=== PATIENT | female | born 1955 | race Caucasian/White ===

== ENCOUNTER 2023-11-03 08:14 | Outpatient (OUT) | payer MEDICARE, SELFPAY ==
[2023-11-03 08:40] LABS: Basophils Absolute Auto 0.1 10^3/uL (0.0-0.1); Basophils Percent Auto 0.8 % (0.2-2.0); Eosinophils Absolute Auto 0.1 10^3/uL (0.0-0.7); Eosinophils Percent Auto 2.2 % (0.9-7.0); Hematocrit 43.4 % (36.0-48.0); Hemoglobin 14.6 g/dL (12.0-16.0); Immature Granulocytes Abs Auto 0.01 10^3/uL (0.00-0.03); Immature Granulocytes Pct Auto 0.2 % (0.0-0.5); Lymphocytes Percent Auto 32.5 % (20.5-60.0); Mean Corpuscular HGB Conc 33.6 g/dL (29.9-35.2); Mean Corpuscular Hemoglobin 28.5 pg (26.7-34.0); Mean Corpuscular Volume 84.6 fL (81.0-99.0); Mean Platelet Volume 9.3 fL (9.5-13.5); Monocytes Absolute Auto 0.8 10^3/uL (0.3-0.8); Neutrophils Absolute Auto 3.3 10^3/uL (1.4-6.5); Neutrophils Percent Auto 52.3 % (43.0-75.0); Platelet Count 290 10^3/uL (150-450); Red Blood Count 5.13 10^6/uL (4.20-5.40); Red Cell Distribution Width 11.4 % (11.0-15.0); White Blood Count 6.2 10^3/uL (4.0-11.0)
[2023-11-03 08:58] LABS: Alanine Aminotransferase 39 U/L (14-59); Albumin Globulin Ratio 0.9; Albumin Level 3.4 g/dL (3.4-5.0); Alkaline Phosphatase 91 U/L (46-116); Anion Gap 13.6; Aspartate Amino Transferase 20 U/L (15-37); BUN Creatinine Ratio 21.2; Bilirubin Total 0.8 mg/dL (0.2-1.0); Calcium 9.2 mg/dL (8.5-10.1); Carbon Dioxide 26.5 mmol/L (21.0-32.0); Chloride 99 mmol/L (98-107); Chol HDL Ratio 3.5; Cholesterol 211 mg/dL (<=200); Estimated GFR (African America >60 (>=60); Estimated GFR (Non-African Ame >60 (>=60); Globulin 3.8 g/dL; Glucose 329 mg/dL (74-106); HDL Cholesterol 61 mg/dL (40-60); Potassium 4.1 mmol/L (3.5-5.1); Sodium 135 mmol/L (136-145); Total Protein 7.2 g/dL (6.4-8.2); Triglycerides 146 mg/dL (<=150); VLDL CHOLESTEROL 29.2 mg/dL
--- NOTE | 2023-11-03 10:43 | MM_ITS ---
Patient Name: LUIS ALFREDO ROMERO MR#: [id number] : 1955 Exam Date: 11/03/2023 Ordering Doctor: Non-Staff Physician RADIOLOGY REPORT PROCEDURE: MM TOMOSYNTHESIS SCREENING BI COMPARISON: MG MAMM ELDA SCRN W CAD DIG, 03/03/2016. MG MAMM SCREEN 3D ELDA CAD, 04/23/2021. INDICATIONS: screening Calculator Name NCI Breast Cancer Risk Assessment Tool 5 Year Breast Cancer Risk 1.90% Lifetime Breast Cancer Risk 6.40% Personal Breast Cancer No Personal Ovarian Cancer No Treatments None Family Cancers Father with lymphoma cancer at age ~70. LOCATION: [facility] BREAST COMPOSITION: There are scattered areas of fibroglandular density. FINDINGS: DIAGNOSTIC CATEGORY 1--NEGATIVE. NO CHANGE FROM COMPARISON ASSESSMENT. Scattered benign-appearing calcifications are present. Scattered benign-appearing lymph nodes are present. RIGHT BREAST: No significant suspicious finding. Asymmetrically small, stable LEFT BREAST: No significant suspicious finding. RECOMMENDATIONS: ROUTINE MAMMOGRAM AND CLINICAL EVALUATION IN 12 MONTHS. PLEASE NOTE: A NORMAL MAMMOGRAM DOES NOT EXCLUDE THE POSSIBILITY OF BREAST CANCER. A CLINICALLY SUSPICIOUS PALPABLE LUMP SHOULD BE BIOPSIED. Dictated by: Benjamín Queen MD on 11/03/2023 at 13:58 Approved by: Benjamín Queen MD on 11/03/2023 at 13:59
== END 2023-11-03 08:15 | disposition home or self-care (01) ==
LOC: MAMMO 08:18
PROVIDERS: PCP Family Medicine
DX: Z12.31 Encounter for screening mammogram for malignant neoplasm of breast (principal); I10 Essential (primary) hypertension; Z76.89 Persons encountering health services in other specified circumstances; Z80.7 Family history of other malignant neoplasms of lymphoid, hematopoietic and related tissues
CPT/HCPCS: 36415; 77063; 77067; 80053; 80061; 85025

== ENCOUNTER 2025-05-08 09:17 | Outpatient (OUT) | payer MEDICARE, SELFPAY ==
--- OUTSIDE RECORDS SUMMARY | 2025-04-25 11:15 | XMS_ITS | Encounter Summary ---
Author Organization [facility] Address [address] [place] [address] Care Team Providers Care Earth Science Technical Officer Name Role Phone Gosia Munroe MD Primary Care Provider [phone] Reason for Visit * ReasonCommentsFollow-up Encounter Details DateTypeDepartmentCare Team (Latest Contact Info)Hfmfoxtthym19/14/2025 11:15 AM EDTOffice Visit [facility] [address] [place] [phone] Tiffanie Sepulveda MD [address] [place] [address] Lichen planopilaris (Primary Dx) Social History Tobacco UseTypesPacks/DayYears UsedDateSmoking Tobacco: NeverSmokeless Tobacco: NeverAlcohol UseStandard Drinks/WeekCommentsDefer0 (1 standard drink = 0.6 oz pure alcohol)CommentsUnknownSex and Gender InformationValueDate Recorded Sex Assigned at BirthNot on fileLegal SdzMduafe04/15/2023 6:56 PM EDTGender IdentityNot on fileSexual OrientationNot on filedocumented as of this encounter Progress Notes * Tiffanie Sepulveda MD - 04/25/2025 11:15 AM EDT Follow-Up: Diagnosis: Lichen planopilaris Location: Scalp Last visit: 1 month ago Status: improved Symptoms: fewer red spots Current treatment: Fluocinonide soultion 0.05% every day, ILK injection at last appt, 3mL of K2.5 All pertinent medical history, medications, and allergies were reviewed. General Exam: alert, oriented to person, place, and time, normal affect, well appearing Unaccompanied A focused exam completed based on patient reported problems, see below: Skin Exam 1. LICHEN PLANOPILARIS Scalp Perifollicular erythema improved, stable Patient was counseled that this condition is chronic and can be controlled, but not cured. Continueusing Fluocinonide solution daily as needed for flares, can decrease to 1-2x weekly now since controlled. Notify office if worsening despite treatment. Follow up at next skin check. Existing Treatments - fluocinonide (Lidex) 0.05 % external solution - APPLY TO SCALP ONCE A DAY Next Visit: as scheduled documented in this encounter Plan of Treatment DateTypeDepartmentCare Team (Latest Contact Info)Yojutpvibke48/10/2026 10:35 AM ESTOffice Visit [facility] [address] [place] [address] Tiffanie Sepulveda MD [address] [place] [address] documented as of this encounter Visit Diagnoses Diagnosis Lichen planopilaris- Primary Lichen planus documented in this encounter Care Teams Team MemberRelationshipSpecialtyStart DateEnd Date Gosia Munroe MD [address] [facility] [place] [address] PCP - GeneralFamily Medicine03/03/23documented as of this encounter
--- OUTSIDE RECORDS SUMMARY | 2025-05-08 09:21 | XMS_ITS | Clinical Summary ---
Author Organization [facility] tem Address [id number] [place] [address] Care Team Providers Care Is Technician Name Role Phone Gosia Munroe MD Primary Care Provider [phone] Allergies No known active allergies Medications No known medications Active Problems No known active problems Family History Medical HistoryRelationNameCommentsHeart diseaseFatherLymphomaFatherRelationName StatusCommentsFatherDeceasedMotherAlive Social History Tobacco UseTypesPacks/DayYears UsedDateSmoking Tobacco: NeverAlcohol UseStandard Drinks/WeekCommentsYes2 (1 standard drink = 0.6 oz pure alcohol)ChildcareAnswer Date WwzrtfgvLuupgulclYuvtwbh44/12/2019EmploymentAnswerDate RecordedEmployment Gcwtudg8212/22/2018Purpose - LifeAnswerDate RecordedPurpose and direction in life Vwyopaq22/11/2021CommentsUnknownSex and Gender InformationValueDate RecordedSex Assigned at BirthNot on fileLegal PxfOwkopw90/07/2017 9:25 AM EDT Gender IdentityNot on fileSexual OrientationNot on file Last Filed Vital Signs Vital SignReadingTime TakenCommentsBlood Cpkemqfh751/8006 11:11 AM EDT Pulse--Temperature--Respiratory Rate--Oxygen Saturation--Inhaled Oxygen Concentration--Csxfnr31.1 kg (192 lb)12/24/2016 11:11 AM MNQBsuxin397.6 cm (5' 6 )12/24/2016 11:11 AM EDTBody Mass Index30.9912/24/2016 11:11 AM EDT Plan of Treatment Health MaintenanceDue DateLast DoneCommentsDepression Sglnfmozu20/11/1969Tobacco Skcgdrfqy05/11/1969Adult BMI Ghrfsltfy18/11/1975DTaP,Tdap and Td Vaccines (1 - Tdap)1975Zoster (Shingles) Vaccine (1 of 2)2006Fall Risk Screening 2021Influenza Enlptus8103/13/2025 Medical Devices Not on file Insurance Care Teams Team MemberRelationshipSpecialtyStart DateEnd Gosia Munroe MD PCP - GeneralFamily Medicine12/17/16
--- OUTSIDE RECORDS SUMMARY | 2025-05-08 09:21 | XMS_ITS | Clinical Summary ---
Author Organization [facility] Address [address] [place] [address] Care Team Providers Care Supervisor [employer] Stock[employer] Name Role Phone Gosia Munroe MD Primary Care Provider [phone] Allergies No known active allergies Medications MedicationSigDispense QuantityRefillsLast FilledStart DateEnd DateStatus bisoprolol (Zebeta) 2.5 MG split tablet 05/13/2019Active bisoprolol-hydroCHLOROthiazide (Ziac) 2.5-6.25 MG tablet 3Active cetirizine (ZyrTEC ALLERGY) 10 MG tablet 1 (one) time each day at the same time.Active Multiple Vitamin (Multivitamin Adult) tablet OrallyActive ASPIRIN 81 PO Aspir-81Active fluocinonide (Lidex) 0.05 % external solution Indications:Lichen planopilarisAPPLY TO SCALP ONCE A DAY 60 mL 1105Active metFORMIN (Glucophage) 500 MG tablet Take 500 mg by mouth in the morning and 500 mg before bedtime.Active Active Problems ProblemNoted DateDiagnosed DateAge-related nuclear cataract of both eyes 03/03/2023 Encounters DateTypeDepartmentCare YtyuVfylhrnexrs90/14/2025 11:15 AM EDTOffice Visit [facility] [address] [place] [address] Tiffanie Sepulveda MD Lichen planopilaris (Primary Dx)04/25/2025amboo flowsheet [facility] [address] [place] [phone] Tiffanie Sepulveda MD 04/25/20251503Dfwlca87/11/2025 8:45 AM EDTOffice Visit [facility] [address] [facility] [address] [place] [address] Tiffanie Sepulveda MD Actinic keratosis (Primary Dx); Lentigines; History of basal cell carcinoma; Lichen ihniyydohctt71/11/2025amboo flowsheet [facility] [address] [facility] [address] [place] [address] Tiffanie Sepulveda MD 03/23/2025Travelfrom Last 3 Months Family History Medical HistoryRelationNameCommentsCataractsBrotherRetinal detachmentBrother CataractsMotherRetinal detachmentMotherMelanomaNeg HxRelationNameStatusComments BrotherMother Social History Tobacco UseTypesPacks/DayYears UsedDateSmoking Tobacco: NeverSmokeless Tobacco: Never Tobacco Cessation:Counseling Given: Not Answered Alcohol UseStandard Drinks/WeekCommentsDefer0 (1 standard drink = 0.6 oz pure alcohol)CommentsUnknownSex and Gender InformationValueDate RecordedSex Assigned at BirthNot on fileLegal KvyLdrqww12/15/2023 6:56 PM EDTGender Identity Not on fileSexual OrientationNot on file Last Filed Vital Signs Vital SignReadingTime TakenCommentsBlood Bmfpyjah594/8903/03/2023 2:56 PM EDTnno latex allergies, no PM/DF, No hikuquCrkik9108/22/2023 2:56 PM EDTTemperature-- Respiratory Rate--Oxygen Saturation--Inhaled Oxygen Concentration--Hswzrc12.7 kg (200 lb)07/15/2017 12:00 PM IIBKzwkjq147.6 cm (5' 6 )08/20/2021 12:00 PM ESTBody Mass Index32.28007/15/2017 12:00 PM EST Plan of Treatment DateTypeDepartmentCare Team (Latest Contact Info)Eodjqlfilpm02/10/2026 10:35 AM ESTOffice Visit [facility] [address] [facility] [address] [place] [address] Tiffanie Sepulveda MD [address] [place] [address] Health MaintenanceDue DateLast DoneCommentsCT Cjqfoapngjog55/11/1957Colonoscopy 1955FIT1955FOBT1955 7102Apeacyohxneil63/11/8567Gusyzlmrc57/11/1997 Pneumococcal Vaccine: 65+ Years (1 of 1 - PCV)2006Influenza Vaccine (#1) , 06/01/2023, 05/26/2022, Additional history exists Colorectal Cancer Jnerjpwja55/27/2028FIT-DNA Insurance Care Teams Team MemberRelationshipSpecialtyStart DateEnd Date Gosia Munroe MD [address] [facility] [place] [address] PCP - GeneralFamily Medicine03/03/23
--- OUTSIDE RECORDS SUMMARY | 2025-05-08 09:21 | XMS_ITS | Encounter Summary ---
Author Organization [facility] Address [address] [address] Care Team Providers Care Cement Mason Name Role Phone Gosia Munroe MD Primary Care Provider [phone] Encounter Details DateTypeDepartmentCare Team (Latest Contact Info)Yoadgprhabe69/14/2025amboo flowsheet [facility] [address] [place] [address] Tiffanie Sepulveda MD [address] [place] [address] Social History Tobacco UseTypesPacks/DayYears UsedDateSmoking Tobacco: NeverSmokeless Tobacco: NeverAlcohol UseStandard Drinks/WeekCommentsDefer0 (1 standard drink = 0.6 oz pure alcohol)CommentsUnknownSex and Gender InformationValueDate Recorded Sex Assigned at BirthNot on fileLegal IjpAxzwuu35/15/2023 6:56 PM EDTGender IdentityNot on fileSexual OrientationNot on filedocumented as of this encounter Plan of Treatment DateTypeDepartmentCare Team (Latest Contact Info)Limdriieznl68/10/2026 10:35 AM ESTOffice Visit [facility] [address] [place] [address] Tiffanie Sepulveda MD [address] [place] [address] documented as of this encounter Visit Diagnoses Not on filedocumented in this encounter Care Teams Team MemberRelationshipSpecialtyStart DateEnd Date Gosia Munroe MD [address] [place] [address] PCP - GeneralFamily Medicine03/03/23documented as of this encounter
--- OUTSIDE RECORDS SUMMARY | 2025-05-08 09:21 | XMS_ITS | Encounter Summary ---
Author Organization [facility] Address [address] [place] [address] Care Team Providers Care Tire Regrooving Machine Operator Name Role Phone Gosia Munroe MD Primary Care Provider [phone] Encounter Details DateTypeDepartmentCare Team (Latest Contact Info)Tcjsuvyamur31/14/2025Travel Social History Tobacco UseTypesPacks/DayYears UsedDateSmoking Tobacco: NeverSmokeless Tobacco: NeverAlcohol UseStandard Drinks/WeekCommentsDefer0 (1 standard drink = 0.6 oz pure alcohol)CommentsUnknownSex and Gender InformationValueDate Recorded Sex Assigned at BirthNot on fileLegal ZnsDxvglv14/15/2023 6:56 PM EDTGender IdentityNot on fileSexual OrientationNot on filedocumented as of this encounter Plan of Treatment DateTypeDepartmentCare Team (Latest Contact Info)Cnllpsumhzu34/10/2026 10:35 AM ESTOffice Visit [facility] [address] [place] [address] Tiffanie Sepulveda MD [address] [place] [address] documented as of this encounter Visit Diagnoses Not on filedocumented in this encounter Care Teams Team MemberRelationshipSpecialtyStart DateEnd Date Gosia Munroe MD [address] [place] [address] PCP - GeneralFamily Medicine03/03/23documented as of this encounter
--- OUTSIDE RECORDS SUMMARY | 2025-05-08 09:27 | XMS_ITS | CCD ---
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 Name Role Phone DR GOSIA MUNROE Primary Care Unavailable LUDWIG, DR GOSIA Lee Consulting Unavailable LUDWIG, DR GOSIA Lee Attending Unavailable LUDWIG, DR GOSIA Lee Admitting Unavailable YVES, DR BEVERLY Hernandez Consulting Unavailable Lilliana Aguiar Unavailable Gosia Munroe MD Primary Care Provider [phone] MAYA, APOLINAR A Primary Care Physician MAYA, APOLINAR A Primary Care Physician [phone] MAYA, APOLINAR A Attending Unavailable MAYA, APOLINAR A Attending Unavailable MAYA, APOLINAR A Admitting Unavailable MAYA, APOLINAR A Attending Unavailable MAYA, APOLINAR A Attending Unavailable MAYA, APOLINAR A Admitting Unavailable MAYA, APOLINAR A Attending Unavailable MAYA, APOLINAR A Attending Unavailable MAYA, APOLINAR A Attending Unavailable MAYA, APOLINAR A Attending Unavailable Keri Kennedy APRN Attending Provider Juanjo Guallpa MD Primary Care Provider Keri Kennedy Attending UnavailKeri Hayward Admitting UnavailJuanjo White Primary Care Unavailable Juanjo Guallpa MD Primary Care Provider Saira Aj APRN Attending Provider MAYA, APOLINAR A Attending Unavailable MAYA, APOLINAR A Admitting Unavailable MAYA, APOLINAR A Attending Unavailable MAYA, APOLINAR A Attending Unavailable MAYA, APOLINAR A Attending Unavailable MAYA, APOLINAR A Admitting Unavailable MAYA, APOLINAR A Attending Unavailable MAYA, APOLINAR A Attending Unavailable APOLINAR TREJO Attending Unavailable APOLINAR TREJO Attending Unavailable APOLINAR TREJO Admitting Unavailable APOLINAR TREJO Attending Unavailable Ludwig VO, Gosia Lee Primary Care Provider TIFFANIE BENSON Attending Unavailable TIFFANIE BENSON Attending Unavailable PETSHARYN, TIFFANIE Dwyer Attending Unavailable PETTIFFANIE COLES A Attending Unavailable Allergies Allergy ClassificationReported Allergen(s)Allergy TypeDate of OnsetReaction(s) Facility (4 sources)No Known Medication Allergies; Translations: [No Known Medication Allergies]Propensity to adverse reactions (disorder)[facility] Repository Medications Current Medications MedicationDrug Class(es)DatesSig (Normalized)Sig (Original)ascorbic acid 60 mg / beta carotene 5000 unt / copper sulfate 40 mg / dl-alpha tocopheryl acetate 30 unt / sodium selenite 0.04 mg / zinc oxide 40 mg oral tablet (11 sources)Vitamin CMultiple Vitamin (Multivitamin Adult) tablet Orally Active aspirin 81 mg delayed release oral tablet (16 sources)Platelet Aggregation Inhibitor, Nonsteroidal Anti-inflammatory Drug Start: 91-28-2437yucq 1 tablet by mouth once dailyAspirin 81 mg tablet,delayed release (DR/EC) Active 81 MG PO Daily May 29, 2024 1:00am Complies with drug therapyASPIRIN 81 PO Aspir-81 ActiveASPIRIN 81 PO Aspir-81 0 Activetake 1 tablet by mouth every twenty-four hoursAspirin Adult Low Dose 81 MG 1 tablet Orally Once a day Activebisoprolol (Zebeta) 2.5 MG split tablet (11 sources)Start: 21-61-2655nwssufuhid (Zebeta) 2.5 MG split tablet 05/13/2019 ActiveStart: 87-69-6809qjiurozynf (Zebeta) 2.5 MG split tabletbisoprolol fumarate 2.5 mg / hydroCHLOROthiazide 6.25 mg oral tablet (19 sources)Thiazide Diuretic, beta-Adrenergic BlockerStart: 25-15-4935gpmj 1 tablet by mouth once dailybisoprolol-hydrochlorothiazide 2.5 mg-6.25 mg Tab 1 tab(s), Oral, Daily, 90 tab(s), Refill(s) 4, [facility]/pharmacy #[id number], 162, cm, 12/03/24 16:39:00 EST, Height/Length Dosing, 82.1, kg, 04/05/24 7:59:00 EDT, Weight Dosing Start Date: 08/03/24 Status: Ordered Quantity: 90.0 Unit: tab(s) Repeat number: 5 Indication: Essential (primary) hypertensionStart: 05-29-2024 take 1 tablet by mouth once dailyBisoprolol-Hydrochlorothiazide 2.5-6.25 mg tablet Active 1 TAB PO Daily May 29, 2024 12:00amStart: 41-58-7501tpao 1 tablet by mouth once dailybisoprolol-hydrochlorothiazide 2.5 mg-6.25 mg Tab 1 tab(s), Oral, Daily, 90 tab(s), Refill(s) 1, [facility]/pharmacy #[id number], 161.3, cm, 10/06/23 15:21:00 EDT, Height/Length Dosing, 89.2, kg, 10/06/23 15:21:00 EDT, Weight Dosing Start Date: 10/07/23 Status: OrderedStart: 69-74-8505llnsboqbau- hydroCHLOROthiazide (Ziac) 2.5-6.25 MG tablet 02/19/2023 Activecefuroxime 500 mg oral tablet (6 sources)Cephalosporin AntibacterialStart: 07-16-2022 End: 82-48-7543ygbj 1 tablet by mouth in the morningcefuroxime (Ceftin) 500 MG tablet Take 500 mg by mouth in the morning and 500 mg before bedtime. 07/16/2022 10/07/2024 Discontinued (Therapy completed)cetirizine hydrochloride 10 mg chewable tablet (16 sources)Histamine-1 Receptor AntagonistStart: 00-68-1679ibxp 1 tablet by mouth twice dailyCetirizine 10 mg tablet,chewable Active 10 MG PO Twice daily May 29, 2024 1:00am FreeTextSi tablet Orally Once a day; Note: Source Status: Taking; Provider: Stefania Tijerina ( ) Complies with drug therapycetirizine (ZyrTEC ALLERGY) 10 MG tablet 1 (one) time each day at the same time. Activefluocinonide 0.5 mg/ml topical solution (18 sources)CorticosteroidStart: 41-03-7090curjp 1 [IU] topically three times dailyfluocinonide topical 0.05% solution 1 marcus, Topical, TID, 60 mL, Refill(s) 0 Start Date: 10/06/23 Status: Ordered Quantity: 60.0 Unit: mL Repeat number: 1 Start: 08-14-2022 End: 20-08-9055limgycuxbdns (Lidex) 0.05 % external solution Indications: Lichen planopilaris APPLY TO SCALP ONCE A DAY 60 mL 11 08/22/2024 Activefluorouracil 50 mg/ml topical cream (6 sources)Nucleoside Metabolic InhibitorStart: 08-21-2022 End: 29-60-6257pnxoxpsmxtna (Efudex) 5 % cream every 12 (twelve) hours. 08/21/2022 10/07/2024 Discontinued (Therapy completed)fluticasone propionate 0.05 mg/actuat metered dose nasal spray (2 sources)CorticosteroidStart: 70-22-9666neoa 2 spray(s) nasal route once daily Fluticasone Propionate 50 MCG/ACT 2 sprays Nasally Once a day for 14 day(s) Jul, ActiveStart: 48-26-2108jkcegzpnifr Nasal 0.05 mg/inh Verdi Refill(s) 0, Nasal, 0 Refill(s) Start Date: 07/16/23 Status: Ordered Repeat number: 1metFORMIN hydrochloride 500 mg oral tablet (11 sources)BiguanideStart: 14-19-3893mddy 1 tablet by mouth twice daily metformin 500 mg Tab 500 mg = 1 tab(s), Oral, BID, # 180 tab(s), Refills(s) 1, Pharmacy: [facility]/pharmacy #[id number], 162, cm, 06/14/24 16:39:00 EST, Height/Length Dosing, 82.1, kg, 04/05/24 7:59:00 EDT, Weight Dosing Start Date: 06/20/24 Status: Ordered Quantity: 180.0 Unit: tab(s) Repeat number: 2 Indication: Type 2 diabetes mellitus without complicationspredniSONE 20 mg oral tablet (1 source)Start: 30-94-0384wdnn 1 tablet by mouth every twelve hourspredniSONE 20 MG 1 tablet Orally bid for 5 day(s) Jul, Active Completed/Discontinued Medications MedicationDrug Class(es)DatesSig (Normalized)Sig (Original)amoxicillin 875 mg / clavulanate 125 mg oral tablet (10 sources)Penicillin-class AntibacterialStart: 05-29-2024 End: 42-82-1798ivvg 1 tablet by mouth twice dailyAmoxicillin-Pot Clavulanate 875-125 mg tablet Discontinued 1 TAB PO Twice daily 01 05May 29, 2024 1:00am February 26, 2025 9:04amStart: 84-73-2202sicy 1 tablet by mouth every twelve hoursAmoxicillin-Pot Clavulanate 875-125 MG 1 tablet Orally every 12 hrs for 10 day(s) Jul, ActiveStart: 08-15-2022 End: 13-85-5816uabe 1 tablet by mouth in the morningamoxicillin-clavulanate (Augmentin) 875-125 MG tablet Take 1 tablet by mouth in the morning and 1 tablet before bedtime. 08/15/2022 10/07/2024 Discontinued (Therapy completed) fluconazole 150 mg oral tablet (4 sources)Azole AntifungalStart: 33-97-6496oinj 1 tablet by mouth once fluconazole 150 mg Tab 150 mg = 1 tab(s), Oral, Once, Take one tablet at the onset of symptoms; mayrepeat in 72 hours, # 2 tab(s), Refills(s) 0, Pharmacy: [facility]/pharmacy #[id number], 162, cm, 04/05/24 7:59:00 EDT, Height/Length Dosing, 82.1, kg, 04/05/24 7:59:00 EDT, Weight Dosing Start Date: 06/14/24 Status: Ordered Quantity: 2.0 Unit: tab(s) Repeat number: 1Start: 86-36-9225Gtceklcvwqa 150 mg tablet Active 150 MG PO Q3D May 29, 2024 1:00am Take one tablet and if symptoms persist 3 days later, take second tablet Complies with drug therapy Glucometer (2 sources)Start: 39-65-5171Nxpvawclnr Glucometer, See Instructions, 1 EA, 0, Glucometer to test blood sugar TID PRN E11.9, [facility]/pharmacy #[id number], Supply, 161.3, cm, 11/19/23 7:58:00 EDT, Height/Length Dosing, 88.6, kg, 11/19/23 7:58:00 EDT, Weight Dosing Start Date: 11/19/23 Status: Ordered Quantity: 1.0 Unit: EA Repeat number: 1Indication: Type 2 diabetes mellitus without complicationsStart: 45-40-6684Viqxcbaslw Glucometer, See Instructions, 1 EA, 0, Glucometer to test blood sugar TID PRN E11.9, [facility]/pharmacy #[id number], Supply, 161.3, cm, 11/19/23 7:58:00 EDT, Height/Length Dosing, 88.6, kg, 11/19/23 7:58:00 EDT, Weight Dosing Start Date: 11/19/23 Status: Orderedtriamcinolone acetonide 10 mg/ml injectable suspension (4 sources)CorticosteroidStart: 03-23-2025 End: 03-06-1670mkkhdnisdvcew acetonide (Kenalog) injection 2.5 mgStart: 03-23-2025 End: 52.5 mg, Intra-lesional, Once, On Angelic 03/23/25 at 0900, For 1 dose Problems Problem ClassificationProblemDateDocumented DateEpisodic/ChronicCataract (11 sources)Bilateral age-related nuclear cataracts; Translations: [Age-related nuclear cataract, bilateral]Onset: 189934-26-3155JrwatojAeblwguz mellitus without complication (2 sources)Type 2 diabetes gvuwjodk02-08-0236AnasenqJltkspvkh hypertension (3 sources)Hypertensive disorder; Translations: [Essential (primary) hypertension]69-96-0535WtlfcljBltzxwggm of unspecified nature or uncertain behavior (2 sources)Neoplastic disease; Translations: [Neoplasm of unspecified behavior of bone, soft tissue, and skin]45-23-3704PtlpgdvkFkxwb inflammatory condition of skin (7 sources)Lichen planopilaris; 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]08-20-2023 EpisodicOther lower respiratory disease (1 source)Wheezing; Translations: [Wheezing]Onset: 31-92-0157QkqvufzbXojph non- epithelial cancer of skin (7 sources)History of malignant basal cell neoplasm of skin; Translations: [Personal history of other malignant neoplasm of skin]65-91-7236IeaddfwiCfonx nutritional; endocrine; and metabolic disorders (4 sources)Body mass index 30+ - cbfoans19-53-7663KgmdqhbEaful screening for suspected conditions (not mental disorders or infectious disease) (4 sources)Encounter for screening mammogram for malignant neoplasm of breast; Translations: [ENC SCR MAMMO MALIG NEOPLASM BREAST]Onset: 86-32-3118Vrxxsaby Other skin disorders (4 sources)Seborrheic keratosis; Translations: [Other seborrheic keratosis] 59-84-0021CbmpvtfsZsrzz skin disorders (6 sources)Lentiginosis; Translations: [Other melanin hyperpigmentation] 94-75-1837UjrhlewhSpgfl skin disorders (6 sources)Actinic keratosis; Translations: [Actinic keratosis]08-20-2023 EpisodicOther upper respiratory disease (3 sources)Seasonal allergic rhinitis; Translations: [Other seasonal allergic rhinitis]64-75-0906KrydxncRwkmf upper respiratory infections (3 sources)Acute sinusitis, unspecified; Translations: [Acute upper respiratory infection, unspecified]EpisodicResidual codes; unclassified (1 source)Family history of other malignant neoplasms of lymphoid, hematopoietic and related tissues; Translations: [FAM HX OTH MAL REX LYMPH HEMATPOETC]Onset: 12-39-3630AaznmpehUcgpayka codes; unclassified (1 source)History of repair of retina for retinal detachment; Translations: [Other specified postprocedural states]78-77-8785Hrhibdki Results Test NameValueInterpretationReference RangeFacility.Interpretation:on 04-08-2025 Interpretation:CommentInvalid Interpretation [facility] Comment on above:Result Comment: Not infected with HCV unless early or acute infection is suspected (which may be delayed in an immunocompromised individual), or other evidence exists to indicate HCV infection. Performed at: [facility] [id number] PhD Guanako AlvarezPerformed By: #### [id number] #### [facility] [address] [place] [id number] Antibody RFX to Quant PCRon 61-80-9539LYP AbNon-Reactive Invalid Interpretation CodeNon ReactiveNovant Health Rehabilitation Hospitaler [facility]uma CenterComment on above:Result Comment: Performed at: [facility] [id number] PhD Guanako Alvarezformed By: #### [id number] #### [facility] [address] [place], [place] [address]Ghutwscmdf Visit Summaryon 53-59-5440Lkjljbvynu Visit Summary Ambulatory Visit Summary LYNSEY ROMERO :1955 Visit Date:04/06/2025 Ambulatory Visit Instructions Your Diagnosis Type II diabetes mellitus BMI 30.0-30.9,adult Nonsmoker Obesity (BMI 30-39.9) HTN (hypertension) Your Care Team Attending Physician - APOLINAR TREJO CNP Primary Care Physician - APOLINAR TREJO CNP This Is Your Medications List bisoprolol-hydrochlorothiazide (bisoprolol-hydrochlorothiazide 2.5 mg-6.25 mg Tab) metformin (metformin 500 mg Tab) Contact prescribing physician if questions or concerns Misc Prescription (Glucometer) Misc Prescription (Lancets) Misc Prescription (Test strips) aspirin (aspirin 81 mg Oral EC Tab) cetirizine (cetirizine 10 mg oral tablet, chewable) fluconazole (fluconazole 150 mg Tab) fluocinonide topical (fluocinonide topical 0.05% solution) fluticasone nasal (fluticasone Nasal 0.05 mg/inh Verdi) Procedures Performed Appendectomy, Bilateral cataracts, Bunion of left great toe, Detached right retina, H/O: hysterectomy, History of hernia repair. What to do next Scheduled Follow-Up Appointments 2025 8:40 AM EDT With: APOLINAR TREJO CNP Where: [address] [phone]- [id number] 8:00 AM EDT With: Where: [address] [address]- You Need to Schedule the Following Appointments Follow Up with APOLINAR TREJO CNP, FAM When: Within 6 months Comments: Diabetes Where: [address] [place] [phone] Business (1) Medications What How Much When Why Instructions Unchanged bisoprolol-hydrochlorothiazide (bisoprolol-hydrochlorothiazide 2.5 mg- 6.25 mg Tab) 1 Tablets By Mouth Every day HTN (hypertension) Pickup at [facility]/pharmacy #[id number] Unchanged metformin (metformin 500 mg Tab) 1 Tablets By Mouth 2 times a day Type II diabetes mellitus covering for S Maya Pickup at [facility]/pharmacy #[id number] Unchanged aspirin (aspirin 81 mg Oral EC Tab) 81 Unknown, Oral, 0 Refill(s) Contact prescribing physician if questions or concerns Unchanged cetirizine (cetirizine 10 mg oral tablet, chewable) 1 Unknown, Oral, 0 Refill(s) Contact prescribing physician if questions or concerns Unchanged fluconazole (fluconazole 150 mg Tab) 1 Tablets By Mouth Once Take one tablet at the onsetof symptoms; may repeat in 72 hours Contact prescribing physician if questions or concerns Unchanged fluocinonide topical (fluocinonide topical 0.05% solution) 1 Application Topical 3 times a day Contact prescribing physician if questions or concerns Unchanged fluticasone nasal (fluticasone Nasal 0.05 mg/ inh Verdi) Nasal, 0 Refill(s) Contact prescribing physician if questions or concerns Unchanged Misc Prescription (Glucometer) See instructions Type II diabetes mellitus Glucometer to test blood sugar TID PRN E11.9 Contact prescribing physician if questions or concerns Unchanged Misc Prescription (Lancets) See instructions Type II diabetes mellitus Test blood sugar TID PRN E11.9 Contact prescribing physician if questions or concerns Unchanged Misc Prescription (Test strips) See instructions Type II diabetes mellitus Test blood sugar TID E11.9 Contact prescribing physician if questions or concerns Pharmacy Information [facility]/pharmacy #[id number]: [address], [place] [id number] [phone] Allergies No Known Medication Allergies Problems Ongoing - Any problem that you are currently receiving treatment for. BMI 30.0-30.9,adult Nonsmoker Obesity (BMI 30-39.9) Type II diabetes mellitus Patient Survey You may receive a survey via text or e-mail asking about your office visit. Please share your experience with us by completing your survey. We appreciate your feedback and thank you for choosing us for your care. Education Materials Diabetes Mellitus and Nutrition, Adult When you have diabetes, or diabetes mellitus, it is very important to have healthy eating habits because your blood sugar (glucose) levels are greatly affected by what you eat and drink. Eating healthy foods in the right amounts, at about the same times every day, can help you: ??? Manage your blood glucose. ??? Lower your risk of heart disease. ??? Improve your blood pressure. ??? Reach or maintain a healthy weight. What can affect my meal plan? Every person with diabetes is different, and each person has different needs for a meal plan. Your health care provider may recommend that you work with a dietitian to make a meal plan that is best for you. Your meal plan may vary depending on factors such as: ??? The calories you need. ??? The medicines you take. ??? Your weight. ??? Your blood glucose, blood pressure, and cholesterol levels. ??? Your activity level. ??? Other health conditions you have, such as heart or kidney d (more content not included)...[facility] SummaryAmb[facility] Visit Summary LYNSEY ROMERO :1955 Visit Date:04/06/2025 Ambulatory Visit Instructions Your Diagnosis Encounter for initial annual wellness visit (AWV) in Medicare patient Type II diabetes mellitus Screening for metabolic disorder Encounter for hepatitis C screening test for low risk patient Breast cancer screening by mammogram Ovarian failure due to menopause Overweight Tests Performed BD Bone Density DEXA -- Results Pending -- MA Mamm Screen w/CAD if perf and 3D Tommy -- Results Pending -- Please visit your patient portal for your results or contact your primary care physician. Your Care Team Attending Physician - APOLINAR TREJO CNP Primary Care Physician - APOLINAR TREJO CNP This Is Your Medications List Misc Prescription (Glucometer) Misc Prescription (Lancets) Misc Prescription (Test strips) aspirin (aspirin 81 mg Oral EC Tab) bisoprolol-hydrochlorothiazide (bisoprolol-hydrochlorothiazide 2.5 mg-6.25 mg Tab) cetirizine (cetirizine 10 mg oral tablet, chewable) fluconazole (fluconazole 150 mg Tab) fluocinonide topical (fluocinonide topical 0.05% solution) fluticasone nasal (fluticasone Nasal 0.05 mg/inh Verdi) metformin (metformin 500 mg Tab) Procedures Performed Appendectomy, Bilateral cataracts, Bunion of left great toe, Detached right retina, H/O: hysterectomy, History of hernia repair. Discharge Vitals Heart Rate (Peripheral) 68 Respiratory Rate 18 Blood Pressure 124/60 Height 162.0 cm Height 64 in Weight 80.1 kg Weight 176.59 lb BMI 30.52 What to do next Scheduled Follow-Up Appointments Thursday2025 8:00 AM EDT Where: [place] [phone]- You Need to Complete the Following Comprehensive Metabolic Panel, Blood, Routine collect, 04/06/25, Order for future visit, Lab Collect, Screening for metabolic disorder Type II diabetes mellitus, Not Required, Print Label By Order Location HCV Antibody RFX to Quant PCR, Blood, Routine collect, 04/06/25, Order for future visit, Lab Collect, Encounter for hepatitis C screening test for low risk patient, Not Required, Print Label By OrderLocation HgbA1c, Blood, Routine collect, 04/06/25, Order for future visit, Lab Collect, Type II diabetes mellitus, Required & Missing, Print Label By Order Location Lipid Panel, Blood, Routine collect, 04/06/25, Order for future visit, Lab Collect, Type II diabetes mellitus, Required & Missing, Print Label By Order Location Urine Microalbumin/Creatinine Ratio, Urine, Routine collect, 04/06/25, Order for future visit, Nurse collect, Type II diabetes mellitus, Not Required, Print Label By Order Location Medications What How Much When Why Instructions Unchanged aspirin (aspirin 81 mg Oral EC Tab) 81 Unknown, Oral, 0 Refill(s) Unchanged bisoprolol-hydrochlorothiazide (bisoprolol-hydrochlorothiazide 2.5 mg- 6.25 mg Tab) 1 Tablets By Mouth Every day HTN (hypertension) Unchanged cetirizine (cetirizine 10 mg oral tablet, chewable) 1 Unknown, Oral, 0 Refill(s) Unchanged fluconazole (fluconazole 150 mg Tab) 1 Tablets By Mouth Once Take one tablet at the onsetof symptoms; may repeat in 72 hours Unchanged fluocinonide topical (fluocinonide topical 0.05% solution) 1 Application Topical 3 times a day Unchanged fluticasone nasal (fluticasone Nasal 0.05 mg/ inh Verdi) Nasal, 0 Refill(s) Unchanged metformin (metformin 500 mg Tab) 1 Tablets By Mouth 2 times a day Type II diabetes mellitus covering for April Trejo Unchanged Misc Prescription (Glucometer) See instructions Type II diabetes mellitus Glucometer to test blood sugar TID PRN E11.9 Unchanged Misc Prescription (Lancets) See instructions Type II diabetes mellitus Test blood sugar TID PRN E11.9 Unchanged Misc Prescription (Test strips) See instructions Type II diabetes mellitus Test blood sugar TID E11.9 Allergies No Known Medication Allergies Problems Ongoing - Any problem that you are currently receiving treatment for. BMI 30.0-30.9,adult Nonsmoker Obesity (BMI 30-39.9) Type II diabetes mellitus Patient Survey You may receive a survey via text or e-mail asking about your office visit. Please share your experience with us by completing your survey. We appreciate your feedback and thank you for choosing us for your care. Education Materials Preventive Care 65 Years and Older, Female Preventive care refers to lifestyle choices and visits with your health care provider that can promote health and wellness. Preventive care visits are also called wellness exams. What can I expect for my preventive care visit? Counseling Your health care provider may ask you questions about your: ??? Medical history, including: ? Past medical problems. ? Family medical history. ? and menstrual history. ? History of falls. ??? Current health, including: ? (more content not included)...NormalRegency Hospital ToledoCMPon 04-06-2025 Albumin [Mass/Vol]4.4 g/dLNormal3.3-5.0[facility] ToledoComment on above:Performed By: #### [id number] #### [facility] [address] [place] [place], [place] [address]Tvphxbi/Globulin [Mass ratio]1.5 {ratio}Normal1.1-2.2FUniversity Hospitals Geauga Medical CenterComment on above:Performed By: #### [id number] #### [facility] [address] [place] [place], [place] [address]Aza Phos39 Int._Unit/BUzexdb33-27MkqohqRegency Hospital Toledo Comment on above:Performed By: #### [id number] #### [facility] [address] [place], [place] [address]NKQ14 Int._Unit/LNormal6-46[facility] ToledoComment on above:Performed By: #### [id number] #### [facility] [address] [place] [place], [place] [address]Onwry gap [Moles/Vol]8 mmol/LNormal6-16[facility] Hospital ToledoComment on above:Performed By: #### [id number] #### [facility] [address] [place], [place] [address]CDZ75 Int._Unit/LNormal5-43[facility] Hospital ToledoComment on above:Performed By: #### [id number] #### [facility] [address] [place] [place], [place] [address]Wsnh Total0.6 mg/dLNormal0.0-1.1FUniversity Hospitals Geauga Medical Center Comment on above:Performed By: #### [id number] #### [facility] [address] [place], [place] [address]PAX/Creat Ratio23 No XjvkrVyej03-04WklsocRegency Hospital Toledo Comment on above:Performed By: #### [id number] #### [facility] [address] [place], [place] [address]Khqrktl [Mass/Vol]10.0 mg/dLNormal8.9-11.1FUniversity Hospitals Geauga Medical CenterComment on above:Performed By: #### [id number] #### [facility] [address] [place] [place], [place] [address]Hxkweflf [Moles/Vol]102 mmol/EOtwptl160-550IbkfudRegency Hospital ToledoComment on above:Performed By: #### [id number] #### [facility] [address] [place] [place], [place] [address]XS9 [Moles/Vol]31 mmol/DDrroib73-84JazgukRegency Hospital Toledo Comment on above:Performed By: #### [id number] #### [facility] [address] [place] [place], [place] [address]Jwofisqfza [Mass/Vol]1.0 mg/dLNormal0.5-1.3FUniversity Hospitals Geauga Medical CenterComment on above:Performed By: #### [id number] #### [facility] [address] [place], [place] [address]Scvdpqat (S) [Mass/Vol]3.0 g/dLNormal1.4-4.0[facility] ToledoComment on above:Performed By: #### [id number] #### [facility] [address] [place], [place] [address]Oafnfdd [Mass/Vol]109 mg/vYHiexif34-752UivnnmRegency Hospital ToledoComment on above:Performed By: #### [id number] #### [facility] [address] [place], [place] [address]Zskrcwkix [Moles/Vol]4.4 mmol/LNormal3.5-5.3FUniversity Hospitals Geauga Medical CenterComment on above:Performed By: #### [id number] #### [facility] [address] [place], [place] [address]Fkglusu [Mass/Vol]7.4 g/dLNormal6.0-7.8[facility] ToledoComment on above:Performed By: #### [id number] #### [facility] [address] [place], [place] [address]Zkzjow [Moles/Vol]137 mmol/WZplnnp028-320QlrmlwRegency Hospital ToledoComment on above:Performed By: #### [id number] #### [facility] [address] [place], [place] [address]Bzba nitrogen [Mass/Vol]23 mg/dLHigh5-21[facility] ToledoComment on above:Performed By: #### [id number] #### [facility] [address] [place], [place] [address]Rtgazo Medicine Office/Clinic Noteon [id number] Medicine Office/Clinic NoteFamily Medicine Office/Clinic Note Chief Complaint Initial Medicare Wellness Review of Systems PHQ Score Initial Depression Screen Score: 0 SCORE Physical Exam Vitals & Measurements HR: 68(Peripheral) RR: 18 BP: 124/60 SpO2: 98% HT: 162.0 cm HT: 64 in WT: 80.1 kg WT: 176.59 lb BMI: 30.52 Procedure I was in the office and available for consultation and to provide direct supervision at the time ofthis visit. I have provided supervision of the care team and have reviewed this chart and office note and agree with the plan of care. Assessment/Plan 1. Encounter for initial annual wellness visit (AWV) in Medicare patient (Z00.00: Encounter for general adult medical examination without abnormal findings) The patient was given a customized and personalized print out of all the current AHRQ USPSTF???s recommendations for preventative services and all current CDC recommended immunizations, relevant riskrecommendations and the following patient brochures were given. Reviewed Medicare Prevention Services checklist. CDC-Falls Prevention and home safety screening reviewed. Patient denies any falls in last 12 months, voices no worry about falling. Exhibits no problems with sitting, standing or ambulation. Patient aware with keeping walk way area free of clutter to prevent tripping and/or falling. [place] Advance Directives reviewed. Documents remain at home, encouraged to bring in for scanning into chart. Patient denies any problems with ADL???s and Instrumental ADL???s. Cognitive screening completed with memory and clock face drawing. No deficits noted. Recited 3/3 memory words. Immunization record reviewed, discussed Shingrix vaccine with educational handout and availability.2 COVID vaccines have been administered, with (2) Boosters received. Allergies and medications reviewed and up to date. No concerns with taking medication as prescribed. Reviewed OTC medications, medication list up to date. Blood tests were reviewed: Discussed what tests need to be updated. Labs were ordered, will have completed prior to next PCP visit. Labs to be completed with [facility]. No concerns with bowel/ bladder. Patient has never had a Colonoscopy. Patient reports that she had received a Cologuard test in the mail this week. Reviewed pain symptoms: rates pain as a 0 out of 10. Reviewed all outside providers that patient follows. Last visit summary notes available in chart and/or have been requested. Follow up scheduled with PCP, today after AWV. AWV has been scheduled, 04/09/2026 Medicare provides yearly screening for alcohol and depression concerns. This is completed during our Medicare Wellness Visit for those who do not have a current diagnosis of depression or concerns with alcohol use. I spent a total of 12 minutes on this date of service which included preparing to see the patient, face to face patient care, completing clinical documentation, obtaining and/or reviewing separately obtained history, counseling, and educating the patient with handouts. Explanations were provided with reviewing questionnaires. AUDIT risk assessment screening completed, risk score (2) with patient denying concerns with use. Completed PHQ-2 risk assessment for depression with risk sc ore (0), negative findings. Patient has been reminded to notify the provider if there would be a change or concerns with symptoms with fear, unable to sleep, worrying too much, or feeling down and/orsad with lost of interest with daily activities. Will continue to monitor with screening yearly during Medicare Wellness Visits. 2. Type II diabetes mellitus (E11.9: Type 2 diabetes mellitus without complications) Patient is compliant on current DM medications: Metformin. Patient does monitors BS at home: DM stoplight handout reviewed with s/s to monitor for and report to PCP. Discussed ADA dietary recommendations with low carbs and reduce sugar intake. Patient encouraged to increase daily physical activity,adequate water intake and maintain a healthy weight. Pt follows up with PCP with yearly DM foot checks, last completed 10/04/2024. Reminded patient to perform at home foot checks to prevent future complications, wash with soap and water, apply lotion to bilateral feet and in-between toes to preventdryness and/or cracking. Wear proper fitting shoes and loose fitting socks and/or hose. Follows up with yearly DM eye exams, last visit notes from 05/09/2024 with [facility] has been requested. A1C, LIPID, and Urine Microalbumin and Creatinine ordered. 3. Screening for metabolic disorder (Z13.228: Encounter for screening for other metabolic disorders) CMP ordered. 4. Encounter for hepatitis C screening test for low risk patient (Z11.59: Encounter for screening for other viral diseases) Discussed with patient the risk of Hepatitis C for people born between 1945- 1965. Handout CDC-Hepatitis C given. HEP C screening has been ordered and patient is to have labs drawn for Hepatitis C screening based on year of . Tavno Singhmore content not included)...[facility] HospitalComment on above:Result Comment: Electronically Signed By: APOLINAR TREJO CNP\.br\Date and Time Signed: 04/06/25 09:36 EDT\.br\Electronically Co-Signed By: Blanca Lee\.br\Date and Time Co-Signed: 04/06/25 08:56EDTFamily Medicine Office/Clinic NoteFamily Medicine Office/Clinic Note Chief Complaint The patient presents for management of diabetes and obesity, and to discuss preventative care vaccinations. HPI Staff Pt presents today for 6m diabetic follow up Patient is here for follow up on Diabetes. How often are you checking your blood sugars? _most daily What are your average readings? _125 Paresthesias, Ulcerations or sores? no Lisinopril, aspirin, statin therapy? Yes Foot Exam: 10/04/24 Eye Exam: >yr. Last A1c: Hgb A1C %: 5.8 % (10/04/24 08:01:00) History of Present Illness 69-year-old female presenting with management of Type II diabetes mellitus and obesity. She reportsperiodic blood glucose monitoring, with levels not exceeding 135 mg/dL, and acknowledges dietary challenges impacting her glycemic control. The patient has lost 2 pounds since her last visit, indicating some progress in weight management. The patient experienced a dermatological issue identified as contact dermatitis, attributed to exposure to hydrangea plants, which was treated with a steroid. Additionally, she experienced a condition referred to as Ramana Feet, characterized by erythema and rash due to prolonged heat exposure and walking on hot surfaces, which resolved with conservative measures. Preventative care measures discussed include influenza and COVID-19 vaccinations, with the patient expressing interest in receiving the influenza vaccine at the clinic. She also intends to receive the shingles vaccine, although previous attempts were unsuccessful due to availability issues. Review of Systems - Endocrine: Reports periodic blood glucose monitoring with levels not exceeding 135 mg/dL. - Dermatological: Reports contact dermatitis due to hydrangea exposure, treated with a steroid. - Musculoskeletal: Reports erythema and rash on feet due to heat exposure, resolved with conservative measures. Physical Exam General: alert, no acute distress ENMT: TM's clear, oral mucosa moist, no pharyngeal erythema or exudate Cardiovascular: regular rate and rhythm, normal peripheral perfusion Respiratory: Lungs CTA, respirations non labored Extremities: no deformity, no trauma Neurological: oriented x 4, LOC appropriate for [facility] normal Assessment/Plan 1. Type II diabetes mellitus (E11.9: Type 2 diabetes mellitus without complications) - Continue periodic blood glucose monitoring. - Encourage dietary modifications to improve glycemic control. - Awaiting laboratory results - Encourage low carb diet - F/U in 6 months Ordered: metformin, 500 mg = 1 tab(s), Oral, BID, covering for April Trejo, # 180 tab(s), Refills(s) 1, Pharmacy: [id number], 162, cm, 04/06/25 8:12:00 EDT, Height/Length Dosing, 80.1, kg, 04/06/25 8:12:00 EDT, Weight Dosing ADM OF SOC DTR G0136 Comprehensive Metabolic Panel HgbA1c Lab Specimen Collect 34650 Lipid Panel Urine Microalbumin/Creatinine Ratio 2. BMI 30.0-30.9,adult (Z68.30: Body mass index [BMI] 30.0-30.9, adult) BMI 30.52 3. Nonsmoker (Z78.9: Other specified health status) - Encouraged to continue as a non smoker 4. Obesity (BMI 30-39.9) (E66.9: Obesity, unspecified) - Monitor weight loss progress, noting a 2-pound reduction since last visit. HTN (hypertension) (I10: Essential (primary) hypertension) Stable Controlled Awaiting laboratory results f/u in 6 months Ordered: bisoprolol-hydrochlorothiazide, 1 tab(s), Oral, Daily, 90 tab(s), Refill(s) 1, [id number], 162, cm, 04/06/25 8:12:00 EDT, Height/Length Dosing, 80.1, kg, 04/06/25 8:12:00 EDT, Weight Dosing Orders: 1126F Pain severity quantified; no pain present Advance Care Planning discussed and documented 1123F BD Bone Density DEXA Body Mass Index (BMI) documented 3008F Current tobacco non-user 1036F Depression Screening Negative 3352F Diabetic Foot Exam 2028F Functional status assessed 1170F HBA1C <7.0 Most Recent Level 3044F HCV Antibody RFX to Quant PCR Influenza immunization status assessed 1030F MA Mamm Screen w/CAD if perf and 3D Tommy Medicare Initial Visit G0438 Medication list documented in medical record 1159F Most recent diastolic blood pressure <80 mm Hg 3078F Most recent LDL-C 100-129 mg/dL 3049F Patient screen for fall risk: no falls in last year or 1 fall with no injury in last year 1101F Pneumococcus immunization status assessed 1022F Review of all meds by a prescribing practitioner or clinical pharmacist documented in EHR 1160F Systolic BP <130 mm Hg (Most Recent) 3074F Follow-up With When Contact Information APOLINAR TREJO CNP, FAM Within 6 months [address] [place] [address] Business (1) Additional Instructions: Diabetes Patient Education Diabetes Mellitus and Nutrition, Adult Problem List/Past Medical History Ongoing BMI 30.0-30.9,adult Nonsmoker Obesity (BMI 30-39.9) Type II diabetes mellitus Historical No qualifying data Procedure/Surgical History Appen (more content not included)...NormalRegency Hospital ToledoComment on above:Result Comment: Electronically Signed By: APOLINAR TREJO CNP\.br\Date and Time Signed: 04/06/25 09:21 XJQUkvX1ear 73-29-2730SkU7b (Bld) [Mass fraction]6.0 %High<=5.9[facility] ToledoComment on above:Performed By: #### [id number] #### [facility] [address] [place], [place] [address]Tqxzw Panelon 09-52-2255Irgxtxrfdgm [Mass/Vol]205 mg/dLHigh 120-200[facility] Hospital ToledoComment on above:Performed By: #### [id number] #### [facility] [address] [place], [place] [address]Levoaciihql in HDL [Mass/Vol]69 mg/dLInvalid Interpretation CodeRegency Hospital ToledoComment on above:Result Comment: '>= 60 LOW RISK' '<= 40 HIGH RISK'Performed By: #### [id number] #### [facility] [address] [place], [place] [address]Pdfktkuipoz in LDL [Mass/Vol]128 mg/dLNormal<=129[facility] ToledoComment on above:Performed By: #### [id number] #### [facility] [address] [place], [place] [address]Lcrwxxckiwo in VLDL [Mass/Vol]20 mg/dLNormal7-40[facility] Hospital ToledoComment on above:Performed By: #### [id number] #### [facility] [address] [place], [place] [address]Dhjquevedukd [Mass/Vol]102 mg/dLNormal<=149Reg[facility] Hospital ToledoComment on above:Performed By: #### [id number] #### [facility] [address] [place], [place] [address]W MA/Cr Ratioon 60-82-9382Abgfosih/Cr RatioNOT CALCULATED Invalid Interpretation Code.0-30.0[facility] Hospital ToledoComment on above: Result Comment: 30-300 mg/g Cr indicates an increased risk for diabetic nephropathy. >300 mg/g Cr is consistent with clinical nephropathy.Performed By: #### [id number] #### [facility] [address] [place], [place] [address]V Zkhksoumkj54.8 mg/dLInvalid Interpretation CodeRegency Hospital ToledoComment on above:Performed By: #### [id number] #### [facility] [address] [place], [place] [address]U Microalb<0.7Vcxdax7.0-1.9[facility] ToledoComment on above:Performed By: #### [id number] #### [facility] [address] [place], [place] [address]mOGEmy 49-62-0040hGMM48 mL/min/1.73 l2Uogzdb>=59Reg[facility] Hospital ToledoComment on above:Performed By: #### [id number] #### [facility] [address] [place], [place] [address]Pfvjz of lesionon 74-72-3531Rbyselaolh: simple Destruction method: electrodesiccation and curettage Informed consent: discussed and consent obtained Informed consent comment: The risks of the procedure were discussed, including, but not limited to risks of scarring, darker or operations developer pigmentary changes, recurrence, infection, and incomplete removal Timeout: patient name, date of , surgical site, and procedure verified Timeout comment: Patient and provider identified site. Site was marked. Photo was taken and shown to patient, patient verified this is the correct site. Procedure prep: Patient was prepped and draped in usual sterile fashion Prep type: Chlorhexidine Anesthesia: the lesion was anesthetized in a standard fashion Anesthetic: 1% lidocaine w/ epinephrine 1-100,000 buffered w/ 8.4% NaHCO3 Curettage performed in three different directions: Yes Electrodesiccation performed over the curetted area: Yes Curettage cycles: 3 Lesion length (cm): 1.2 Lesion width (cm): 1.9 Margin per side (cm): 0 Final wound size (cm): 1.9 Hemostasis achieved with: aluminum chloride Outcome: patient tolerated procedure well with no complications Post-procedure details: wound care instructions given Post-procedure details comment: Post-procedure instructions were given verbally and in writing. The office will be contacted if the lesion fails to resolve despite treatment, or if a side effect develops such as abnormal crusting, scabbing, reddness, discharge, or tenderness. Additional details: Amount of lidocaine used: 5cc Previous accession number: [id number] HendersonvillebA1con [id number] (Bld) [Mass fraction]5.8 %Normal<=5.9[facility] Comment on above:Performed By: #### [id number] #### [facility] [address] [place], [place] [address]Napyqehwdy Visit Summaryon 50-10-8047Arfqtnjshx Visit Summary Ambulatory Visit Summary LYNSEY ROMERO :1955 Visit Date:10/04/2024 Ambulatory Visit Instructions Your Diagnosis Type II diabetes mellitus BMI 30.0-30.9,adult Non-smoker Your Care Team Attending Physician - APOLINAR TREJO CNP Primary Care Physician - APOLINAR TREJO CNP This Is Your Medications List [facility] Prescription (Glucometer) [facility] Prescription (Lancets) [facility] Prescription (Test strips) bisoprolol-hydrochlorothiazide (bisoprolol-hydrochlorothiazide 2.5 mg-6.25 mg Tab) cetirizine (cetirizine 10 mg oral tablet, chewable) fluconazole (fluconazole 150 mg Tab) fluocinonide topical (fluocinonide topical 0.05% solution) fluticasone nasal (fluticasone Nasal 0.05 mg/inh Verdi) metformin (metformin 500 mg Tab) Procedures Performed Appendectomy, Bilateral cataracts, Bunion of left great toe, Detached right retina, H/O: hysterectomy, History of hernia repair. Discharge Vitals Temperature (Oral) 36.3 ???C Heart Rate (Peripheral) 66 Respiratory Rate 20 Blood Pressure 124/82 Height 162.0 cm Height 64 in Weight 80.9 kg Weight 178.354 lb BMI 30.83 What to do next Scheduled Follow-Up Appointments 2024 7:20 AM EDT With: APOLINAR TREJO CNP Where: [address] [id number] 2024 8:00 AM EDT With: Where: [address] [address]- Medications What How Much When Why Instructions Unchanged bisoprolol-hydrochlorothiazide (bisoprolol-hydrochlorothiazide 2.5 mg- 6.25 mg Tab) 1 Tablets By Mouth Every day HTN (hypertension) Unchanged cetirizine (cetirizine 10 mg oral tablet, chewable) 1 Unknown, Oral, 0 Refill(s) Unchanged fluconazole (fluconazole 150 mg Tab) 1 Tablets By Mouth Once Take one tablet at the onsetof symptoms; may repeat in 72 hours Unchanged fluocinonide topical (fluocinonide topical 0.05% solution) 1 Application Topical 3 times a day Unchanged fluticasone nasal (fluticasone Nasal 0.05 mg/ inh Verdi) Nasal, 0 Refill(s) Unchanged metformin (metformin 500 mg Tab) 1 Tablets By Mouth 2 times a day Type II diabetes mellitus Unchanged Misc Prescription (Glucometer) See instructions Type II diabetes mellitus Glucometer to test blood sugar TID PRN E11.9 Unchanged Misc Prescription (Lancets) See instructions Type II diabetes mellitus Test blood sugar TID PRN E11.9 Unchanged Misc Prescription (Test strips) See instructions Type II diabetes mellitus Test blood sugar TID E11.9 Allergies No Known Medication Allergies Problems Ongoing - Any problem that you are currently receiving treatment for. BMI 31.0-31.9,adult Body mass index [BMI] 31.0-31.9, adult Type II diabetes mellitus Patient Survey You may receive a survey via text or e-mail asking about your office visit. Please share your experience with us by completing your survey. We appreciate your feedback and thank you for choosing us for your care. [facility] HospitalCHEMISTRYOrdered By: Zhanna Villarreal on 80-06-5647JvI2c (Bld) [Mass fraction]5.8 %Normal<=5.9%[facility] ChemAutoSS Family Medicine Office/Clinic Noteon [phone] Medicine Office/Clinic NoteFapondville state hospital Medicine Office/Clinic Note Chief Complaint Fluctuating blood sugar levels HPI Staff Please speak with patient about scheduling an AWV. Lynsey is a 69 year old female presenting with 6 month f/u Do you have any of the following symptoms? Foot Exam: SIMIN Eye Exam: Due in October goes every 6 months Last A1C: April 05 2024 (6.2) Statin: History of Present Illness 69-year-old female presenting with fluctuating blood sugar levels. She stated her blood sugar readings have varied with measurements at 106, 120, 114, and reaching up to 130. These variances appear to be potentially influenced by recent dietary choices, including salad and popcorn consumption. She reports she does not need any medication refills at today' s appointment. She has lost 18 pounds in the past year and attributes this to lifestyle changes. Regarding her Medicare wellness appointment, it was previously scheduled but canceled due to unspecified reasons. She intends to reschedule for the summer, noting weather preferences affect her appointment scheduling. Review of Systems PHQ Score Initial Depression Screen Score: 0 SCORE - Endocrine: Reports fluctuating blood sugar levels. - Musculoskeletal: Denies problems with mobility but notes difficulty sitting on the floor and getting up comfortably. - Integumentary: Mentions a rare practice of doing pedicures, with painted toenails from a recent service. Physical Exam Vitals & Measurements T: 36.3 ???C(Oral) HR: 66(Peripheral) RR: 20 BP: 124/82 SpO2: 100% HT: 162.0 cm HT: 64 in WT: 178.354 lb WT: 80.9 kg BMI: 30.83 General: alert, no acute distress Skin: warm, dry Head: no trauma, normocephalic Eye: normal conjunctiva, sclera clear Cardiovascular: regular rate and rhythm, normal peripheral perfusion Respiratory: Lungs CTA, respirations non labored Foot: normal sensation, no lesions Neurological: oriented x 4, LOC appropriate for age speech normal Diabetic Foot Exam Decreased Monofilament Sensation Foot: Left - Normal, Right - Normal Bunions/Foot Deformity: Left - Normal, Right - Normal Abnormal Pulse Foot: Left - Normal, Right - Normal Skin Lesions Foot: Left - Normal, Right - Normal Vibratory Sensation Foot: Left - Normal, Right - Normal Foot Exam Result: Normal foot exam Assessment/Plan 1. Type II diabetes mellitus (E11.9: Type 2 diabetes mellitus without complications) Stable Control Monitor HgbA1C every 6 months Awaiting HgbA1C results Continue metformin 500 mg one tablet BID Encourage low carb diet & daily exercise f/u in 6 months Ordered: HgbA1c Lab Specimen Collect 11612 2. BMI 30.0-30.9,adult (Z68.30: Body mass index [BMI] 30.0-30.9, adult) The standard range for ages 18 and older is >=18.5 and < 25 kg/m2. Your BMI today was above this range, this falls in the overweight to obese category and there are medical benefits to weight loss. We can offer counselling, referral, and/or medical support in addressing this problem. Your BMIand weight management will be followed at subsequent visits. Ordered: Body Mass Index (BMI) documented 3008F Current tobacco non-user 1036F Depression Screening Negative 3352F Influenza immunization status assessed 1030F Medication list documented in medical record 1159F Most recent diastolic blood pressure 80-89 mm Hg 3079F Patient screen for fall risk: no falls in last year or 1 fall with no injury in last year 1101F Review of all meds by a prescribing practitioner or clinical pharmacist documented in EHR 1160F Systolic BP <130 mm Hg (Most Recent) 3074F 3. Non-smoker (Z78.9: Other specified health status) Encouraged to continue as a non-smoker Ordered: Body Mass Index (BMI) documented 3008F Current tobacco non-user 1036F Depression Screening Negative 3352F Influenza immunization status assessed 1030F Medication list documented in medical record 1159F Most recent diastolic blood pressure 80-89 mm Hg 3079F Patient screen for fall risk: no falls in last year or 1 fall with no injury in last year 1101F Review of all meds by a prescribing practitioner or clinical pharmacist documented in EHR 1160F Systolic BP <130 mm Hg (Most Recent) 3074F Follow-up No qualifying data available Patient Education Diabetes Mellitus and Exercise Problem List/Past Medical History Ongoing BMI 31.0-31.9,adult Body mass index [BMI] 31.0-31.9, adult Type II diabetes mellitus Historical No qualifying data Procedure/Surgical History Appendectomy, Bilateral cataracts, Bunion of left great toe, Detached right retina, H/O: hysterectomy, History of hernia repair. Medications aspirin 81 mg Oral EC Tab bisoprolol-hydrochlorothiazide 2.5 mg-6.25 mg Tab, 1 tab(s), Oral, Daily, 4 refills cetirizine 10 mg oral tablet, chewable fluconazole 150 mg Tab, 150 mg= 1 tab(s), Oral, Once fluocinonide topical 0.05% solution, 1 marcus, Topical, TID fluticasone Nasal 0.05 mg/inh Verdi Glucometer, See Instructions Lanc (more content not included)...[facility] HospitalComment on above:Result Comment: Electronically Signed By: APOLINAR TREJO CNP\.epifanio\Date and Time Signed: 10/04/24 08:47 EDTNo Panel Informationon 10-03-2474Gxvg of biopsy: tangential Informed consent: discussed and consent obtained Informed consent comment: The risks and benefits of the biopsy were discussed. Risks include but are not limited to bleeding, infection, scarring, pain, and nerve damage. An opportunity to ask questions prior to the procedure was permitted and all questions were answered. Patient was prepped and draped in usual sterile fashion: area cleansed with alcohol. Anesthesia: the lesion was anesthetized in a standard fashion Anesthetic: 1% lidocaine w/ epinephrine 1-100,000 buffered w/ 8.4% NaHCO3 Instrument used: DermaBlade Hemostasis achieved with: electrodesiccation Outcome: patient tolerated procedure well Outcome comment: The specimen was placed in a prelabeled formalin container to be sent for pathology Post-procedure details: sterile dressing applied and wound care instructions given Post-procedure details comment: Emphasized need to contact clinic for any signs of infection, uncontrollable bleeding, or complications. Dressing type: bandage Additional details: Photo taken Amount of lidocaine used: 1.0 [facility] Medicine Office/Clinic Noteon [id number] [facility] Note Chief Complaint 118 HPI Staff Lynsey is a 68 year old female presenting with cough, sinus infection, sinus drainage Onset: started last Headache- no Earache- no Sinus Congestion- no Rhinorrhea- no Sore Throat- no Cough- no wheezing- no Dyspnea on exertion- no Orthopnea- Trouble laying flat/breathing through nose: no Lung Hx (asthma, recurring bronchitis/chest colds, COPD)- no Fevers/chills- no GI symptoms- no History of Present Illness Patient presents today for an acute visit for evaluation of cough and sinus pressure x 6 days. She states she has not used any OTC medication and she has not had a fever. She reports when she lays down at night she coughs some but she has used a cough drop and this seems to help. She states she hasbeen using a NettiPot and has had copious amounts of green mucus come out. She reports the pressureunder her eyes is what is concerning her and why she came in today. Review of Systems PHQ Score Initial Depression Screen Score: 0 SCORE Constitutional: no fever, no chills, no sweats, no weakness Skin: no Jaundice, no rash, no lesions, nopetechiae ENMT: no ear pain, no sore throat, severe congestion, no hoarseness Respiratory: no shortness of breath, no cough, no orthopnea, no wheezing Cardiovascular: no chest pain, no palpitations, no edema Musculoskeletal: no back pain, no trauma Neurologic: no headache, no dizziness, no numbness, no weakness Psychiatric: no sleeping problems, no irritability, no mood swings/depression. Additional ROS info: Except as noted in the above Review of Systems and in the History of Present Illness all other systems have been reviewed and are negative or noncontributory. Physical Exam Vitals & Measurements HR: 78(Peripheral) RR: 18 BP: 118/78 SpO2: 97% HT: 64 in HT: 162.0 cm General: alert, no acute distress ENMT: TM's clear, oral mucosa moist, no pharyngeal erythema or exudate; bilateral maxillary tenderness Cardiovascular: regular rate and rhythm, normal peripheral perfusion Respiratory: Lungs CTA, respirations non labored Extremities: no deformity, no trauma Neurological: oriented x 4, LOC appropriate for age speech normal Assessment/Plan 1. Sinusitis (J32.9: Chronic sinusitis, unspecified) Continue Nettipot Start Doxycycline one p.o. BID x 14 days Encouraged to monitor her blood sugar F/U if no improvement in 3-5 days Ordered: doxycycline, 100 mg = 1 cap(s), Oral, q12hr, Take one capsule by mouth every twelve hours for ten days, X 14 day(s), # 28 cap(s), Refills(s) 0, Pharmacy: [facility]/pharmacy #[id number], 162, cm, 04/05/24 7:59:00EDT, Height/Length Dosing, 82.1, kg, 04/05/24 7:59:00 EDT, Weigh... 2. Non-smoker (Z78.9: Other specified health status) Encouraged to continue as a non-smoker 3. BMI 31.0-31.9,adult (Z68.31: Body mass index [BMI] 31.0-31.9, adult) The standard range for ages 18 and older is >=18.5 and < 25 kg/m2. Your BMI today was above this range, this falls in the overweight to obese category and there are medical benefits to weight loss. We can offer counselling, referral, and/or medical support in addressing this problem. Your BMIand weight management will be followed at subsequent visits. 4. Exogenous obesity (E66.09: Other obesity due to excess calories) The standard range for ages 18 and older is >=18.5 and < 25 kg/m2. Your BMI today was above this range, this falls in the overweight to obese category and there are medical benefits to weight loss. We can offer counselling, referral, and/or medical support in addressing this problem. Your BMIand weight management will be followed at subsequent visits. Orders: fluconazole, 150 mg = 1 tab(s), Oral, Once, Take one tablet at the onset of symptoms; may repeat in72 hours, # 2 tab(s), Refills(s) 0, Pharmacy: [facility]/pharmacy #[id number], 162, cm, 04/05/24 7:59:00 EDT, Height/Length Dosing, 82.1, kg, 04/05/24 7:59:00 EDT, Weight Dosing Follow-up No qualifying data available Patient Education Sinus Infection, Adult, Upzj-fe-Hcds Problem List/Past Medical History Ongoing BMI 31.0-31.9,adult Body mass index [BMI] 31.0-31.9, adult Type II diabetes mellitus Historical No qualifying data Procedure/Surgical History Appendectomy, Bilateral cataracts, Bunion of left great toe, Detached right retina, H/O: hysterectomy, History of hernia repair. Medications bisoprolol-hydrochlorothiazide 2.5 mg-6.25 mg Tab, 1 tab(s), Oral, Daily cetirizine 10 mg oral tablet, chewable doxycycline hyclate 100 mg Cap, 100 mg= 1 cap(s), Oral, q12hr fluconazole 150 mg Tab, 150 mg= 1 tab(s), Oral, Once fluocinonide topical 0.05% solution, 1 marcus, Topical, TID fluticasone Nasal 0.05 mg/inh Verdi Glucometer, See Instructions Lancets, See Instructions metformin 500 mg Tab, 500 mg= 1 tab(s), Oral, BID, 1 refills Test strips, See Instructions, 1 refills Allergies No Known Medication Allergies Social History Alcohol Current. Wi (more content not included)...[facility] Comment on above:Result Comment: Electronically Signed By: APOLINAR TREJO CNP\.br\Date and Time Signed: 06/15/24 08:44 ESTAmbulatory Visit Summaryon [id number] Visit SummaryAmbulatory Visit Summary LYNSEY ROMERO :1955 Visit Date:06/14/2024 Ambulatory Visit Instructions Your Diagnosis Sinusitis Your Care Team Attending Physician - APOLINAR TREJO CNP Primary Care Physician - APOLINAR TREJO CNP This Is Your Medications List Misc Prescription (Glucometer) Mis Prescription (Lancets) [facility] Prescription (Test strips) bisoprolol-hydrochlorothiazide (bisoprolol-hydrochlorothiazide 2.5 mg-6.25 mg Tab) cetirizine (cetirizine 10 mg oral tablet, chewable) doxycycline (doxycycline hyclate 100 mg Cap) fluconazole (fluconazole 150 mg Tab) fluocinonide topical (fluocinonide topical 0.05% solution) fluticasone nasal (fluticasone Nasal 0.05 mg/inh Verdi) metformin (metformin 500 mg Tab) Procedures Performed Appendectomy, Bilateral cataracts, Bunion of left great toe, Detached right retina, H/O: hysterectomy, History of hernia repair. Discharge Vitals Heart Rate (Peripheral) 78 Respiratory Rate 18 Blood Pressure 118/78 Height 162.0 cm Height 64 in What to do next Scheduled Follow-Up Appointments Thursday 7:20 AM EDT With: APOLINAR TREJO CNP Where: [place] [id number]- Medications What How Much When Why Instructions Unchanged bisoprolol-hydrochlorothiazide (bisoprolol-hydrochlorothiazide 2.5 mg- 6.25 mg Tab) 1 Tablets By Mouth Every day HTN (hypertension) Unchanged cetirizine (cetirizine 10 mg oral tablet, chewable) 1 Unknown, Oral, 0 Refill(s) Unchanged doxycycline (doxycycline hyclate 100 mg Cap) 1 Capsules By Mouth Every 12 hours SinusitisDuration: 14 Days Take one capsule by mouth every twelve hours for ten days Pickup at [facility]/pharmacy #[id number] Unchanged fluconazole (fluconazole 150 mg Tab) 1 Tablets By Mouth Once Take one tablet at the onsetof symptoms; may repeat in 72 hours Pickup at [facility]/pharmacy #[id number] Unchanged fluocinonide topical (fluocinonide topical 0.05% solution) 1 Application Topical 3 times a day Unchanged fluticasone nasal (fluticasone Nasal 0.05 mg/ inh Verdi) Nasal, 0 Refill(s) Unchanged metformin (metformin 500 mg Tab) 1 Tablets By Mouth 2 times a day Type II diabetes mellitus Unchanged [facility] Prescription (Glucometer) See instructions Type II diabetes mellitus Glucometer to test blood sugar TID PRN E11.9 Unchanged Misc Prescription (Lancets) See instructions Type II diabetes mellitus Test blood sugar TID PRN E11.9 Unchanged Misc Prescription (Test strips) See instructions Type II diabetes mellitus Test blood sugar TID E11.9 Pharmacy Information [id number]: [address], [place] [phone] Medications and Immunizations Administered Given influenza, unspecified formulation, SARSCoV2 mRNA(zuaikoxly-mvyp-wcuejw) vac, Allergies No Known Medication Allergies Problems Ongoing - Any problem that you are currently receiving treatment for. BMI 31.0-31.9,adult Body mass index [BMI] 31.0-31.9, adult Type II diabetes mellitus Patient Survey You may receive a survey via text or e-mail asking about your office visit. Please share your experience with us by completing your survey. We appreciate your feedback and thank you for choosing us for your care. [facility] HospitalX-ray reportOrdered By: Keren Goins on 55-63-4631Thmzx [facility] Main [place] [address] [place], [place] [id number] XRay Report Signed Patient: Lynsey Romero MR#: [id number] : 1955 Acct:[id number] Age/Sex: 68 / F ADM Date: 4 Loc: XDUC Room: Type: [facility] Attending Dr: Keri Kennedy APRN Copies to: Keri Kennedy APRN~ Ordering Provider: Keri Kennedy APRN Date of Service: 05/29/24 XR/XR chest 2V*: R06.2 - Wheezing PA AND LATERAL CHEST: CLINICAL HISTORY: Nonproductive cough and wheezing COMPARISON: 04/21/2017 There is no focal parenchymal consolidation, effusion or pneumothorax. The cardiac, hilar and mediastinal silhouettes are within normal limits. There is no vascular congestion. The visualized bony thorax is intact. There is slight dextroscoliotic curvature and mild endplate spurring. XR/XR chest 2V* IMPRESSION: NO ACUTE CARDIOPULMONARY ABNORMALITY. Impression dictated by: Keren Goins M.D.05/29/2024 10:39 AM Dictation Location: RADIO--02 Transcribed By: LEOBARDO 05/29/24 1039 Dictated By: Keren Goins MD 05/29/24 1038 Signed By: 05/29/24 1039 [facility] Work Phone: XR chest 2V*on 06-05-8759QH chest 2V*[facility] Main [place] [address] [place] [address] XRay Report Signed Patient: Lynsey Romero MR#: [id number] : 1955 Acct:[id number] Age/Sex: 68 / F ADM Date: 05/29/24 Loc: XDUCLY Room: Type: [facility] Attending Dr: Keri Kennedy APRN Copies to: Keri Kennedy APRN Ordering Provider: Keri Kennedy APRN Date of Service: 05/29/24 XR/XR chest 2V*: R06.2 - Wheezing PA AND LATERAL CHEST: CLINICAL HISTORY: Nonproductive cough and wheezing COMPARISON: 04/21/2017 There is no focal parenchymal consolidation, effusion or pneumothorax. The cardiac, hilar and mediastinal silhouettes are within normal limits. There is no vascular congestion. The vi sualized bony thorax is intact. There is slight dextroscoliotic curvature and mild endplate spurring. XR/XR chest 2V* IMPRESSION: NO ACUTE CARDIOPULMONARY ABNORMALITY. Impression dictated by: Keren Goins M.D.05/29/2024 10:39 AM Dictation Location: RADIO--02 Transcribed By: LEOBARDO 05/29/24 1039 Dictated By: Keren Goins MD 05/29/24 1038 Signed By: 05/29/[address] [facility] [address] [facility] Physician GroupCHEMISTRYOrdered By: SYSTEM SYSTEM on 23-22-1027Ccqsmsy [Mass/Vol]4.4 g/dLNormal3.3 - 5.0 gm/dLRemisol Chem Albumin DL <= 20 mg/L (U) [Mass/Vol]mg/dLNormal0.0 - 1.9 mg/dLRemisol Chem Albumin/Globulin [Mass ratio]1.5 {ratio}Normal1.1 - 2.2Remisol ChemALP [Catalytic activity/Vol]46 [iU]/xHcqslo82 - 98 Int._Unit/LRemisol ChemALT No additional P-5'-P [Catalytic activity/Vol]23 [iU]/dNormal6 - 46 Int._Unit/L Remisol ChemAnion gap [Moles/Vol]9 mmol/LNormal6 - 16 mEq/LRemisol ChemAST [Catalytic activity/Vol]26 [iU]/dNormal5 - 43 Int._Unit/LRemisol ChemBilirubin [Mass/Vol]0.8 mg/dLNormal0.0 - 1.1 mg/dLRemisol ChemCalcium [Mass/Vol]9.3 mg/dL Normal8.9 - 11.1 mg/dLRemisol ChemChloride [Moles/Vol]103 mmol/GJgcwiz995 - 111 mmol/LRemisol ChemCholesterol [Mass/Vol]190 mg/pOGihbes608 - 200 mg/dLRemisol ChemCholesterol in HDL [Mass/Vol]59 mg/dLInvalid Interpretation CodeRemisol Chem Comment on above:Result Comment: '>= 60 LOW RISK' '<= 40 HIGH RISK'Cholesterol in LDL [Mass/Vol]129 mg/dLNormal<=129mg/dLRemisol ChemCholesterol in VLDL [Mass/Vol]29 mg/dLNormal7 - 40 mg/dLRemisol ChemCO2 [Moles/Vol]29 mmol/HErparj17 - 31 mmol/LRemisol ChemCreatinine [Mass/Vol]0.7 mg/dLNormal0.5 - 1.3 mg/dLRemisol LvoosNZS38 mL/min/1.73 k4Tuesvb>=59mL/min/1.73 f2Gzpcjnb ChemGlobulin (S) [Mass/Vol]3.0 g/dLNormal1.4 - 4.0 gm/dLRemisol Chem Glucose [Mass/Vol]150 mg/vOGfllog20 - 199 mg/dLRemisol ChemPotassium [Moles/Vol] 4.3 mmol/LNormal3.5 - 5.3 mmol/LRemisol ChemProtein [Mass/Vol]7.4 g/dLNormal6.0 - 7.8 gm/dLRemisol ChemProtein/Creatinine (U) [Ratio]4.90 mg/gm CrNormal0.00 - 200.00 mg/gm CrRemisol ChemSodium [Moles/Vol]137 mmol/BPaeluk670 - 145 mmol/L Remisol ChemTriglyceride [Mass/Vol]143 mg/dLNormal<=149mg/dLRemisol ChemU Gmfkmndres978.2 mg/dLInvalid Interpretation CodeRemisol ChemUr Total Protein5.8 mg/dLInvalid Interpretation CodeRemisol ChemUrea nitrogen [Mass/Vol]18 mg/dL Normal5 - 21 mg/dLRemisol ChemUrea nitrogen/Creatinine [Mass ratio]26 mg/mgHigh 10 - 20Remisol ChemCHEMISTRYOrdered By: Zhanna Villarreal on 19-77-1347MqY3f (Bld) [Mass fraction]6.2 %High<=5.9%[facility] ChemAutoSSCMPon 09-67-0996Ygaaesp [Mass/Vol] 4.4 g/dLNormal3.3-5.0[facility] ToledoComment on above:Performed By: #### [id number] #### [facility] [address] [place] [place], [place] [address]Jpriftr/Globulin (S) [Mass conc ratio]1.2Rsftcy7.1-2.2[facility] Shock Trauma CenterComment on above:Performed By: #### [id number] #### [facility] [address] [place], [place] [address]JGQ [Catalytic activity/Vol]46 Int._Unit/DAktlkr15-79BzooomRegency Hospital ToledoComment on above:Performed By: #### [id number] #### [facility] [address] [place], [place] [address]LWV No additional P-5'-P [Catalytic activity/Vol]23 Int._Unit/L Normal6-46[facility] ToledoComment on above:Performed By: #### [id number] #### [facility] [address] [place], [place] [address]Taqsk gap [Moles/Vol]9 mmol/LNormal6-16[facility] ToledoComment on above:Performed By: #### [id number] #### [facility] [address] [place], [place] [address]UDP [Catalytic activity/Vol]26 Int._Unit/LNormal5-43[facility] ToledoComment on above:Performed By: #### [id number] #### [facility] [address] [place] [place], [place] [address]Nfbczlqcv [Mass/Vol]0.8 mg/dLNormal0.0-1.1FUniversity Hospitals Geauga Medical CenterComment on above:Performed By: #### [id number] #### [facility] [address] [place], [place] [address]Ejkhwyi [Mass/Vol]9.3 mg/dLNormal8.9-11.1FUniversity Hospitals Geauga Medical CenterComment on above:Performed By: #### [id number] #### [facility] [address] [place], [place] [address]Wsxcjchd [Moles/Vol]103 mmol/FNdukgt515-973RkqveaRegency Hospital ToledoComment on above:Performed By: #### [id number] #### [facility] [address] [place], [place] [address]XZ3 [Moles/Vol]29 mmol/VWrdgbs33-70OoelvmRegency Hospital Toledo Comment on above:Performed By: #### [id number] #### [facility] [address] [place], [place] [address]Iqfjliqbwc [Mass/Vol]0.7 mg/dLNormal0.5-1.3FUniversity Hospitals Geauga Medical CenterComment on above:Performed By: #### [id number] #### [facility] [address] [place], [place] [address]Loskxsxj (S) [Mass/Vol]3.0 g/dLNormal1.4-4.0[facility] ToledoComment on above:Performed By: #### [id number] #### [facility] [address] [place] [place], [place] [address]Xwnclbo [Mass/Vol]150 mg/nNWghjxi85-759OikxhnRegency Hospital ToledoComment on above:Performed By: #### [id number] #### [facility] [address] [place], [place] [address]Fqmkoafbo [Moles/Vol]4.3 mmol/LNormal3.5-5.3FUniversity Hospitals Geauga Medical CenterComment on above:Performed By: #### [id number] #### [facility] [address] [place], [place] [address]Ymkntnw [Mass/Vol]7.4 g/dLNormal6.0-7.8[facility] ToledoComment on above:Performed By: #### [id number] #### [facility] [address] [place], [place] [address]Acdogx [Moles/Vol]137 mmol/SJrizqw387-017RgmsxlRegency Hospital ToledoComment on above:Performed By: #### [id number] #### [facility] [address] [place], [place] [address]Bzjm nitrogen [Mass/Vol]18 mg/dLNormal5-21[facility] ToledoComment on above:Performed By: #### [id number] #### [facility] [address] [place] [place], [place] [address]Kfrl nitrogen/Creatinine [Mass ratio]26 No JtzpsDupr96-35CnlodjRegency Hospital ToledoComment on above:Performed By: #### [id number] #### [facility] [address] [place], [place] [address]Dcwrrd Medicine Office/Clinic Noteon 37-56-5083Psdgqp Medicine Office/Clinic NoteFapondville state hospital Medicine Office/Clinic Note Chief Complaint 6m f/u HPI Staff Lynsey is a 68 year old female presenting with 6 month f/u Do you have any of the following symptoms? Eye Exam: May 2023 Last A1C: Nov 16 2023 ( 13.1) Statin: none Does check BS @ home. Average 110. Although this morning it was 150. Dizziness has improved. Denies increased thirst & urination. I have reviewed and verified the staff HPI to be accurate for this encounter. History of Present Illness Patient presents today in f/u for diabetes. She reports she has been doing well over all. She has lost 9 pounds since her last visit. Her blood sugars have been running <150. She denies any increased thirst or urination. She reports she has not had any adverse effects to the metFORMIN and she does not need any refills. Review of Systems PHQ Score Initial Depression Screen Score: 0 SCORE Constitutional: no fever, no chills, no sweats, no weakness Skin: no Jaundice, no rash, no lesions, nopetechiae ENMT: no ear pain, no sore throat, no congestion, no hoarseness Respiratory: no shortness of breath, no cough, no orthopnea, no wheezing Cardiovascular: no chest pain, no palpitations, no edema Gastrointestinal: no nausea, no vomiting, no diarrhea, no GI bleeding Genitourinary: no dysuria, no hematuria, no discharge, no pain Musculoskeletal: no back pain, no trauma Neurologic: no headache, no dizziness, no numbness, no weakness Psychiatric: no sleeping problems, no irritability, no mood swings/depression. Heme/Lymph: no bleeding tendency, no bruising tendency, no petechiae, no swollen nodes Allergy/Immunologic: no seasonal allergies, no food allergies, no recurrent infections, no impairedimmunity Additional ROS info: Except as noted in the above Review of Systems and in the History of Present Illness all other systems have been reviewed and are negative or noncontributory. Physical Exam Vitals & Measurements HR: 65(Peripheral) RR: 16 BP: 128/84 SpO2: 95% HT: 64 in HT: 162 cm WT: 82.1 kg WT: 180.62 lb BMI: 31.28 General: alert, no acute distress Skin: warm, dry Head: no trauma, normocephalic Neck: Trachea midline, no adenopathy, no tenderness Eye: normal conjunctiva, sclera clear Cardiovascular: regular rate and rhythm, normal peripheral perfusion Respiratory: Lungs CTA, respirations non labored Extremities: no deformity, no trauma Foot: Normal pulses, normal sensation Neurological: oriented x 4, LOC appropriate for age speech normal Psychiatric: cooperative, affect appropriate for age, normal judgement, normal psychiatric thoughts. Diabetic Foot Exam Decreased Monofilament Sensation Foot: Left - Normal, Right - Normal Bunions/Foot Deformity: Left - Normal, Right - Normal Abnormal Pulse Foot: Left - Normal, Right - Normal Skin Lesions Foot: Left - Normal, Right - Normal Vibratory Sensation Foot: Left - Normal, Right - Normal Foot Exam Result: Normal foot exam Assessment/Plan 1. Type II diabetes mellitus (E11.9: Type 2 diabetes mellitus without complications) Controlled Stable Continue metFORMIN 500 mg one tablet BID- no refills today at this visit Awaiting laboratory results f/u in 6 months sooner if HgbA1C is >7.0% Ordered: Body Mass Index (BMI) documented 3008F Comprehensive Metabolic Panel Current tobacco non-user 1036F Depression Screening Negative 3352F Discharge medications reconciled with current medications in outpatient record 1111F HgbA1c Lipid Panel Medication list documented in medical record 1159F Microalbumin Level Urine Most recent diastolic blood pressure 80-89 mm Hg 3079F Patient screen for fall risk: no falls in last year or 1 fall with no injury in last year 1101F Review of all meds by a prescribing practitioner or clinical pharmacist documented in EHR 1160F Systolic BP <130 mm Hg (Most Recent) 3074F U Protein/Creat Ratio 2. BMI 31.0-31.9,adult, (Z68.31: Body mass index [BMI] 31.0-31.9, adult)Body mass index [BMI] 31.0-31.9, adult Patient has lost 9 pounds since her last visit The standard range for ages 18 and older is >=18.5 and < 25 kg/m2. Your BMI today was above this range, this falls in the overweight to obese category and there are medical benefits to weight loss. We can offer counselling, referral, and/or medical support in addressing this problem. Your BMIand weight management will be followed at subsequent visits. Ordered: Comprehensive Metabolic Panel 4. Nonsmoker (Z78.9: Other specified health status) Encouraged to continue as a smoker Follow-up With When Contact Information APOLINAR TREJO CNP, FAM Within [address] [place] [phone] Business (1) Additional Instructions: Diabetes Patient Education Diabetes Mellitus and Exercise Problem List/Past Medical History Ongoing BMI 31.0-31.9,adult Body mass index [BMI] 31.0-31.9, adult Type II diabetes mellitus Historical No qualifying data Proc (more content not included)...NormalRegency Hospital ToledoComment on above:Result Comment: Electronically Signed By: APOLINAR TREJO CNP\Date and Time Signed: 04/05/24 08:41 EDTLipid Panelon 15-66-1808Mazvedawumi [Mass/Vol]190 mg/vQFgrgzf763-721QowolxRegency Hospital ToledoComment on above: Performed By: #### [id number] #### [facility] [address] [facility], [place] [address]Dinviwaeuxv in HDL [Mass/Vol]59 mg/dLInvalid Interpretation CodeRegency Hospital ToledoComment on above:Result Comment: '>= 60 LOW RISK' '<= 40 HIGH RISK'Performed By: #### [id number] #### [facility] [address] [place], [place] [address]Scmlrgderpb in LDL [Mass/Vol]129 mg/dLNormal<=129Reg[facility] Hospital ToledoComment on above:Performed By: #### [id number] #### [facility] [address] [place], [place] [address]Agdziotmdho in VLDL [Mass/Vol]29 mg/dLNormal7-40[facility] ToledoComment on above:Performed By: #### [id number] #### [facility] [address] [place], [place] [address]Nmemsrfaultv [Mass/Vol]143 mg/dLNormal<=149[facility] Hospital ToledoComment on above:Performed By: #### [id number] #### [facility] [address] [place], [place] [address]C Microalbon 86-88-5524Iwpycfm DL <= 20 mg/L (U) [Mass/Vol] mg/dLNormal0.0-1.9[facility] Hospital ToledoComment on above:Performed By: #### [id number] #### [facility] [address] [place], [place] [address]M Protein/Creat Ratioon 61-71-0484Vsjrykj/Creatinine (U) [Ratio]4.90 mg/gm CrNormal.00-200.00[facility] ToledoComment on above: Performed By: #### [id number] #### [facility] [address] [place] [place], [place] [address]O Vqwxcwtqab012.2 mg/dLInvalid Interpretation [facility] HospitalComment on above:Performed By: #### [id number] #### [facility] [address] [place] [place], [place] [address]Am Total Protein5.8 mg/dLInvalid Interpretation [facility] HospitalComment on above:Performed By: #### [id number] #### [facility] [address] [place], [place] [address]rKIGrc 01-99-8152aNJT99 mL/min/1.73 c3Whcktn>=59Reg[facility] Hospital ToledoComment on above:Performed By: #### [id number] #### [facility] [address] [place] [place], [place] [address]Zytlrh Medicine Office/Clinic Noteon [id number] Medicine Office/Clinic NoteChief Complaint Med Check HPI Staff Lynsey is a 68 year old female presenting for 1 month follow up SIMIN: Started Metformin 500mg one talbet BID Patient is here for follow up on Diabetes. How often are you checking your blood sugars? 1 times per day What are your average readings? 150 Paresthesias, Ulcerations or sores? no Lisinopril, aspirin, statin therapy? Yes Foot Exam: no Eye Exam: May 2023 Last A1c: Hgb A1C %: 13.1 % High (11/16/23 15:37:00) Questions/Concerns: Denies History of Present Illness Patient presents today in f/u for recent diagnosis of Type II diabetes. She was started on MetFORMin 500 mg one tablet po BID at her last visit. She reports initially she had some dizziness with the metFORMIN but this has subsided. She states she has been trying to keep her carbohydrates at 60-60-75. She has lost 5.28 pounds since her last visit. She reports no increase in thirst or urination. SHe has brought her blood sugar log for this provider to review and it show blood sugars from 265-141.She will need a refill of the metFORMIN today. Review of Systems PHQ Score Initial Depression Screen Score: 0 SCORE Constitutional: no fever, no chills, no sweats, no weakness Respiratory: no shortness of breath, no cough, no orthopnea, no wheezing Cardiovascular: no chest pain, no palpitations, no edema Additional ROS info: Except as noted in the above Review of Systems and in the History of Present Illness all other systems have been reviewed and are negative or noncontributory. Physical Exam Vitals & Measurements HR: 64(Peripheral) RR: 16 BP: 128/76 HT: 64 in HT: 162 cm WT: 86.2 kg WT: 189.64 lb BMI: 32.85 General: alert, no acute distress Skin: warm, dry Head: no trauma, normocephalic Neck: Trachea midline, no adenopathy, no tenderness Eye: normal conjunctiva, sclera clear Cardiovascular: regular rate and rhythm, normal peripheral perfusion Respiratory: Lungs CTA, respirations non labored Back: No tenderness, Normal ROM, Normal alignment. Extremities: no deformity, no trauma Foot Exam: Normal sensation bilaterally, pedal pulses palpable Neurological: oriented x 4, LOC appropriate for age speech normal Psychiatric: cooperative, affect appropriate for age, normal judgement, normal psychiatric thoughts. Diabetic Foot Exam Decreased Monofilament Sensation Foot: Left - Normal, Right - Normal Bunions/Foot Deformity: Left - Normal, Right - Normal Abnormal Pulse Foot: Left - Normal, Right - Normal Skin Lesions Foot: Left - Normal, Right - Normal Vibratory Sensation Foot: Left - Normal, Right - Normal Foot Exam Result: Normal foot exam Assessment/Plan 1. Type II diabetes mellitus (E11.9: Type 2 diabetes mellitus without complications) Patient has lost 5.28 lbs in the last 4 weeks Blood sugar log reveals blood sugars range from 265-141 Encouraged to continue to monitor blood sugar, log, and bring to next appointment Continue MetFORMIN 500 mg one tablet BID- refilled today at this visit Continue to manage carbohydrates at 60mg ,60mg, 75mg Discussed goal of blood sugar to be < 150 f/u in 3 months Ordered: metformin, 500 mg = 1 tab(s), Oral, BID, # 180 tab(s), Refills(s) 1, Pharmacy: [facility]/pharmacy #[id number], 162, cm, 12/17/23 7:22:00 EDT, Height/Length Dosing, 86.2, kg, 12/17/23 7:22:00 EDT, Weight Dosing Body Mass Index (BMI) documented 3008F Current tobacco non-user 1036F Depression Screening Negative 3352F Discharge medications reconciled with current medications in outpatient record 1111F HBA1C 9.0% or > Most Recent Level 3046F Medication list documented in medical record 1159F Patient screen for fall risk: no falls in last year or 1 fall with no injury in last year 1101F Review of all meds by a prescribing practitioner or clinical pharmacist documented in EHR 1160F 2. BMI 32.0-32.9,adult (Z68.32: Body mass index [BMI] 32.0-32.9, adult) The standard range for ages 18 and older is >=18.5 and < 25 kg/m2. Your BMI today was above this range, this falls in the overweight to obese category and there are medical benefits to weight loss. We can offer counselling, referral, and/or medical support in addressing this problem. Your BMIand weight management will be followed at subsequent visits. Orders: bisoprolol-hydrochlorothiazide, 1 tab(s), Oral, Daily, 30 tab(s), Refill(s) 0, [facility]/pharmacy #[id number], 161.3, cm, 10/06/23 15:21:00 EDT, Height/Length Dosing, 89.2, kg, 10/06/23 15:21:00 EDT, Weight Dosing Total time spent preparing the chart, conducting of the encounter with the patient and family and time spent documenting, reviewing, and ordering tests was 25 minutes. Follow-up No qualifying data available Patient Education Diabetes Mellitus and Nutrition, Adult Problem List/Past Medical History Ongoing Type II diabetes mellitus Historical No qualifying data Procedure/Surgical History Appendectomy, Bilateral cataracts, Bunion of left great toe, Detached right retina, H/O: hysterect (more content not included)...[facility] HospitalComment on above:Result Comment: Electronically Signed By: APOLINAR TREJO CNP\marco\Date and Time Signed: 12/17/23 08:23 EDTPatient Educationon [id number] EducationEndocrinology Diabetes Mellitus and Nutrition, Adult When you have diabetes, or diabetes mellitus, it is very important to have healthy eating habits because your blood sugar (glucose) levels are greatly affected by what you eat and drink. Eating healthy foods in the right amounts, at about the same times every day, can help you: ? Manage your blood glucose. ? Lower your risk of heart disease. ? Improve your blood pressure. ? Reach or maintain a healthy weight. What can affect my meal plan? Every person with diabetes is different, and each person has different needs for a meal plan. Your health care provider may recommend that you work with a dietitian to make a meal plan that is best for you. Your meal plan may vary depending on factors such as: ? The calories you need. ? The medicines you take. ? Your weight. ? Your blood glucose, blood pressure, and cholesterol levels. ? Your activity level. ? Other health conditions you have, such as heart or kidney disease. How do carbohydrates affect me? Carbohydrates, also called carbs, affect your blood glucose level more than any other type of food.Eating carbs raises the amount of glucose in your blood. It is important to know how many carbs you can safely have in each meal. This is different for every person. Your dietitian can help you calculate how many carbs you should have at each meal and for each snack. How does alcohol affect me? Alcohol can cause a decrease in blood glucose (hypoglycemia), especially if you use insulin or takecertain diabetes medicines by mouth. Hypoglycemia can be a life-threatening condition. Symptoms of hypoglycemia, such as sleepiness, dizziness, and confusion, are similar to symptoms of having too much alcohol. ? Do not drink alcohol if: ? Your health care provider tells you not to drink. ? You are , may be , or are planning to become . ? If you drink alcohol: ? Limit how much you have to: ? 0?1 drink a day for women. ? 0?2 drinks a day for men. ? Know how much alcohol is in your drink. In the [place] one drink equals one 12 oz bottle of beer (355 mL), one 5 oz glass of wine (148 mL), or one 1? oz glass of hard liquor (44 mL). ? Keep yourself hydrated with water, diet soda, or unsweetened iced tea. Keep in mind that regular soda, juice, and other mixers may contain a lot of sugar and must be counted as carbs. What are tips for following this plan? Reading food labels ? Start by checking the serving size on the Nutrition Facts label of packaged foods and drinks. Thenumber of calories and the amount of carbs, fats, and other nutrients listed on the label are basedon one serving of the item. Many items contain more than one serving per package. ? Check the total grams (g) of carbs in one serving. ? Check the number of grams of saturated fats and trans fats in one serving. Choose foods that havea low amount or none of these fats. ? Check the number of milligrams (mg) of salt (sodium) in one serving. Most people should limit total sodium intake to less than 2,300 mg per day. ? Always check the nutrition information of foods labeled as low-fat or nonfat. These foods maybe higher in added sugar or refined carbs and should be avoided. ? Talk to your dietitian to identify your daily goals for nutrients listed on the label. Shopping ? Avoid buying canned, pre-made, or processed foods. These foods tend to be high in fat, sodium, and added sugar. ? Shop around the outside edge of the grocery store. This is where you will most often find fresh fruits and vegetables, bulk grains, fresh meats, and fresh dairy products. Cooking ? Use low-heat cooking methods, such as baking, instead of high-heat cooking methods, such as deep frying. ? Cook using healthy oils, such as olive, canola, or sunflower oil. ? Avoid cooking with butter, cream, or high-fat meats. Meal planning ? Eat meals and snacks regularly, preferably at the same times every day. Avoid going long periods of time without eating. ? Eat foods that are high in fiber, such as fresh fruits, vegetables, beans, and whole grains. ? Eat 4?6 oz (112?168 g) of lean protein each day, such as lean meat, chicken, fish, eggs, or tofu.One ounce (oz) (28 g) of lean protein is equal to: ? 1 oz (28 g) of meat, chicken, or fish. ? 1 egg. ? ? cup (62 g) of tofu. ? Eat some foods each day that contain healthy fats, such as avocado, nuts, seeds, and fish. What foods should I eat? Fruits Berries. Apples. Oranges. Peaches. Apricots. Plums. Grapes. Mangoes. Papayas. Pomegranates. Kiwi. Cherries. Vegetables Leafy greens, including lettuce, spinach, kale, chard, mary greens, mustard greens, and cabbage.Beets. Cauliflower. Broccoli. Carrots. Green beans. Tomatoes. Peppers. Onions. Cucumbers. [place]wood sprouts. Grains Whole grains, such as whole-wheat or whole-grain bread, crackers, tortillas, cereal, and pasta. Unsweetened oatmeal. (more content not included)...Normal [facility] CenterPatient Logson [id number] Logs [id number] R Adams Cow[facility] Shock Trauma CenterAmbulatory Visit Summaryon [id number] Visit Summary LYNSEY ROMERO :1955 Visit Date:11/19/2023 Ambulatory Visit Instructions Your Diagnosis Type II diabetes mellitus BMI 34.0-34.9,adult Class 1 obesity due to excess calories in adult Nonsmoker Your Care Team Attending Physician - APOLINAR TREJO CNP Primary Care Physician - APOLINAR TREJO CNP This Is Your Medications List bisoprolol-hydrochlorothiazide (bisoprolol-hydrochlorothiazide 2.5 mg-6.25 mg Tab) bisoprolol-hydrochlorothiazide (bisoprolol-hydrochlorothiazide 2.5 mg-6.25 mg Tab) fluocinonide topical (fluocinonide topical 0.05% solution) Procedures Performed Appendectomy, Bilateral cataracts, Bunion of left great toe, Detached right retina, H/O: hysterectomy, History of hernia repair. Discharge Vitals Temperature (Oral) 36.5 ?C Heart Rate (Peripheral) 74 Respiratory Rate 16 Blood Pressure 118/82 Height 161.3 cm Height 64 in Weight 88.6 kg Weight 194.92 lb BMI 34.05 What to do next Scheduled Follow-Up Appointments 2023 7:20 AM EDT With: APOLINAR TREJO CNP [facility] [id number] [place] [address]- \.br\ Thursday 2:30 PM EST \.br\ With:\.br\ Where: [facility] Medicine Office/Clinic Noteon [id number] Medicine Office/Clinic NoteHPI Staff Patient presents to discuss lab results. Hgb A1C %: 13.1 % High (11/16/23 15:37:00) questions/concerns: she says she had a bad winter, lots of carbs and sugars over and above what shewould normally eat. History of Present Illness Patient presents today to discuss recent laboratory test. Patient had a fasting glucose of 329 and then has a HGBA1C drawn and that was 13.1%. She reports she knows she ate a great deal of carbohydrates over the winter. She reports her grandparents may have been diabetic but not her parents. She reports she has noticed some increased thirst. She denies increase in urination or numbness & tingling of her hands and feet. She reports her is diabetic and she does not need to see a cook soup. Review of Systems PHQ Score Initial Depression Screen Score: 0 SCORE Constitutional: no fever, no chills, no sweats, no weakness; + increased thirst Skin: no Jaundice, no rash, no lesions, nopetechiae ENMT: no ear pain, no sore throat, no congestion, no hoarseness Respiratory: no shortness of breath, no cough, no orthopnea, no wheezing Cardiovascular: no chest pain, no palpitations, no edema Additional ROS info: Except as noted in the above Review of Systems and in the History of Present Illness all other systems have been reviewed and are negative or noncontributory. Physical Exam Vitals & Measurements T: 36.5 ?C(Oral) HR: 74(Peripheral) RR: 16 BP: 118/82 SpO2: 98% HT: 64 in HT: 161.3 cm WT: 88.6 kg WT: 194.92 lb BMI: 34.05 General: alert, no acute distress Cardiovascular: regular rate and rhythm, normal peripheral perfusion Respiratory: Lungs CTA, respirations non labored Extremities: no deformity, no trauma Neurological: oriented x 4, LOC appropriate for age, speech normal Assessment/Plan 1. Type II diabetes mellitus (E11.9: Type 2 diabetes mellitus without complications) Discussed goal for HgbA1C to be 6.0%- 7.0% Encouraged low carb diet and daily exercise Encouraged to monitor blood sugar daily, log and bring to next visit Encouraged to monitor carbohydrates to be 60 mg, 60 mg, 75 mg over three meals daily Start metFORMin 500 mg one tablet PO BID Discussed potential medication adverse effects f/u in 4 weeks Ordered: metformin, 500 mg = 1 tab(s), Oral, BID, # 60 tab(s), Refills(s) 0, Pharmacy: [facility]/pharmacy #[id number], 161.3, cm, 11/19/23 7:58:00 EDT, Height/Length Dosing, 88.6, kg, 11/19/23 7:58:00 EDT, Weight Dosing Misc Prescription, Glucometer, See Instructions, 1 EA, 0, Glucometer to test blood sugar TID PRN E11.9, [facility]/pharmacy #[id number], Supply, 161.3, cm, 11/19/23 7:58:00 EDT, Height/Length Dosing, 88.6, kg, 11/19/23 7:58:00 EDT, Weight Dosing Misc Prescription, Lancets, See Instructions, 100 EA, 0, Test blood sugar TID PRN E11.9, [facility]/pharmacy #[id number], Supply, 161.3, cm, 11/19/23 7:58:00 EDT, Height/Length Dosing, 88.6, kg, 11/19/23 7:58:00 EDT, Weight Dosing Misc Prescription, Test strips, See Instructions, 100 EA, 0, Test blood sugar TID PRN E11.9, [facility]/pharmacy #[id number], Supply, 161.3, cm, 11/19/23 7:58:00 EDT, Height/Length Dosing, 88.6, kg, 11/19/23 7:58:00 EDT, Weight Dosing Body Mass Index (BMI) documented 3008F Current tobacco non-user 1036F Depression Screening Negative 3352F Influenza immunization administered or previously received 4274F Most recent diastolic blood pressure <80 mm Hg 3078F Patient screen for fall risk: no falls in last year or 1 fall with no injury in last year 1101F Systolic BP <130 mm Hg (Most Recent) 3074F 2. BMI 34.0-34.9,adult (Z68.34: Body mass index [BMI] 34.0-34.9, adult) The standard range for ages 18 and older is >=18.5 and < 25 kg/m2. Your BMI today was above this range, this falls in the overweight to obese category and there are medical benefits to weight loss. We can offer counselling, referral, and/or medical support in addressing this problem. Your BMIand weight management will be followed at subsequent visits. Ordered: Body Mass Index (BMI) documented 3008F Current tobacco non-user 1036F Depression Screening Negative 3352F Influenza immunization administered or previously received 4274F Most recent diastolic blood pressure <80 mm Hg 3078F Patient screen for fall risk: no falls in last year or 1 fall with no injury in last year 1101F Systolic BP <130 mm Hg (Most Recent) 3074F 3. Class 1 obesity due to excess calories in adult (E66.09: Other obesity due to excess calories) The standard range for ages 18 and older is >=18.5 and < 25 kg/m2. Your BMI today was above this range, this falls in the overweight to obese category and there are medical benefits to weight loss. We can offer counselling, referral, and/or medical support in addressing this problem. Your BMIand weight management will be followed at subsequent visits. Ordered: Body Mass Index (BMI) documented 3008F Current tobacco non-user 1036F Depression Screening Negative 3352F Influenza immunization administered or previously received 4274F Most recent diasto (more content not included)...[facility] HospitalComment on above:Result Comment: Electronically Signed By: APOLINAR TREJO CNP\marco\Date and Time Signed: 11/19/23 08:47 EDTPatient Educationon [id number] EducationEndocrinology Diabetes Mellitus and Nutrition, Adult When you have diabetes, or diabetes mellitus, it is very important to have healthy eating habits because your blood sugar (glucose) levels are greatly affected by what you eat and drink. Eating healthy foods in the right amounts, at about the same times every day, can help you: ? Manage your blood glucose. ? Lower your risk of heart disease. ? Improve your blood pressure. ? Reach or maintain a healthy weight. What can affect my meal plan? Every person with diabetes is different, and each person has different needs for a meal plan. Your health care provider may recommend that you work with a dietitian to make a meal plan that is best for you. Your meal plan may vary depending on factors such as: ? The calories you need. ? The medicines you take. ? Your weight. ? Your blood glucose, blood pressure, and cholesterol levels. ? Your activity level. ? Other health conditions you have, such as heart or kidney disease. How do carbohydrates affect me? Carbohydrates, also called carbs, affect your blood glucose level more than any other type of food.Eating carbs raises the amount of glucose in your blood. It is important to know how many carbs you can safely have in each meal. This is different for every person. Your dietitian can help you calculate how many carbs you should have at each meal and for each snack. How does alcohol affect me? Alcohol can cause a decrease in blood glucose (hypoglycemia), especially if you use insulin or takecertain diabetes medicines by mouth. Hypoglycemia can be a life-threatening condition. Symptoms of hypoglycemia, such as sleepiness, dizziness, and confusion, are similar to symptoms of having too much alcohol. ? Do not drink alcohol if: ? Your health care provider tells you not to drink. ? You are , may be , or are planning to become . ? If you drink alcohol: ? Limit how much you have to: ? 0?1 drink a day for women. ? 0?2 drinks a day for men. ? Know how much alcohol is in your drink. In the [place] one drink equals one 12 oz bottle of beer (355 mL), one 5 oz glass of wine (148 mL), or one 1? oz glass of hard liquor (44 mL). ? Keep yourself hydrated with water, diet soda, or unsweetened iced tea. Keep in mind that regular soda, juice, and other mixers may contain a lot of sugar and must be counted as carbs. What are tips for following this plan? Reading food labels ? Start by checking the serving size on the Nutrition Facts label of packaged foods and drinks. Thenumber of calories and the amount of carbs, fats, and other nutrients listed on the label are basedon one serving of the item. Many items contain more than one serving per package. ? Check the total grams (g) of carbs in one serving. ? Check the number of grams of saturated fats and trans fats in one serving. Choose foods that havea low amount or none of these fats. ? Check the number of milligrams (mg) of salt (sodium) in one serving. Most people should limit total sodium intake to less than 2,300 mg per day. ? Always check the nutrition information of foods labeled as low-fat or nonfat. These foods maybe higher in added sugar or refined carbs and should be avoided. ? Talk to your dietitian to identify your daily goals for nutrients listed on the label. Shopping ? Avoid buying canned, pre-made, or processed foods. These foods tend to be high in fat, sodium, and added sugar. ? Shop around the outside edge of the grocery store. This is where you will most often find fresh fruits and vegetables, bulk grains, fresh meats, and fresh dairy products. Cooking ? Use low-heat cooking methods, such as baking, instead of high-heat cooking methods, such as deep frying. ? Cook using healthy oils, such as olive, canola, or sunflower oil. ? Avoid cooking with butter, cream, or high-fat meats. Meal planning ? Eat meals and snacks regularly, preferably at the same times every day. Avoid going long periods of time without eating. ? Eat foods that are high in fiber, such as fresh fruits, vegetables, beans, and whole grains. ? Eat 4?6 oz (112?168 g) of lean protein each day, such as lean meat, chicken, fish, eggs, or tofu.One ounce (oz) (28 g) of lean protein is equal to: ? 1 oz (28 g) of meat, chicken, or fish. ? 1 egg. ? ? cup (62 g) of tofu. ? Eat some foods each day that contain healthy fats, such as avocado, nuts, seeds, and fish. What foods should I eat? Fruits Berries. Apples. Oranges. Peaches. Apricots. Plums. Grapes. Mangoes. Papayas. Pomegranates. Kiwi. Cherries. Vegetables Leafy greens, including lettuce, spinach, kale, chard, mary greens, mustard greens, and cabbage.Beets. Cauliflower. Broccoli. Carrots. Green beans. Tomatoes. Peppers. Onions. Cucumbers. [place] sprouts. Grains Whole grains, such as whole-wheat or whole-grain bread, crackers, tortillas, cereal, and pasta. Unsweetened oatmeal. (more content not included)...Normal [facility] ToledoCHEMISTRYOrdered By: Zhanna Villarreal on 11-16-2023 HbA1c (Bld) [Mass fraction]13.1 %High<=5.9%[facility] [place] HswfVyhmZAGwsQ5hsl 11-16-2023 HbA1c (Bld) [Mass fraction]13.1 %High<=5.9[facility] ToledoComment on above:Performed By: #### [id number] ####[facility] [id number] [place], [place] [address]Qaieq Consultation Noteon [id number] Consultation NoteReason for Visit lab work Assessment/Plan Patient presents for A1C lab draw. Elevated glucose (R73.09: Other abnormal glucose) Medications bisoprolol-hydrochlorothiazide 2.5 mg-6.25 mg Tab, 1 tab(s), Oral, Daily bisoprolol-hydrochlorothiazide 2.5 mg-6.25 mg Tab, 1 tab(s), Oral, Daily, 1 refills fluocinonide topical 0.05% solution, 1 marcus, Topical, TID Allergies No Known Medication Allergies Immunizations Vaccine Date Status Comments influenza virus vaccine, inactivated 06/01/2023 Recorded influenza virus vaccine, inactivated 05/26/2022 Recorded influenza virus vaccine, inactivated 04/24/2021 Recorded SARS-CoV-2 (COVID-19) mRNA BNT-162b2 vax 04/24/2021 Recorded 2023-10-06: [id number] SARS-CoV-2 (COVID-19) mRNA BNT-162b2 vax 09/14/2020 Recorded SARS-CoV-2 (COVID-19) mRNA BNT-162b2 vax 08/24/2020 Recorded influenza virus vaccine, inactivated 04/10/2020 Recorded influenza virus vaccine, inactivated 06/01/2019 RecordedNormalFisher [facility] Shock Trauma CenterLab Reportson [id number] Reports [id number]#[id number] Carolina Hospitaler R [facility] Shock Trauma CenterOutside Mammographyon 03-04-5152[place]zu Mammography [id number]#1.00TIFFFayette County Memorial HospitalOutside Mammographyon 50-86-1953W[place] Mammography [id number]#1.00TIFFFayette County Memorial HospitalOutside Mammographyon 33-46-2848Tu[place] Mammography [id number]#1.00TIFThe Surgical Hospital at SouthwoodsAmbulatory Visit Summaryon [id number] Visit Summary LYNSEY ROMERO :1955 Visit Date:10/06/2023 Ambulatory Visit Instructions Your Diagnosis HTN (hypertension) Encounter to establish care BMI 34.0-34.9,adult Your Care Team Attending Physician - APOLINAR TREJO CNP Primary Care Physician - APOLINAR TREJO CNP This Is Your Medications List bisoprolol-hydrochlorothiazide (bisoprolol-hydrochlorothiazide 2.5 mg-6.25 mg Tab) fluocinonide topical (fluocinonide topical 0.05% solution) Procedures Performed Appendectomy, Bilateral cataracts, Bunion of left great toe, Detached right retina, H/O: hysterectomy, History of hernia repair. Discharge Vitals Heart Rate (Peripheral) 70 Blood Pressure 138/70 Height 161.3 cm Height 64 in Weight 89.25 kg Weight 196.35 lb BMI 34.3 What to do next Scheduled Follow-Up Appointments Thursday 8:00 AM EDT With: APOLINAR TREJO CNP Where: [facility] Medicine Office/Clinic Noteon [id number] Medicine Office/Clinic NoteChief Complaint establish care and htn medication refill HPI Staff Previous patient of Dr. Munroe presents for HTN and to establish care. Establish Care: History: Last provider: Ludwig Any recent labs: Health Maintenance UTD: Colonoscopy: never Mammogram: 2021 Pelvic/Pap: hysterectomy Acute: Current issues/complaints: Patient is here for follow up on hypertension. How often are you checking your blood pressure? no What are your average readings? n/a Do you have any of the following symptoms? Chest Pain? no Palpitations? no SANDY/SOB? no Headache? no Peripheral Edema? no Light Headedness? no Yearly BMP: _ Refill needed?: yes Flu Shot: 06/01/2023 Patient [facility] History of Present Illness 68 year old patient presents today to establish care and to have her blood pressure evaluated. She states she was a previous patient of Dr. Munroe. She denies any dizziness, headache, vision changes,shortness of breath, chest pain, or heart palpitations. Her blood pressure is 138/70 today in the office. She reports she is due for a mammogram and has not had a colonoscopy but will discuss with her daughter (she is a nurse at [employer]). She is not sure if she has a sinus infection coming on or not as she has them generally on an annually basis. She reports she does take Zyrtec daily. Review of Systems PHQ Score Initial Depression Screen Score: 0 SCORE Constitutional: no fever, no chills, no sweats, no weakness Skin: no Jaundice, no rash, no lesions, nopetechiae ENMT: no ear pain, no sore throat, no congestion, no hoarseness Respiratory: no shortness of breath, no cough, no orthopnea, no wheezing Cardiovascular: no chest pain, no palpitations, no edema Gastrointestinal: no nausea, no vomiting, no diarrhea, no GI bleeding Genitourinary: no dysuria, no hematuria, no discharge, no pain Musculoskeletal: no back pain, no trauma Neurologic: no headache, no dizziness, no numbness, no weakness Psychiatric: no sleeping problems, no irritability, no mood swings/depression. Heme/Lymph: no bleeding tendency, no bruising tendency, no petechiae, no swollen nodes Allergy/Immunologic: mild seasonal allergies, no food allergies, no recurrent infections, no impaired immunity Additional ROS info: Except as noted in the above Review of Systems and in the History of Present Illness all other systems have been reviewed and are negative or noncontributory. Physical Exam Vitals & Measurements HR: 70(Peripheral) BP: 138/70 SpO2: 96% HT: 64 in HT: 161.3 cm WT: 89.25 kg WT: 196.35 lb BMI: 34.3 General: alert, no acute distress Skin: warm, dry Head: no trauma, normocephalic Neck: Trachea midline, no adenopathy, no tenderness Eye: normal conjunctiva, sclera clear ENMT: TM's clear, oral mucosa moist, no pharyngeal erythema or exudate Cardiovascular: regular rate and rhythm, normal peripheral perfusion Respiratory: Lungs CTA, respirations non labored Chest wall: no deformity. Gastrointestinal: soft, non distended, no tenderness, no guarding. Back: No tenderness, Normal ROM, Normal alignment. Extremities: no deformity, no trauma Neurological: oriented x 4, LOC appropriate for age, CN II-XII intact, motor strength equal & normal bilaterally, sensation equal & normal bilaterally, speech normal Psychiatric: cooperative, affect appropriate for age, normal judgement, normal psychiatric thoughts. Assessment/Plan 1. HTN (hypertension) (I10: Essential (primary) hypertension) Controlled Encourage low sodium diet & daily exercise bisoprolol-hydrochlorothiazide, 1 tab(s), Oral, Daily, 30 tab(s), Refill(s) [facility], [id number], 161.3, cm, 10/06/23 15:21:00 EDT, Height/Length Dosing, 89.2, kg, 10/06/23 15:21:00 EDT, Weight Dosing f/u in 6 months Ordered: bisoprolol-hydrochlorothiazide, 1 tab(s), Oral, Daily, 160 tab(s), Refill(s) 0, [facility], 161.3, cm, 10/06/23 15:21:00 EDT, Height/Length Dosing, 89.2, kg, 10/06/23 15:21:00 EDT,Weight Dosing Body Mass Index (BMI) documented 3008F CBC w/ Auto Diff Comprehensive Metabolic Panel Current tobacco non-user 1036F Depression Screening Negative 3352F Influenza immunization status assessed 1030F Lipid Panel Medication list documented in medical record 1159F Patient screen for fall risk: no falls in last year or 1 fall with no injury in last year 1101F 2. Encounter to establish care (Z76.89: Persons encountering health services in other specified circumstances) Discussed referral for colonoscopy- patient to contact provider for referral to GI Patient will self-refer for mammogram Ordered: Body Mass Index (BMI) documented 3008F CBC w/ Auto Diff Comprehensive Metabolic Panel Current tobacco non-user 1036F Depression Screening Negative 3352F Influenza immunization status assessed 1030F Lipid Panel Medication list documented in medical record 1159F Patient screen for fall r (more content not included)...[facility] HospitalComment on above:Result Comment: Electronically Signed By: APOLINAR RTEJO CNP\.br\Date and Time Signed: 10/06/23 16:35 EDTPatient Educationon 99-77-1404Cmmbfan EducationCardiovascular Hypertension, Adult Hypertension is another name for high blood pressure. High blood pressure forces your heart to workharder to pump blood. This can cause problems over time. There are two numbers in a blood pressure reading. There is a top number (systolic) over a bottom number (diastolic). It is best to have a blood pressure that is below 120/80. What are the causes? The cause of this condition is not known. Some other conditions can lead to high blood pressure. What increases the risk? Some lifestyle factors can make you more likely to develop high blood pressure: ? Smoking. ? Not getting enough exercise or physical activity. ? Being overweight. ? Having too much fat, sugar, calories, or salt (sodium) in your diet. ? Drinking too much alcohol. Other risk factors include: ? Having any of these conditions: ? Heart disease. ? Diabetes. ? High cholesterol. ? Kidney disease. ? Obstructive sleep apnea. ? Having a family history of high blood pressure and high cholesterol. ? Age. The risk increases with age. ? Stress. What are the signs or symptoms? High blood pressure may not cause symptoms. Very high blood pressure (hypertensive crisis) may cause: ? Headache. ? Fast or uneven heartbeats (palpitations). ? Shortness of breath. ? Nosebleed. ? Vomiting or feeling like you may vomit (nauseous). ? Changes in how you see. ? Very bad chest pain. ? Feeling dizzy. ? Seizures. How is this treated? ? This condition is treated by making healthy lifestyle changes, such as: ? Eating healthy foods. ? Exercising more. ? Drinking less alcohol. ? Your doctor may prescribe medicine if lifestyle changes do not help enough and if: ? Your top number is above 130. ? Your bottom number is above 80. ? Your personal target blood pressure may vary. Follow these instructions at home: Eating and drinking ? If told, follow the DASH eating plan. To follow this plan: ? Fill one half of your plate at each meal with fruits and vegetables. ? Fill one fourth of your plate at each meal with whole grains. Whole grains include whole-wheat pasta, brown rice, and whole-grain bread. ? Eat or drink low-fat dairy products, such as skim milk or low-fat yogurt. ? Fill one fourth of your plate at each meal with low-fat (lean) proteins. Low- fat proteins includefish, chicken without skin, eggs, beans, and tofu. ? Avoid fatty meat, cured and processed meat, or chicken with skin. ? Avoid pre-made or processed food. ? Limit the amount of salt in your diet to less than 1,500 mg each day. ? Do not drink alcohol if: ? Your doctor tells you not to drink. ? You are , may be , or are planning to become . ? If you drink alcohol: ? Limit how much you have to: ? 0?1 drink a day for women. ? 0?2 drinks a day for men. ? Know how much alcohol is in your drink. In the [place] one drink equals one 12 oz bottle of beer (355 mL), one 5 oz glass of wine (148 mL), or one 1? oz glass of hard liquor (44 mL). Lifestyle ? Work with your doctor to stay at a healthy weight or to lose weight. Ask your doctor what the best weight is for you. ? Get at least 30 minutes of exercise that causes your heart to beat faster (aerobic exercise) mostdays of the week. This may include walking, swimming, or biking. ? Get at least 30 minutes of exercise that strengthens your muscles (resistance exercise) at least 3 days a week. This may include lifting weights or doing Pilates. ? Do not smoke or use any products that contain nicotine or tobacco. If you need help quitting, askyour doctor. ? Check your blood pressure at home as told by your doctor. ? Keep all follow-up visits. Medicines ? Take xgqz-kph-luigean and prescription medicines only as told by your doctor. Follow directions carefully. ? Do not skip doses of blood pressure medicine. The medicine does not work as well if you skip doses. Skipping doses also puts you at risk for problems. ? Ask your doctor about side effects or reactions to medicines that you should watch for. Contact a doctor if: ? You think you are having a reaction to the medicine you are taking. ? You have headaches that keep coming back. ? You feel dizzy. ? You have swelling in your ankles. ? You have trouble with your vision. Get help right away if: ? You get a very bad headache. ? You start to feel mixed up (confused). ? You feel weak or numb. ? You feel faint. ? You have very bad pain in your: ? Chest. ? Belly (abdomen). ? You vomit more than once. ? You have trouble breathing. These symptoms may be an emergency. Get help right away. Call 911. ? Do not wait to see if the symptoms will go away. ? Do not drive yourself to the hospital. Summary ? Hypertension is another name for high blood pressure. ? High blood pressure forces your heart to work harder to pump blood. ? For m (more content not included)...[facility] HospitalMG MAMM SCREEN 3D TOMMY CADon 59-41-5750HX MAMM SCREEN 3D TOMMY CADPatient: LYNSEY ROMERO Exam Date: 04/23/2021 : 1955 Gender:F Ordering : DR GOSIA MUNROE . Admission #: [id number] Family : Order #: [id number] CLICK HERE TO VIEW EXAM RADIOLOGY REPORT PROCEDURE: MAMMOGRAM SCREENING 3D BILATERAL CAD COMPARISON: MG MAMM TOMMY SCRN W CAD DIG, 12/29/2014. MG MAMM TOMMY SCRN W CAD DIG, 03/03/2016. INDICATIONS: Screening mammography Calculator Name NCI Breast Cancer Risk Assessment Tool 5 Year Breast Cancer Risk 1.80% Lifetime Breast Cancer Risk 7.20% Personal Breast Cancer No Personal Ovarian Cancer No Treatments None Family Cancers Father with lymphoma cancer at age 70. LOCATION: [facility] BREAST COMPOSITION: Scattered areas fibroglandular density. FINDINGS: DIAGNOSTIC CATEGORY 1--NEGATIVE NO CHANGE FROM COMPARISON ASSESSMENT. Scattered benign-appearing calcifications are present. Scattered benign-appearing lymph nodes are present. RIGHT BREAST: No significant suspicious finding. LEFT BREAST: No significant suspicious finding. RECOMMENDATIONS: ROUTINE MAMMOGRAM AND CLINICAL EVALUATION IN 12 MONTHS. PLEASE NOTE: A NORMAL MAMMOGRAM DOES NOT EXCLUDE THE POSSIBILITY OF BREAST CANCER. A CLINICALLY SUSPICIOUS PALPABLE LUMP SHOULD BE BIOPSIED. Dictated by: Beverly Queen MD on 04/23/2021 at 10:43 Approved by: Beverly Queen MD on 04/23/2021 at 10:55[facility] Vital Signs Date TimeVital SignValuePerforming UdenkfvayNjjbomvq77-65-6196 09:10-0400Body jwxodk460.1 Nicho Guallpa MD Work Phone: [phone] [place], [place] 5846308-17-2025 09:10-0400 Body mass index (BMI) [Ratio]29.7 kg/k9XijyknJuanjo Guallpa MD Work Phone: [phone])[address] [place], [place] 5846308-17-2025 09:10-0400 Body ucbnrysfonl01.6 [degF]Juanjo Guallpa MD Work Phone: 1(082)[address]08-17-2025 09:10-0400 Body nwohmq46.9 kgJuanjo Guallpa MD Work Phone: 1(560)[address] [place], [place] 5846308-17-2025 09:10-0400 Diastolic blood mm[Hg]Juanjo Guallpa MD Work Phone: 1(203)[address] [place], [place] 5846308-17-2025 09:10-0400 Heart rate67 /Eva Guallpa MD Work Phone: 1(473)[address] [place], [place] 5846308-17-2025 09:10-0400 Respiratory rate18 /Eva Guallpa MD Work Phone: [phone])[address] [place], [place] 5846308-17-2025 09:10-0400 SaO2% (BldA) [Mass fraction]97 %Juanjo Guallpa MD Work Phone: [phone] [place], [place] 4038308-17-2025 09:10-0400 Systolic blood wlpabptp429 mm[Hg]Juanjo Guallpa MD Work Phone: [phone]11-17-2024 09:14-0500 Body xkboop732.1 cmSabeba Guallpa MD Work Phone: [phone]11-17-2024 09:14-0500 Body mass index (BMI) [Ratio]29.2 kg/e4EsoborJuanjo Guallpa MD Work Phone: [phone]11-17-2024 09:14-0500 Body vziedearayt93.5 [degF]Juanjo Guallpa MD Work Phone: [phone]11-17-2024 09:14-0500 Body mplosj34.83 kgJuanjo Guallpa MD Work Phone: [phone]11-17-2024 09:14-0500 Diastolic blood qwznwyex48 mm[Hg]Juanjo Guallpa MD Work Phone: [phone]11-17-2024 09:14-0500 Heart rate74 /Eva Guallpa MD Work Phone: [phone])[address] [place], [place] 4097711-17-2024 09:14-0500 Respiratory rate18 /Eva Guallpa MD Work Phone: [phone])[address]11-17-2024 09:14-0500 SaO2% (BldA) [Mass fraction]95 %Juanjo Guallpa MD Work Phone: [phone]11-17-2024 09:14-0500 Systolic blood kuyqhfgk425 mm[Hg]Juanjo Guallpa MD Work Phone: 1(188)[address] [place], [place] 4097701-05-2024 12:05-0500 Body prezwz173.64 Laila Aguiar Other [employer] Other 01-05-2024 12:05-0500Body mass index (BMI) [Ratio] 31.73 kg/y8XtzvncLilliana Aguiar Other [employer] Other 01-05-2024 12:05-0500Body .7 [degF]Lilliana Aguiar Other [employer] Other 01-05-2024 12:05-0500Body cufgaa35.18 kgLilliana Aguiar Other [employer] Other 01-05-2024 12:05-0500Diastolic blood lkfbmjyn56 mm[Hg] Lilliana Renemond Other [employer] Other 01-05-2024 12:05-0500Respiratory rate16 /minLilliana Aguiar Other [employer] Other 01-05-2024 12:05-1318UjP3% (BldA) [Mass fraction]97 % Lilliana Aguiar Other [facility] [employer] Other 01-05-2024 12:05-0500Systolic blood trsxsojs116 mm[Hg] Lilliana Aguiar Other [employer] Other Encounters Encounter DateEncounter TypeCare ProviderFacilityStart: 02-75-2978bvamuzldkf APOLINAR A LEHMANNFacility:FT FM BellevueStart: 80-57-9438qpiuvdnldlUWKJYU A LEHMANNFacility:[facility] [place]vueStart: 04-25-2025 End: 59-84-0024Ymnbei flowsheetTiffanie Benson MD Work Phone: [facility] DermatologyStart: 04-25-2025 End: 34-62-0016Dqtoif flowsheetEmfracisco Benson MD Work Phone: [facility] DermatologyStart: 04-25-2025 End: 54-22-1563jtrwrusowlNMIGN A PETITTINot AvailableStart: 04-25-2025 End: 86-10-4664Tavmns outpatient visit 15 minutesEmily Stu Benson MD Work Phone: [facility]ía DermatologyComment on above:Lichen planopilaris (Primary Dx)Start: 04-06-2025 End: 80-92-4251pvztivfpsdKGGNBQ A LEHMANNFacility:FTMCStart: 04-06-2025 End: 92-44-8990qstttbomnzVDMIOA A LEHMANNFacility:FT FM BellevueStart: 03-23-2025 End: 58-87-0109Advtab patheetEmfracisco Benson MD Work Phone: [facility] DermatologyStart: 03-23-2025 End: 11-08-0352Tvcbec flowsheetEmfracisco Benson MD Work Phone: [facility] DermatologyStart: 03-23-2025 End: 14-70-3991Xvuciy outpatient visit 15 minutesEmily Stu Benson MD Work Phone: [facility] DermatologyComment on above:Actinic keratosis (Primary Dx); Lentigines; History of basal cell carcinoma; Lichen planopilarisStart: 03-23-2025 End: 62-09-8519vaovynuhlvRUJCN A PETITTINot AvailableStart: 02-26-2025 End: 36-88-4929oubspwofywOpluzo E Ross MD Work Phone: [facility] Work Phone: Start: 02-26-2025 End: 79-62-8170Nuqyreb encounter procedureSaira Jain APRN-[facility] Work Phone: Start: 10-07-2024 End: 41-54-8740Lvlgega encounter procedureEmily Stu Benson MD Work Phone: noms [facility] DERMComment on above:Basal cell carcinoma (BCC) of skin of left upper extremity including shoulder (Primary Dx)Start: 10-07-2024 End: 50-88-0075dqvzbeqywkCEVIU A PETITTINot AvailableStart: 10-04-2024 End: 09-84-5659Rkh Drop offSHELLY Stu TREJO [facility] Start: 10-04-2024 End: 03-24-6099nzwdrjsupeGNOHMV A MAYAFacility:FTMCStart: 08-22-2024 End: 54-35-9800Edoczg flowsheetTiffanie Benson MD Work Phone: noms [facility] DERMStart: 08-22-2024 End: 79-26-3805Mkjyap flowsheetEmfracisco Benson MD Work Phone: noms [facility] DERMStart: 08-22-2024 End: 06-92-5794ngavlzkguiNVLKO A PETITTINot AvailableStart: 08-22-2024 End: 18-50-9731Vonahh outpatient visit 25 minutesEmfracisco Benson MD Work Phone: noms [facility] DERMComment on above:Lichen planopilaris (Primary Dx); Seborrheic keratosis; Lentigines; History of basal cell carcinoma; Actinic keratosis; Neoplasm of unspecified behavior of bone, soft tissue, and skinStart: 06-14-2024 End: 10-07-6246yshqrfgomhQCLPNH A LEHMANNFacility:FT [place]vueStart: 05-29-2024 End: 22-64-3456Qtaybmq encounter procedureSabeba Guallpa MD Work Phone: [facility] Work Phone: Start: 05-29-2024 End: 86-66-9218etttpkxqudWfueim E Ross MD Work Phone: [facility] Work Phone: Start: 05-29-2024 End: 88-55-1265igeegtzpbdZxfaas E Ross MD Work Phone: [facility] Work Phone: Start: 05-29-2024 End: 09-58-1573Zudrmom encounter procedureSabeba Guallpa MD Work Phone: [facility] Work Phone: Start: 04-05-2024 End: 37-20-0035Glq Drop offSHELLY A MAYA [facility] Start: 04-05-2024 End: 11-07-7057dcezbxjhyrLVLBZN A LEHMANNFacility:FT [facility] [place]vueStart: 12-17-2023 End: 17-15-4175zkbhycjmcrDXXWFE A LEHMANNFacility:FT [facility] [place]vueStart: 11-19-2023 End: 60-85-4230vpqasusfkgKFBZUZ A LEHMANNFacility:[facility] [place]vueStart: 11-16-2023 End: 99-33-7293Lgd Drop offSHELLY A MAYA [facility] Start: 11-16-2023 End: 95-16-5999eskizjfflxHZVWES A LEHMANNFacility:FTMCStart: 10-06-2023 End: 25-77-4959ofhvmzuuwrVWKUSZ A LEHMANNFacility:FT [facility] [place]vueStart: 79-42-9133xsyguaadfiOKLUJJ LEHMANNFacility:FT [facility] [place]vueStart: 08-20-2023 End: 37-27-4128Iotgid outpatient visit 25 minutesEmily Stu Benson MD Work Phone: [facility] DERMComment on above:Lichen planopilaris (Primary Dx); Seborrheic keratosis; Lentigines; History of basal cell carcinoma; Actinic keratosisStart: 07-17-2023 End: 11-38-3319bvbsvftygyPuqthx Stefania Other [employer] Other Start: 12-68-8561Lmjtke outpatient new 20 minutes Lilliana StefaniaFPG Urgent Care ClydeStart: 04-23-2021 End: 42-49-2291vbmbmlbunlUA GOSIA MUNROEFacility:H1 Procedures DateProcedureProcedure DetailPerforming ClinicianStart: 26-59-7095OQPVPPFKUYX OF LESIONEmily Stu Benson MD Work Phone: Start: 99-29-6953APML / NAIL BIOPSYEmily Stu Benson MD Work Phone: Start: 30-38-0294NAIUTCYZRBS SKIN LESIONEmily Stu Benson MD Work Phone: Start: 65-69-3756Adbds chest X-raySabeba Guallpa MD Work Phone: AppendectomyAPOLINAR WINTERHMANN Bilateral cataracts (disorder)APOLINAR TREJO Detachment of retina of right eye (disorder)APOLINAR TREJO H/O: hysterectomySHMARIAA WINTERHMANN H/O: surgeryHx of detached retina ogSalady Guallpa MD Work Phone: History of hernia repairAPOLINAR TREJO Swelling of first metatarsal joint of hallux of left foot (disorder)APOLINAR TREJO Plan of Treatment DateCare ActivityDetailAuthorStart: 11-47-0198Enlvstfbb for malignant neoplasm of colonNOMS HealthcareStart: 08-22-2025 End: 66-93-1112Uweobgx encounter procedureNOMS SWS DERMStart: 04-25-2025 End: 67-46-4952Rnlufbh encounter yaimndxrx02/14/2025 11:15 AM EDT Office Visit [facility] [address] [place], [id number] Tiffanie Benson MD [address] [place] [address] [facility] DermatologyStart: 03-23-2025 End: 37-17-3674Hldwjyk encounter procedureNODOMINICAN HOSPITAL DERMComment on above:Arrived Start: 82-18-3931Vghpjztrl vaccinationInfluenza Vaccine (#1)[facility] Start: 08-22-2024 End: 54-29-4619Midowfb encounter msyusixvp23/10/2025 10:45 AM EST Office Visit [facility] [address] [place] [address] Tiffanie Benson MD [address] [place] [address] [facility] DERMStart: 01-13-4450Gcsujdyiw vaccination Influenza Vaccine (#1)[facility] HealthcareStart: 18-70-1624Uaexgxeeokie Vaccine: 65+ Years (1 - PCV)Pneumococcal Vaccine: 65+ Years (1 - PCV)[facility] HealthcareStart: 64-98-4378Desysktsbynv Vaccine: 65+ Years (1 of 1 - PCV)Pneumococcal Vaccine: 65+ Years (1 of 1 - PCV)[facility] HealthcareStart: 90-65-2027Dgfrhmakqgou Vaccine: 65+ Years (1 of 1 - PCV)Pneumococcal Vaccine: 65+ Years (1 of 1 - PCV)[facility] HealthcareStart: 56-85-0472Tczopowdc for malignant neoplasm of breastMammogram [facility] HealthcareStart: 48-90-4849Vtlamdejb for malignant neoplasm of colonNOMS HealthcareDermatopathology examDermatopathology exam Pathology and Cytology Timed Neoplasm of unspecified behavior of bone, soft tissue, and skin Release Upon Ordering for 1 Occurrences starting 08/22/2024[facility] Work Phone: comment on above:Release Upon Ordering for 1 Occurrences starting 08/22/2024 Immunizations Immunization DateImmunizationNotesCare FlakztzdAznybxph19-89-2159hiscyjhnx virus vaccine, unspecified formulationTiffanie Benson MD Work Phone: [facility]ettAfwxvbjxcc53-43-9533VCMB-KrV-1 mRNA (rxcjjdbdwzn-fvfy-loltynp) vaccineSHELLY MAYA 458-0515Vziuxv-DmlffSelect Medical [facility] 39-55-6263iknzyycgk virus vaccine, unspecified formulationSHELLY MAYA 612-1147Ecycta-DmdroSelect Medical [facility] 10-55-6560jlhxnulvw, unspecified formulationSHELLY MAYA 576-6740Qkcqva-AagvnSelect [facility] 26-03-2427djatraccs virus vaccine, unspecified formulationSHELLY MAYA [phone]-AdbdpSelect [facility] 26-27-3280ouixiazrg virus vaccine, unspecified formulationSHELLY MAYA [phone]-GedqtSelect [facility] 89-24-7042DEZE-CoV-2 (COVID-19) mRNA BNT-162b2 vaxSHELLY MAYA 172-5976Vatnkg-WhqpiSelect Medical [facility] Comment on above:Result Comment: 2023-10-06: JLA0929-36-3695NKJS-FuU-9 (COVID- 19) mRNA BNT-162b2 vaxSHELLY MAYA 319-4718Mhcmgb-YgwiwSelect [facility] 33-49-1311IKLE-CoV-2 (COVID-19) mRNA BNT-162b2 vaxSHELLY MAYA 507-8917Mtbutx-PwohsSelect [facility] 66-07-9336opjlhegea virus vaccine, unspecified formulationSHELLY MAYA 224-0108Hxzstp-IjjvgSelect [facility] 82-42-3271plptcywck virus vaccine, unspecified Surendra MAYA 254-2734Ponrtl-VfjkwSelect [facility] Payers DatePayer CategoryPayerPolicy [id number]-pay2023MedicaidAETNA MEDICARE ADVANTAGE [id number] 2023MedicareAETNA MEDICARE ADVANTAGE AETNA MEDICARE REPLACEMENT [id number] 2022-Present [address] [place] [id number] [id number] 2..[id number] 1957 [id number] 2..1.998213.3.57[id number] 2..1.718889.3.57[id number] 2..1.963496.3.57[id number] 2..1.261988.3.57[id number] 2..1.733420.3.57[id number] 2.16.840.1.416783.3.57[id number] 2.16.840.1.761800.3.57[id number] 2.16.840.1.501862.3.57[id number] 2.16.840.1.855118.3.57[id number] 2.16.840.1.615020.3.57[id number] 2.16.840.1.185438.3.57[id number] 2.16.840.1.937102.3.57[id number] 2.16.840.1.857797.3.57[id number] 2.16.840.1.843842.3.57[id number] 2.16.840.1.527245.3.57[id number] 2.16.840.1.700326.3.57[id number] 2.16.840.1.896168.3.57[id number] 2.16.840.1.400659.3.57[id number] 2.16.840.1.411314.3.57[id number] 2..840.1.206344.3.57[id number] 2.0.1.864400.3.57[id number] 2..840.1.000038.3.579.2.1259Private Health Insurance [id number] 2..840.1.232893.3.579.2.531 Social History DateTypeDetailFacilityStart: 08-20-2023 End: 15-77-8162Ygt [facility] End: 33-58-1865Vsaqqfq smoking status NHISNever smoked tobaccoNOMS Healthcare Start: 95-95-4938Amdqnqq use and exposureSmokeless tobacco non-userNOMS HealthcareStart: 08-20-2023 End: 09-28-0402Mhemupu intakeDeferNOMS HealthcareStart: 08-20-2023 End: 84-98-3791Aaiaimc of Social functionNOMS HealthcareStart: 89-35-1581Mfk Assigned At [facility]Not on fileNOMS HealthcareStart: 72-74-3954Vhcqekt smoking statusUniversity Hospitals [facility] BellevueStart: 10-24-2009 End: 01-27-5150GfjPrjhzk ([facility] Centertart: [id number] Assigned At [facility] Medical Equipment Procedure CodeEquipment CodeEquipment Original TextEquipment IdentifierDates Lancets, See Instructions, 100 EA, 0, Test blood sugar TID PRN E11.9, [id number], Supply, 161.3, cm, 11/19/23 7:58:00 EDT, Height/Length Dosing, 88.6, kg, 11/19/23 7:58:00 EDT, Weight DosingStart: 30-54-1560Iqif strips, See Instructions, 300 EA, 1, Test blood sugar TID E11.9, [id number], Supply, 162, cm, 12/17/23 7:22:00 EDT, Height/Length Dosing, 86.2, kg, 12/17/23 7:22:00 EDT, Weight DosingStart: 04-49-7002Iagefhb, See Instructions, 100 EA, 0, Test blood sugar TID PRN E11.9, [id number], Supply, 161.3, cm, 11/19/23 7:58:00 EDT, Height/Length Dosing, 88.6, kg, 11/19/23 7:58:00 EDT, Weight DosingStart: 26-52-2850Haup strips, See Instructions, 300 EA, 1, Test blood sugar TID E11.9, [id number], Supply, 162, cm, 12/17/23 7:22:00 EDT, Height/Length Dosing, 86.2, kg, 12/17/23 7:22:00 EDT, Weight DosingStart: 02-17-2024 Clinical Notes 06-12-2023 to 04-25-2025 Note Date & [id number] History of Present illness Narrative* Tiffanie Benson MD - 04/25/2025 11:15 AM EDT Follow-Up: [...] Next Visit: as scheduled documented in this encounterCox [id number] NotePatient Education Endocrinology Diabetes Mellitus and Nutrition, Adult When you have diabetes, or diabetes mellitus, it is very important to have healthy eating habits because your blood sugar (glucose) levels are greatly affected by what you eat and drink. Eating healthy foods in the right amounts, at about the same times every day, can help you: ??? Manage your blood glucose. ??? Lower your risk of heart disease. ??? Improve your blood pressure. ??? Reach or maintain a healthy weight. What can affect my meal plan? Every person with diabetes is different, and each person has different needs for a meal plan. Your health care provider may recommend that you work with a dietitian to make a meal plan that is best for you. Your meal plan may vary depending on factors such as: ??? The calories you need. ??? The medicines you take. ??? Your weight. ??? Your blood glucose, blood pressure, and cholesterol levels. ??? Your activity level. ??? Other health conditions you have, such as heart or kidney disease. How do carbohydrates affect me? Carbohydrates, also called carbs, affect your blood glucose level more than any other type of food.Eating carbs raises the amount of glucose in your blood. It is important to know how many carbs you can safely have in each meal. This is different for every person. Your dietitian can help you calculate how many carbs you should have at each meal and for each snack. How does alcohol affect me? Alcohol can cause a decrease in blood glucose (hypoglycemia), especially if you use insulin or takecertain diabetes medicines by mouth. Hypoglycemia can be a life-threatening condition. Symptoms of hypoglycemia, such as sleepiness, dizziness, and confusion, are similar to symptoms of having too much alcohol. ??? Do not drink alcohol if: ? Your health care provider tells you not to drink. ? You are , may be , or are planning to become . ??? If you drink alcohol: ? Limit how much you have to: ? 0?1 drink a day for women. ? 0?2 drinks a day for men. ? Know how much alcohol is in your drink. In the [place] one drink equals one 12 oz bottle of beer (355 mL), one 5 oz glass of wine (148 mL), or one 1? oz glass of hard liquor (44 mL). ? Keep yourself hydrated with water, diet soda, or unsweetened iced tea. Keep in mind that regular soda, juice, and other mixers may contain a lot of sugar and must be counted as carbs. What are tips for following this plan? Reading food labels ??? Start by checking the serving size on the Nutrition Facts label of packaged foods and drinks. The number of calories and the amount of carbs, fats, and other nutrients listed on the label are based on one serving of the item. Many items contain more than one serving per package. ??? Check the total grams (g) of carbs in one serving. ??? Check the number of grams of saturated fats and trans fats in one serving. Choose foods that have a low amount or none of these fats. ??? Check the number of milligrams (mg) of salt (sodium) in one serving. Most people should limit total sodium intake to less than 2,300 mg per day. ??? Always check the nutrition information of foods labeled as low-fat or nonfat. These foods may be higher in added sugar or refined carbs and should be avoided. ??? Talk to your dietitian to identify your daily goals for nutrients listed on the label. Shopping ??? Avoid buying canned, pre-made, or processed foods. These foods tend to be high in fat, sodium, and added sugar. ??? Shop around the outside edge of the grocery store. This is where you will most often find freshfruits and vegetables, bulk grains, fresh meats, and fresh dairy products. Cooking ??? Use low-heat cooking methods, such as baking, instead of high-heat cooking methods, such as deep frying. ??? Cook using healthy oils, such as olive, canola, or sunflower oil. ??? Avoid cooking with butter, cream, or high-fat meats. Meal planning ??? Eat meals and snacks regularly, preferably at the same times every day. Avoid going long periods of time without eating. ??? Eat foods that are high in fiber, such as fresh fruits, vegetables, beans, and whole grains. ??? Eat 4?6 oz (112?168 g) of lean protein each day, such as lean meat, chicken, fish, eggs, or tofu. One ounce (oz) (28 g) of lean protein is equal to: ? 1 oz (28 g) of meat, chicken, or fish. ? 1 egg. ? ? cup (62 g) of tofu. ??? Eat some foods each day that contain healthy fats, such as avocado, nuts, seeds, and fish. What foods should I eat? Fruits Berries. Apples. Oranges. Peaches. Apricots. Plums. Grapes. Mangoes. Papayas. Pomegranates. Kiwi. Cherries. Vegetables Leafy greens, including lettuce, spinach, kale, chard, mary greens, mustard greens, and cabbage.Beets. Cauliflower. Broccoli. Carrots. Green beans. Tomatoes. Peppers. Onions. Cucumbers. [place] sprouts. Grains Whole grains, such as whole-wheat or whole- (more content not included)...[facility]09-25-2025 NotePatient Education Endocrinology Diabetes Mellitus and Foot Care Diabetes, also called diabetes mellitus, may cause problems with your feet and legs because of poorblood flow (circulation). Poor circulation may make your skin: ??? Become thinner and grain drier operator. ??? Break more easily. ??? Heal more slowly. ??? Peel and crack. You may also have nerve damage (neuropathy). This can cause decreased feeling in your legs and feet. This means that you may not notice minor injuries to your feet that could lead to more serious problems. Finding and treating problems early is the best way to prevent future foot problems. How to care for your feet Foot hygiene ??? Wash your feet daily with warm water and mild soap. Do not use hot water. Then, pat your feet and the areas between your toes until they are fully dry. Do not soak your feet. This can dry your skin. ??? Trim your toenails straight across. Do not dig under them or around the cuticle. File the edgesof your nails with an emery board or nail file. ??? Apply a moisturizing lotion or petroleum jelly to the skin on your feet and to dry, brittle toenails. Use lotion that does not contain alcohol and is unscented. Do not apply lotion between your toes. Shoes and socks ??? Wear clean socks or stockings every day. Make sure they are not too tight. Do not wear knee-high stockings. These may decrease blood flow to your legs. ??? Wear shoes that fit well and have enough cushioning. Always look in your shoes before you put them on to be sure there are no objects inside. ??? To break in new shoes, wear them for just a few hours a day. This prevents injuries on your feet. Wounds, scrapes, corns, and calluses ??? Check your feet daily for blisters, cuts, bruises, sores, and redness. If you cannot see the bottom of your feet, use a mirror or ask someone for help. ??? Do not cut off corns or calluses or try to remove them with medicine. ??? If you find a minor scrape, cut, or break in the skin on your feet, keep it and the skin aroundit clean and dry. You may clean these areas with mild soap and water. Do not clean the area with peroxide, alcohol, or iodine. ??? If you have a wound, scrape, corn, or callus on your foot, look at it several times a day to make sure it is healing and not infected. Check for: ? Redness, swelling, or pain. ? Fluid or blood. ? Warmth. ? Pus or a bad smell. General tips ??? Do not cross your legs. This may decrease blood flow to your feet. ??? Do not use heating pads or hot water bottles on your feet. They may burn your skin. If you havelost feeling in your feet or legs, you may not know this is happening until it is too late. ??? Protect your feet from hot and cold by wearing shoes, such as at the beach or on hot pavement. ??? Schedule a complete foot exam at least once a year or more often if you have foot problems. Report any cuts, sores, or bruises to your health care provider right away. Where to find more information ??? [place] [employer]: diabetes.org ??? Association of Diabetes Care & Education Specialists: diabeteseducator.org Contact a health care provider if: ??? You have a condition that increases your risk of infection, and you have any cuts, sores, or bruises on your feet. ??? You have an injury that is not healing. ??? You have redness on your legs or feet. ??? You feel burning or tingling in your legs or feet. ??? You have pain or cramps in your legs and feet. ??? Your legs or feet are numb. ??? Your feet always feel cold. ??? You have pain around any toenails. Get help right away if: ??? You have a wound, scrape, corn, or callus on your foot and: ? You have signs of infection. ? You have a fever. ? You have a red line going up your leg. This information is not intended to replace advice given to you by your health care provider. Make sure you discuss any questions you have with your health care provider. Document Revised: 12/31/2022 Document Reviewed: 12/31/2022 [employer] Patient Education ? 2023 [facility]. Diabetes Mellitus and Skin Care Diabetes, also called diabetes mellitus, can lead to skin problems. If blood sugar (glucose) is notwell controlled, it can cause problems over time. These problems include: ??? Damage to nerves. This can affect your ability to feel wounds. This means you may not notice small skin injuries that could lead to bigger problems. This can also decrease the amount that you sweat, causing dry skin. ??? Damage to blood vessels. The lack of blood flow can cause skin to break down. It can also slow healing time, which can lead to infections. ??? Areas of skin that become thick or discolored. Common skin conditions There are certain skin conditions that often affect people with diabetes. These include: ??? Dry skin. ??? Thin skin. The skin on the feet may get thinner, break more easily, and heal more slowly th (more content not included)...[facility] 03-23-2025 History of Present illness Narrative* Tiffanie Benson MD - 03/23/2025 8:45 AM EDT Skin Check Location: Patient requests a skin examination from the waist up Dermatologic history: history of Actinic Keratosis, history of Basal Cell Carcinoma Last visit: 6 months ago Established patient Follow-Up: Diagnosis: Lichen planopilaris Location: Scalp Last visit: 1 year ago Status: minor flaring noted 2 weeks ago Symptoms: scaly, red spots Current treatment: Fluocinonide soultion 0.05% every day All pertinent medical history, medications, and allergies were reviewed. General Exam: alert, oriented to person, place, and time, normal affect, well appearing Unaccompanied A complete skin exam was offered, pt declined. Areas not examined despite medical recommendation: From the waist down Scalp, Examined Head, Face Examined Neck Examined Chest Examined Back Examined Abdomen Examined Right arm Examined Left arm Examined Hands Examined Digits,nails: Examined Lymphatics: Not examined Skin Exam 1. ACTINIC KERATOSIS Left Nasal Sidewall Erythematous scaly papules Patient was counseled regarding these sun-induced growths that can develop into squamous cell carcinoma if left untreated. Discussed treatment options, including cryotherapy and topical preparations.It was emphasized that any treated lesions that fail to resolve should be re-evaluated. Patient elected for treatment with Efudex as this has become a chronic issue. Educated on Efudex treatment. Apply to Nose twice a day for two weeks. Discussed that treated areas will become red, crusty, and inflamed. If areas become too uncomfortable, patient may use OTC hydrocortisone cream to help decrease irritation and can discontinue treatment early. Sun exposure should be avoided during treatment. Patient instructed to contact office for any questions or issues during treatment. Lesions that fail to resolve once treated area is healed should be re-evaluated in the office. Handout given to patient Patient to notify office if lesion didn't resolve so biopsy can be done. Offered biopsy vs efudex treatment today, patient elected to try efudex first. 2. LENTIGINES Generalized Scattered mares macules in sun-exposed areas. The patient was informed that lentigines are benign pigmented lesions that occur on sun-exposed andsun-damaged skin. No treatment is necessary. Recommended regular use of broad spectrum sunscreen SPF 30 or higher 3. HISTORY OF BASAL CELL CARCINOMA frontal scalp No evidence of recurrence at BCC scar. The patient was counseled that scars from excisional sites of nonmelanoma skin cancers should be monitored closely for recurrence. The patient was instructed to contact the office for any new, changing, or symptomatic moles. The patient was also instructed to contact the office for any new lesions that develop within or around the previous surgery scar. 4. LICHEN PLANOPILARIS Scalp Perifollicular erythema noted, flaring, not at treatment goal Patient was counseled that this condition is chronic and can be controlled, but not cured. Discussed adding ILK injections as a form of treatment to help calm things down vs oral treatments, patient declined today. Continue lidex solution apply topically to scalp every day as needed for flaring. Notify office if any worsening despite treatment. Continue using Fluocinonide solution daily as neededfor flares, decrease to 2-3x weekly when controlled. ILK injections done today. Follow up in 4 weeks. Given symptoms, recommend treatment with ILK today. ILK today, see MAR for details. Consent: The risks and benefits of intralesional kenalog were discussed prior to the procedure. Specifically, the risk of skin atrophy was reviewed. It was also emphasized that multiple treatments may be necessary. Verbal consent was obtained from the patient/parent. Method: See [facility] for details on administration. 3 ml of K2.5 was injected intradermally. The patient/parents were instructed to massage the injection site(s) following the procedure. Instructed to call for any questions or problems that occur. triamcinolone acetonide (Kenalog) injection 2.5 mg - Scalp Related Medications fluocinonide (Lidex) 0.05 % external solution APPLY TO SCALP ONCE A DAY Next Visit: 4 weeks documented in this encounterCox [id number] History of Present illness Narrative* Tiffanie Benson MD - 10/07/2024 9:50 AM EDT Follow up Diagnosis: Basal Cell Carcinoma Location: Shoulder, posterior Last visit: 08/22/24 Symptoms: red Status: pink macule at biopsy site Procedure performed: Shave biopsy Here today for ED&C. All pertinent medical history, medications, and allergies were reviewed. General Exam: alert, oriented to person, place, and time, normal affect, well appearing Unaccompanied A focused exam completed based on patient reported problems, see below: 1. Basal cell carcinoma (BCC) of skin of left upper extremity including shoulder Left Shoulder - Posterior [place] macule at biopsy site Destr of lesion Complexity: simple Destruction method: electrodesiccation and curettage Informed consent: discussed and consent obtained Informed consent comment: The risks of the procedure were discussed, including, but not limited to risks of scarring, darker or operations developer pigmentary changes, recurrence, infection, and incomplete removal Timeout: patient name, date of , surgical site, and procedure verified Timeout comment: Patient and provider identified site. Site was marked. Photo was taken and shown to patient, patient verified this is the correct site. Procedure prep: Patient was prepped and draped in usual sterile fashion Prep type: Chlorhexidine Anesthesia: the lesion was anesthetized in a standard fashion Anesthetic: 1% lidocaine w/ epinephrine 1-100,000 buffered w/ 8.4% NaHCO3 Curettage performed in three different directions: Yes Electrodesiccation performed over the curetted area: Yes Curettage cycles: 3 Lesion length (cm): 1.2 Lesion width (cm): 1.9 Margin per side (cm): 0 Final wound size (cm): 1.9 Hemostasis achieved with: aluminum chloride Outcome: patient tolerated procedure well with no complications Post-procedure details: wound care instructions given Post-procedure details comment: Post-procedure instructions were given verbally and in writing. Theoffice will be contacted if the lesion fails to resolve despite treatment, or if a side effect develops such as abnormal crusting, scabbing, reddness, discharge, or tenderness. Additional details: Amount of lidocaine used: 5cc Previous accession number: [id number] Emphasized to return to clinic for any signs of recurrence prior to next visit. Next Visit: 6 months for FBSE documented in this encounterCox [id number] NotePatient Education Endocrinology Diabetes Mellitus and Exercise Regular exercise is important for your health, especially if you have diabetes mellitus. Exercise is not just about losing weight. It can also help you increase muscle strength and bone density and reduce body fat and stress. This can help your level of endurance and make you more fit and flexible. Why should I exercise if I have diabetes? Exercise has many benefits for people with diabetes. It can: ??? Help lower and control your blood sugar (glucose). ??? Help your body respond better and become more sensitive to the hormone insulin. ??? Reduce how much insulin your body needs. ??? Lower your risk for heart disease by: ? Lowering how much bad cholesterol and triglycerides you have in your body. ? Increasing how much good cholesterol you have in your body. ? Lowering your blood pressure. ? Lowering your blood glucose levels. What is my activity plan? Your health care provider or an expert trained in diabetes care (certified medical coder) can help you make an activity plan. This plan can help you find the type of exercise that works for you. It may also tell you how often to exercise and for how long. Be sure to: ??? Get at least 150 minutes of medium-intensity or high-intensity exercise each week. This may involve brisk walking, biking, or water aerobics. ??? Do stretching and strengthening exercises at least 2 times a week. This may involve yoga or weight lifting. ??? Spread out your activity over at least 3 days of the week. ??? Get some form of physical activity each day. ? Do not go more than 2 days in a row without some kind of activity. ? Avoid being inactive for more than 30 minutes at a time. Take frequent breaks to walk or stretch. ??? Choose activities that you enjoy. Set goals that you know you can accomplish. ??? Start slowly and increase the intensity of your exercise over time. How do I manage my diabetes during exercise? Monitor your blood glucose ??? Check your blood glucose before and after you exercise. ? If your blood glucose is 240 mg/dL (13.3 mmol/L) or higher before you exercise, check your urine for ketones. These are chemicals created by the liver. If you have ketones in your urine, do not exercise until your blood glucose returns to normal. ? If your blood glucose is 100 mg/dL (5.6 mmol/L) or lower, eat a snack that has 15?20 grams of carbohydrate in it. Check your blood glucose 15 minutes after the snack to make sure that your level isabove 100 mg/dL (5.6 mmol/L) before you start to exercise. ??? Your risk for low blood glucose (hypoglycemia) goes up during and after exercise. Know the symptoms of this condition and how to treat it. Follow these instructions at home: ??? Keep a carbohydrate snack on hand for use before, during, and after exercise. This can help prevent or treat hypoglycemia. ??? Avoid injecting insulin into parts of your body that are going to be used during exercise. Thismay include: ? Your arms, when you are going to play tennis. ? Your legs, when you are about to go jogging. ??? Keep track of your exercise habits. This can help you and your health care provider watch and adjust your activity plan. Write down: ? What you eat before and after you exercise. ? Blood glucose levels before and after you exercise. ? The type and amount of exercise you do. ??? Talk to your health care provider before you start a new activity. They may need to: ? Make sure that the activity is safe for you. ? Adjust your insulin, other medicines, and food that you eat. ??? Drink water while you exercise. This can stop you from losing too much water (dehydration). It can also prevent problems caused by having a lot of heat in your body (heat stroke). Where to find more information ??? [place] [employer]: diabetes.org ??? Association of Diabetes Care & Education Specialists: diabeteseducator.org This information is not intended to replace advice given to you by your health care provider. Make sure you discuss any questions you have with your health care provider. Document Revised: 12/17/2022 Document Reviewed: 12/17/2022 [employer] Patient Education ? 2023 [facility] 08-22-2024 History of Present illness Narrative* Tiffanie Benson MD - 08/22/2024 10:45 AM EST Images from the original note were not included. Skin Check Location: Patient requests a skin examination from the waist up Dermatologic history: history of Actinic Keratosis, history of Basal Cell Carcinoma. Last visit: 1 year ago Established patient Patient reported she completed efudex treatment since last visit, with a good reaction on the nose Follow-Up: Diagnosis: Lichen planopilaris Location: Scalp Last visit: 1 year ago Status: minor flaring noted 2 weeks ago Symptoms: scaly, red spots Current treatment: Fluocinonide soultion 0.05% every day, patient is satisfied with treatment All pertinent medical history, medications, and allergies were reviewed. General Exam: alert, oriented to person, place, and time, normal affect, well appearing Unaccompanied A complete skin exam was offered, pt declined. Areas not examined despite medical recommendation: From the waist down Scalp, Examined Head, Face Examined Neck Examined Chest Examined Back Examined Abdomen Examined Right arm Examined Left arm Examined Hands Examined Digits,nails: Examined Lymphatics: 1. Lichen planopilaris Scalp perifollicular erythema noted, flaring noted Patient was counseled that this condition is chronic and can be controlled, but not cured. Discussed adding ILK injections as a form of treatment to help calm things down vs oral treatments, patient declined today. Continue lidex solution apply topically to scalp every day as needed for flaring. Notify office if any worsening despite treatment. Related Medications fluocinonide (Lidex) 0.05 % external solution APPLY TO SCALP ONCE A DAY 2. Seborrheic keratosis Stuck on verrucous, mares-brown papules and plaques. Patient was counseled regarding these benign growths. Removal is normally not necessary, but they may be removed if they are symptomatic or for cosmetic reasons. 3. Lentigines Scattered mares macules in sun-exposed areas. The patient was informed that lentigines are benign pigmented lesions that occur on sun-exposed andsun-damaged skin. No treatment is necessary. Recommended regular use of broad spectrum sunscreen SPF 30 or higher 4. History of basal cell carcinoma frontal scalp No evidence of recurrence at BCC scar. The patient was counseled that scars from excisional sites of nonmelanoma skin cancers should be monitored closely for recurrence. The patient was instructed to contact the office for any new, changing, or symptomatic moles. The patient was also instructed to contact the office for any new lesions that develop within or around the previous surgery scar. 5. Actinic keratosis (5) Left Eyebrow, Left Malar Cheek (2), Left Tip of Nose, Right Parotid Area Erythematous scaly papules Patient was counseled regarding these sun-induced growths that can develop into squamous cell carcinoma if left untreated. Discussed treatment with cryotherapy. It was emphasized that any treated lesions that fail to resolve should be re- evaluated. Cryotherapy performed today; see procedure note Diagnosis: Actinic keratosis Indication: Precancerous Location: see skin exam Consent: Verbal consent was obtained and risks were discussed, including, but not limited to risks of scarring, darker or operations developer pigmentary changes, recurrence, incomplete removal and infection. Method: Liquid nitrogen was used to treat the lesion(s) with two 5-10 second freeze-thaw cycles. Eyes were shielded using cotton pad during procedure Number of lesions treated: 5 Post-procedure instructions: Instructions were given orally and in writing. The office will be contacted if the lesion fails to resolve despite treatment, or if a side effect develops such as abnormal crusting, scabbing, redness or tenderness. Educated on Efudex treatment okay to spot treat between appointments. Discussed that treated areas will become red, crusty, and inflamed. If areas become too uncomfortable, patient may use OTC hydrocortisone cream to help decrease irritation. Sun exposure should be avoided during treatment. Patientinstructed to contact office for any questions. Lesions that fail to resolve once treated area is healed should be re-evaluated in the office. Handout given to patient Cryotherapy, skin lesion - Left Eyebrow, Left Malar Cheek (2), Left Tip of Nose, Right Parotid Area 6. Neoplasm of unspecified behavior of bone, soft tissue, and skin Left Shoulder - posterior [place] papule Lesion biopsy Type of biopsy: tangential Informed consent: discussed and consent obtained Informed consent comment: The risks and benefits of the biopsy were discussed. Risks include but are not limited to bleeding, infection, scarring, pain, and nerve damage. An opportunity to ask questions prior to the procedure was permitted and all questions were answered. Patient was prepped and draped in usual sterile fashion: area cleansed with alcohol. Anesthesia: the lesion was anesthetized in a standard fashion Anesthetic: 1% lidocaine w/ epinephrine 1-100,000 buffered w/ 8.4% NaHCO3 Instrument used: DermaBlade Hemostasis achieved with: electrodesiccation Outcome: patient tolerated procedure well Outcome comment: The specimen was placed in a prelabeled formalin container to be sent for pathology Post-procedure details: sterile dressing applied and wound care instructions given Post-procedure details comment: Emphasized need to contact clinic for any signs of infection, uncontrollable bleeding, or complications. Dressing type: bandage Additional details: Photo taken Amount of lidocaine used: 1.0 cc Specimen A - Dermatopathology exam Differential Diagnosis: SCC vs BCC Check Margins: No Size of lesion: 1.2 x 1.9 cm Shave biopsy today, see procedure note. Patient will be notified of results. Follow up pending biopsy results. Next Visit: pending biopsy results, 1 year skin exam and follow up documented in this encounterCox [id number] NotePatient Education Infectious Disease Sinus Infection, Adult A sinus infection is soreness and swelling (inflammation) of your sinuses. Sinuses are hollow spaces in the bones around your face. They are located: ??? Around your eyes. ??? In the middle of your forehead. ??? Behind your nose. ??? In your cheekbones. Your sinuses and nasal passages are lined with a fluid called mucus. Mucus drains out of your sinuses. Swelling can trap mucus in your sinuses. This lets germs (bacteria, virus, or fungus) grow, which leads to infection. Most of the time, this condition is caused by a virus. What are the causes? Allergies. ??? Asthma. ??? Germs. ??? Things that block your nose or sinuses. ??? Growths in the nose (nasal polyps). ??? Chemicals or irritants in the air. ??? A fungus. This is rare. What increases the risk? Having a weak body defense system (immune system). ??? Doing a lot of swimming or diving. ??? Using nasal sprays too much. ??? Smoking. What are the signs or symptoms? The main symptoms of this condition are pain and a feeling of pressure around the sinuses. Other symptoms include: ??? Stuffy nose (congestion). This may make it hard to breathe through your nose. ??? Runny nose (drainage). ??? Soreness, swelling, and warmth in the sinuses. ??? A cough that may get worse at night. ??? Being unable to smell and taste. ??? Mucus that collects in the throat or the back of the nose (postnasal drip). This may cause a sore throat or bad breath. ??? Being very tired (fatigued). ??? A fever. How is this diagnosed? Your symptoms. ??? Your medical history. ??? A physical exam. ??? Tests to find out if your condition is short-term (acute) or long-term (chronic). Your doctor may: ? Check your nose for growths (polyps). ? Check your sinuses using a tool that has a light on one end (endoscope). ? Check for allergies or germs. ? Do imaging tests, such as an MRI or CT scan. How is this treated? Treatment for this condition depends on the cause and whether it is short-term or long-term. ??? If caused by a virus, your symptoms should go away on their own within 10 days. You may be given medicines to relieve symptoms. They include: ? Medicines that shrink swollen tissue in the nose. ? A spray that treats swelling of the nostrils. ? Rinses that help get rid of thick mucus in your nose (nasal saline washes). ? Medicines that treat allergies (antihistamines). ? Ebav-wsi-cwwfksw pain relievers. ??? If caused by bacteria, your doctor may wait to see if you will get better without treatment. You may be given antibiotic medicine if you have: ? A very bad infection. ? A weak body defense system. ??? If caused by growths in the nose, surgery may be needed. Follow these instructions at home: Medicines ??? Take, use, or apply lvqm-kxu-pqrpshb and prescription medicines only as told by your doctor. These may include nasal sprays. ??? If you were prescribed an antibiotic medicine, take it as told by your doctor. Do not stop taking it even if you start to feel better. Hydrate and humidify ??? Drink enough water to keep your pee (urine) pale yellow. ??? Use a cool mist humidifier to keep the humidity level in your home above 50%. ??? Breathe in steam for 10?15 minutes, 3?4 times a day, or as told by your doctor. You can do thisin the bathroom while a hot shower is running. ??? Try not to spend time in cool or dry air. Rest ??? Rest as much as you can. ??? Sleep with your head raised (elevated). ??? Make sure you get enough sleep each night. General instructions ??? Put a warm, moist washcloth on your face 3?4 times a day, or as often as told by your doctor. ??? Use nasal saline washes as often as told by your doctor. ??? Wash your hands often with soap and water. If you cannot use soap and water, use hand airport baggage screener. ??? Do not smoke. Avoid being around people who are smoking (secondhand smoke). ??? Keep all follow-up visits. Contact a doctor if: ??? You have a fever. ??? Your symptoms get worse. ??? Your symptoms do not get better within 10 days. Get help right away if: ??? You have a very bad headache. ??? You cannot stop vomiting. ??? You have very bad pain or swelling around your face or eyes. ??? You have trouble seeing. ??? You feel confused. ??? Your neck is stiff. ??? You have trouble breathing. These symptoms may be an emergency. Get help right away. Call 911. ??? Do not wait to see if the symptoms will go away. ??? Do not drive yourself to the hospital. Summary ??? A sinus infection is swelling of your sinuses. Sinuses are hollow spaces in the bones around your face. ??? This condition is caused by tissues in your nose that become inflamed or swollen. This traps germs. These can lead to infection. ??? If you were prescribed an (more content not included)...[facility]11-17-2024 Evaluation note* Diagnosis Onset Date Resolution Status Admit Date URI (upper respiratory infection) noneactiveNovember 2023 9:12am [facility] Work Phone: [phone] NotePatient Education Endocrinology Diabetes Mellitus and Exercise Regular exercise is important for your health, especially if you have diabetes mellitus. Exercise is not just about losing weight. It can also help you increase muscle strength and bone density and reduce body fat and stress. This can help your level of endurance and make you more fit and flexible. Why should I exercise if I have diabetes? Exercise has many benefits for people with diabetes. It can: ? Help lower and control your blood sugar (glucose). ? Help your body respond better and become more sensitive to the hormone insulin. ? Reduce how much insulin your body needs. ? Lower your risk for heart disease by: ? Lowering how much bad cholesterol and triglycerides you have in your body. ? Increasing how much good cholesterol you have in your body. ? Lowering your blood pressure. ? Lowering your blood glucose levels. What is my activity plan? Your health care provider or an expert trained in diabetes care (certified medical coder) can help you make an activity plan. This plan can help you find the type of exercise that works for you. It may also tell you how often to exercise and for how long. Be sure to: ? Get at least 150 minutes of medium-intensity or high-intensity exercise each week. This may involve brisk walking, biking, or water aerobics. ? Do stretching and strengthening exercises at least 2 times a week. This may involve yoga or weight lifting. ? Spread out your activity over at least 3 days of the week. ? Get some form of physical activity each day. ? Do not go more than 2 days in a row without some kind of activity. ? Avoid being inactive for more than 30 minutes at a time. Take frequent breaks to walk or stretch. ? Choose activities that you enjoy. Set goals that you know you can accomplish. ? Start slowly and increase the intensity of your exercise over time. How do I manage my diabetes during exercise? Monitor your blood glucose ? Check your blood glucose before and after you exercise. ? If your blood glucose is 240 mg/dL (13.3 mmol/L) or higher before you exercise, check your urine for ketones. These are chemicals created by the liver. If you have ketones in your urine, do not exercise until your blood glucose returns to normal. ? If your blood glucose is 100 mg/dL (5.6 mmol/L) or lower, eat a snack that has 15?20 grams of carbohydrate in it. Check your blood glucose 15 minutes after the snack to make sure that your level isabove 100 mg/dL (5.6 mmol/L) before you start to exercise. ? Your risk for low blood glucose (hypoglycemia) goes up during and after exercise. Know the symptoms of this condition and how to treat it. Follow these instructions at home: ? Keep a carbohydrate snack on hand for use before, during, and after exercise. This can help prevent or treat hypoglycemia. ? Avoid injecting insulin into parts of your body that are going to be used during exercise. This may include: ? Your arms, when you are going to play tennis. ? Your legs, when you are about to go jogging. ? Keep track of your exercise habits. This can help you and your health care provider watch and adjust your activity plan. Write down: ? What you eat before and after you exercise. ? Blood glucose levels before and after you exercise. ? The type and amount of exercise you do. ? Talk to your health care provider before you start a new activity. They may need to: ? Make sure that the activity is safe for you. ? Adjust your insulin, other medicines, and food that you eat. ? Drink water while you exercise. This can stop you from losing too much water (dehydration). It can also prevent problems caused by having a lot of heat in your body (heat stroke). Where to find more information ? [place] [employer]: diabetes.org ? Association of Diabetes Care & Education Specialists: diabeteseducator.org This information is not intended to replace advice given to you by your health care provider. Make sure you discuss any questions you have with your health care provider. Document Revised: 12/17/2022 Document Reviewed: 12/17/2022 [employer] Patient Education ? 2023 [facility] 08-20-2023 History of Present illness Narrative* Tiffanie Benson MD - 08/20/2023 10:35 AM EST Skin Check Location: Patient requests a skin examination from the waist up Dermatologic history: history of Actinic Keratosis, history of Basal Cell Carcinoma. Uses Efudex for actinic keratoses Last visit: 1 year ago Established patient Follow-Up: Diagnosis: Lichen planopilaris Location: Scalp Last visit: 1 year ago Status: Stable with treatment Symptoms: No flare ups Current treatment: Fluocinonide soultion 0.05% qd. Needs refills All pertinent medical history, medications, and allergies were reviewed. General Exam: alert , oriented to person, place, and time , normal affect, well appearing A complete skin exam was offered, pt declined. Areas not examined despite medical recommendation: From the waist down Scalp, Examined Head, Face Examined Neck Examined Chest Examined Back Examined Abdomen Examined Right arm Examined Left arm Examined Hands Examined Digits,nails: Examined 1. Lichen planopilaris Scalp Improving, some perifollicular erythema noted, not yet at treatment goal Patient was counseled that this condition is chronic and can be controlled, but not cured. Instructed to taper treatment to every few days, can hold all together if stable and restart if hair loss/redness worsens. Discussed risk of atrophy with senior care use of topical steroid. Patient voiced understanding. Provided a list of products/ingredients to avoid. Recommend use of Vanicream shampoo. Related Medications fluocinonide (Lidex) 0.05 % external solution APPLY TO SCALP ONCE A DAY 2. Seborrheic keratosis Stuck on verrucous, mares-brown papules and plaques. Patient was counseled regarding these benign growths. Removal is normally not necessary, but they may be removed if they are symptomatic or for cosmetic reasons. 3. Lentigines Scattered mares macules in sun-exposed areas. The patient was informed that lentigines are benign pigmented lesions that occur on sun-exposed andsun-damaged skin. No treatment is necessary. Recommended regular use of broad spectrum sunscreen SPF 30 or higher 4. History of basal cell carcinoma No evidence of recurrence at BCC scar. The patient was counseled that scars from excisional sites of nonmelanoma skin cancers should be monitored closely for recurrence. The patient was instructed to contact the office for any new, changing, or symptomatic moles. The patient was also instructed to contact the office for any new lesions that develop within or around the previous surgery scar. 5. Actinic keratosis (2) Chest - Medial (Center), Head - Anterior (Face) History of erythematous scaly papules and macules Apply to Forehead, Temples, Nose, Cheeks, and Chest twice a day for two weeks. Discussed that treated areas will become red, crusty, and inflamed. If areas become too uncomfortable, patient may use OTC hydrocortisone cream to help decrease irritation and can discontinue treatment early. Sun exposure should be avoided during treatment. Patient instructed to contact office for any questions or issues during treatment. Lesions that fail to resolve once treated area is healed should be re-evaluatedin the office. Handout given to patient Declines refills today Next Visit: 1 year, skin check/follow up documented in this [facility]02-08-2024 Instructions* Patient Instructions* Niyah Alamo LPN - 08/20/2023 10:35 AM EST AVOID FRAGRANCES Sometimes Fragrance may not be listed in the ingredients and instead one of these ingredients will be listed: Citronellol / Farnesol Citral a-Hexylcinnamicaldehyde Geraniol Cinnamyl alcohol Superior deluna Lyral Limonene Cinnamaldehyde Isoeugenol a-Amylcinnamaldehyde Linalool Hydroxycitronellal Eugenol Coumarine AVOID FORMALDEHYDE RELEASERS INCLUDING: Quaternium-15 DMDM hydantoin Imidazolidinyl urea Diazolidinyl urea Polyoxymethylene urea Sodium hydroxymethylglycinate Bromopol AVOID HAIR COLOR/DYES AND OTHER PRODUCTS WITH THE FOLLOWING INGREDIENTS: Ammonium persulfate Paraphenylenediamine (PPD) Methylchloroisothiazolinone (MCI/CA) USE ZINC-CONTAINING MINERAL SUNSCREENS, FACIAL MOISTURIZES, AND MAKEUP WITH SPF. IT IS BEST TO USE FRAGRANCE FREE PRODUCTS. AVOID THE FOLLOWING: Gallate mix Dodecyl gallate Octyl gallate documented in this [facility]01-05-2024 Evaluation note* Encounter Date Diagnosis Assessment Notes Treatment Notes Treatment Clinical Notes Jul, Acute sinusitis, rec urrence not specified, unspecified location (ICD-10 - J01.90) Plenty fluids, get plenty of rest. Take the amoxicillin with clavulanate and prednisone as prescribed until gone for your sinus infection. Use the fluticasone nasal spray as prescribed until your symptoms of your sinus infection improved. Take Tylenol or Motrin as needed for aches pains or fevers. Follow-up with your family physician if no improvement in 2 to 3 days [facility] Other 12-01-2023 History general Narrative - Reported* Type Description Date Medical History HYPERTENSION Surgical HistoryCATARACTS [id number] HistoryDETACHED [id number]/22 [facility] Other Evaluation + Plan note Future Appointments Appointment Date:04/05/2024 08:00:00 AM Scheduled Provider:APOLINAR TREJO CNP Location[facility] Future [facility]ments Appointment Date:06/14/2024 02:30:00 PM Scheduled Provider: Location:[facility] Appointment Type: Medicare Wellness Subsequent [facility] Evaluation + Plan note Future Appointments Appointment Date:04/06/2025 07:20:00 AM Scheduled Provider:APOLINAR TREJO CNP Location:[facility] Appointment Type: Open Appointment Date:04/06/2025 08:00:00 AM Scheduled Provider: Location:[facility] Appointment Type: Medicare Wellness Initial [facility] Evaluation note* Diagnosis Lichen planopilaris- Primary Lichen planus Seborrheic keratosis Lentigines History of basal cell carcinoma Personal history of other malignant neoplasm of skin Actinic keratosis documented in this encounter [facility] HealthcareEvaluation note* Diagnosis Lichen planopilaris- Primary Lichen planus Seborrheic keratosis Lentigines History of basal cell carcinoma Personal history of other malignant neoplasm of skin Actinic keratosis Neoplasm of unspecified behavior of bone, soft tissue, and skin documented in this encounter [facility] HealthcareEvaluation note* Diagnosis Basal cell carcinoma (BCC) of skin of left upper extremity including shoulder- Primary documented in this encounter [facility] HealthcareEvaluation noteNo assessment information availableCommunity [facility] Work Phone: Evsoxxfwkz note* Diagnosis Actinic keratosis- Primary Lentigines History of basal cell carcinoma Personal history of other malignant neoplasm of skin Lichen planopilaris Lichen planus documented in this encounter [facility] HealthcareEvaluation note* Diagnosis Lichen planopilaris- Primary Lichen planus documented in this encounter [facility] HealthcareHospital course Narrative No data available for this section [facility] No data available for this section [facility] No data available for this section [facility] HospitalReason for referral (narrative)No reason for referral information availableCommunity [facility] Center Work Phone: Summary Purpose Family History No Family History Records Found Relationship Condition Age at Onset Recorded Date/T vincenzo father Malignant neoplasm Unknown DeceasedUnknownmotherDeceasedUnknown Advance Directives No Advanced Directives Records Found Advance Directive Response Recorded Date/ Time Advance Directives No April 30, 2017 10:02am Advance Directive Response Recorded Date/ Time Advance Directives No April 30, 2017 11:02am Chief Complaint and Reason for Visit Chief Complaint Admit Date upper respiratory x 3 weeks May 9:12am R06.2 - Wheezing May 29, 2024 10:15am Reason for Visit Admit Date URI (upper respiratory infection) Novemb er 2023 9:12am Chief Complaint Admit Date Rash February 26, 2025 9: 03am Additional Source Comments INFORMATION SOURCE (unrecogn ized section and content) DATE CREATED AUTHOR 05/02/2021 [facility] DATE CREATED AUTHOR AUTHOR'S ORGANIZ ATION 04/06/2024 [facility] DATE CREATED AUTHOR AUTHOR'S ORGANIZ ATION 04/08/2024 [facility] DATE CREATED AUTHOR AUTHOR'S ORGANIZ ATION 06/03/2024 [facility] DATE CREATED AUTHOR AUTHOR'S ORGANIZ ATION 04/07/2025 [facility] DATE CREATED AUTHOR AUTHOR'S ORGANIZ ATION 04/14/2025 [facility] DATE CREATED AUTHOR AUTHOR'S ORGANIZ ATION 04/15/2025 [facility] DATE CREATED AUTHOR AUTHOR'S ORGANIZ ATION 04/26/2025 [facility] EPIC REASON FOR VISIT (unrecogniz ed section and content) ReasonCommentsSkin CheckReasonCommentsProcedureReasonCommentsFollow-up Care Teams (unrecognized sec tion and content) Team MemberRelationshipSpecialtyStart DateEnd Date Gosia Munroe MD [address] [place] [id number] [facility]03/03/23 Team Status: Active Member Role Status Dates Juanjo Guallpa MD Primary Care Provider Active Team Status: Inactive Member Role Status Dates Juanjo Guallpa MD Primary Care Provider Active Start: May 29, 2024 End: May 29, 2024Belen Carvalho ProviderActive Start: May 29, 2024 End: May 29, 2024 Team Status: Active Member Role Status Dates Keri Kennedy APRN Attending Provider Active Start: May 29, 2024 Maynor Martinez [facility] ProviderActiveStart: May 29, 2024 Team Status: Inactive Member Role Status Dates Keri Kennedy APRN Attending Provider Active Start: May 29, 2024 End: May 29, 2024Maynor Martinez Care ProviderActiveStart: May 29, 2024 End: May 29, 2024Team MemberRelationshipSpecialtyStart DateEnd Date Gosia Munroe MD [address] [facility] [place] [address] [facility] - [facility]03/03/23Team MemberRelationshipSpecialtyStart DateEnd Date Gosia Munroe MD [address] [facility] [place] [address] [facility]03/03/23 Team Status: Inactive Member Role Status Dates Juanjo Guallpa MD Primary Care Provider Active Start: February 26, 2025 End: February 26, 2025Belen Sterling ProviderActiveStart: February 26, 2025 End: February 26, 2025Team MemberRelationshipSpecialtyStart DateEnd Date Gosia Munroe MD [address] [facility] [place] [address] PCP - GeneralFamily Medicine03/03/23Team MemberRelationshipSpecialtyStart DateEnd Date Gosia Munroe MD [address] [place] [address] PCP - [facility]03/03/23Te MemberRelationshipSpecialtyStart DateEnd Date Gosia Munroe MD [address] [place] [place] [address] PCP - [facility]03/03/23 Goals (unrecognized section and content) Goals may be documented in a n alternate section FOR RECORDS PERTAINING TO PATIENTS WHO ARE OR HAVE BEEN ENROLLED IN A CHEMICAL DEPENDENCY/SUBSTANCEABUSE PROGRAM, SOME INFORMATION MAY BE OMITTED. This clinical summary was aggregated from multiple sources. Caution should be exercised in using it in the provision of clinical care. This summary normalizes information from multiple sources, and as a consequence, information in this document may materially change the coding, format and clinical context of patient data. In addition, data may be omitted in some cases. CLINICAL DECISIONS SHOULD BE BASED ON THE PRIMARY CLINICAL RECORDS. [facility] [employer] [facility]. provides no warranty or guarantee of the accuracy or completeness of information in this document.
--- NOTE | 2025-05-08 09:38 | MM_ITS ---
Patient Name: LUIS ALFREDO ROMERO MR#: [id number] : 1955 Exam Date: 05/08/2025 Ordering Doctor: APOLINAR TREJO RADIOLOGY REPORT PROCEDURE: MM TOMOSYNTHESIS SCREENING BI COMPARISON: MM TOMOSYNTHESIS SCREENING BI, 11/03/2023. MG MAMM SCREEN 3D ELDA CAD, 04/23/2021. MG MAMM ELDA SCRN W CAD DIG, 03/03/2016. MG MAMM ELDA SCRN W CAD DIG, 10/04/2013. INDICATIONS: screening for malignant neoplasm Calculator Name NCI Breast Cancer Risk Assessment Tool 5 Year Breast Cancer Risk 1.90% Lifetime Breast Cancer Risk 6.20% Personal Breast Cancer No Personal Ovarian Cancer No Treatments None Family Cancers Father with lymphoma cancer at age ~70. LOCATION: [facility] BREAST COMPOSITION: There are scattered areas of fibroglandular density. FINDINGS: A developing 9 mm spiculated density posterior portion of the left breast. 8 cm from the nipple. No suspicious findings of the right breast. DIAGNOSTIC CATEGORY 0--INCOMPLETE: NEED ADDITIONAL IMAGING EVALUATION. RECOMMENDATIONS: ADDITIONAL MAMMOGRAPHIC VIEWS REQUIRED: LEFT BREAST - spot compression imaging ULTRASOUND: LEFT BREAST Dictated by: Ar Stinson DO on 05/08/2025 at 11:03 Approved by: Ar Stinson DO on 05/08/2025 at 12:13
== END 2025-05-08 09:18 | disposition home or self-care (01) ==
LOC: MAMMO 09:18
PROVIDERS: PCP Nurse Practitioner Family; Visit Provider Nurse Practitioner Family
DX: E28.39 Other primary ovarian failure (principal); Z12.31 Encounter for screening mammogram for malignant neoplasm of breast; Z80.7 Family history of other malignant neoplasms of lymphoid, hematopoietic and related tissues; R92.8 Other abnormal and inconclusive findings on diagnostic imaging of breast; M85.88 Other specified disorders of bone density and structure, other site
CPT/HCPCS: 77063; 77067; 77080

== ENCOUNTER 2025-05-16 09:47 | Outpatient (OUT) | payer MEDICARE, SELFPAY ==
--- NOTE | 2025-05-16 09:49 | MM_ITS ---
Patient Name: LUIS ALFREDO ROMERO MR#: [id number] : 1955 Exam Date: 05/16/2025 Ordering Doctor: APOLINAR TREJO RADIOLOGY REPORT PROCEDURE: MM TOMOSYNTHESIS DIAGNOSTIC LT COMPARISON: US BREAST LT LIMITED, 05/16/2025. MM TOMOSYNTHESIS SCREENING BI, 05/08/2025. MM TOMOSYNTHESIS SCREENING BI, 11/03/2023. MG MAMM SCREEN 3D ELDA CAD, 04/23/2021. MG MAMM ELDA SCRN W CAD DIG, 03/03/2016. INDICATIONS: Abnormal and Inconclusive Findings On Breast Imaging Calculator Name NCI Breast Cancer Risk Assessment Tool 5 Year Breast Cancer Risk 1.90% Lifetime Breast Cancer Risk 6.20% Personal Breast Cancer No Personal Ovarian Cancer No Treatments None Family Cancers Father with lymphoma cancer at age ~70. LOCATION: [facility] BREAST COMPOSITION: There are scattered areas of fibroglandular density. FINDINGS: LEFT BREAST: No significant suspicious finding. The area of focal asymmetry partially dissipates on spot compressed views suspicious for summation of fibroglandular tissues. Benign-appearing calcifications are redemonstrated. Limited left breast ultrasound: There is scattered fibroglandular tissue. This no evidence of mass, architectural store macario, cyst, or atypical calcification. DIAGNOSTIC CATEGORY 3--PROBABLY BENIGN FINDING. THE FOLLOWING FINDING(S) HAS A HIGH PROBABILITY OF A BENIGN ETIOLOGY: RECOMMENDATIONS: SHORT TERM FOLLOW-UP DIAGNOSTIC MAMMOGRAM LEFT BREAST IN 6 MONTHS. Dictated by: Abelardo Estrada MD on 05/16/2025 at 10:51 Approved by: Abelardo Estrada MD on 05/16/2025 at 10:53
--- NOTE | 2025-05-16 09:50 | US_ITS ---
Patient Name: LUIS ALFREDO ROMERO MR#: [id number] : 1955 Exam Date: 05/16/2025 Ordering Doctor: APOLINAR TREJO RADIOLOGY REPORT PROCEDURE: US BREAST LT LIMITED COMPARISON: US breast LT limited, 05/16/2025, MM Tomosynthesis screening BI, 05/08/2025, MM Tomosynthesis screening BI, 11/03/2023, MG screening 3D shanika CAD, 04/23/2021, MG Mamm Shanika Screening w CAD DIG, 03/03/2016. INDICATIONS: Abnormal and Inconclusive Findings on Breast Imaging TECHNIQUE: Breast ultrasound was performed, with evaluation focusing only on specific areas of concern. FINDINGS: BREAST COMPOSITION: There are scattered areas of fibroglandular density. LEFT BREAST: No significant suspicious finding. The area of focal asymmetry partially dissipates on spot compressed views suspicious for summation of fibroglandular tissues. Benign-appearing calcifications are redemonstrated. Limited left breast ultrasound. There is scattered fibroglandular tissue. This shows no evidence of mass, architectural distortion, cyst, or atypical calcification. DIAGNOSTIC CATEGORY 3--PROBABLY BENIGN FINDING. THE FOLLOWING FINDING(S) HAS A HIGH PROBABILITY OF A BENIGN ETIOLOGY: RECOMMENDATIONS: SHORT TERM FOLLOW-UP DIAGNOSTIC MAMMOGRAM LEFT BREAST IN 6 MONTHS. PLEASE NOTE: A NORMAL ULTRASOUND EXAMINATION DOES NOT EXCLUDE THE POSSIBILITY OF BREAST CANCER. A CLINICALLY SUSPICIOUS PALPABLE LUMP SHOULD BE BIOPSIED. Dictated by: Abelardo Estrada MD on 05/16/2025 at 11:07 Approved by: Abelardo Estrada MD on 05/16/2025 at 11:25
--- OUTSIDE RECORDS SUMMARY | 2025-05-16 09:50 | XMS_ITS | Clinical Summary ---
Author Organization [facility] tem Address [id number] [address] [place] [address] Care Team Providers Care Telecommunications Network Planner Name Role Phone Gosia Munroe MD Primary Care Provider [phone] Allergies No known active allergies Medications No known medications Active Problems No known active problems Family History Medical HistoryRelationNameCommentsHeart diseaseFatherLymphomaFatherRelationName StatusCommentsFatherDeceasedMotherAlive Social History Tobacco UseTypesPacks/DayYears UsedDateSmoking Tobacco: NeverAlcohol UseStandard Drinks/WeekCommentsYes2 (1 standard drink = 0.6 oz pure alcohol)ChildcareAnswer Date LalhehsnHxrfezpuoRxyxsnc74/12/2019EmploymentAnswerDate RecordedEmployment Fquborq3212/22/2018Purpose - LifeAnswerDate RecordedPurpose and direction in life Shikgnm20/11/2021CommentsUnknownSex and Gender InformationValueDate RecordedSex Assigned at BirthNot on fileLegal BhlFcmpdr34/07/2017 9:25 AM EDT Gender IdentityNot on fileSexual OrientationNot on file Last Filed Vital Signs Vital SignReadingTime TakenCommentsBlood Usjdrjoe502/8006 11:11 AM EDT Pulse--Temperature--Respiratory Rate--Oxygen Saturation--Inhaled Oxygen Concentration--Bzqkgs36.1 kg (192 lb)12/24/2016 11:11 AM TVSKeurwt239.6 cm (5' 6 )12/24/2016 11:11 AM EDTBody Mass Index30.9912/24/2016 11:11 AM EDT Plan of Treatment Health MaintenanceDue DateLast DoneCommentsDepression Bfqyfsqfg96/11/1969Tobacco Cdkpdhqdl38/11/1969Adult BMI Aclmxpkgq77/11/1975DTaP,Tdap and Td Vaccines (1 - Tdap)1975Zoster (Shingles) Vaccine (1 of 2)2006Fall Risk Screening 2021Influenza Ohgvgqj8903/13/2025RSV ( or age 60+ yrs) (1 - 1-dose 75+ series)2031 Medical Devices Not on file Insurance Care Teams Team MemberRelationshipSpecialtyStart DateEnd Date Gosia Munroe MD [facility]12/17/16
--- OUTSIDE RECORDS SUMMARY | 2025-05-16 09:50 | XMS_ITS | Clinical Summary ---
Author Organization [facility] Address [address] [place] [address] Care Team Providers Care Sourcing Internship Name Role Phone Gosia Munroe MD Primary Care Provider [phone] Allergies No known active allergies Medications MedicationSigDispense [...] cataract of both eyes 03/03/2023 Encounters DateTypeDepartmentCare HgqcXlsjccfwtdl76/14/2025 11:15 AM EDTOffice Visit [facility] [address] [place] [address] Tiffanie Sepulveda MD Lichen planopilaris (Primary Dx)04/25/2025amboo flowsheet [facility] [address] [place] [phone] Tiffanie Sepulveda MD 04/25/20254557Uptcul91/11/2025 8:45 AM EDTOffice Visit [facility] [address] [facility] [address] [place] [address] Tiffanie Sepulveda MD Actinic keratosis (Primary Dx); Lentigines; History of basal cell carcinoma; Lichen btkavngztwqk18/11/2025amboo flowsheet [facility] [address] [facility] [address] [place] [address] Tiffanie Sepulveda MD 03/23/2025Travelfrom Last 3 Months Family History Medical HistoryRelationNameCommentsCataractsBrotherRetinal detachmentBrother CataractsMotherRetinal detachmentMotherMelanomaNeg HxRelationNameStatusComments BrotherMother Social History Tobacco UseTypesPacks/DayYears UsedDateSmoking Tobacco: NeverSmokeless Tobacco: Never Tobacco Cessation:Counseling Given: Not Answered Alcohol UseStandard Drinks/WeekCommentsDefer0 (1 standard drink = 0.6 oz pure alcohol)CommentsUnknownSex and Gender InformationValueDate RecordedSex Assigned at BirthNot on fileLegal XqkIsxvdw19/15/2023 6:56 PM EDTGender Identity Not on fileSexual OrientationNot on file Last Filed Vital Signs Vital SignReadingTime TakenCommentsBlood Xguzndrj191/8903/03/2023 2:56 PM EDTnno latex allergies, no PM/DF, No qcsqpiJkatf5378/22/2023 2:56 PM EDTTemperature-- Respiratory Rate--Oxygen Saturation--Inhaled Oxygen Concentration--Zdfvia23.7 kg (200 lb)07/15/2017 12:00 PM LHGNnvckc147.6 cm (5' 6 )08/20/2021 12:00 PM ESTBody Mass Index32.28007/15/2017 12:00 PM EST Plan of Treatment DateTypeDepartmentCare Team (Latest Contact Info)Rrrflfbtigj69/10/2026 10:35 AM ESTOffice Visit [facility] [address] [facility] [address] [place] [address] Tiffanie Sepulveda MD [address] [place] [address] Health MaintenanceDue DateLast DoneCommentsCT Giiyugqadzby03/11/1957Colonoscopy 1955FIT1955FOBT1955 3225Wgdbphjwfcfiw39/11/1957DTaP/Tdap/Td Vaccines (1 - Tdap)08/23/19638522Sqocorsjq39/11/1997Pneumococcal Vaccine: 65+ Years (1 of 1 - PCV)2006COVID-19 Vaccine (6 - season)2025 04/25/2024, 06/01/2023, 04/24/2021, Additional history existsInfluenza Vaccine (#1), 06/01/2023, 05/26/2022, Additional history exists Colorectal Cancer Jnjhjnvlw10/27/2028FIT-DNAHIB VaccinesAged OutNo longer eligible based on patient's age to complete this topicHPV Vaccines Aged OutNo longer eligible based on patient's age to complete this topic Hepatitis A VaccinesAged OutNo longer eligible based on patient's age to complete this topicHepatitis B VaccinesAged OutNo longer eligible based on patient's age to complete this topicIPV VaccinesAged OutNo longer eligible based on patient's age to complete this topicMeningococcal B VaccineAged OutNo longer eligible based on patient's age to complete this topicMeningococcal VaccineAged OutNo longer eligible based on patient's age to complete this topicRotavirus VaccinesAged OutNo longer eligible based on patient's age to complete this topic Insurance Care Teams Team MemberRelationshipSpecialtyStart DateEnd Gosia Munroe MD [address] [place] [address] [facility] - [facility]/23
--- OUTSIDE RECORDS SUMMARY | 2025-05-16 10:02 | XMS_ITS | CCD ---
Author Organization [facility] CliniSydc Care Team Providers Care Recruiter Coordinator Name Role Phone DR GOSIA MUNROE Primary Care Unavailable LUDWIG, DR GOSIA Lee Consulting Unavailable LUDWIG, DR GOSIA Lee Attending Unavailable LUDWIG, DR GOSIA Lee Admitting Unavailable YVES, DR BEVERLY Hernandez Consulting Unavailable Lilliana Aguiar Unavailable Gosia Munroe MD Primary Care Provider [phone] MAYA, APOLINAR A Primary Care Physician [phone] MAYA, APOLINAR A Primary Care Physician MAYA, APOLINAR A Attending Unavailable MAYA, APOLINAR A Attending Unavailable MAYA, APOLINAR A Admitting Unavailable MAYA, APOLINAR A Attending Unavailable MAYA, APOLINAR A Attending Unavailable MAYA, APOLINAR A Admitting Unavailable MAYA, APOLINAR A Attending Unavailable MAYA, APOLINAR A Attending Unavailable MAYA, APOLINAR A Attending Unavailable MAYA, APOLINAR A Attending Unavailable Keri Kennedy APRN Attending Provider Juanjo Guallpa MD Primary Care Provider [phone] Keri Kennedy Attending UnavailKeri Hayward Admitting UnavailJuanjo [...] [No Known Medication Allergies]Propensity to adverse reactions (disorder)[facility] Repository Medications Current Medications MedicationDrug Class(es)DatesSig (Normalized)Sig (Original)ascorbic acid 60 mg / beta carotene 5000 unt / copper sulfate 40 mg / dl-alpha tocopheryl acetate 30 unt / sodium selenite 0.04 mg / zinc oxide 40 mg oral tablet (11 sources)Vitamin CMultiple Vitamin (Multivitamin Adult) tablet Orally Active aspirin 81 mg delayed release oral tablet (16 sources)Platelet Aggregation Inhibitor, Nonsteroidal Anti-inflammatory Drug Start: 05-16-6937roro 1 tablet by mouth once dailyAspirin 81 mg tablet,delayed release (DR/EC) Active 81 MG PO Daily May 29, 2024 1:00am Complies with drug therapyASPIRIN 81 PO Aspir-81 ActiveASPIRIN 81 PO Aspir-81 0 Activetake 1 tablet by mouth every twenty-four hoursAspirin Adult Low Dose 81 MG 1 tablet Orally Once a day Activebisoprolol (Zebeta) 2.5 MG split tablet (11 sources)Start: 45-68-8112yhbqhsnujw (Zebeta) 2.5 MG split tablet 05/13/2019 ActiveStart: 91-96-0080wehrqudmpw (Zebeta) 2.5 MG split tabletbisoprolol fumarate 2.5 mg / hydroCHLOROthiazide 6.25 mg oral tablet (19 sources)Thiazide Diuretic, beta-Adrenergic BlockerStart: 64-63-9184nler 1 tablet by mouth once dailybisoprolol-hydrochlorothiazide 2.5 mg-6.25 mg Tab 1 tab(s), Oral, Daily, 90 tab(s), Refill(s) 4, [facility]/pharmacy #[id number], 162, cm, 12/03/24 16:39:00 EST, Height/Length Dosing, 82.1, kg, 04/05/24 7:59:00 EDT, Weight Dosing Start Date: 08/03/24 Status: Ordered Quantity: 90.0 Unit: tab(s) Repeat number: 5 Indication: Essential (primary) hypertensionStart: 05-29-2024 take 1 tablet by mouth once dailyBisoprolol-Hydrochlorothiazide 2.5-6.25 mg tablet Active 1 TAB PO Daily May 29, 2024 12:00amStart: 99-95-1112zvqf 1 tablet by mouth once dailybisoprolol-hydrochlorothiazide 2.5 mg-6.25 mg Tab 1 tab(s), Oral, Daily, 90 tab(s), Refill(s) 1, [facility]/pharmacy #[id number], 161.3, cm, 10/06/23 15:21:00 EDT, Height/Length Dosing, 89.2, kg, 10/06/23 15:21:00 EDT, Weight Dosing Start Date: 10/07/23 Status: OrderedStart: 42-26-4094iyqdqnozgk- hydroCHLOROthiazide (Ziac) 2.5-6.25 MG tablet 02/19/2023 Activecefuroxime 500 mg oral tablet (6 sources)Cephalosporin AntibacterialStart: 07-16-2022 End: 54-87-3021osmx 1 tablet by mouth in the morningcefuroxime (Ceftin) 500 MG tablet Take 500 mg by mouth in the morning and 500 mg before bedtime. 07/16/2022 10/07/2024 Discontinued (Therapy completed)cetirizine hydrochloride 10 mg chewable tablet (16 sources)Histamine-1 Receptor AntagonistStart: 15-37-1627dcie 1 tablet by mouth twice dailyCetirizine 10 mg tablet,chewable Active 10 MG PO Twice daily May 29, 2024 1:00am FreeTextSi tablet Orally Once a day; Note: Source Status: Taking; Provider: Stefania Tijerina ( ) Complies with drug therapycetirizine (ZyrTEC ALLERGY) 10 MG tablet 1 (one) time each day at the same time. Activefluocinonide 0.5 mg/ml topical solution (18 sources)CorticosteroidStart: 77-25-7666rneqh 1 [IU] topically three times dailyfluocinonide topical 0.05% solution 1 marcus, Topical, TID, 60 mL, Refill(s) 0 Start Date: 10/06/23 Status: Ordered Quantity: 60.0 Unit: mL Repeat number: 1 Start: 08-14-2022 End: 80-40-2728khrqjxvocrcl (Lidex) 0.05 % external solution Indications: Lichen planopilaris APPLY TO SCALP ONCE A DAY 60 mL 11 08/22/2024 Activefluorouracil 50 mg/ml topical cream (6 sources)Nucleoside Metabolic InhibitorStart: 08-21-2022 End: 31-68-6493bkukpgleizkr (Efudex) 5 % cream every 12 (twelve) hours. 08/21/2022 10/07/2024 Discontinued (Therapy completed)fluticasone propionate 0.05 mg/actuat metered dose nasal spray (2 sources)CorticosteroidStart: 17-18-5557csav 2 spray(s) nasal route once daily Fluticasone Propionate 50 MCG/ACT 2 sprays Nasally Once a day for 14 day(s) Jul, ActiveStart: 89-40-0947ppyqtjrphwt Nasal 0.05 mg/inh Tinsman Refill(s) 0, Nasal, 0 Refill(s) Start Date: 07/16/23 Status: Ordered Repeat number: 1metFORMIN hydrochloride 500 mg oral tablet (11 sources)BiguanideStart: 63-07-5324exnd 1 tablet by mouth twice daily metformin 500 mg Tab 500 mg = 1 tab(s), Oral, BID, # 180 tab(s), Refills(s) 1, Pharmacy: [facility]/pharmacy #[id number], 162, cm, 06/14/24 16:39:00 EST, Height/Length Dosing, 82.1, kg, 04/05/24 7:59:00 EDT, Weight Dosing Start Date: 06/20/24 Status: Ordered Quantity: 180.0 Unit: tab(s) Repeat number: 2 Indication: Type 2 diabetes mellitus without complicationspredniSONE 20 mg oral tablet (1 source)Start: 86-76-3874muck 1 tablet by mouth every twelve hourspredniSONE 20 MG 1 tablet Orally bid for 5 day(s) Jul, Active Completed/Discontinued Medications MedicationDrug Class(es)DatesSig (Normalized)Sig (Original)amoxicillin 875 mg / clavulanate 125 mg oral tablet (10 sources)Penicillin-class AntibacterialStart: 05-29-2024 End: 25-86-9534ygvb 1 tablet by mouth twice dailyAmoxicillin-Pot Clavulanate 875-125 mg tablet Discontinued 1 TAB PO Twice daily 01 05May 29, 2024 1:00am February 26, 2025 9:04amStart: 09-42-9968dabe 1 tablet by mouth every twelve hoursAmoxicillin-Pot Clavulanate 875-125 MG 1 tablet Orally every 12 hrs for 10 day(s) Jul, ActiveStart: 08-15-2022 End: 95-22-7843rzfx 1 tablet by mouth in the morningamoxicillin-clavulanate (Augmentin) 875-125 MG tablet Take 1 tablet by mouth in the morning and 1 tablet before bedtime. 08/15/2022 10/07/2024 Discontinued (Therapy completed) fluconazole 150 mg oral tablet (4 sources)Azole AntifungalStart: 69-28-9359ylxb 1 tablet by mouth once fluconazole 150 mg Tab 150 mg = 1 tab(s), Oral, Once, Take one tablet at the onset of symptoms; mayrepeat in 72 hours, # 2 tab(s), Refills(s) 0, Pharmacy: [facility]/pharmacy #[id number], 162, cm, 04/05/24 7:59:00 EDT, Height/Length Dosing, 82.1, kg, 04/05/24 7:59:00 EDT, Weight Dosing Start Date: 06/14/24 Status: Ordered Quantity: 2.0 Unit: tab(s) Repeat number: 1Start: 59-65-0335Vojbcuiekhd 150 mg tablet Active 150 MG PO Q3D May 29, 2024 1:00am Take one tablet and if symptoms persist 3 days later, take second tablet Complies with drug therapy Glucometer (2 sources)Start: 88-31-7698Sojeyfwyma Glucometer, See Instructions, 1 EA, 0, Glucometer to test blood sugar TID PRN E11.9, [facility]/pharmacy #[id number], Supply, 161.3, cm, 11/19/23 7:58:00 EDT, Height/Length Dosing, 88.6, kg, 11/19/23 7:58:00 EDT, Weight Dosing Start Date: 11/19/23 Status: Ordered Quantity: 1.0 Unit: EA Repeat number: 1Indication: Type 2 diabetes mellitus without complicationsStart: 73-03-4524Chsideclfp Glucometer, See Instructions, 1 EA, 0, Glucometer to test blood sugar TID PRN E11.9, [facility]/pharmacy #[id number], Supply, 161.3, cm, 11/19/23 7:58:00 EDT, Height/Length Dosing, 88.6, kg, 11/19/23 7:58:00 EDT, Weight Dosing Start Date: 11/19/23 Status: Orderedtriamcinolone acetonide 10 mg/ml injectable suspension (4 sources)CorticosteroidStart: 03-23-2025 End: 69-98-3062mexoxpcczewfj acetonide (Kenalog) injection 2.5 mgStart: 03-23-2025 End: 52.5 mg, Intra-lesional, Once, On Angelic 03/23/25 at 0900, For 1 dose Problems Problem ClassificationProblemDateDocumented DateEpisodic/ChronicCataract (11 sources)Bilateral age-related nuclear cataracts; Translations: [Age-related nuclear cataract, bilateral]Onset: 737037-44-3235TuxxwtmAumuzojy mellitus without complication (2 sources)Type 2 diabetes -33-3967IwudulsBeefxtjta hypertension (3 sources)Hypertensive disorder; Translations: [Essential (primary) hypertension]75-50-0118EwwscgpLmzuqenou of unspecified nature or uncertain behavior (2 sources)Neoplastic disease; Translations: [Neoplasm of unspecified behavior of bone, soft tissue, and skin]34-31-6183UwpnbwuyXvmvx inflammatory condition of skin (7 sources)Lichen planopilaris; 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]08-20-2023 EpisodicOther lower respiratory disease (1 source)Wheezing; Translations: [Wheezing]Onset: 34-08-5880WopgzlaiHnqem non- epithelial cancer of skin (7 sources)History of malignant basal cell neoplasm of skin; Translations: [Personal history of other malignant neoplasm of skin]36-83-3107DermabbsMfsdt nutritional; endocrine; and metabolic disorders (4 sources)Body mass index 30+ - ruymaia00-44-2013CjsncwtDemaw screening for suspected conditions (not mental disorders or infectious disease) (4 sources)Encounter for screening mammogram for malignant neoplasm of breast; Translations: [ENC SCR MAMMO MALIG NEOPLASM BREAST]Onset: 02-18-7572Ernearjy Other skin disorders (4 sources)Seborrheic keratosis; Translations: [Other seborrheic keratosis] 26-08-3683PqikuyemMhdex skin disorders (6 sources)Lentiginosis; Translations: [Other melanin hyperpigmentation] 80-25-6995NimsjsdgCkguj skin disorders (6 sources)Actinic keratosis; Translations: [Actinic keratosis]08-20-2023 EpisodicOther upper respiratory disease (3 sources)Seasonal allergic rhinitis; Translations: [Other seasonal allergic rhinitis]19-28-1269OrzvgysZfelj upper respiratory infections (3 sources)Acute sinusitis, unspecified; Translations: [Acute upper respiratory infection, unspecified]EpisodicResidual codes; unclassified (1 source)Family history of other malignant neoplasms of lymphoid, hematopoietic and related tissues; Translations: [FAM HX OTH MAL REX LYMPH HEMATPOETC]Onset: 48-39-2481LtpfhdapMfcnsvsq codes; unclassified (1 source)History of repair of retina for retinal detachment; Translations: [Other specified postprocedural states]71-04-7884Wcxpciha Results Test NameValueInterpretationReference RangeFacility.Interpretation:on 04-08-2025 Interpretation:CommentInvalid Interpretation [facility] Comment on above:Result Comment: Not infected with HCV unless early or acute infection is suspected (which may be delayed in an immunocompromised individual), or other evidence exists to indicate HCV infection. Performed at: [facility] [id number] PhD Guanako AlvarezPerformed By: #### [id number] #### [facility] [address] [place] [id number] Antibody RFX to Quant PCRon 67-37-6410FWM AbNon-Reactive Invalid Interpretation CodeNon ReactiveAtrium Health Wake Forest Baptist [facility] Medical Centerer [facility] CampusComment on above:Result Comment: Performed at: [facility] [id number] PhD Guanako Alvarezformed By: #### [id number] #### [facility] Laboratory [address] [place], [place] [address]Gvnkzhdgbj Visit Summaryon 19-65-2092Fnzdotrobf Visit Summary Ambulatory Visit Summary LYNSEY ROMERO [...] solution) fluticasone nasal (fluticasone Nasal 0.05 mg/inh Tinsman) Procedures Performed Appendectomy, Bilateral cataracts, Bunion of left great toe, Detached right retina, H/O: hysterectomy, History of hernia repair. What to do next Scheduled Follow-Up Appointments 2025 8:40 AM EDT With: APOLINAR TREJO CNP Where: [address] [address]- Thursday2025 8:00 AM EDT With: Where: [address] [address]- You Need to Schedule the Following Appointments Follow Up with APOLINAR TREJO CNP, FAM When: Within 6 months Comments: Diabetes Where: [address] [place] [phone] Business (1) Medications What How Much When Why Instructions Unchanged bisoprolol-hydrochlorothiazide (bisoprolol-hydrochlorothiazide 2.5 mg- 6.25 mg Tab) 1 Tablets By Mouth Every day HTN (hypertension) Pickup at [facility]/pharmacy #[id number] Unchanged metformin (metformin 500 mg Tab) 1 Tablets By Mouth 2 times a day Type II diabetes mellitus covering for S Maya Pickup at [facility]/pharmacy #[id number] Unchanged aspirin (aspirin 81 mg Oral EC [...] fluticasone nasal (fluticasone Nasal 0.05 mg/ inh Tinsman) Nasal, 0 Refill(s) Contact prescribing physician if [...] physician if questions or concerns Pharmacy Information [facility]/pharmacy #[id number]: [address], [place] [id number] [phone] Allergies No Known Medication Allergies Problems Ongoing [...] heart or kidney d (more content not included)...[facility] HospitalAmbulatory Visit SummaryAmbulatory Visit Summary LYNSEY [...] solution) fluticasone nasal (fluticasone Nasal 0.05 mg/inh Tinsman) metformin (metformin 500 mg Tab) Procedures Performed Appendectomy, Bilateral cataracts, Bunion of left great toe, Detached right retina, H/O: hysterectomy, History of hernia repair. Discharge Vitals Heart Rate (Peripheral) 68 Respiratory Rate 18 Blood Pressure 124/60 Height 162.0 cm Height 64 in Weight 80.1 kg Weight 176.59 lb BMI 30.52 What to do next Scheduled Follow-Up Appointments Thursday2025 8:00 AM EDT Where: [place] [id number]- You Need to Complete the Following Comprehensive [...] fluticasone nasal (fluticasone Nasal 0.05 mg/ inh Tinsman) Nasal, 0 Refill(s) Unchanged metformin (metformin 500 [...] Current health, including: ? (more content not included)...NormalOhiohealth Arthur G.H. Bing, Md, Cancer CenterCMPon 04-06-2025 Albumin [Mass/Vol]4.4 g/dLNormal3.3-5.0[facility], Cancer CenterComment on above:Performed By: #### [id number] #### [facility] [address], [place] [address]Zyjabla/Globulin [Mass ratio]1.5 {ratio}Normal1.1-2.2FOur Lady of Mercy HospitalComment on above:Performed By: #### [id number] #### [facility] [address], [place] [address]Pwb Phos39 Int._Unit/PRpfeje88-35NjqhhnOhiohealth Arthur G.H. [facility], Md, Cancer Center Comment on above:Performed By: #### [id number] #### [facility] [address], [place] [address]JDP24 Int._Unit/LNormal6-46[facility] Md, Cancer CenterComment on above:Performed By: #### [id number] #### [facility] [address], [place] [address]Yngox gap [Moles/Vol]8 mmol/LNormal6-16[facility], Cancer CenterComment on above:Performed By: #### [id number] #### [facility] [address], [place] [address]XDR96 Int._Unit/LNormal5-43[facility] Md, Cancer CenterComment on above:Performed By: #### [id number] #### [facility] [address], [place] [address]Kwmv Total0.6 mg/dLNormal0.0-1.1FOur Lady of Mercy Hospital Comment on above:Performed By: #### [id number] #### [facility] [address], [place] [address]AIS/Creat Ratio23 No VudopVcdp14-64ElyxpzOhiohealth Arthur G.H. Bing, Md, Cancer Center Comment on above:Performed By: #### [id number] #### [facility] [address], [place] [address]Blkqbjc [Mass/Vol]10.0 mg/dLNormal8.9-11.1FOur Lady of Mercy HospitalComment on above:Performed By: #### [id number] #### [facility] [address], [place] [address]Xsdamsos [Moles/Vol]102 mmol/NGgmdxg439-006LpkpiuOhiohealth Arthur G.H. Bing, Md, Cancer CenterComment on above:Performed By: #### [id number] #### [facility] [address], [place] [address]QZ0 [Moles/Vol]31 mmol/TKsdnrp15-13JzmyptOhiohealth Arthur G.H. Bing, Md, Cancer Center Comment on above:Performed By: #### [id number] #### [facility] [address], [place] [address]Atpvhgnuou [Mass/Vol]1.0 mg/dLNormal0.5-1.3FOur Lady of Mercy HospitalComment on above:Performed By: #### [id number] #### [facility] [address], [place] [address]Iyyliurn (S) [Mass/Vol]3.0 g/dLNormal1.4-4.0[facility] Md, Cancer CenterComment on above:Performed By: #### [id number] #### [facility] [address], [place] [address]Tibgxtg [Mass/Vol]109 mg/gOPpuegw92-865KlugnrOhiohealth Arthur G.H. Bing, Md, Cancer CenterComment on above:Performed By: #### [id number] #### [facility] [address], [place] [address]Wgsprqyyq [Moles/Vol]4.4 mmol/LNormal3.5-5.3FOur Lady of Mercy HospitalComment on above:Performed By: #### [id number] #### [facility] [address], [place] [address]Yckzsst [Mass/Vol]7.4 g/dLNormal6.0-7.8[facility] Md, Cancer CenterComment on above:Performed By: #### [id number] #### [facility] [address], [place] [address]Juonpd [Moles/Vol]137 mmol/CFsnbqc168-263DeenwqOhiohealth Arthur G.H. Bing, Md, Cancer CenterComment on above:Performed By: #### [id number] #### [facility] [address], [place] [address]Umhh nitrogen [Mass/Vol]23 mg/dLHigh5-21Ohio[facility] Md, Cancer CenterComment on above:Performed By: #### [id number] #### [facility] [address], [place] [address]Djvnbg Medicine Office/Clinic Noteon 31-02-7513Yomdex Medicine Office/Clinic NoteFamily Medicine Office/Clinic Note Chief [...] of clutter to prevent tripping and/or falling. [place] Advance Directives reviewed. Documents remain at home, [...] PCP visit. [place] [facility] [place] concerns with bowel/ bladder. Patient has [...] C screening based on year of . Tavon Singhmore content not included)...[facility] HospitalComment on above:Result Comment: Electronically Signed [...] Neurological: oriented x 4, LOC appropriate for [facility] normal Assessment/Plan 1. Type II diabetes mellitus (E11.9: Type 2 diabetes mellitus without complications) - Continue periodic blood glucose monitoring. - Encourage dietary modifications to improve glycemic control. - Awaiting laboratory results - Encourage low carb diet - F/U in 6 months Ordered: metformin, 500 mg = 1 tab(s), Oral, BID, covering for April Trejo, # 180 tab(s), Refills(s) 1, Pharmacy: [email or web address] #[id number], 162, cm, 04/06/25 8:12:00 EDT, Height/Length Dosing, 80.1, kg, 04/06/25 8:12:00 EDT, Weight Dosing ADM OF SOC DTR G0136 Comprehensive Metabolic Panel HgbA1c Lab Specimen Collect 54785 Lipid Panel Urine Microalbumin/Creatinine Ratio 2. BMI [...] TREJO CNP, FAM Within 6 months [address] [place] [address] Business (1) Additional Instructions: Diabetes Patient Education Diabetes Mellitus and Nutrition, Adult Problem List/Past Medical History Ongoing BMI 30.0-30.9,adult Nonsmoker Obesity (BMI 30-39.9) Type II diabetes mellitus Historical No qualifying data Procedure/Surgical History Appen (more content not included)...NormalOhiohealth Arthur G.H. Bing, Md, Cancer CenterComment on above:Result Comment: Electronically Signed By: APOLINAR TREJO CNP\.br\Date and Time Signed: 04/06/25 09:21 DWCKksI9sfy 18-92-5506IeK9l (Bld) [Mass fraction]6.0 %High<=5.9Ohio[facility], Md, Cancer CenterComment on above:Performed By: #### [id number] #### [facility] [address], [place] [address]Ajirs Panelon 90-15-3929Zrcqptdjvrn [Mass/Vol]205 mg/dLHigh 120-200Ohio[facility], Md, Cancer CenterComment on above:Performed By: #### [id number] #### [facility] [address], [place] [address]Uywqydtawlu in HDL [Mass/Vol]69 mg/dLInvalid Interpretation CodeOhiohealth Arthur G.H. Bing, Md, Cancer CenterComment on above:Result Comment: '>= 60 LOW RISK' '<= 40 HIGH RISK'Performed By: #### [id number] #### [facility] [address], [place] [address]Seuiexcdnds in LDL [Mass/Vol]128 mg/dLNormal<=129Ohio[facility], Md, Cancer CenterComment on above:Performed By: #### [id number] #### [facility] [address], [place] [address]Mcbykbfvmlq in VLDL [Mass/Vol]20 mg/dLNormal7-40Ohio[facility] Md, Cancer CenterComment on above:Performed By: #### [id number] #### [facility] [address], [place] [address]Sxtbtpsuiesa [Mass/Vol]102 mg/dLNormal<=149Ohio[facility] Md, Cancer CenterComment on above:Performed By: #### [id number] #### [facility] [address], [place] [address]U MA/Cr Ratioon 71-45-0953Fnrrceka/Cr RatioNOT CALCULATED Invalid Interpretation Code.0-30.0Ohio[facility]. [facility], Md, Cancer CenterComment on above: Result Comment: 30-300 mg/g Cr indicates an increased risk for diabetic nephropathy. >300 mg/g Cr is consistent with clinical nephropathy.Performed By: #### [id number] #### [facility] [address], [place] [address]H Sevkntxhbn77.8 mg/dLInvalid Interpretation CodeOhiohealth Arthur G.H. Bing, Md, Cancer CenterComment on above:Performed By: #### [id number] #### [facility] [address], [place] [address]U Microalb<0.0Rvfift1.0-1.9[facility], Md, Cancer CenterComment on above:Performed By: #### [id number] #### [facility] [address], [place] [address]fSRPzf 62-87-0958uTVY52 mL/min/1.73 a5Gxulbf>=59Ohiohealth [facility]. [facility], Md, Cancer CenterComment on above:Performed By: #### [id number] #### [facility] [address], [place] [address]Hqnfy of lesionon 23-33-9844Pgkbhsatvp: simple Destruction method: electrodesiccation and curettage Informed consent: discussed and consent obtained Informed consent comment: The risks of the procedure were discussed, including, but not limited to risks of scarring, darker or foot specialist pigmentary changes, recurrence, infection, and incomplete removal [...] of lidocaine used: 5cc Previous accession number: [id number] Regional Medical CenterbA1con [id number] (Bld) [Mass fraction]5.8 %Normal<=5.9[facility] Comment on above:Performed By: #### [id number] #### [facility] [address], [place] [address]Wvsfdmumpm Visit Summaryon 63-09-3185Ulendnuqqo Visit Summary Ambulatory Visit Summary LYNSEY ROMERO :1955 Visit Date:10/04/2024 Ambulatory Visit Instructions Your Diagnosis Type II diabetes mellitus BMI 30.0-30.9,adult Non-smoker Your Care Team Attending Physician - APOLINAR TREJO CNP Primary Care Physician - APOLINAR TREJO CNP This Is Your Medications List [facility] [place]Glucom[place] [facility] [place]ancets) [facility] [place] (Test strips) bisoprolol-hydrochlorothiazide (bisoprolol-hydrochlorothiazide 2.5 mg-6.25 mg Tab) cetirizine (cetirizine 10 mg oral tablet, chewable) fluconazole (fluconazole 150 mg Tab) fluocinonide topical (fluocinonide topical 0.05% solution) fluticasone nasal (fluticasone Nasal 0.05 mg/inh [place]man) metformin (metformin 500 mg Tab) Procedures Performed [...] AM EDT With: APOLINAR TREJO CNP Where: [address] [id number]- 2024 8:00 AM EDT With: Where: [address] [address]- Medications What How Much When Why Instructions [...] fluticasone nasal (fluticasone Nasal 0.05 mg/ inh [place]) Nasal, 0 Refill(s) Unchanged metformin (metformin 500 [...] you for choosing us for your care. [facility] HospitalCHEMISTRYOrdered By: Zhanna Villarreal on 16-73-6076JzW4l (Bld) [Mass fraction]5.8 %Normal<=5.9%[facility] [place] ChemAutoSS Family Medicine Office/Clinic Noteon 00-21-2956Qhaccj Medicine Office/Clinic NoteFaboston dispensary Medicine Office/Clinic Note Chief Complaint Fluctuating blood [...] 6 months Ordered: HgbA1c Lab Specimen Collect 07442 2. BMI 30.0-30.9,adult (Z68.30: Body mass index [...] marcus, Topical, TID fluticasone Nasal 0.05 mg/inh [place] Glucometer, See Instructions Lanc (more content not included)...[facility] HospitalComment on above:Result Comment: Electronically Signed By: APOLINAR TREJO CNP\.epifanio\Date and Time Signed: 10/04/24 08:47 EDTNo Panel Informationon 40-24-0948Agbx of biopsy: tangential Informed consent: discussed and [...] Photo taken Amount of lidocaine used: 1.0 [facility] Medicine Office/Clinic Noteon 30-50-1906Mtztpm Medicine Office/Clinic NoteC[facility] Office/Clinic Note Chief Complaint 118 [...] day(s), # 28 cap(s), Refills(s) 0, Pharmacy: [facility]/pharmacy #[id number], 162, cm, 04/05/24 7:59:00EDT, Height/Length [...] hours, # 2 tab(s), Refills(s) 0, Pharmacy: [facility]/pharmacy #[id number], 162, cm, 04/05/24 7:59:00 EDT, Height/Length Dosing, 82.1, kg, 04/05/24 7:59:00 EDT, Weight Dosing Follow-up No qualifying data available Patient Education Sinus Infection, Adult, Iyid-pw-Kqeu Problem List/Past Medical History Ongoing BMI 31.0-31.9,adult [...] marcus, Topical, TID fluticasone Nasal 0.05 mg/inh [place] Glucometer, See Instructions Lancets, See Instructions metformin 500 mg Tab, 500 mg= 1 tab(s), Oral, BID, 1 refills Test strips, See Instructions, 1 refills Allergies No Known Medication Allergies Social History Alcohol Current. Wi (more content not included)...[facility] Comment on above:Result Comment: Electronically Signed By: APOLINAR TREJO CNP\.br\Date and Time Signed: 06/15/24 08:44 ESTAmbulatory Visit Summaryon 37-86-5212Ijzsiuwkqn Visit SummaryAmbulatory Visit Summary LYNSEY ROMERO :1955 Visit Date:06/14/2024 Ambulatory Visit Instructions Your Diagnosis Sinusitis Your Care Team Attending Physician - APOLINAR TREJO CNP Primary Care Physician - APOLINAR TREJO CNP This Is Your Medications List Misc Prescription (Glucometer) Mis Pres[place] (Lancets[place] [facility] [place]Test strips) bisoprolol-hydrochlorothiazide (bisoprolol-hydrochlorothiazide 2.5 mg-6.25 mg Tab) cetirizine (cetirizine 10 mg oral tablet, chewable) doxycycline (doxycycline hyclate 100 mg Cap) fluconazole (fluconazole 150 mg Tab) fluocinonide topical (fluocinonide topical 0.05% solution) fluticasone nasal (fluticasone Nasal 0.05 mg/inh [place]) metformin (metformin 500 mg Tab) Procedures Performed Appendectomy, Bilateral cataracts, Bunion of left great toe, Detached right retina, H/O: hysterectomy, History of hernia repair. Discharge Vitals Heart Rate (Peripheral) 78 Respiratory Rate 18 Blood Pressure 118/78 Height 162.0 cm Height 64 in What to do next Scheduled Follow-Up Appointments Thursday 7:20 AM EDT With: APOLINAR TREJO CNP Where: [place] [phone]- Medications What How Much When Why Instructions [...] twelve hours for ten days Pickup at [facility]/pharmacy #[id number] Unchanged fluconazole (fluconazole 150 mg Tab) 1 Tablets By Mouth Once Take one tablet at the onsetof symptoms; may repeat in 72 hours Pickup at [facility]/pharmacy #[id number] Unchanged fluocinonide topical (fluocinonide topical 0.05% solution) 1 Application Topical 3 times a day Unchanged fluticasone nasal (fluticasone Nasal 0.05 mg/ inh [place]) Nasal, 0 Refill(s) Unchanged metformin (metformin 500 mg Tab) 1 Tablets By Mouth 2 times a day Type II diabetes mellitus Unchanged [facility] [place] (Glucometer) See instructions Type II diabetes mellitus Glucometer to test blood sugar TID PRN E11.9 Unchanged Misc Prescription (Lancets) See instructions Type II diabetes mellitus Test blood sugar TID PRN E11.9 Unchanged Misc Prescription (Test strips) See instructions Type II diabetes mellitus Test blood sugar TID E11.9 Pharmacy Information [id number] [address], [place] [id number] [phone] Medications and Immunizations Administered Given influenza, unspecified formulation, SARSCoV2 mRNA(qulidweom-uchd-wyalkn) vac, Allergies No Known Medication Allergies Problems [...] you for choosing us for your care. [facility] HospitalX-ray reportOrdered By: Keren Goins on 03-74-3593Zqpmh [facility] Main [place] [address] [place], [place] [address] XRay Report Signed Patient: Lynsey Romero MR#: [id number] : 1955 Acct:[id number] Age/Sex: 68 / F ADM Date: 4 Loc: XDUC Room: Type: [facility] Attending Dr: Keri Kennedy APRN Copies [...] MD 05/29/24 1038 Signed By: 05/29/24 1039 [facility] Work Phone: XR chest 2V*on 86-10-8923MX chest 2V*[facility] [place] [address] [place] [address] XRay Report Signed Patient: Lynsey Romero MR#: [id number] : 1955 Acct:[id number] Age/Sex: 68 / F ADM Date: 05/29/24 Loc: XDUCLY Room: Type: [facility] Attending Dr: Keri Kennedy APRN Copies [...] Goins MD 05/29/24 1038 Signed By: 05/29/24 1039[facility] Physician GroupCHEMISTRYOrdered By: SYSTEM SYSTEM on 14-61-2091Tlotjxi [Mass/Vol]4.4 g/dLNormal3.3 - 5.0 gm/dLRemisol Chem Albumin DL <= 20 mg/L (U) [Mass/Vol]mg/dLNormal0.0 - 1.9 mg/dLRemisol Chem Albumin/Globulin [Mass ratio]1.5 {ratio}Normal1.1 - 2.2Remisol ChemALP [Catalytic activity/Vol]46 [iU]/iWdwivt39 - 98 Int._Unit/LRemisol ChemALT No additional P-5'-P [Catalytic activity/Vol]23 [iU]/dNormal6 - 46 Int._Unit/L Remisol ChemAnion gap [Moles/Vol]9 mmol/LNormal6 - 16 mEq/LRemisol ChemAST [Catalytic activity/Vol]26 [iU]/dNormal5 - 43 Int._Unit/LRemisol ChemBilirubin [Mass/Vol]0.8 mg/dLNormal0.0 - 1.1 mg/dLRemisol ChemCalcium [Mass/Vol]9.3 mg/dL Normal8.9 - 11.1 mg/dLRemisol ChemChloride [Moles/Vol]103 mmol/XOmrbri849 - 111 mmol/LRemisol ChemCholesterol [Mass/Vol]190 mg/bFDigyxs808 - 200 mg/dLRemisol ChemCholesterol in HDL [Mass/Vol]59 mg/dLInvalid Interpretation CodeRemisol Chem Comment on above:Result Comment: '>= 60 LOW RISK' '<= 40 HIGH RISK'Cholesterol in LDL [Mass/Vol]129 mg/dLNormal<=129mg/dLRemisol ChemCholesterol in VLDL [Mass/Vol]29 mg/dLNormal7 - 40 mg/dLRemisol ChemCO2 [Moles/Vol]29 mmol/PWshiwy02 - 31 mmol/LRemisol ChemCreatinine [Mass/Vol]0.7 mg/dLNormal0.5 - 1.3 mg/dLRemisol SmgppXPU74 mL/min/1.73 i3Xwyqxf>=59mL/min/1.73 b0Lnlqacb ChemGlobulin (S) [Mass/Vol]3.0 g/dLNormal1.4 - 4.0 gm/dLRemisol Chem Glucose [Mass/Vol]150 mg/gELeefha36 - 199 mg/dLRemisol ChemPotassium [Moles/Vol] 4.3 mmol/LNormal3.5 - 5.3 mmol/LRemisol ChemProtein [Mass/Vol]7.4 g/dLNormal6.0 - 7.8 gm/dLRemisol ChemProtein/Creatinine (U) [Ratio]4.90 mg/gm CrNormal0.00 - 200.00 mg/gm CrRemisol ChemSodium [Moles/Vol]137 mmol/QUuxiiy626 - 145 mmol/L Remisol ChemTriglyceride [Mass/Vol]143 mg/dLNormal<=149mg/dLRemisol ChemU Gjyftrfahz695.2 mg/dLInvalid Interpretation CodeRemisol ChemUr Total Protein5.8 mg/dLInvalid Interpretation CodeRemisol ChemUrea nitrogen [Mass/Vol]18 mg/dL Normal5 - 21 mg/dLRemisol ChemUrea nitrogen/Creatinine [Mass ratio]26 mg/mgHigh 10 - 20Remisol ChemCHEMISTRYOrdered By: Zhanna Villarreal on 25-35-3966PzT4i (Bld) [Mass fraction]6.2 %High<=5.9%[facility] [place] ChemAutoSSCMPon 82-41-9348Mwpoist [Mass/Vol] 4.4 g/dLNormal3.3-5.0[facility] Md, Cancer CenterComment on above:Performed By: #### [id number] #### [facility] Laboratory [address], [place] [address]Zmjemgp/Globulin (S) [Mass conc ratio]1.9Mwclff3.1-2.2[facility] Mid[facility] CampusComment on above:Performed By: #### [id number] #### [facility] Laboratory [address], [place] [address]YDD [Catalytic activity/Vol]46 Int._Unit/CHajxqd81-28YgsadqOhiohealth Arthur G.H. Bing, Md, Cancer CenterComment on above:Performed By: #### [id number] #### [facility] Laboratory [address], [place] [address]UPY No additional P-5'-P [Catalytic activity/Vol]23 Int._Unit/L Normal6-46[facility] Md, Cancer CenterComment on above:Performed By: #### [id number] #### [facility] Laboratory [address], [place] [address]Ofhfs gap [Moles/Vol]9 mmol/LNormal6-16[facility] Md, Cancer CenterComment on above:Performed By: #### [id number] #### [facility] [address], [place] [address]VWG [Catalytic activity/Vol]26 Int._Unit/LNormal5-43[facility], Cancer CenterComment on above:Performed By: #### [id number] #### [facility] Laboratory [address], [place] [address]Mhmznosxk [Mass/Vol]0.8 mg/dLNormal0.0-1.1FOur Lady of Mercy HospitalComment on above:Performed By: #### [id number] #### [facility] Laboratory [address], [place] [address]Rcegxkf [Mass/Vol]9.3 mg/dLNormal8.9-11.1FOur Lady of Mercy HospitalComment on above:Performed By: #### [id number] #### [facility] Laboratory [address], [place] [address]Cnewpvff [Moles/Vol]103 mmol/WWeqpsm010-743WpyoqcOhiohealth Arthur G.H. Bing, Md, Cancer CenterComment on above:Performed By: #### [id number] #### [facility] Laboratory [address], [place] [address]PC9 [Moles/Vol]29 mmol/HNqtwus28-00TmwalsOhiohealth Arthur G.H. Bing, Md, Cancer Center Comment on above:Performed By: #### [id number] #### [facility] Laboratory [address], [place] [address]Idmjpyaufv [Mass/Vol]0.7 mg/dLNormal0.5-1.3FOur Lady of Mercy HospitalComment on above:Performed By: #### [id number] #### [facility] Laboratory [address], [place] [address]Gthipghp (S) [Mass/Vol]3.0 g/dLNormal1.4-4.0[facility] Md, Cancer CenterComment on above:Performed By: #### [id number] #### [facility] Laboratory [address], [place] [address]Dygpvff [Mass/Vol]150 mg/bDAbnfsf73-319McsntdOhiohealth Arthur G.H. Bing, Md, Cancer CenterComment on above:Performed By: #### [id number] #### [facility] Laboratory [address], [place] [address]Xpgajzxjt [Moles/Vol]4.3 mmol/LNormal3.5-5.3FOur Lady of Mercy HospitalComment on above:Performed By: #### [id number] #### [facility] Laboratory [address], [place] [address]Yehvrmo [Mass/Vol]7.4 g/dLNormal6.0-7.8[facility] Md, Cancer CenterComment on above:Performed By: #### [id number] #### [facility] Laboratory [address], [place] [address]Vedugf [Moles/Vol]137 mmol/FOgkgjg546-947NmtazrOhiohealth Arthur G.H. Bing, Md, Cancer CenterComment on above:Performed By: #### [id number] #### [facility] Laboratory [address], [place] [address]Ygcb nitrogen [Mass/Vol]18 mg/dLNormal5-21[facility] Md, Cancer CenterComment on above:Performed By: #### [id number] #### [facility] Laboratory [address], [place] [address]Yqrg nitrogen/Creatinine [Mass ratio]26 No GnjyaKuwo67-46PtldblOhiohealth Arthur G.H. Bing, Md, Cancer CenterComment on above:Performed By: #### [id number] #### [facility] Laboratory [address], [place] [address]Fpqmvg Medicine Office/Clinic Noteon 29-93-5327Crclrk Medicine Office/Clinic NoteFaboston dispensary Medicine Office/Clinic Note Chief Complaint 6m f/u [...] APOLINAR TREJO CNP, FAM Within [address] [place] [id number] Business (1) Additional Instructions: Diabetes Patient Education Diabetes Mellitus and Exercise Problem List/Past Medical History Ongoing BMI 31.0-31.9,adult Body mass index [BMI] 31.0-31.9, adult Type II diabetes mellitus Historical No qualifying data Proc (more content not included)...NormalOhiohealth Arthur G.H. Bing, Md, Cancer CenterComment on above:Result Comment: Electronically Signed By: APOLINAR TREJO CNP\Date and Time Signed: 04/05/24 08:41 EDTLipid Panelon 41-15-6933Dqjiuppckhl [Mass/Vol]190 mg/hCHaanxd802-255TthwnjOhiohealth Arthur G.H. Bing, Md, Cancer CenterComment on above: Performed By: #### [id number] #### [facility] Laboratory [address] [facility], [place] [address]Pqvosazndzp in HDL [Mass/Vol]59 mg/dLInvalid Interpretation CodeOhiohealth Arthur G.H. Bing, Md, Cancer CenterComment on above:Result Comment: '>= 60 LOW RISK' '<= 40 HIGH RISK'Performed By: #### [id number] #### [facility] Laboratory [address] [place], [place] [address]Xommvzapzql in LDL [Mass/Vol]129 mg/dLNormal<=129Ohio[facility] Md, Cancer CenterComment on above:Performed By: #### [id number] #### [facility] Laboratory [address] [place], [place] [address]Fofjexarhnr in VLDL [Mass/Vol]29 mg/dLNormal7-40[facility] Md, Cancer CenterComment on above:Performed By: #### [id number] #### [facility] Laboratory [address] [place], [place] [address]Vxpblupsskhv [Mass/Vol]143 mg/dLNormal<=149Ohio[facility] Md, Cancer CenterComment on above:Performed By: #### [id number] #### [facility] Laboratory [address] [place], [place] [address] Microalbon 02-63-1188Sddzeai DL <= 20 mg/L (U) [Mass/Vol] mg/dLNormal0.0-1.9[facility] Md, Cancer CenterComment on above:Performed By: #### [id number] #### [facility] Laboratory [address] [place], [place] [address]L Protein/Creat Ratioon 12-13-1121Xifakti/Creatinine (U) [Ratio]4.90 mg/gm CrNormal.00-200.00[facility] Md, Cancer CenterComment on above: Performed By: #### [id number] #### [facility] Laboratory [address], [place] [address]F Pviszoxxjj316.2 mg/dLInvalid Interpretation [facility] CenterComment on above:Performed By: #### [id number] #### [facility] Laboratory [address], [place] [address]Mj Total Protein5.8 mg/dLInvalid Interpretation [facility] CenterComment on above:Performed By: #### [id number] #### [facility] Laboratory [address], [place] [address]qREEtl 15-83-9065vXFR08 mL/min/1.73 o6Bpoylr>=59Ohiohealth [facility]. Bing, Md, Cancer CenterComment on above:Performed By: #### [id number] #### [facility] Laboratory [address], [place] [address]Eyoszm Medicine Office/Clinic Noteon 43-22-4189Jcusuc Medicine Office/Clinic NoteChief Complaint Med Check HPI [...] BID, # 180 tab(s), Refills(s) 1, Pharmacy: [facility]/pharmacy #[id number], 162, cm, 12/17/23 7:22:00 EDT, [...] tab(s), Oral, Daily, 30 tab(s), Refill(s) 0, [facility]/pharmacy #6177, 161.3, cm, 10/06/23 15:21:00 EDT, [...] right retina, H/O: hysterect (more content not included)...[facility] HospitalComment on above:Result Comment: Electronically Signed By: APOLINAR TREJO CNP\marco\Date and Time Signed: 12/17/23 08:23 EDTPatient Educationon 07-03-8591Weoiahk EducationEndocrinology Diabetes Mellitus and Nutrition, Adult When [...] Carrots. Green beans. Tomatoes. Peppers. Onions. Cucumbers. [place] sprouts. Grains Whole grains, such as whole-wheat or whole-grain bread, crackers, tortillas, cereal, and pasta. Unsweetened oatmeal. (more content not included)...Normal [facility] CampusPatient Logson 37-71-3745Dtsmnsb Logs [id number]#1.00TIFFNormalFisher [facility] Midtown CampusAmbulatory Visit Summaryon 21-76-8207Yuvkfybltp Visit Summary LYNSEY ROMERO :1955 Visit Date:11/19/2023 [...] AM EDT With: APOLINAR TREJO CNP [facility] CenteraugustoInvalid Interpretation [address] [place] [address]- \.br\ Thursday 2:30 PM EST \.br\ With:\.br\ Where: [facility] Medicine Office/Clinic Noteon 62-40-3014Fuiodn Medicine Office/Clinic NoteHPI Staff Patient presents to [...] she does not need to see a floral designer. Review of Systems PHQ Score Initial Depression [...] BID, # 60 tab(s), Refills(s) 0, Pharmacy: [facility]/pharmacy #6177, 161.3, cm, 11/19/23 7:58:00 EDT, Height/Length Dosing, 88.6, kg, 11/19/23 7:58:00 EDT, Weight Dosing Misc Prescription, Glucometer, See Instructions, 1 EA, 0, Glucometer to test blood sugar TID PRN E11.9, [facility] Supply, 161.3, cm, 11/19/23 7:58:00 EDT, Height/Length Dosing, 88.6, kg, 11/19/23 7:58:00 EDT, Weight Dosing Misc Prescription, Lancets, See Instructions, 100 EA, 0, Test blood sugar TID PRN E11.9, [facility]/pharmacy #6177, Supply, 161.3, cm, 11/19/23 7:58:00 EDT, Height/Length Dosing, 88.6, kg, 11/19/23 7:58:00 EDT, Weight Dosing Misc Prescription, Test strips, See Instructions, 100 EA, 0, Test blood sugar TID PRN E11.9, [facility]6177, Supply, 161.3, cm, 11/19/23 7:58:00 EDT, [...] 4274F Most recent diasto (more content not included)...[facility] HospitalComment on above:Result Comment: Electronically Signed By: APOLINAR TREJO CNP\marco\Date and Time Signed: 11/19/23 08:47 EDTPatient Educationon 59-42-9973Olquidb EducationEndocrinology Diabetes Mellitus and Nutrition, Adult When [...] Carrots. Green beans. Tomatoes. Peppers. Onions. Cucumbers. [place] sprouts. Grains Whole grains, such as whole-wheat or whole-grain bread, crackers, tortillas, cereal, and pasta. Unsweetened oatmeal. (more content not included)...Normal [facility], Cancer CenterCHEMISTRYOrdered By: Zhanna Villarreal on 11-16-2023 HbA1c (Bld) [Mass fraction]13.1 %High<=5.9%[facility] [place] MnmpLqerLMYhiD0mxf 11-16-2023 HbA1c (Bld) [Mass fraction]13.1 %High<=5.9[facility], Md, Cancer CenterComment on above:Performed By: #### [id number] ####[facility] [address] [place], [place] [address]Mxdow Consultation Noteon 06-14-4886Apzrx Consultation NoteReason for Visit lab work Assessment/Plan [...] Recorded influenza virus vaccine, inactivated 06/01/2019 RecordedNormalFisher [facility] Mid[facility] CampusLab Reportson 88-20-4236Gvi Reports [id number]#1.00TIFFNormHighlands-Cashiers Hospitaler [facility] Mid[facility] CampusOutside Mammographyon 44-77-6147Aohbcxd Mammography [id number]#1.00TIFFWilson Memorial HospitalOutside Mammographyon 88-85-6467Fvikohu Mammography [id number]#1.00TIFFWilson Memorial HospitalOutside Mammographyon 13-82-8125Jvsrrzi Mammography [id number]#1.00TIFUniversity Hospitals Parma Medical CenterAmbulatory Visit Summaryon 51-07-0499Kvcfuhnomh Visit Summary LYNSEY ROMERO :1955 Visit Date:10/06/2023 [...] AM EDT With: APOLINAR TREJO CNP Where: [facility] Medicine Office/Clinic Noteon 58-41-6734Nnvgms Medicine Office/Clinic NoteChief Complaint establish care and [...] her daughter (she is a nurse at [employer]). She is not sure if she [...] screen for fall r (more content not included)...[facility] HospitalComment on above:Result Comment: Electronically Signed By: APOLINAR TREJO CNP\.br\Date and Time Signed: 10/06/23 16:35 EDTPatient Educationon 05-23-4362Xpibwqx EducationCardiovascular Hypertension, Adult Hypertension is another name [...] Keep all follow-up visits. Medicines ? Take erxo-ynz-fzjbbnk and prescription medicines only as told by [...] blood. ? For m (more content not included)...Wilson Memorial HospitalMG MAMM SCREEN 3D TOMMY CADon 15-41-1855DF MAMM SCREEN 3D TOMMY CADPatient: LYNSEY ROMERO Exam Date: 04/23/2021 : 1955 Gender:F Ordering : DR GOSIA MUNROE . Admission #: [id number] Family : Order #: [id number] CLICK HERE TO VIEW EXAM RADIOLOGY REPORT [...] lymphoma cancer at age 71. LOCATION: [facility] BREAST COMPOSITION: Scattered areas fibroglandular density. [...] by: Beverly Queen MD on 04/23/2021 at 10:55[facility] Vital Signs Date TimeVital SignValuePerforming GznwajirqQtwhhjvt20-09-8865 09:10-0400Body qnrejl023.1 Nicho Guallpa MD Work Phone: [phone] [place], [place] 984[address]8-17-2025 09:10-0400 Body mass index (BMI) [Ratio]29.7 kg/a4LuhejvJuanjo Guallpa MD Work Phone: [phone] [place], [place] 984[address]8-17-2025 09:10-0400 Body zdmefxosimr44.6 [degF]Juanjo Guallpa MD Work Phone: [phone]08-17-2025 09:10-0400 Body qjzfme21.9 kgJuanjo Guallpa MD Work Phone: [phone] [place], [place] 984[address]8-17-2025 09:10-0400 Diastolic blood luuggtqk90 mm[Hg]Juanjo Guallpa MD Work Phone: [phone] [place], [place] 984[address]8-17-2025 09:10-0400 Heart rate67 /Eva Guallpa MD Work Phone: [phone] [place], [place] 9843008-17-2025 09:10-0400 Respiratory rate18 /Eva Guallpa MD Work Phone: [phone] [place], [place] 9843008-17-2025 09:10-0400 SaO2% (BldA) [Mass fraction]97 %Juanjo Guallpa MD Work Phone: [phone] [place], [place] 0809708-17-2025 09:10-0400 Systolic blood hndethte528 mm[Hg]Juanjo Guallpa MD Work Phone: [phone]11-17-2024 09:14-0500 Body ciksha338.1 cmSabeba Guallpa MD Work Phone: [phone]11-17-2024 09:14-0500 Body mass index (BMI) [Ratio]29.2 kg/g1DzzdrlJuanjo Guallpa MD Work Phone: [phone]11-17-2024 09:14-0500 Body ykwiiflweec68.5 [degF]Juanjo Guallpa MD Work Phone: [phone]11-17-2024 09:14-0500 Body nufnls60.83 kgJuanjo Guallpa MD Work Phone: [phone]11-17-2024 09:14-0500 Diastolic blood nbbhwnef60 mm[Hg]Juanjo Guallpa MD Work Phone: [phone]11-17-2024 09:14-0500 Heart rate74 /Eva Guallpa MD Work Phone: [phone] [place], [place] 5084811-17-2024 09:14-0500 Respiratory rate18 /Eva Guallpa MD Work Phone: [phone]11-17-2024 09:14-0500 SaO2% (BldA) [Mass fraction]95 %Juanjo Guallpa MD Work Phone: [phone]11-17-2024 09:14-0500 Systolic blood mm[Hg]Juanjo Guallpa MD Work Phone: [phone] [place], [place] 5084801-05-2024 12:05-0500 Body ywxaaw726.64 Laila Aguiar Other [employer] Other 01-05-2024 12:05-0500Body mass index (BMI) [Ratio] 31.73 kg/k1HywebpLilliana Aguiar Other [employer] Other 01-05-2024 12:05-0500Body iovtlqxbslc54.7 [degF]Lilliana Aguiar Other [employer] Other 01-05-2024 12:05-0500Body .18 kgLilliana Aguiar Other [employer] Other 01-05-2024 12:05-0500Diastolic blood ykktsxbk69 mm[Hg] Lilliana Renemond Other [employer] Other 01-05-2024 12:05-0500Respiratory rate16 /minLilliana Aguiar Other [employer] Other 01-05-2024 12:05-5691RzW4% (BldA) [Mass fraction]97 % [facility]ill[facility] [employer] Other 01-05-2024 12:05-0500Systolic blood mdtqcoyi440 mm[Hg] Lilliana Aguiar Other [employer] Other Encounters Encounter DateEncounter TypeCare ProviderFacilityStart: 36-10-0455mvnmwsoauv APOLINAR A LEHMANNFacility:FT FM BellevueStart: 86-28-2065iflkspcyzyTDFNGF A LEHMANNFacility:FT FM BellevueStart: 04-25-2025 End: 36-05-8772Cnrybq flowsheetTiffanie Benson MD Work Phone: [facility] DermatologyStart: 04-25-2025 End: 45-80-3614Tyxwqr flowsheetEmfracisco Benson MD Work Phone: [facility] DermatologyStart: 04-25-2025 End: 89-12-8252dwnjyhimanYMDFS A PETITTINot AvailableStart: 04-25-2025 End: 53-21-6580Umgeaq outpatient visit 15 minutesEmily Stu Benson MD Work Phone: [facility] Mejía DermatologyComment on above:Lichen planopilaris (Primary Dx)Start: 04-06-2025 End: 21-82-5843kjcnzngxndRDFRRY A LEHMANNFacility:FTMCStart: 04-06-2025 End: 51-57-9609ywzejzpjkfJNSDVR A LEHMANNFacility:FT FM BellevueStart: 03-23-2025 End: 90-25-1145Dpolkm patheetEmfracisco Benson MD Work Phone: [facility] DermatologyStart: 03-23-2025 End: 95-36-8384Fujtxf flowsheetEmfracisco Benson MD Work Phone: [facility] DermatologyStart: 03-23-2025 End: 51-36-6368Lgkigk outpatient visit 15 minutesEmily Stu Benson MD Work Phone: [facility] Me[facility]ía DermatologyComment on above:Actinic keratosis (Primary Dx); Lentigines; History of basal cell carcinoma; Lichen planopilarisStart: 03-23-2025 End: 86-88-7869mycerbxwjrJSQPY A PETITTINot AvailableStart: 02-26-2025 End: 28-70-5132rmguupuggxCqbwmw E Ross MD Work Phone: [facility] Work Phone: Start: 02-26-2025 End: 24-11-7094Rcmxjev encounter procedureSaira Jain APRN-[facility] Work Phone: Start: 10-07-2024 End: 37-24-1718Kgrxnhz encounter procedureEmily Stu Benson MD Work Phone: noms [facility] DERMComment on above:Basal cell carcinoma (BCC) of skin of left upper extremity including shoulder (Primary Dx)Start: 10-07-2024 End: 86-30-0289hhicurkwimDONKS A PETITTINot AvailableStart: 10-04-2024 End: 50-83-2959Aln Drop offSHELLY Stu TREJO [facility] Start: 10-04-2024 End: 38-72-8281vemeszxeavZDJYAA A MAYAFacility:FTMCStart: 08-22-2024 End: 52-15-0383Plbedh flowsheetTiffanie Benson MD Work Phone: noms [facility] DERMStart: 08-22-2024 End: 84-84-6747Uusljj flowsheetEmfracisco Benson MD Work Phone: noms SWS DERMStart: 08-22-2024 End: 61-94-1450gvkxydknzjKAWIA A PETITTINot AvailableStart: 08-22-2024 End: 68-58-0914Aekslw outpatient visit 25 minutesEmfracisco Benson MD Work Phone: noms [facility] DERMComment on above:Lichen planopilaris (Primary Dx); Seborrheic keratosis; Lentigines; History of basal cell carcinoma; Actinic keratosis; Neoplasm of unspecified behavior of bone, soft tissue, and skinStart: 06-14-2024 End: 44-24-3446zadpmtnkplAXDOEP A LEHMANNFacility:FT BellevueStart: 05-29-2024 End: 31-76-6044Icsvtbf encounter procedureSabeba Guallpa MD Work Phone: [facility] Work Phone: Start: 05-29-2024 End: 53-41-2211ayejcxhajpPwimxa E Ross MD Work Phone: [facility] Work Phone: Start: 05-29-2024 End: 48-96-9840zkycpomnxjKivujw E Ross MD Work Phone: [facility] Work Phone: Start: 05-29-2024 End: 94-26-8504Bpztegt encounter procedureSabeba Guallpa MD Work Phone: [facility] Work Phone: Start: 04-05-2024 End: 57-52-1753Lgo Drop offSHELLY A MAYA [facility] Start: 04-05-2024 End: 57-46-9383rxoycgpiwyWACWZD A LEHMANNFacility:FT FM BellevueStart: 12-17-2023 End: 95-72-5444ydfxlpfgisFAQDVB A LEHMANNFacility:FT FM BellevueStart: 11-19-2023 End: 49-60-1103xpoecivanrZRVVBB A LEHMANNFacility:FT FM BellevueStart: 11-16-2023 End: 22-13-4102Xvl Drop offSHELLY A MAYA [facility] Start: 11-16-2023 End: 40-41-0619bdoookgekoZRPNPN A LEHMANNFacility:FTMCStart: 10-06-2023 End: 35-90-0066ascizutlftWCQHTO A LEHMANNFacility:FT FM BellevueStart: 93-17-1336tngracjyqhZHLWQK LEHMANNFacility:FT FM BellevueStart: 08-20-2023 End: 26-46-0567Zrhkcf outpatient visit 25 minutesEmily Stu Benson MD Work Phone: NOBJ SWS DERMComment on above:Lichen planopilaris (Primary Dx); Seborrheic keratosis; Lentigines; History of basal cell carcinoma; Actinic keratosisStart: 07-17-2023 End: 35-62-6830lagxzpfrnqTqedmr Stefania Other [facility] [employer] Other Start: 29-47-4279Tdaegr outpatient new 20 minutes Lilliana StefaniaFPG Urgent Care ClydeStart: 04-23-2021 End: 74-95-2135wsdtjlubftAR GOSIA MUNROEFacility:H1 Procedures DateProcedureProcedure DetailPerforming ClinicianStart: 57-38-2199XXVNQRYIDUE OF LESIONEmily Stu Benson MD Work Phone: Start: 45-19-1633MCBV / NAIL BIOPSYEmily Stu Benson MD Work Phone: Start: 98-71-7367QAEIUAMRPGW SKIN LESIONEmily Stu Benson MD Work Phone: Start: 90-18-7658Fyuoj chest X-raySabeba Guallpa MD Work Phone: AppendectomyAPOLINAR WINTERHMANN Bilateral cataracts (disorder)APOLINAR TREJO Detachment of retina of right eye (disorder)APOLINAR TREJO H/O: hysterectomySHMARIAA WINTERHMANN H/O: surgeryHx of detached retina ogSalady Guallpa MD Work Phone: History of hernia repairAPOLINAR TREJO Swelling of first metatarsal joint of hallux of left foot (disorder)APOLINAR TREJO Plan of Treatment DateCare ActivityDetailAuthorStart: 37-83-5786Cvnbmgbop for malignant neoplasm of colonNOMS HealthcareStart: 08-22-2025 End: 12-77-6860Atqmden encounter procedureNOMS SWS DERMStart: 04-25-2025 End: 87-96-2528Yzuuisg encounter gcajsfagb81/14/2025 11:15 AM EDT Office Visit [facility] [address] [place], [id number] Tiffanie Benson MD [address] [place] [address] NOMApril Mejía DermatologyStart: 03-23-2025 End: 05-66-5086Wavqsup encounter procedureNOHIGHLAND HOSPITAL DERMComment on above:Arrived Start: 84-00-8492Gtkahjvwg vaccinationInfluenza Vaccine (#1)[facility] Start: 08-22-2024 End: 11-59-5881Dcaszag encounter kszukzecz89/10/2025 10:45 AM EST Office Visit [facility] [address] [place] [address] Tiffanie Benson MD [address] [place] [address] [facility] DERMStart: 31-53-1911Wadjqpbbv vaccination Influenza Vaccine (#1)[facility] HealthcareStart: 71-28-5062Xrolwakespcr Vaccine: 65+ Years (1 - PCV)Pneumococcal Vaccine: 65+ Years (1 - PCV)[facility] HealthcareStart: 83-70-3220Nltmkbhhwayl Vaccine: 65+ Years (1 of 1 - PCV)Pneumococcal Vaccine: 65+ Years (1 of 1 - PCV)[facility] HealthcareStart: 98-58-6210Edcdludcputd Vaccine: 65+ Years (1 of 1 - PCV)Pneumococcal Vaccine: 65+ Years (1 of 1 - PCV)[facility] HealthcareStart: 24-52-3427Ilyopyayd for malignant neoplasm of breastMammogram [facility] HealthcareStart: 44-17-2615Uoqnkuisf for malignant neoplasm of colonNOMS HealthcareDermatopathology examDermatopathology exam Pathology and Cytology Timed Neoplasm of unspecified behavior of bone, soft tissue, and skin Release Upon Ordering for 1 Occurrences starting 08/22/2024[facility] Work Phone: comment on above:Release Upon Ordering for 1 Occurrences starting 08/22/2024 Immunizations Immunization DateImmunizationNotesCare IbizhcctHtcxnlnn49-79-8644fpytvswxy virus vaccine, unspecified formulationTiffanie Benson MD Work Phone: [facility] CenterQzzzxzqula93-65-2486CZIL-JyZ-5 mRNA (yipejluxxcp-tqyl-hwmkkrp) vaccineSHELLY MAYA 691-1493Aoslpd-FhchzSum[facility] 93-36-2287vxqtfgnfp virus vaccine, unspecified formulationSHELLY MAYA 050-3885Hhftzt-ZhfodSumma Health [facility] Campus 13-62-6615udvwqoyuk, unspecified formulationSHELLY MAYA 533-2990Ixokcc-JiburSumma Health [facility] Campus 50-84-1541pyntudsgm virus vaccine, unspecified formulationSHELLY MAYA 350-5819Hybgej-LslvfSumma Health [facility] Campus 07-72-9503jlgkhdmon virus vaccine, unspecified formulationSHELLY MAYA 671-5517Zkniov-HgzonSumma Health [facility] Campus 13-98-4927JIIP-CoV-2 (COVID-19) mRNA BNT-162b2 vaxSHELLY MAYA 056-4219Drhiap-YultmSumma Health [facility] Campus Comment on above:Result Comment: 2023-10-06: [id number]-FtJ-4 (COVID- 19) mRNA BNT-162b2 vaxSHELLY MAYA 198-8058Nwlffn-DuolcSumma Health [facility] Campus 69-80-6504JKPV-CoV-2 (COVID-19) mRNA BNT-162b2 vaxSHELLY MAYA 445-9802Usuled-WeslaSumma Health [facility] Campus 04-92-0097fafujtzbv virus vaccine, unspecified formulationSHELLY MAYA 278-6923Irquzg-IfoxgSumma Health [facility] Campus 96-38-6422pzjbdfefz virus vaccine, unspecified Surendra MAYA [phone]-YlajlSumma Health Akron Campus Payers DatePayer CategoryPayerPolicy [id number]-pay2023MedicaidAETNA MEDICARE ADVANTAGE [id number] 2023MedicareAETNA MEDICARE ADVANTAGE AETNA MEDICARE REPLACEMENT [id number] 2022-Present [address] [place] [id number] [id number] 2..[id number] [id number] 2..1.805520.3.57[id number] 2..1.669004.3.57[id number] 2..1.827225.3.57[id number] 2..1.635505.3.57[id number] 2..1.375203.3.57[id number] 2.16.840.1.958006.3.57[id number] 2.16.840.1.723911.3.57[id number] 2.16.840.1.369767.3.57[id number] 2.16.840.1.401260.3.57[id number] 2.16.840.1.785826.3.57[id number] 2.16.840.1.007967.3.57[id number] 2.16.840.1.055705.3.57[id number] 2.16.840.1.041801.3.57[id number] 2.16.840.1.742467.3.57[id number] 2.16.840.1.612383.3.57[id number] 2.16.840.1.362045.3.57[id number] 2.16.840.1.161775.3.57[id number] 2.16.840.1.456528.3.57[id number] 2.16.840.1.453672.3.57[id number] 2..840.1.947295.3.57[id number] 2.0.1.539304.3.57[id number] 2..840.1.656964.3.579.2.1259Private Health Insurance [id number] 2..840.1.407717.3.579.2.531 Social History DateTypeDetailFacilityStart: 08-20-2023 End: 42-83-7220Mil [facility]: 03-03-2023 End: 76-81-5986Bwogpvh smoking status NHISNever smoked tobaccoNOMS Healthcare Start: 02-76-8176Otcenxh use and exposureSmokeless tobacco non-userNOMS HealthcareStart: 08-20-2023 End: 49-59-7725Kwxsvob intakeDeferNOMS HealthcareStart: 08-20-2023 End: 30-98-5067Dnpgoyh of Social functionNOMS HealthcareStart: 02-89-6905Whm Assigned At [facility] CenterNot on fileNOMS HealthcareStart: 40-09-3954Dqoohxq smoking statusKing[facility] BellevueStart: 10-24-2009 End: 53-18-8077MknUsqiyh ([facility] Hospitaltart: 56-88-1052Wgc Assigned At [facility] Medical Equipment Procedure CodeEquipment CodeEquipment Original TextEquipment IdentifierDates Lancets, See Instructions, 100 EA, 0, Test blood sugar TID PRN E11.9, [id number], Supply, 161.3, cm, 11/19/23 7:58:00 EDT, Height/Length Dosing, 88.6, kg, 11/19/23 7:58:00 EDT, Weight DosingStart: 69-81-7902Yuob strips, See Instructions, 300 EA, 1, Test blood sugar TID E11.9, [id number], Supply, 162, cm, 12/17/23 7:22:00 EDT, Height/Length Dosing, 86.2, kg, 12/17/23 7:22:00 EDT, Weight DosingStart: 72-12-7069Ceqekxp, See Instructions, 100 EA, 0, Test blood sugar TID PRN E11.9, [id number], Supply, 161.3, cm, 11/19/23 7:58:00 EDT, Height/Length Dosing, 88.6, kg, 11/19/23 7:58:00 EDT, Weight DosingStart: 48-85-7401Rbrx strips, See Instructions, 300 EA, 1, Test blood sugar TID E11.9, [id number], Supply, 162, cm, 12/17/23 7:22:00 EDT, Height/Length Dosing, 86.2, kg, 12/17/23 7:22:00 EDT, Weight DosingStart: 02-17-2024 Clinical Notes 06-12-2023 to 04-25-2025 Note Date & HsfyEnhiXijuwhac40-84-2210 History of Present illness Narrative* Tiffanie Benson [...] Next Visit: as scheduled documented in this encounterCenterpoint Medical CenterShwgnyikhr97-33-0033 NotePatient Education Endocrinology Diabetes Mellitus and Nutrition, [...] Carrots. Green beans. Tomatoes. Peppers. Onions. Cucumbers. [place] sprouts. Grains Whole grains, such as whole-wheat or whole- (more content not included)...[facility]09-25-2025 NotePatient Education Endocrinology Diabetes Mellitus and Foot Care Diabetes, also called diabetes mellitus, may cause problems with your feet and legs because of poorblood flow (circulation). Poor circulation may make your skin: ??? Become thinner and graphite pan drier tender. ??? Break more easily. ??? Heal more [...] away. Where to find more information ??? [place] [employer] Association: diabetes.org ??? Association of Diabetes [...] provider. Document Revised: 12/31/2022 Document Reviewed: 12/31/2022 Right Media Patient Education ? 2023 [employer]. Diabetes Mellitus and Skin Care Diabetes, also [...] heal more slowly th (more content not included)...[facility] 03-23-2025 History of Present illness Narrative* Tiffanie [...] was obtained from the patient/parent. Method: See [facility] for details on administration. 3 ml of K2.5 was injected intradermally. The patient/parents were instructed to massage the injection site(s) following the procedure. Instructed to call for any questions or problems that occur. triamcinolone acetonide (Kenalog) injection 2.5 mg - Scalp Related Medications fluocinonide (Lidex) 0.05 % external solution APPLY TO SCALP ONCE A DAY Next Visit: 4 weeks documented in this encounterCenterpoint Medical CenterNowixheczf20-12-6341 History of Present illness Narrative* Tiffanie Benson [...] extremity including shoulder Left Shoulder - Posterior [place] macule at biopsy site Destr of lesion Complexity: simple Destruction method: electrodesiccation and curettage Informed consent: discussed and consent obtained Informed consent comment: The risks of the procedure were discussed, including, but not limited to risks of scarring, darker or foot specialist pigmentary changes, recurrence, infection, and incomplete removal [...] of lidocaine used: 5cc Previous accession number: [id number] Emphasized to return to clinic for any signs of recurrence prior to next visit. Next Visit: 6 months for FBSE documented in this encounterCenterpoint Medical CenterXdnzjhtvox14-54-6350 NotePatient Education Endocrinology Diabetes Mellitus and Exercise [...] an expert trained in diabetes care (certified teacher assistant) can help you make an activity plan. [...] stroke). Where to find more information ??? [place] Diabetes Association: diabetes.org ??? Association of Diabetes Care & Education Specialists: diabeteseducator.org This information is not intended to replace advice given to you by your health care provider. Make sure you discuss any questions you have with your health care provider. Document Revised: 12/17/2022 Document Reviewed: 12/17/2022 Right Media Patient Education ? 2023 [employer].[facility] 08-22-2024 History of Present illness Narrative* Tiffanie [...] limited to risks of scarring, darker or foot specialist pigmentary changes, recurrence, incomplete removal and infection. [...] tissue, and skin Left Shoulder - posterior [place] papule Lesion biopsy Type of biopsy: tangential [...] exam and follow up documented in this encounterCenterpoint Medical CenterVrlgiazeau89-22-5301 NotePatient Education Infectious Disease Sinus Infection, Adult [...] ? Medicines that treat allergies (antihistamines). ? Ktsc-wdq-ebfcgxw pain relievers. ??? If caused by bacteria, your doctor may wait to see if you will get better without treatment. You may be given antibiotic medicine if you have: ? A very bad infection. ? A weak body defense system. ??? If caused by growths in the nose, surgery may be needed. Follow these instructions at home: Medicines ??? Take, use, or apply rzoi-nlc-fmsxtju and prescription medicines only as told by [...] cannot use soap and water, use hand clinical account liaison. ??? Do not smoke. Avoid being around [...] you were prescribed an (more content not included)...[facility]11-17-2024 Evaluation note* Diagnosis Onset Date Resolution Status Admit Date URI (upper respiratory infection) noneactiveNovember 2023 9:12am [facility] Work Phone: 1(373) 922-228009-24-2024 NotePatient Education Endocrinology Diabetes Mellitus and Exercise [...] an expert trained in diabetes care (certified teacher assistant) can help you make an activity plan. [...] stroke). Where to find more information ? [place] Diabetes Association: diabetes.org ? Association of Diabetes Care & Education Specialists: diabeteseducator.org This information is not intended to replace advice given to you by your health care provider. Make sure you discuss any questions you have with your health care provider. Document Revised: 12/17/2022 Document Reviewed: 12/17/2022 Right Media Patient Education ? 2023 [employer].[facility] 08-20-2023 History of Present illness Narrative* Tiffanie [...] loss/redness worsens. Discussed risk of atrophy with alf use of topical steroid. Patient voiced understanding. [...] year, skin check/follow up documented in this [facility]02-08-2024 Instructions* Patient Instructions* Niyah Alamo LPN - 08/20/2023 10:35 AM EST AVOID FRAGRANCES Sometimes Fragrance may not be listed in the ingredients and instead one of these ingredients will be listed: Citronellol / Farnesol Citral a-Hexylcinnamicaldehyde Geraniol Cinnamyl alcohol Liberty deluna Lyral Limonene Cinnamaldehyde Isoeugenol a-Amylcinnamaldehyde Linalool Hydroxycitronellal Eugenol Coumarine AVOID FORMALDEHYDE RELEASERS INCLUDING: Quaternium-15 DMDM hydantoin Imidazolidinyl urea Diazolidinyl urea Polyoxymethylene urea Sodium hydroxymethylglycinate Bromopol AVOID HAIR COLOR/DYES AND OTHER PRODUCTS WITH THE FOLLOWING INGREDIENTS: Ammonium persulfate Paraphenylenediamine (PPD) Methylchloroisothiazolinone (MCI/IL) USE ZINC-CONTAINING MINERAL SUNSCREENS, FACIAL MOISTURIZES, AND MAKEUP WITH SPF. IT IS BEST TO USE FRAGRANCE FREE PRODUCTS. AVOID THE FOLLOWING: Gallate mix Dodecyl gallate Octyl gallate documented in this [facility]01-05-2024 Evaluation note* Encounter Date Diagnosis Assessment [...] no improvement in 2 to 3 days [facility] Other 12-01-2023 History general Narrative - Reported* Type Description Date Medical History HYPERTENSION Surgical HistoryCATARACTS NUBOGBQ25/2023Surgical HistoryDETACHED PCQABH62/22 [facility] Other Evaluation + Plan note Future Appointments Appointment Date:04/05/2024 08:00:00 AM Scheduled Provider:APOLINAR TREJO CNP Location[facility] Future Appointments Appointment Date:06/14/2024 02:30:00 PM Scheduled Provider: Location:[facility] Appointment Type: Medicare Wellness Subsequent [facility] Evaluation + Plan note Future Appointments Appointment Date:04/06/2025 07:20:00 AM Scheduled Provider:APOLINAR TREJO CNP Location:[facility] Appointment Type: Open Appointment Date:04/06/2025 08:00:00 AM Scheduled Provider: Location:[facility] Appointment Type: Medicare Wellness Initial [facility] Evaluation note* Diagnosis Lichen planopilaris- Primary Lichen planus Seborrheic keratosis Lentigines History of basal cell carcinoma Personal history of other malignant neoplasm of skin Actinic keratosis documented in this encounter [facility] HealthcareEvaluation note* Diagnosis Lichen planopilaris- Primary Lichen planus Seborrheic keratosis Lentigines History of basal cell carcinoma Personal history of other malignant neoplasm of skin Actinic keratosis Neoplasm of unspecified behavior of bone, soft tissue, and skin documented in this encounter [facility] HealthcareEvaluation note* Diagnosis Basal cell carcinoma (BCC) of skin of left upper extremity including shoulder- Primary documented in this encounter [facility] HealthcareEvaluation noteNo assessment information availableMercy Health [facility] Hospital Work Phone: Evtlqjmjnl note* Diagnosis Actinic keratosis- Primary Lentigines History of basal cell carcinoma Personal history of other malignant neoplasm of skin Lichen planopilaris Lichen planus documented in this encounter [facility] HealthcareEvaluation note* Diagnosis Lichen planopilaris- Primary Lichen planus documented in this encounter [facility] HealthcareHospital course Narrative No data available for this section [facility] Discharge instructions No data available for this section [facility] HospitalProgress note No data available for this section [facility] HospitalReason for referral (narrative)No reason for referral information availableMercy Health [facility] Work Phone: Summary Purpose Family History No [...] section and content) DATE CREATED AUTHOR 05/02/2021 [facility] DATE CREATED AUTHOR AUTHOR'S ORGANIZ ATION 04/06/2024 [facility] DATE CREATED AUTHOR AUTHOR'S ORGANIZ ATION 04/08/2024 [facility] DATE CREATED AUTHOR AUTHOR'S ORGANIZ ATION 06/03/2024 [facility] DATE CREATED AUTHOR AUTHOR'S ORGANIZ ATION 04/07/2025 [facility] DATE CREATED AUTHOR AUTHOR'S ORGANIZ ATION 04/14/2025 [facility] DATE CREATED AUTHOR AUTHOR'S ORGANIZ ATION 04/15/2025 [facility] DATE CREATED AUTHOR AUTHOR'S ORGANIZ ATION 04/26/2025 [facility] EPIC REASON FOR VISIT (unrecogniz ed section and content) ReasonCommentsSkin CheckReasonCommentsProcedureReasonCommentsFollow-up Care Teams (unrecognized sec tion and content) Team MemberRelationshipSpecialtyStart DateEnd Date Gsoia Munroe MD [address] [place] [id number] [facility]03/03/23 Team Status: Active Member Role Status Dates Juanjo Gulalpa MD Primary Care Provider Active Team Status: Inactive Member Role Status Dates Juanjo Guallpa MD Primary Care Provider Active Start: May 29, 2024 End: May 29, 2024Belen Carvalho ProviderActive Start: May 29, 2024 End: May 29, 2024 Team Status: Active Member Role Status Dates Keri Kennedy APRN Attending Provider Active Start: May 29, 2024 Maynor Martinez [facility] ProviderActiveStart: May 29, 2024 Team Status: Inactive Member Role Status Dates Keri Kennedy APRN Attending Provider Active Start: May 29, 2024 End: May 29, 2024Maynor Martinez Care ProviderActiveStart: May 29, 2024 End: May 29, 2024Team MemberRelationshipSpecialtyStart DateEnd Date Gosia Munroe MD [address] [place] [facility] [place] [address] [facility]03/03/23Team MemberRelationshipSpecialtyStart DateEnd Date Gosia Munroe MD [address] [place] [facility] [place] [address] [facility]03/03/23 Team Status: Inactive Member Role Status Dates Juanjo Guallpa MD Primary Care Provider Active Start: February 26, 2025 End: February 26, 2025Belen Sterling ProviderActiveStart: February 26, 2025 End: February 26, 2025Team MemberRelationshipSpecialtyStart DateEnd Date Gosia Munroe MD [address] [facility] [place] [address] PCP - GeneralFamily Medicine03/03/23Team MemberRelationshipSpecialtyStart DateEnd Date Gosia Munroe MD [address] [place] [address] PCP - [facility]03/03/23Te MemberRelationshipSpecialtyStart DateEnd Date Gosia Munroe MD [address] [place] [address] PCP - [facility]03/03/23 Goals (unrecognized section and content) Goals may [...] BE BASED ON THE PRIMARY CLINICAL RECORDS. [facility] wireWAX [facility]. provides no warranty or guarantee of the accuracy or completeness of information in this document.
== END 2025-05-16 09:48 | disposition home or self-care (01) ==
LOC: US 09:47
PROVIDERS: PCP Nurse Practitioner Family; Visit Provider Nurse Practitioner Family
DX: R92.8 Other abnormal and inconclusive findings on diagnostic imaging of breast (principal); Z80.7 Family history of other malignant neoplasms of lymphoid, hematopoietic and related tissues
CPT/HCPCS: 76642; 77065; G0279

== ENCOUNTER 2025-06-11 09:29 | Emergency (ER) | payer MEDICARE, SELFPAY ==
[2025-06-11 09:34] VITALS: BP 137/81; PULSE 74; TEMP 36.3; O2SAT 100; BMI 28.2
--- NOTE | 2025-06-11 09:38 | XR_ITS ---
The [address] [address] Patient Name: LUIS ALFREDO ROMERO MRN: [id number] date: 1955 Sex: F Assigned Patient Location: ED.MAIN Current Patient Location: ED.MAIN Accession/Order Number: [id number] Exam Date: 06/11/2025 09:55 Report Date: 06/11/2025 10:26 At the request of: ABISAI FOSTER MD Procedure: XR foot LT min 3V XR foot LT min 3V 06/11/2025 10:00 AM SIGNS AND SYMPTOMS: Fall, left foot pain and swelling PROTOCOL: Frontal, lateral, and oblique radiographs of the left foot COMPARISON: None FINDINGS: There is mild narrowing of the first metatarsophalangeal joint. There is an obliquely oriented fracture of the distal fibula. No additional fracture. There is plantar and Achilles surface calcaneal spurring. XR/XR foot LT min 3V IMPRESSION: There is an obliquely oriented fracture of the distal fibula. Impression dictated by: Abelardo Estrada M.D. 06/11/2025 10:26 AM Dictation Location: [place] [address] Electronically authenticated by: [id number] Y Date: 06/11/2025 10:26
--- NOTE | 2025-06-11 09:38 | XR_ITS ---
The [address] [address] Patient Name: LUIS ALFREDO ROMERO MRN: [id number] date: 1955 Sex: F Assigned Patient Location: ED.MAIN Current Patient Location: ED.MAIN Accession/Order Number: [id number] Exam Date: 06/11/2025 09:55 Report Date: 06/11/2025 10:27 At the request of: ABISAI FOSTER MD Procedure: XR ankle LT min 3V XR ankle LT min 3V 06/11/2025 10:00 AM SIGNS AND SYMPTOMS: Fall, left ankle pain PROTOCOL: 3 views of the left ankle COMPARISON: None FINDINGS: There is an obliquely oriented fracture of the lateral malleolus. Well-corticated bony structures are noted separate from the medial malleolus suggesting a remote avulsive medial malleolus injury. The ankle mortise is preserved. Soft tissue swelling is noted greatest laterally. There is plantar and Achilles surface calcaneal spurring. XR/XR ankle LT min 3V IMPRESSION: There is an obliquely oriented fracture of the lateral malleolus. There is accompanying soft tissue swelling. Impression dictated by: Abelardo Estrada M.D. 06/11/2025 10:27 AM Dictation Location: [place] [address] Electronically authenticated by: [id number] Y Date: 06/11/2025 10:27
--- NOTE | 2025-06-11 09:39 | ED.GENADUL1 ---
HPI HPI - General Adult General Chief complaint: Extremity Injury, Lower Stated complaint: LOWER EXTREMITY INJURY Time Seen by Provider: 06/11/25 09:31 History of Present Illness HPI narrative: 69-year-old female presents for left ankle and foot pain. Last night she fell and twisted this area. No other injury was sustained. She points primarily to the lateral malleolus of the ankle. She used ice last night. Related Data Home Medications ?Medication ?Instructions ?Recorded ?Confirmed bisoprolol 2.5 tab 06/11/25 mg-hydrochlorothiazide 6.25 mg tablet fluconazole 150 mg tablet mg 06/11/25 metformin 500 mg tablet mg 06/11/25 Previous Rx's ?Medication ?Instructions ?Recorded acetaminophen 300 mg-codeine 30 mg 1 tab PO Q6H PRN pain 5 days #20 06/11/25 tablet tabs ibuprofen 800 mg tablet 800 mg PO Q8H PRN pain #20 tabs 06/11/25 Allergies Allergy/AdvReac Type Severity Reaction Status Date / Time No Known Drug Allergies Allergy Verified 06/11/25 09:33 Opioid HPI Opioid Management Most Recent Opioid Data: Last Pain Scale 5 Today, 09:41 Review of Systems ROS Narrative A ten point review of systems is negative except as noted above. PFSH PFSH Social History Little interest or pleasure in doing things: not at all Feeling down, depressed, or hopeless: not at all Exam Narrative Exam Narrative: Nurses note and vital signs reviewed General:The patient appears well and in no apparent distress.Patient is resting comfortably on cart. Skin:Warm, dry, no pallor noted.There is no rash noted. Head:Normocephalic, atraumatic Eye: Normal conjunctiva, no drainage Ears, Nose, Mouth, and Throat: oral mucosa is moist. Nares patent. Cardiovascular:Regular Rate and Rhythm Respiratory:Patient is in no distress, no accessory muscle use GI: Soft and nontender Musculoskeletal: She has swelling and tenderness over the lateral malleolus of the left ankle. There is some tenderness near the ball of the foot as well. Neurological:A&O, normal speech Psychiatric:Cooperative Constitutional Vital Signs, click to edit/add: Last Vital Signs Temp 97.4 F L 06/11/25 09:34 Pulse 74 06/11/25 09:34 Resp 16 06/11/25 09:34 BP 137/81 06/11/25 09:34 Pulse Ox 100 06/11/25 09:34 O2 Del Method Room Air 06/11/25 09:34 Course Vital Signs Vital signs: Vital Signs Temperature 97.4 F L 06/11/25 09:34 Pulse Rate 74 06/11/25 09:34 Respiratory Rate 16 06/11/25 09:34 Blood Pressure 137/81 06/11/25 09:34 Pulse Oximetry 100 06/11/25 09:34 Oxygen Delivery Method Room Air 06/11/25 09:34 Temperature 97.4 F L 06/11/25 09:34 Pulse Rate 74 06/11/25 09:34 Respiratory Rate 16 06/11/25 09:34 Blood Pressure 137/81 06/11/25 09:34 Pulse Oximetry 100 06/11/25 09:34 Oxygen Delivery Method Room Air 06/11/25 09:34 Medical Decision Making MDM Narrative Medical decision making narrative: Left ankle fracture is identified. There is also questionable finding at the base of the third toe but she has no tenderness in that area. Short leg splint applied by me, she is neurovascularly intact. She is placed on crutches and provided pain medication and will follow-up with Dr. Gutierrez. Treatment diagnosis and follow-up were discussed with the patient and her . Differential Diagnosis Differential Diagnosis: Fracture, sprain Imaging Data Ankle and foot x-rays: My impression: Distal fibula fracture, mildly displaced Discharge Plan Discharge Chief Complaint: Extremity Injury, Lower Clinical Impression: Ankle fracture, left Patient Disposition: Home, Self-Care Time of Disposition Decision: 10:21 Condition: Good Mode of Transportation: Private Vehicle Prescriptions / Home Meds: New ibuprofen 800 mg tablet 800 mg PO Q8H PRN (Reason: pain) Qty: 20 0RF acetaminophen-codeine 300-30 mg tablet 1 tab PO Q6H PRN (Reason: pain) 5 Days Qty: 20 0RF No Action metformin 500 mg tablet fluconazole 150 mg tablet bisoprolol-hydrochlorothiazide 2.5-6.25 mg tablet Print Language: [place] Instructions: Ankle Fracture (ED) Referrals: Sean Gutierrez DPM [Physician, Podiatry] Rody Chapman NP [Primary Care Provider] - 1 week
--- OUTSIDE RECORDS SUMMARY | 2025-06-11 10:20 | XMS_ITS | CCD ---
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 Name Role Phone DR GOSIA MUNROE Primary Care Unavailable LUDWIG, DR GOSIA Lee Consulting Unavailable LUDWIG, DR GOSIA Lee Attending Unavailable LUDWIG, DR GOSIA Lee Admitting Unavailable YVES, DR BEVERLY Hernandez Consulting Unavailable Lilliana Aguiar Unavailable Gosia Munroe MD Primary Care Provider MAYA, APOLINAR A Primary Care Physician [phone] MAYA, APOLINAR A Primary Care Physician [phone] MAYA, APOLINAR A Attending Unavailable MAYA, APOLINAR A Attending Unavailable MAYA, APOLINAR A Admitting Unavailable MAYA, APOLINAR A Attending Unavailable MAYA, APOLINAR A Attending Unavailable MAYA, APOILNAR A Admitting Unavailable MAYA, APOLINAR A Attending Unavailable MAYA, APOLINAR A Attending Unavailable MAYA, APOLINAR A Attending Unavailable MAYA, APOLINAR A Attending Unavailable Keri Kennedy APRN Attending Provider Juanjo Guallpa MD Primary Care Provider Keri Kennedy Attending UnavailKeri Hayward Admitting UnavailJuanjo White Primary Care Unavailable Juanjo Guallpa MD Primary Care Provider [phone] Saira Aj APRN Attending Provider MAYA, APOLINAR [...] Ludwig VO, Gosia Lee Primary Care Provider [phone] TIFFANIE BENSON Attending Unavailable TIFFANIE BENSON Attending Unavailable PETSHARYN, TIFFANIE Dwyer Attending Unavailable PETTIFFANIE COLES A Attending Unavailable Allergies Allergy ClassificationReported Allergen(s)Allergy TypeDate of OnsetReaction(s) Facility (4 sources)No Known Medication Allergies; Translations: [No Known Medication Allergies]Propensity to adverse reactions (disorder)[facility] Repository Medications Current Medications MedicationDrug Class(es)DatesSig (Normalized)Sig (Original)ascorbic acid 60 mg / beta carotene 5000 unt / copper sulfate 40 mg / dl-alpha tocopheryl acetate 30 unt / sodium selenite 0.04 mg / zinc oxide 40 mg oral tablet (11 sources)Vitamin CMultiple Vitamin (Multivitamin Adult) tablet Orally Active aspirin 81 mg delayed release oral tablet (16 sources)Platelet Aggregation Inhibitor, Nonsteroidal Anti-inflammatory Drug Start: 11-54-6181asps 1 tablet by mouth once dailyAspirin 81 mg tablet,delayed release (DR/EC) Active 81 MG PO Daily May 29, 2024 1:00am Complies with drug therapyASPIRIN 81 PO Aspir-81 ActiveASPIRIN 81 PO Aspir-81 0 Activetake 1 tablet by mouth every twenty-four hoursAspirin Adult Low Dose 81 MG 1 tablet Orally Once a day Activebisoprolol (Zebeta) 2.5 MG split tablet (11 sources)Start: 87-93-0954iqlquofkck (Zebeta) 2.5 MG split tablet 05/13/2019 ActiveStart: 06-08-8451gjiwovumgo (Zebeta) 2.5 MG split tabletbisoprolol fumarate 2.5 mg / hydroCHLOROthiazide 6.25 mg oral tablet (19 sources)Thiazide Diuretic, beta-Adrenergic BlockerStart: 05-01-4684hzkq 1 tablet by mouth once dailybisoprolol-hydrochlorothiazide 2.5 mg-6.25 mg Tab 1 tab(s), Oral, Daily, 90 tab(s), Refill(s) 4, [facility]/pharmacy #[id number], 162, cm, 12/03/24 16:39:00 EST, Height/Length Dosing, 82.1, kg, 04/05/24 7:59:00 EDT, Weight Dosing Start Date: 08/03/24 Status: Ordered Quantity: 90.0 Unit: tab(s) Repeat number: 5 Indication: Essential (primary) hypertensionStart: 05-29-2024 take 1 tablet by mouth once dailyBisoprolol-Hydrochlorothiazide 2.5-6.25 mg tablet Active 1 TAB PO Daily May 29, 2024 12:00amStart: 74-54-8253bwvp 1 tablet by mouth once dailybisoprolol-hydrochlorothiazide 2.5 mg-6.25 mg Tab 1 tab(s), Oral, Daily, 90 tab(s), Refill(s) 1, [facility]/pharmacy #[id number], 161.3, cm, 10/06/23 15:21:00 EDT, Height/Length Dosing, 89.2, kg, 10/06/23 15:21:00 EDT, Weight Dosing Start Date: 10/07/23 Status: OrderedStart: 16-81-3836cmkzffvmes- hydroCHLOROthiazide (Ziac) 2.5-6.25 MG tablet 02/19/2023 Activecefuroxime 500 mg oral tablet (6 sources)Cephalosporin AntibacterialStart: 07-16-2022 End: 58-52-9457sxij 1 tablet by mouth in the morningcefuroxime (Ceftin) 500 MG tablet Take 500 mg by mouth in the morning and 500 mg before bedtime. 07/16/2022 10/07/2024 Discontinued (Therapy completed)cetirizine hydrochloride 10 mg chewable tablet (16 sources)Histamine-1 Receptor AntagonistStart: 39-39-5682ncca 1 tablet by mouth twice dailyCetirizine 10 mg tablet,chewable Active 10 MG PO Twice daily May 29, 2024 1:00am FreeTextSi tablet Orally Once a day; Note: Source Status: Taking; Provider: Stefania Tijerina ( ) Complies with drug therapycetirizine (ZyrTEC ALLERGY) 10 MG tablet 1 (one) time each day at the same time. Activefluocinonide 0.5 mg/ml topical solution (18 sources)CorticosteroidStart: 91-31-1820hsyli 1 [IU] topically three times dailyfluocinonide topical 0.05% solution 1 marcus, Topical, TID, 60 mL, Refill(s) 0 Start Date: 10/06/23 Status: Ordered Quantity: 60.0 Unit: mL Repeat number: 1 Start: 08-14-2022 End: 08-59-8464gowqqssoeipo (Lidex) 0.05 % external solution Indications: Lichen planopilaris APPLY TO SCALP ONCE A DAY 60 mL 11 08/22/2024 Activefluorouracil 50 mg/ml topical cream (6 sources)Nucleoside Metabolic InhibitorStart: 08-21-2022 End: 11-15-7971yhsudznndfec (Efudex) 5 % cream every 12 (twelve) hours. 08/21/2022 10/07/2024 Discontinued (Therapy completed)fluticasone propionate 0.05 mg/actuat metered dose nasal spray (2 sources)CorticosteroidStart: 03-92-4255xlli 2 spray(s) nasal route once daily Fluticasone Propionate 50 MCG/ACT 2 sprays Nasally Once a day for 14 day(s) Jul, ActiveStart: 56-23-1162ourjxujavyb Nasal 0.05 mg/inh [employer] Refill(s) 0, Nasal, 0 Refill(s) Start Date: 07/16/23 Status: Ordered Repeat number: 1metFORMIN hydrochloride 500 mg oral tablet (11 sources)BiguanideStart: 02-95-0275gmyv 1 tablet by mouth twice daily metformin 500 mg Tab 500 mg = 1 tab(s), Oral, BID, # 180 tab(s), Refills(s) 1, Pharmacy: [facility]/pharmacy #[id number], 162, cm, 06/14/24 16:39:00 EST, Height/Length Dosing, 82.1, kg, 04/05/24 7:59:00 EDT, Weight Dosing Start Date: 06/20/24 Status: Ordered Quantity: 180.0 Unit: tab(s) Repeat number: 2 Indication: Type 2 diabetes mellitus without complicationspredniSONE 20 mg oral tablet (1 source)Start: 11-18-6319bosm 1 tablet by mouth every twelve hourspredniSONE 20 MG 1 tablet Orally bid for 5 day(s) Jul, Active Completed/Discontinued Medications MedicationDrug Class(es)DatesSig (Normalized)Sig (Original)amoxicillin 875 mg / clavulanate 125 mg oral tablet (10 sources)Penicillin-class AntibacterialStart: 05-29-2024 End: 40-75-9072ovjb 1 tablet by mouth twice dailyAmoxicillin-Pot Clavulanate 875-125 mg tablet Discontinued 1 TAB PO Twice daily 01 05May 29, 2024 1:00am February 26, 2025 9:04amStart: 40-50-4599tqde 1 tablet by mouth every twelve hoursAmoxicillin-Pot Clavulanate 875-125 MG 1 tablet Orally every 12 hrs for 10 day(s) Jul, ActiveStart: 08-15-2022 End: 78-50-8151tflb 1 tablet by mouth in the morningamoxicillin-clavulanate (Augmentin) 875-125 MG tablet Take 1 tablet by mouth in the morning and 1 tablet before bedtime. 08/15/2022 10/07/2024 Discontinued (Therapy completed) fluconazole 150 mg oral tablet (4 sources)Azole AntifungalStart: 16-34-0612jbdq 1 tablet by mouth once fluconazole 150 mg Tab 150 mg = 1 tab(s), Oral, Once, Take one tablet at the onset of symptoms; mayrepeat in 72 hours, # 2 tab(s), Refills(s) 0, Pharmacy: [facility]/pharmacy #[id number], 162, cm, 04/05/24 7:59:00 EDT, Height/Length Dosing, 82.1, kg, 04/05/24 7:59:00 EDT, Weight Dosing Start Date: 06/14/24 Status: Ordered Quantity: 2.0 Unit: tab(s) Repeat number: 1Start: 99-88-4308Oqnbdgazsvh 150 mg tablet Active 150 MG PO Q3D May 29, 2024 1:00am Take one tablet and if symptoms persist 3 days later, take second tablet Complies with drug therapy Glucometer (2 sources)Start: 10-82-4578Bhkiuewgqy Glucometer, See Instructions, 1 EA, 0, Glucometer to test blood sugar TID PRN E11.9, [facility]/pharmacy #[id number], Supply, 161.3, cm, 11/19/23 7:58:00 EDT, Height/Length Dosing, 88.6, kg, 11/19/23 7:58:00 EDT, Weight Dosing Start Date: 11/19/23 Status: Ordered Quantity: 1.0 Unit: EA Repeat number: 1Indication: Type 2 diabetes mellitus without complicationsStart: 85-36-5514Gyrhqznjxt Glucometer, See Instructions, 1 EA, 0, Glucometer to test blood sugar TID PRN E11.9, [facility]/pharmacy #[id number], Supply, 161.3, cm, 11/19/23 7:58:00 EDT, Height/Length Dosing, 88.6, kg, 11/19/23 7:58:00 EDT, Weight Dosing Start Date: 11/19/23 Status: Orderedtriamcinolone acetonide 10 mg/ml injectable suspension (4 sources)CorticosteroidStart: 03-23-2025 End: 88-41-4836eghktreacwuzy acetonide (Kenalog) injection 2.5 mgStart: 03-23-2025 End: 52.5 mg, Intra-lesional, Once, On Angelic 03/23/25 at 0900, For 1 dose Problems Problem ClassificationProblemDateDocumented DateEpisodic/ChronicCataract (11 sources)Bilateral age-related nuclear cataracts; Translations: [Age-related nuclear cataract, bilateral]Onset: 183686-47-6653IfxhgayEtuuodgt mellitus without complication (2 sources)Type 2 diabetes -17-6505GakniqbDbudvfmkj hypertension (3 sources)Hypertensive disorder; Translations: [Essential (primary) hypertension]52-06-4560GrvdexjWqdgwjcjb of unspecified nature or uncertain behavior (2 sources)Neoplastic disease; Translations: [Neoplasm of unspecified behavior of bone, soft tissue, and skin]29-09-5186SdkqxdnaTgbqf inflammatory condition of skin (7 sources)Lichen planopilaris; 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]08-20-2023 EpisodicOther lower respiratory disease (1 source)Wheezing; Translations: [Wheezing]Onset: 58-99-4866NcplupxwXnrxi non- epithelial cancer of skin (7 sources)History of malignant basal cell neoplasm of skin; Translations: [Personal history of other malignant neoplasm of skin]64-17-1131SeuvemnpBuetw nutritional; endocrine; and metabolic disorders (4 sources)Body mass index 30+ - -93-1815AqmmzpzEtogx screening for suspected conditions (not mental disorders or infectious disease) (4 sources)Encounter for screening mammogram for malignant neoplasm of breast; Translations: [ENC SCR MAMMO MALIG NEOPLASM BREAST]Onset: 36-93-4043Vohfoecd Other skin disorders (4 sources)Seborrheic keratosis; Translations: [Other seborrheic keratosis] 12-37-8219QysfphlfCsrwh skin disorders (6 sources)Lentiginosis; Translations: [Other melanin hyperpigmentation] 30-32-4902QpdreqduZxfuj skin disorders (6 sources)Actinic keratosis; Translations: [Actinic keratosis]08-20-2023 EpisodicOther upper respiratory disease (3 sources)Seasonal allergic rhinitis; Translations: [Other seasonal allergic rhinitis]96-31-0046LnjayloGngyk upper respiratory infections (3 sources)Acute sinusitis, unspecified; Translations: [Acute upper respiratory infection, unspecified]EpisodicResidual codes; unclassified (1 source)Family history of other malignant neoplasms of lymphoid, hematopoietic and related tissues; Translations: [FAM HX OTH MAL REX LYMPH HEMATPOETC]Onset: 40-75-0385GanvcpuoOgcgrekl codes; unclassified (1 source)History of repair of retina for retinal detachment; Translations: [Other specified postprocedural states]95-88-5997Bzugdjir Results Test NameValueInterpretationReference RangeFacility.Interpretation:on 04-08-2025 Interpretation:CommentInvalid Interpretation [facility] Comment on above:Result Comment: Not infected with HCV unless early or acute infection is suspected (which may be delayed in an immunocompromised individual), or other evidence exists to indicate HCV infection. Performed at: [facility] [id number] PhD Guanako AlvarezPerformed By: #### [id number] #### [facility] [address] [place] [address]DDH Antibody RFX to Quant PCRon 83-97-6152VLT AbNon-Reactive Invalid Interpretation CodeNon ReactiveWakemed Cary Hospitaler St. Agnes HospitalComment on above:Result Comment: Performed at: [facility] [id number] PhD Guanako Alvarezformed By: #### [id number] #### [facility] [address] [place], [place] [address]Swwodvtagw Visit Summaryon 64-76-3098Detlmezaqg Visit Summary Ambulatory Visit Summary LYNSEY ROMERO [...] solution) fluticasone nasal (fluticasone Nasal 0.05 mg/inh [employer]) Procedures Performed Appendectomy, Bilateral cataracts, Bunion of left great toe, Detached right retina, H/O: hysterectomy, History of hernia repair. What to do next Scheduled Follow-Up Appointments 2025 8:40 AM EDT With: APOLINAR TREJO CNP Where: [address] [address]- Thursday2025 8:00 AM EDT With: Where: [address] [address]- You Need to Schedule the Following Appointments Follow Up with APOLINAR TREJO CNP, FAM When: Within 6 months Comments: Diabetes Where: [address] [place] [phone] Business (1) Medications What How Much When Why Instructions Unchanged bisoprolol-hydrochlorothiazide (bisoprolol-hydrochlorothiazide 2.5 mg- 6.25 mg Tab) 1 Tablets By Mouth Every day HTN (hypertension) Pickup at [facility]/pharmacy #[id number] Unchanged metformin (metformin 500 mg Tab) 1 Tablets By Mouth 2 times a day Type II diabetes mellitus covering for S Maya Pickup at [facility]/pharmacy #[id number] Unchanged aspirin (aspirin 81 mg Oral EC [...] fluticasone nasal (fluticasone Nasal 0.05 mg/ inh [employer]) Nasal, 0 Refill(s) Contact prescribing physician if [...] physician if questions or concerns Pharmacy Information [facility]/pharmacy #[id number]: [address], [place] [id number] [phone] Allergies No Known Medication Allergies Problems Ongoing [...] heart or kidney d (more content not included)...[facility] HospitalAmbulatory Visit SummaryAmbulatory Visit Summary LYNSEY ROMERO [...] solution) fluticasone nasal (fluticasone Nasal 0.05 mg/inh [employer]) metformin (metformin 500 mg Tab) Procedures Performed Appendectomy, Bilateral cataracts, Bunion of left great toe, Detached right retina, H/O: hysterectomy, History of hernia repair. Discharge Vitals Heart Rate (Peripheral) 68 Respiratory Rate 18 Blood Pressure 124/60 Height 162.0 cm Height 64 in Weight 80.1 kg Weight 176.59 lb BMI 30.52 What to do next Scheduled Follow-Up Appointments Thursday2025 8:00 AM EDT Where: [place] [phone]- You Need to Complete the Following Comprehensive [...] fluticasone nasal (fluticasone Nasal 0.05 mg/ inh [employer]) Nasal, 0 Refill(s) Unchanged metformin (metformin 500 [...] Current health, including: ? (more content not included)...NormalWvumedicine Barnesville HospitalCMPon 04-06-2025 Albumin [Mass/Vol]4.4 g/dLNormal3.3-5.0[facility] HospitalComment on above:Performed By: #### [id number] #### [facility] [address], [place] [address]Qxpobqt/Globulin [Mass ratio]1.5 {ratio}Normal1.1-2.2FSelect Medical Specialty Hospital - Cleveland-FairhillComment on above:Performed By: #### [id number] #### [facility] [address], [place] [address]Txe Phos39 Int._Unit/VZbpxox55-46FffqxzWvumedicine Barnesville Hospital Comment on above:Performed By: #### [id number] #### [facility] [address], [place] [address]WZJ10 Int._Unit/LNormal6-46[facility] HospitalComment on above:Performed By: #### [id number] #### [facility] [address], [place] [address]Kgikj gap [Moles/Vol]8 mmol/LNormal6-16[facility] HospitalComment on above:Performed By: #### [id number] #### [facility] [address], [place] [address]QRL61 Int._Unit/LNormal5-43[facility] HospitalComment on above:Performed By: #### [id number] #### [facility] [address], [place] [address]Kspb Total0.6 mg/dLNormal0.0-1.1FSelect Medical Specialty Hospital - [facility]hill Comment on above:Performed By: #### [id number] #### [facility] [address], [place] [address]SKE/Creat Ratio23 No GijdnWabm96-54XwipxkWvumedicine Barnesville Hospital Comment on above:Performed By: #### [id number] #### [facility] [address], [place] [address]Pcrgjdf [Mass/Vol]10.0 mg/dLNormal8.9-11.1FSelect Medical Specialty Hospital - Cleveland-FairhillComment on above:Performed By: #### [id number] #### [facility] [address], [place] [address]Grnxgpxq [Moles/Vol]102 mmol/KTtuwcu661-313NjlnsvWvumedicine Barnesville HospitalComment on above:Performed By: #### [id number] #### [facility] [address], [place] [address]JC0 [Moles/Vol]31 mmol/YFhhqtb76-85WarrtaWvumedicine Barnesville Hospital Comment on above:Performed By: #### [id number] #### [facility] [address], [place] [address]Ifudmkgjzn [Mass/Vol]1.0 mg/dLNormal0.5-1.3FSelect Medical Specialty Hospital - Cleveland-FairhillComment on above:Performed By: #### [id number] #### [facility] [address], [place] [address]Pudxuiep (S) [Mass/Vol]3.0 g/dLNormal1.4-4.0[facility]ville HospitalComment on above:Performed By: #### [id number] #### [facility] [address], [place] [address]Lzpqjsw [Mass/Vol]109 mg/qNDbcxpd15-633GuaymdWvumedicine Barnesville HospitalComment on above:Performed By: #### [id number] #### [facility] [address], [place] [address]Gdzgopafr [Moles/Vol]4.4 mmol/LNormal3.5-5.3FSelect Medical Specialty Hospital - Cleveland-FairhillComment on above:Performed By: #### [id number] #### [facility] [address], [place] [address]Mqoqrse [Mass/Vol]7.4 g/dLNormal6.0-7.8W[facility] HospitalComment on above:Performed By: #### [id number] #### [facility] [address], [place] [address]Ikoskp [Moles/Vol]137 mmol/UKmkawy020-511BlizncWvumedicine Barnesville HospitalComment on above:Performed By: #### [id number] #### [facility] [address], [place] [address]Bnkb nitrogen [Mass/Vol]23 mg/dLHigh5-21W[facility] HospitalComment on above:Performed By: #### [id number] #### [facility] [address], [place] [address]Lfsugw Medicine Office/Clinic Noteon 07-04-3747Hlfxna Medicine Office/Clinic NoteFamily Medicine Office/Clinic Note Chief [...] of clutter to prevent tripping and/or falling. [place] Advance Directives reviewed. Documents remain at home, [...] PCP visit. Labs to be [place] with [facility]. No concerns with bowel/ bladder. Patient has [...] year of . Tavon Singhmore content not included)...[facility]awas HospitalComment on above:Result Comment: Electronically Signed By: [...] she experienced a condition referred to as Bend Feet, characterized by erythema and rash due [...] Neurological: oriented x 4, LOC appropriate for [facility] normal Assessment/Plan 1. Type II diabetes mellitus (E11.9: Type 2 diabetes mellitus without complications) - Continue periodic blood glucose monitoring. - Encourage dietary modifications to improve glycemic control. - Awaiting laboratory results - Encourage low carb diet - F/U in 6 months Ordered: metformin, 500 mg = 1 tab(s), Oral, BID, covering for April Trejo, # 180 tab(s), Refills(s) 1, Pharmacy: [facility]/pharmacy #[id number], 162, cm, 04/06/25 8:12:00 EDT, Height/Length Dosing, 80.1, kg, 04/06/25 8:12:00 EDT, Weight Dosing ADM OF SOC DTR G0136 Comprehensive Metabolic Panel HgbA1c Lab Specimen Collect 45208 Lipid Panel Urine Microalbumin/Creatinine Ratio 2. BMI [...] TREJO CNP, FAM Within 6 months [address] [place] [address] Business (1) Additional Instructions: Diabetes Patient Education Diabetes Mellitus and Nutrition, Adult Problem List/Past Medical History Ongoing BMI 30.0-30.9,adult Nonsmoker Obesity (BMI 30-39.9) Type II diabetes mellitus Historical No qualifying data Procedure/Surgical History Appen (more content not included)...NormalWvumedicine Barnesville HospitalComment on above:Result Comment: Electronically Signed By: APOLINAR TREJO CNP\.br\Date and Time Signed: 04/06/25 09:21 ABGQwpE1mkn 76-67-2429GcM5u (Bld) [Mass fraction]6.0 %High<=5.9[facility] HospitalComment on above:Performed By: #### [id number] #### [facility] [address], [place] [address]Ovprv Panelon 71-67-7494Rbiunblukrg [Mass/Vol]205 mg/dLHigh 120-200W[facility] HospitalComment on above:Performed By: #### [id number] #### [facility] [address], [place] [address]Sfngdfuizhs in HDL [Mass/Vol]69 mg/dLInvalid Interpretation CodeWvumedicine Barnesville HospitalComment on above:Result Comment: '>= 60 LOW RISK' '<= 40 HIGH RISK'Performed By: #### [id number] #### [facility] [address], [place] [address]Lbbxgorvxck in LDL [Mass/Vol]128 mg/dLNormal<=129W[facility] HospitalComment on above:Performed By: #### [id number] #### [facility] [address], [place] [address]Iiiqbrnaath in VLDL [Mass/Vol]20 mg/dLNormal7-40W[facility] HospitalComment on above:Performed By: #### [id number] #### [facility] [address], [place] [address]Xzunofjnqsoj [Mass/Vol]102 mg/dLNormal<=149W[facility] HospitalComment on above:Performed By: #### [id number] #### [facility] [address], [place] [address]K MA/Cr Ratioon 67-82-3196Syeinegu/Cr RatioNOT CALCULATED Invalid Interpretation Code.0-30.0[facility] HospitalComment on above: Result Comment: 30-300 mg/g Cr indicates an increased risk for diabetic nephropathy. >300 mg/g Cr is consistent with clinical nephropathy.Performed By: #### [id number] #### [facility] [address], [place] [address]S Hqtzqtkgqp76.8 mg/dLInvalid Interpretation CodeWvumedicine Barnesville HospitalComment on above:Performed By: #### [id number] #### [facility] [address], [place] [address]S Microalb<0.0Jihwky5.0-1.9[facility] HospitalComment on above:Performed By: #### [id number] #### [facility] [address], [place] [address]uYLOjt 55-22-8098zAGW22 mL/min/1.73 r0Lobeni>=59W[facility] HospitalComment on above:Performed By: #### [id number] #### [facility] [address], [place] [address]Axuew of lesionon 67-94-4927Dgrlqzdcbf: simple Destruction method: electrodesiccation and curettage Informed consent: discussed and consent obtained Informed consent comment: The risks of the procedure were discussed, including, but not limited to risks of scarring, darker or sole tacker pigmentary changes, recurrence, infection, and incomplete removal [...] of lidocaine used: 5cc Previous accession number: [id number] Moore Regional Hospital - RichmondbA1con 28-89-5155PpO0e (Bld) [Mass fraction]5.8 %Normal<=5.9[facility] Comment on above:Performed By: #### [id number] #### [facility] [address], [place] [address]Urfqltywxw Visit Summaryon 77-38-8524Hxpvrtrldz Visit Summary Ambulatory Visit Summary LYNSEY ROMERO :1955 Visit Date:10/04/2024 Ambulatory Visit Instructions Your Diagnosis Type II diabetes mellitus BMI 30.0-30.9,adult Non-smoker Your Care Team Attending Physician - APOLINAR TREJO CNP Primary Care Physician - APOLINAR TREJO CNP This Is Your Medications [place] [facility] [place]cometer[place] [facility] [place] (Lancets) [facility] [place] (Test strips) bisoprolol-hydrochlorothiazide (bisoprolol-hydrochlorothiazide 2.5 mg-6.25 mg Tab) cetirizine (cetirizine 10 mg oral tablet, chewable) fluconazole (fluconazole 150 mg Tab) fluocinonide topical (fluocinonide topical 0.05% solution) fluticasone nasal (fluticasone Nasal 0.05 mg/inh [employer]) metformin (metformin 500 mg Tab) Procedures Performed [...] AM EDT With: APOLINAR TREJO CNP Where: [address] [id number] 2024 8:00 AM EDT With: Where: [address] [address]- Medications What How Much When Why Instructions [...] fluticasone nasal (fluticasone Nasal 0.05 mg/ inh [employer]) Nasal, 0 Refill(s) Unchanged metformin (metformin 500 [...] you for choosing us for your care. [facility] HospitalCHEMISTRYOrdered By: Zhanna Villarreal on 77-90-3945YsZ9p (Bld) [Mass fraction]5.8 %Normal<=5.9%[facility] [place] [facility] Medicine Office/Clinic Noteon 48-53-8102Qcuxgf Medicine Office/Clinic NoteFaworcester county hospital Medicine Office/Clinic Note Chief Complaint Fluctuating [...] 6 months Ordered: HgbA1c Lab Specimen Collect 79366 2. BMI 30.0-30.9,adult (Z68.30: Body mass index [...] marcus, Topical, TID fluticasone Nasal 0.05 mg/inh [employer] Glucometer, See Instructions Lanc (more content not included)...[facility]aw[facility] HospitalComment on above:Result Comment: Electronically Signed By: APOLINAR TREJO CNP\.epifanio\Date and Time Signed: 10/04/24 08:47 EDTNo Panel Informationon 15-64-9061Wzjj of biopsy: tangential Informed consent: discussed and [...] Photo taken Amount of lidocaine used: 1.0 [facility] Medicine Office/Clinic Noteon 00-99-1132Nkuvql Medicine Office/Clinic NoteHeywood [facility] Medicine Office/Clinic Note Chief Complaint 118 [...] day(s), # 28 cap(s), Refills(s) 0, Pharmacy: [facility]/pharmacy #[id number], 162, cm, 04/05/24 7:59:00EDT, Height/Length Dosing, [...] hours, # 2 tab(s), Refills(s) 0, Pharmacy: [facility]/pharmacy #[id number], 162, cm, 04/05/24 7:59:00 EDT, Height/Length Dosing, 82.1, kg, 04/05/24 7:59:00 EDT, Weight Dosing Follow-up No qualifying data available Patient Education Sinus Infection, Adult, Miaz-lw-Jwyn Problem List/Past Medical History Ongoing BMI 31.0-31.9,adult [...] marcus, Topical, TID fluticasone Nasal 0.05 mg/inh [employer] Glucometer, See Instructions Lancets, See Instructions metformin 500 mg Tab, 500 mg= 1 tab(s), Oral, BID, 1 refills Test strips, See Instructions, 1 refills Allergies No Known Medication Allergies Social History Alcohol Current. Wi (more content not included)...[facility] Comment on above:Result Comment: Electronically Signed By: APOLNIAR TREJO CNP\.br\Date and Time Signed: 06/15/24 08:44 ESTAmbulatory Visit Summaryon 00-35-9128Eiymvnrvvn Visit SummaryAmbulatory Visit Summary LYNSEY ROMERO :1955 Visit Date:06/14/2024 Ambulatory Visit Instructions Your Diagnosis Sinusitis Your Care Team Attending Physician - APOLINAR TREJO CNP Primary Care Physician - APOLINAR TREJO CNP This Is Your Medications List Misc Prescription (Glucometer) Mis Pres[place] (Lancets[place] [facility] [place]Test strips) bisoprolol-hydrochlorothiazide (bisoprolol-hydrochlorothiazide 2.5 mg-6.25 mg Tab) cetirizine (cetirizine 10 mg oral tablet, chewable) doxycycline (doxycycline hyclate 100 mg Cap) fluconazole (fluconazole 150 mg Tab) fluocinonide topical (fluocinonide topical 0.05% solution) fluticasone nasal (fluticasone Nasal 0.05 mg/inh [employer]) metformin (metformin 500 mg Tab) Procedures Performed Appendectomy, Bilateral cataracts, Bunion of left great toe, Detached right retina, H/O: hysterectomy, History of hernia repair. Discharge Vitals Heart Rate (Peripheral) 78 Respiratory Rate 18 Blood Pressure 118/78 Height 162.0 cm Height 64 in What to do next Scheduled Follow-Up Appointments Thursday 7:20 AM EDT With: APOLINAR TREJO CNP Where: [place] [phone]- Medications What How Much When Why Instructions [...] twelve hours for ten days Pickup at [facility]/pharmacy #[id number] Unchanged fluconazole (fluconazole 150 mg Tab) 1 Tablets By Mouth Once Take one tablet at the onsetof symptoms; may repeat in 72 hours Pickup at [facility]/pharmacy #6165 Unchanged fluocinonide topical (fluocinonide topical 0.05% solution) 1 Application Topical 3 times a day Unchanged fluticasone nasal (fluticasone Nasal 0.05 mg/ inh [employer]) Nasal, 0 Refill(s) Unchanged metformin (metformin 500 mg Tab) 1 Tablets By Mouth 2 times a day Type II diabetes mellitus Unchanged [facility] [place] (Glucometer) See instructions Type II diabetes mellitus Glucometer to test blood sugar TID PRN E11.9 Unchanged Misc Prescription (Lancets) See instructions Type II diabetes mellitus Test blood sugar TID PRN E11.9 Unchanged Misc Prescription (Test strips) See instructions Type II diabetes mellitus Test blood sugar TID E11.9 Pharmacy Information [id number]: [address], [place] [id number] [phone] Medications and Immunizations Administered Given influenza, unspecified formulation, SARSCoV2 mRNA(ksygwxhib-exao-qkqqor) vac, Allergies No Known Medication Allergies Problems [...] you for choosing us for your care. [facility] HospitalX-ray reportOrdered By: Keren Goins on 35-42-0061Fvvrg [facility] [place] [address] [place], [place] [id number] XRay Report Signed Patient: Lynsey Romero MR#: [id number] : 1955 Acct:[id number] Age/Sex: 68 / F ADM Date: 4 Loc: XDUC Room: [facility] Attending Dr: Keri Kennedy APRN Copies [...] MD 05/29/24 1038 Signed By: 05/29/24 1039 [facility] Work Phone: XR chest 2V*on 95-42-2800QF chest 2V*[facility] [place] [address] [place] [address] XRay Report Signed Patient: Lynsey Romero MR#: [id number] : 1955 Acct:[id number] Age/Sex: 68 / F ADM Date: 05/29/24 Loc: XDUCLY Room: [facility] Attending Dr: Krei Kennedy APRN Copies to: Keri Kennedy APRN [...] Goins MD 05/29/24 1038 Signed By: 05/29/24 1039[facility] Physician GroupCHEMISTRYOrdered By: SYSTEM SYSTEM on 01-79-3045Ddlhfdl [Mass/Vol]4.4 g/dLNormal3.3 - 5.0 gm/dLRemisol Chem Albumin DL <= 20 mg/L (U) [Mass/Vol]mg/dLNormal0.0 - 1.9 mg/dLRemisol Chem Albumin/Globulin [Mass ratio]1.5 {ratio}Normal1.1 - 2.2Remisol ChemALP [Catalytic activity/Vol]46 [iU]/sKcwflm19 - 98 Int._Unit/LRemisol ChemALT No additional P-5'-P [Catalytic activity/Vol]23 [iU]/dNormal6 - 46 Int._Unit/L Remisol ChemAnion gap [Moles/Vol]9 mmol/LNormal6 - 16 mEq/LRemisol ChemAST [Catalytic activity/Vol]26 [iU]/dNormal5 - 43 Int._Unit/LRemisol ChemBilirubin [Mass/Vol]0.8 mg/dLNormal0.0 - 1.1 mg/dLRemisol ChemCalcium [Mass/Vol]9.3 mg/dL Normal8.9 - 11.1 mg/dLRemisol ChemChloride [Moles/Vol]103 mmol/DEviguz539 - 111 mmol/LRemisol ChemCholesterol [Mass/Vol]190 mg/ySOjreuz980 - 200 mg/dLRemisol ChemCholesterol in HDL [Mass/Vol]59 mg/dLInvalid Interpretation CodeRemisol Chem Comment on above:Result Comment: '>= 60 LOW RISK' '<= 40 HIGH RISK'Cholesterol in LDL [Mass/Vol]129 mg/dLNormal<=129mg/dLRemisol ChemCholesterol in VLDL [Mass/Vol]29 mg/dLNormal7 - 40 mg/dLRemisol ChemCO2 [Moles/Vol]29 mmol/YNtcmko40 - 31 mmol/LRemisol ChemCreatinine [Mass/Vol]0.7 mg/dLNormal0.5 - 1.3 mg/dLRemisol OzjoxYGG49 mL/min/1.73 h6Xcvzdf>=59mL/min/1.73 q4Loamauv ChemGlobulin (S) [Mass/Vol]3.0 g/dLNormal1.4 - 4.0 gm/dLRemisol Chem Glucose [Mass/Vol]150 mg/uRTvmane04 - 199 mg/dLRemisol ChemPotassium [Moles/Vol] 4.3 mmol/LNormal3.5 - 5.3 mmol/LRemisol ChemProtein [Mass/Vol]7.4 g/dLNormal6.0 - 7.8 gm/dLRemisol ChemProtein/Creatinine (U) [Ratio]4.90 mg/gm CrNormal0.00 - 200.00 mg/gm CrRemisol ChemSodium [Moles/Vol]137 mmol/UZzalpk877 - 145 mmol/L Remisol ChemTriglyceride [Mass/Vol]143 mg/dLNormal<=149mg/dLRemisol ChemU Mznersjrsg310.2 mg/dLInvalid Interpretation CodeRemisol ChemUr Total Protein5.8 mg/dLInvalid Interpretation CodeRemisol ChemUrea nitrogen [Mass/Vol]18 mg/dL Normal5 - 21 mg/dLRemisol ChemUrea nitrogen/Creatinine [Mass ratio]26 mg/mgHigh 10 - 20Remisol ChemCHEMISTRYOrdered By: Zhanna Villarreal on 63-31-8356OfX5f (Bld) [Mass fraction]6.2 %High<=5.9%[facility] [place] ChemAutoSSCMPon 58-74-7623Jicdejj [Mass/Vol] 4.4 g/dLNormal3.3-5.0[facility] HospitalComment on above:Performed By: #### [id number] #### [facility] [address], [place] [address]Wnuzsfe/Globulin (S) [Mass conc ratio]1.5Tmphlm3.1-2.2[facility]. Agnes HospitalComment on above:Performed By: #### [id number] #### [facility] [address], [place] [address]SWQ [Catalytic activity/Vol]46 Int._Unit/AWykiee85-27DfqxunWvumedicine Barnesville HospitalComment on above:Performed By: #### [id number] #### [facility] [address], [place] [address]NCC No additional P-5'-P [Catalytic activity/Vol]23 Int._Unit/L Normal6-46[facility] HospitalComment on above:Performed By: #### [id number] #### [facility] [address], [place] [address]Ymbyy gap [Moles/Vol]9 mmol/LNormal6-16[facility] HospitalComment on above:Performed By: #### [id number] #### [facility] [address], [place] [address]HEX [Catalytic activity/Vol]26 Int._Unit/LNormal5-43[facility] HospitalComment on above:Performed By: #### [id number] #### [facility] [address], [place] [address]Godmssyxa [Mass/Vol]0.8 mg/dLNormal0.0-1.1FSelect Medical Specialty Hospital - Cleveland-FairhillComment on above:Performed By: #### [id number] #### [facility] [address], [place] [address]Pcragdd [Mass/Vol]9.3 mg/dLNormal8.9-11.1FSelect Medical Specialty Hospital - Cleveland-FairhillComment on above:Performed By: #### [id number] #### [facility] [address], [place] [address]Gdqbtnuq [Moles/Vol]103 mmol/ODjnxly375-223ZsudwxWvumedicine Barnesville HospitalComment on above:Performed By: #### [id number] #### [facility] [address], [place] [address]WJ1 [Moles/Vol]29 mmol/KMhszje09-17TunbnaWvumedicine Barnesville Hospital Comment on above:Performed By: #### [id number] #### [facility] [address], [place] [address]Nlvowdiefd [Mass/Vol]0.7 mg/dLNormal0.5-1.3FSelect Medical Specialty Hospital - Cleveland-FairhillComment on above:Performed By: #### [id number] #### [facility] [address], [place] [address]Cbfoemua (S) [Mass/Vol]3.0 g/dLNormal1.4-4.0[facility] HospitalComment on above:Performed By: #### [id number] #### [facility] [address], [place] [address]Snolbae [Mass/Vol]150 mg/uDPuvftp60-335DcfqkeWvumedicine Barnesville HospitalComment on above:Performed By: #### [id number] #### [facility] [address], [place] [address]Eegbbhgjh [Moles/Vol]4.3 mmol/LNormal3.5-5.3FSelect Medical Specialty Hospital - Cleveland-FairhillComment on above:Performed By: #### [id number] #### [facility] [address], [place] [address]Onakmly [Mass/Vol]7.4 g/dLNormal6.0-7.8[facility] HospitalComment on above:Performed By: #### [id number] #### [facility] [address], [place] [address]Mrdkec [Moles/Vol]137 mmol/IBgfljr574-890PilroiWvumedicine Barnesville HospitalComment on above:Performed By: #### [id number] #### [facility] [address], [place] [address]Ldfb nitrogen [Mass/Vol]18 mg/dLNormal5-21[facility] HospitalComment on above:Performed By: #### [id number] #### [facility] [address], [place] [address]Imsr nitrogen/Creatinine [Mass ratio]26 No YhupkZpnj01-05AbwfdtWvumedicine Barnesville HospitalComment on above:Performed By: #### [id number] #### [facility] [address], [place] [address]Nhzwil Medicine Office/Clinic Noteon 37-09-5777Hlykdl Medicine Office/Clinic NoteFaworcester county hospital Medicine Office/Clinic Note Chief Complaint 6m [...] APOLINAR TREJO CNP, FAM Within [address] [place] [id number] Business (1) Additional Instructions: Diabetes Patient Education Diabetes Mellitus and Exercise Problem List/Past Medical History Ongoing BMI 31.0-31.9,adult Body mass index [BMI] 31.0-31.9, adult Type II diabetes mellitus Historical No qualifying data Proc (more content not included)...NormalWvumedicine Barnesville HospitalComment on above:Result Comment: Electronically Signed By: APOLINAR TREJO CNP\Date and Time Signed: 04/05/24 08:41 EDTLipid Panelon 62-95-3532Chnmlyonhoh [Mass/Vol]190 mg/lJCdccqa069-838ZpgscvWvumedicine Barnesville HospitalComment on above: Performed By: #### [id number] #### [facility] [address] [facility], [place] [address]Hjntqrwnlfe in HDL [Mass/Vol]59 mg/dLInvalid Interpretation CodeWvumedicine Barnesville HospitalComment on above:Result Comment: '>= 60 LOW RISK' '<= 40 HIGH RISK'Performed By: #### [id number] #### [facility] [address] [place], [place] [address]Jgfarnyowxa in LDL [Mass/Vol]129 mg/dLNormal<=129W[facility]ville HospitalComment on above:Performed By: #### [id number] #### [facility] [address] [place], [place] [address]Hihmsfwbdlp in VLDL [Mass/Vol]29 mg/dLNormal7-40[facility] HospitalComment on above:Performed By: #### [id number] #### [facility] [address] [place], [place] [address]Wjycnchwuifj [Mass/Vol]143 mg/dLNormal<=149[facility]ville HospitalComment on above:Performed By: #### [id number] #### [facility] [address] [place], [place] [address]Z Microalbon 64-68-0816Uhmctzt DL <= 20 mg/L (U) [Mass/Vol] mg/dLNormal0.0-1.9[facility] HospitalComment on above:Performed By: #### [id number] #### [facility] [address] [place], [place] [address]A Protein/Creat Ratioon 10-94-7207Ffzqmzj/Creatinine (U) [Ratio]4.90 mg/gm CrNormal.00-200.00[facility] HospitalComment on above: Performed By: #### [id number] #### [facility] [address], [place] [address]K Ijlecakhrd454.2 mg/dLInvalid Interpretation [facility] HospitalComment on above:Performed By: #### [id number] #### [facility] [address], [place] [address]Bt Total Protein5.8 mg/dLInvalid Interpretation [facility] HospitalComment on above:Performed By: #### [id number] #### [facility] [address], [place] [address]nWJZcd 28-61-6619zNLY36 mL/min/1.73 p8Eblvej>=59W[facility]umed[facility]ville HospitalComment on above:Performed By: #### [id number] #### [facility] [address], [place] [address]Xzhesn Medicine Office/Clinic Noteon 38-15-4013Srxpjo Medicine Office/Clinic NoteChief Complaint Med Check HPI [...] BID, # 180 tab(s), Refills(s) 1, Pharmacy: [facility]/pharmacy #[id number], 162, cm, 12/17/23 7:22:00 EDT, Height/Length [...] tab(s), Oral, Daily, 30 tab(s), Refill(s) 0, [facility]/pharmacy #[id number], 161.3, cm, 10/06/23 15:21:00 EDT, Height/Length [...] right retina, H/O: hysterect (more content not included)...[facility]awas HospitalComment on above:Result Comment: Electronically Signed By: APOLINAR TREJO CNP\marco\Date and Time Signed: 12/17/23 08:23 EDTPatient Educationon 06-13-8385Rgjuqoo EducationEndocrinology Diabetes Mellitus and Nutrition, Adult When [...] Carrots. Green beans. Tomatoes. Peppers. Onions. Cucumbers. [place] sprouts. Grains Whole grains, such as whole-wheat or whole-grain bread, crackers, tortillas, cereal, and pasta. Unsweetened oatmeal. (more content not included)...Normal [facility] Agnes HospitalPatient Logson 51-60-2888Kzllvaq Logs [id number]#1.00TIFFNormalFisher St. Agnes HospitalAmbulatory Visit Summaryon 38-88-8167Qomhyawflh Visit Summary LYNSEY ROMERO :1955 Visit Date:11/19/2023 [...] AM EDT With: APOLINAR TREJO CNP [facility]ustoInvalid Interpretation [address] [place] [address]- \.br\ Thursday 2:30 PM EST \.br\ With:\.br\ Where: [facility] Medicine Office/Clinic Noteon 61-73-2994Dietdo Medicine Office/Clinic NoteHPI Staff Patient presents to [...] she does not need to see a retread builder. Review of Systems PHQ Score Initial Depression [...] BID, # 60 tab(s), Refills(s) 0, Pharmacy: [facility]/pharmacy #[id number], 161.3, cm, 11/19/23 7:58:00 EDT, Height/Length Dosing, 88.6, kg, 11/19/23 7:58:00 EDT, Weight Dosing Misc Prescription, Glucometer, See Instructions, 1 EA, 0, Glucometer to test blood sugar TID PRN E11.9, [id number] Supply, 161.3, cm, 11/19/23 7:58:00 EDT, Height/Length Dosing, 88.6, kg, 11/19/23 7:58:00 EDT, Weight Dosing Misc Prescription, Lancets, See Instructions, 100 EA, 0, Test blood sugar TID PRN E11.9, [facility]/pharmacy #6177, Supply, 161.3, cm, 11/19/23 7:58:00 EDT, Height/Length Dosing, 88.6, kg, 11/19/23 7:58:00 EDT, Weight Dosing Misc Prescription, Test strips, See Instructions, 100 EA, 0, Test blood sugar TID PRN E11.9, [facility]/pharmacy #6177, Supply, 161.3, cm, 11/19/23 7:58:00 EDT, [...] 4274F Most recent diasto (more content not included)...[facility]awas HospitalComment on above:Result Comment: Electronically Signed By: APOLINAR TREJO CNP\marco\Date and Time Signed: 11/19/23 08:47 EDTPatient Educationon 38-95-5446Gyerfrk EducationEndocrinology Diabetes Mellitus and Nutrition, Adult When [...] Carrots. Green beans. Tomatoes. Peppers. Onions. Cucumbers. [place] sprouts. Grains Whole grains, such as whole-wheat or whole-grain bread, crackers, tortillas, cereal, and pasta. Unsweetened oatmeal. (more content not included)...Normal [facility] HospitalCHEMISTRYOrdered By: Zhanna Villarreal on 11-16-2023 HbA1c (Bld) [Mass fraction]13.1 %High<=5.9%[facility] [place] PbjqBesdNIAllD2idb 11-16-2023 HbA1c (Bld) [Mass fraction]13.1 %High<=5.9[facility] HospitalComment on above:Performed By: #### [id number] ####[facility] [address] [place], [place] [address]Sxkfh Consultation Noteon 73-70-7191Lmkzt Consultation NoteReason for Visit lab work Assessment/Plan [...] Recorded influenza virus vaccine, inactivated 06/01/[address] Agnes HospitalLab Reportson 75-52-1860Ncf Reports [id number]#1.00TIFFNormWilson Medical Centerer St. Agnes HospitalOutside Mammographyon 58-11-2968Dvyhdnk Mammography [id number]#1.00TIFFTuscarawas HospitalOutside Mammographyon 21-27-7746Dapsexv Mammography [id number]#1.00TIFFTuscarawas HospitalOutside Mammographyon 26-30-9734Bkptwtx Mammography [id number]#1.00TIFTrumbull Regional Medical CenterAmbulatory Visit Summaryon 88-31-9130Ykkabthkhs Visit Summary LYNSEY ROMERO :1955 Visit Date:10/06/2023 [...] APOLINAR TREJO CNP Where: [facility] Medicine Office/Clinic Noteon 59-18-8324Ebvkmd Medicine Office/Clinic NoteChief Complaint establish care and [...] her daughter (she is a nurse at [employer]). She is not sure if she [...] screen for fall r (more content not included)...[facility]aw[facility] HospitalComment on above:Result Comment: Electronically Signed By: APOLINAR TREJO CNP\.br\Date and Time Signed: 10/06/23 16:35 EDTPatient Educationon 45-36-4541Jznrzuo EducationCardiovascular Hypertension, Adult Hypertension is another name [...] Keep all follow-up visits. Medicines ? Take uthl-ycf-spermaf and prescription medicines only as told by [...] blood. ? For m (more content not included)...Tuscarawas HospitalMG MAMM SCREEN 3D TOMMY CADon 84-82-6522BJ MAMM SCREEN 3D TOMMY CADPatient: LYNSEY ROMERO Exam Date: 04/23/2021 : 1955 Gender:F Ordering : DR GOSIA MUNROE . Admission #: [id number] Family : Order #: [id number] CLICK HERE TO VIEW EXAM RADIOLOGY REPORT [...] lymphoma cancer at age 71. LOCATION: [facility] BREAST COMPOSITION: Scattered areas fibroglandular density. [...] by: Beverly Queen MD on 04/23/2021 at 10:55[facility] Vital Signs Date TimeVital SignValuePerforming PpglhntelNvypdirs25-73-7589 09:10-0400Body ixqyms079.1 Nicho Guallpa MD Work Phone: [phone] [place], [place] [address]8-17-2025 09:10-0400 Body mass index (BMI) [Ratio]29.7 kg/d1RwepbmJuanjo Guallpa MD Work Phone: [phone] [place], [place] [address]8-17-2025 09:10-0400 Body fihtehwdbsk93.6 [degF]Juanjo Guallpa MD Work Phone: [phone]08-17-2025 09:10-0400 Body .9 kgJuanjo Guallpa MD Work Phone: [phone] [place], [place] [address]8-17-2025 09:10-0400 Diastolic blood cqaiyjuo93 mm[Hg]Juanjo Guallpa MD Work Phone: [phone] [place], [place] [address]8-17-2025 09:10-0400 Heart rate67 /Eva Guallpa MD Work Phone: [phone] [place], [place] [address]8-17-2025 09:10-0400 Respiratory rate18 /Eva Guallpa MD Work Phone: [phone] [place], [place] [address]8-17-2025 09:10-0400 SaO2% (BldA) [Mass fraction]97 %Juanjo Guallpa MD Work Phone: [phone] [place], [place] 68[address]508-17-2025 09:10-0400 Systolic blood oudjvlip927 mm[Hg]Juanjo Guallpa MD Work Phone: [phone]11-17-2024 09:14-0500 Body ddcojw806.1 cmSabeba Guallpa MD Work Phone: [phone]11-17-2024 09:14-0500 Body mass index (BMI) [Ratio]29.2 kg/i0TdipgxJuanjo Guallpa MD Work Phone: [phone]11-17-2024 09:14-0500 Body dwnzbuvppvl02.5 [degF]Juanjo Guallpa MD Work Phone: [phone]11-17-2024 09:14-0500 Body gurwtv48.83 kgJuanjo Guallpa MD Work Phone: [phone]11-17-2024 09:14-0500 Diastolic blood wgxcarel79 mm[Hg]Juanjo Guallpa MD Work Phone: [phone]11-17-2024 09:14-0500 Heart rate74 /Eva Guallpa MD Work Phone: [phone] [place], [place] 55[address]211-17-2024 09:14-0500 Respiratory rate18 /Eva Guallpa MD Work Phone: [phone]11-17-2024 09:14-0500 SaO2% (BldA) [Mass fraction]95 %Juanjo Guallpa MD Work Phone: [phone]11-17-2024 09:14-0500 Systolic blood psrqfwqo489 mm[Hg]Juanjo Guallpa MD Work Phone: [phone] [place], [place] 5534201-05-2024 12:05-0500 Body aacsac429.64 Laila Aguiar Other [employer] Other 01-05-2024 12:05-0500Body mass index (BMI) [Ratio] 31.73 kg/c9YfvtujLilliana Aguiar Other [employer] Other 01-05-2024 12:05-0500Body zlumykglliv25.7 [degF]Lilliana Aguiar Other [employer] Other 01-05-2024 12:05-0500Body filjfe36.18 kgLilliana Aguiar Other [employer] Other 01-05-2024 12:05-0500Diastolic blood uqctaulr40 mm[Hg] Lilliana Renemond Other [employer] Other 01-05-2024 12:05-0500Respiratory rate16 /minLilliana Aguiar Other [employer] Other 01-05-2024 12:05-3154KyY5% (BldA) [Mass fraction]97 % Lilliana Aguiar Other [facility] [employer] Other 01-05-2024 12:05-0500Systolic blood amezvmma081 mm[Hg] Lilliana Aguiar Other [place] Other Encounters Encounter DateEncounter TypeCare ProviderFacilityStart: 66-11-9069iatbdnqflh APOLINAR A LEHMANNFacility:FT [facility] BellevueStart: 51-76-0564yyiknhjkngGUJIAA A LEHMANNFacility:FT [facility] BellevueStart: 04-25-2025 End: 74-39-1973Jszwnr flowsheetTiffanie Benson MD Work Phone: [facility] Me[facility] DermatologyStart: 04-25-2025 End: 61-27-3016Qvjrnm flowsheetEmfracisco Benson MD Work Phone: [facility] DermatologyStart: 04-25-2025 End: 73-02-8528ejlmkwwltyUJKMR A PETITTINot AvailableStart: 04-25-2025 End: 98-25-1293Ncojdk outpatient visit 15 minutesEmily Stu Benson MD Work Phone: [facility] Mejía DermatologyComment on above:Lichen planopilaris (Primary Dx)Start: 04-06-2025 End: 93-90-8385ynojealsqaYKRKGO A LEHMANNFacility:FTMCStart: 04-06-2025 End: 22-33-6506glvrhvufaaETWZQK A LEHMANNFacility:FT FM BellevueStart: 03-23-2025 End: 27-95-7911Ltmrdy patheetEmfracisco Benson MD Work Phone: [facility] Me[facility]ía DermatologyStart: 03-23-2025 End: 19-35-7681Rnoslf flowsheetEmfracisco Benson MD Work Phone: [facility] Me[facility]ía DermatologyStart: 03-23-2025 End: 50-40-7590Ajgiig outpatient visit 15 minutesEmily Stu Benson MD Work Phone: HEL[facility] Mejía DermatologyComment on above:Actinic keratosis (Primary Dx); Lentigines; History of basal cell carcinoma; Lichen planopilarisStart: 03-23-2025 End: 86-68-4715ffhrxrgwuwDVVRU A PETITTINot AvailableStart: 02-26-2025 End: 72-81-1228tzluhppqdbUpzltx E Ross MD Work Phone: [facility] Work Phone: Start: 02-26-2025 End: 29-37-9043Adjvdte encounter procedureSaira Jain APRN-[facility] Work Phone: Start: 10-07-2024 End: 14-07-3538Vdsbgxk encounter procedureEmily Stu Benson MD Work Phone: [facility] DERMComment on above:Basal cell carcinoma (BCC) of skin of left upper extremity including shoulder (Primary Dx)Start: 10-07-2024 End: 35-49-7566tiqayuehvxYWBNY A PETITTINot AvailableStart: 10-04-2024 End: 78-69-5866Wpf Drop offSHELLY Stu TREJO [facility] Start: 10-04-2024 End: 84-94-5152nzszrxhifhSAEWOP A MAYAFacility:FTMCStart: 08-22-2024 End: 88-80-2877Ykjxih flowsheetTiffanie Benson MD Work Phone: noms [facility] DERMStart: 08-22-2024 End: 29-25-5660Zqpvhs flowsheetEmfracisco Benson MD Work Phone: noms SWS DERMStart: 08-22-2024 End: 74-31-9059qhkzcsbpzoCIUBC A PETITTINot AvailableStart: 08-22-2024 End: 92-84-8154Bvmzxu outpatient visit 25 minutesEmfracisco Benson MD Work Phone: noms [facility] DERMComment on above:Lichen planopilaris (Primary Dx); Seborrheic keratosis; Lentigines; History of basal cell carcinoma; Actinic keratosis; Neoplasm of unspecified behavior of bone, soft tissue, and skinStart: 06-14-2024 End: 05-95-1116siujzqixxkIYXFLD A LEHMANNFacility:FT BellevueStart: 05-29-2024 End: 29-72-2038Sunihog encounter procedureSabeba Guallpa MD Work Phone: [facility] Work Phone: Start: 05-29-2024 End: 30-87-9514gjwwaridohWunlah E Ross MD Work Phone: [facility] Work Phone: Start: 05-29-2024 End: 59-98-3895ifhuzqlcefSwzhse E Ross MD Work Phone: [facility] Work Phone: Start: 05-29-2024 End: 00-32-8978Xkxtkjq encounter procedureSabeba Guallpa MD Work Phone: [facility] Work Phone: Start: 04-05-2024 End: 88-07-5394Yxb Drop offSHELLY A MAYA [facility] Start: 04-05-2024 End: 25-33-3789ivgnfgmtdjZPBMAS A LEHMANNFacility:FT FM BellevueStart: 12-17-2023 End: 41-00-9725wrsvhqowbmMLUHAP A LEHMANNFacility:FT FM BellevueStart: 11-19-2023 End: 29-11-4288knsiqjnyhzYFXTJF A LEHMANNFacility:FT FM [place]vueStart: 11-16-2023 End: 26-71-0590Shq Drop offSHELLY A MAYA [facility] Start: 11-16-2023 End: 90-75-4572jslgknycqaSMDYGP A LEHMANNFacility:FTMCStart: 10-06-2023 End: 45-19-8160etmodwglyxTNQLBI A LEHMANNFacility:FT FM BellevueStart: 50-15-1997zquoutkgvmUMEJHN LEHMANNFacility:FT FM BellevueStart: 08-20-2023 End: 82-77-5881Pgwuph outpatient visit 25 minutesEmily Stu Benson MD Work Phone: [facility] SWS DERMComment on above:Lichen planopilaris (Primary Dx); Seborrheic keratosis; Lentigines; History of basal cell carcinoma; Actinic keratosisStart: 07-17-2023 End: 45-19-4600npdaaiopqoCmjlyp Stefania Other [facility] [employer] Other Start: 04-66-3086Tpeuhb outpatient new 20 minutes Lilliana StefaniaFPG Urgent Care ClydeStart: 04-23-2021 End: 77-81-8368bbfyfcgiodAR GOSIA MUNROEFacility:H1 Procedures DateProcedureProcedure DetailPerforming ClinicianStart: 34-14-8974IOZZRGKMFLI OF LESIONEmily Stu Benson MD Work Phone: Start: 48-85-3965CECF / NAIL BIOPSYEmily Stu Benson MD Work Phone: Start: 26-89-9913QDHFYCCVQKF SKIN LESIONEmily Stu Benson MD Work Phone: Start: 15-41-6412Fbbai chest X-raySabeba Guallpa MD Work Phone: AppendectomyAPOLINAR WINTERHMANN Bilateral cataracts (disorder)APOLINAR TREJO Detachment of retina of right eye (disorder)APOLINAR TREJO H/O: hysterectomySHMARIAA WINTERHMANN H/O: surgeryHx of detached retina ogSalady Guallpa MD Work Phone: History of hernia repairAPOLINAR TREJO Swelling of first metatarsal joint of hallux of left foot (disorder)APOLINAR TREJO Plan of Treatment DateCare ActivityDetailAuthorStart: 35-97-4216Hjvbuonpa for malignant neoplasm of colonNOMS HealthcareStart: 08-22-2025 End: 79-91-1130Ezornnj encounter procedureNOMS SWS DERMStart: 04-25-2025 End: 10-49-2314Xxeevng encounter vazjcjqqp89/14/2025 11:15 AM EDT Office Visit [facility] [address] [place], [id number] Tiffanie Benson MD [address] [place] [address] [facility]April [facility]ía DermatologyStart: 03-23-2025 End: 65-22-6987Dirrbke encounter procedureNOPACIFIC [facility] DERMComment on above:Arrived Start: 66-23-9978Vtdwbiyuo vaccinationInfluenza Vaccine (#1)[facility] Start: 08-22-2024 End: 60-91-2751Snnxubv encounter ggcaiirqx02/10/2025 10:45 AM EST Office Visit [facility] [address] [place] [address] Tiffanie Benson MD [address] [place] [address] [facility] DERMStart: 39-72-0646Dmcyjmtrt vaccination Influenza Vaccine (#1)[facility] HealthcareStart: 27-97-1942Pcsyikapjozx Vaccine: 65+ Years (1 - PCV)Pneumococcal Vaccine: 65+ Years (1 - PCV)[facility] HealthcareStart: 56-03-8793Vkdjzxhfhtly Vaccine: 65+ Years (1 of 1 - PCV)Pneumococcal Vaccine: 65+ Years (1 of 1 - PCV)[facility] HealthcareStart: 68-07-8504Xjeoyemfrmyb Vaccine: 65+ Years (1 of 1 - PCV)Pneumococcal Vaccine: 65+ Years (1 of 1 - PCV)[facility] HealthcareStart: 23-16-7700Ydmumcwpd for malignant neoplasm of breastMammogram [facility] HealthcareStart: 55-56-0135Uiylsasak for malignant neoplasm of colonNOMS HealthcareDermatopathology examDermatopathology exam Pathology and Cytology Timed Neoplasm of unspecified behavior of bone, soft tissue, and skin Release Upon Ordering for 1 Occurrences starting 08/22/2024[facility] Work Phone: comment on above:Release Upon Ordering for 1 Occurrences starting 08/22/2024 Immunizations Immunization DateImmunizationNotesCare IorqilwqUvheckzt59-06-4923ctbstxhes virus vaccine, unspecified formulationTiffanie Benson MD Work Phone: [facility] MedicineYpnlpiafhw65-80-9897VLPE-CdP-6 mRNA (tpbkpepxexs-mwyy-wsbatvl) vaccineSHELLY MAYA 603-4953Yquyju-ZujffOhiohealth Southeastern Medical Center 18-11-6108mobpqvskr virus vaccine, unspecified formulationSHELLY MAYA 333-3026Cczczx-UnscaOhiohealth Southeastern Medical Center 13-36-0885xndmitkux, unspecified formulationSHELLY MAYA 210-9167Dskuwb-WzgwrOhiohealth Southeastern Medical Center 53-63-7804edgqndedt virus vaccine, unspecified formulationSHELLY MAYA 769-7384Tjejbq-NrjxtOhiohealth Southeastern Medical Center 52-66-9190zfcywjoom virus vaccine, unspecified formulationSHELLY MAYA 864-8532Qaljnm-OjiydOhiohealth Southeastern Medical Center 13-99-1519ENNC-CoV-2 (COVID-19) mRNA BNT-162b2 vaxSHELLY MAYA 140-3590Npbghg-HecdhOhiohealth Southeastern Medical Center Comment on above:Result Comment: 2023-10-06: [id number]-OnR-4 (COVID- 19) mRNA BNT-162b2 vaxSHELLY MAYA 574-9638Wshjtm-BmmcvOhiohealth Southeastern Medical Center 42-75-0921YDQH-CoV-2 (COVID-19) mRNA BNT-162b2 vaxSHELLY MAYA 417-3700Fgxezk-LoojyOhiohealth Southeastern Medical Center 24-29-1943kkgiwphgm virus vaccine, unspecified formulationSHELLY MAYA 876-4486Txybsr-OylquOhiohealth Southeastern Medical Center 36-42-0667xgzelqslk virus vaccine, unspecified Surendra MAYA 188-1610Hppiuf-BgaqeOhiohealth Southeastern Medical Center Payers DatePayer CategoryPayerPolicy [id number]-pay2023MedicaidAETNA MEDICARE ADVANTAGE [id number] 2023MedicareAETNA MEDICARE ADVANTAGE AETNA MEDICARE REPLACEMENT [id number] 2022-Present [address] [place] [id number] [id number] 2..[id number] [id number] 2..1.726580.3.57[id number] 2..1.579167.3.57[id number] 2..1.975726.3.57[id number] 2..1.841693.3.57[id number] 2..1.414286.3.57[id number] 2.16.840.1.360822.3.57[id number] 2.16.840.1.963557.3.57[id number] 2.16.840.1.756880.3.57[id number] 2.16.840.1.141651.3.57[id number] 2.16.840.1.563508.3.57[id number] 2.16.840.1.494553.3.57[id number] 2.16.840.1.652514.3.57[id number] 2.16.840.1.406192.3.57[id number] 2.16.840.1.002239.3.57[id number] 2.16.840.1.084186.3.57[id number] 2.16.840.1.942526.3.57[id number] 2.16.840.1.182375.3.57[id number] 2.16.840.1.060965.3.57[id number] 2.16.840.1.539457.3.57[id number] 2..840.1.109226.3.57[id number] 2.0.1.536697.3.57[id number] 2..840.1.940804.3.579.2.1259Private Health Insurance [id number] 2..840.1.767643.3.579.2.531 Social History DateTypeDetailFacilityStart: 08-20-2023 End: 42-66-2980Bfq [facility]igned At [facility]art: 03-03-2023 End: 54-66-1293Roxyxpk smoking status NHISNever smoked tobaccoNOMS Healthcare Start: 07-76-1676Xihxctb use and exposureSmokeless tobacco non-userNOMS HealthcareStart: 08-20-2023 End: 05-85-2402Jwehlzl intakeDeferNOMS HealthcareStart: 08-20-2023 End: 78-14-7271Hdxnmxa of Social functionNOMS HealthcareStart: 91-59-2278Btn Assigned At [facility] CenterNot on fileNOMS HealthcareStart: 56-63-6539Gvcbpei smoking statusGeorgetown Behavioral Hospital Family Medicine BellevueStart: 10-24-2009 End: 05-76-5554VliJrxnyq ([facility] Clinictart: 56-38-0572Kqk Assigned At [facility] Medical Equipment Procedure CodeEquipment CodeEquipment Original TextEquipment IdentifierDates Lancets, See Instructions, 100 EA, 0, Test blood sugar TID PRN E11.9, [facility], Supply, 161.3, cm, 11/19/23 7:58:00 EDT, Height/Length Dosing, 88.6, kg, 11/19/23 7:58:00 EDT, Weight DosingStart: 11-44-7066Ubmy strips, See Instructions, 300 EA, 1, Test blood sugar TID E11.9, [facility], Supply, 162, cm, 12/17/23 7:22:00 EDT, Height/Length Dosing, 86.2, kg, 12/17/23 7:22:00 EDT, Weight DosingStart: 70-88-3390Qzybnzo, See Instructions, 100 EA, 0, Test blood sugar TID PRN E11.9, [facility], Supply, 161.3, cm, 11/19/23 7:58:00 EDT, Height/Length Dosing, 88.6, kg, 11/19/23 7:58:00 EDT, Weight DosingStart: 24-40-7754Wxiu strips, See Instructions, 300 EA, 1, Test blood sugar TID E11.9, [facility], Supply, 162, cm, 12/17/23 7:22:00 EDT, Height/Length Dosing, 86.2, kg, 12/17/23 7:22:00 EDT, Weight DosingStart: 02-17-2024 Clinical Notes 06-12-2023 to 04-25-2025 Note Date & RkenNkyfDkrvejqr32-73-5291 History of Present illness Narrative* Tiffanie Benson [...] Next Visit: as scheduled documented in this encounterFreeman Orthopaedics & Sports MedicineUzaycnpeev13-23-9075 NotePatient Education Endocrinology Diabetes Mellitus and Nutrition, [...] Carrots. Green beans. Tomatoes. Peppers. Onions. Cucumbers. [place] sprouts. Grains Whole grains, such as whole-wheat or whole- (more content not included)...[facility]09-25-2025 NotePatient Education Endocrinology Diabetes Mellitus and Foot Care Diabetes, also called diabetes mellitus, may cause problems with your feet and legs because of poorblood flow (circulation). Poor circulation may make your skin: ??? Become thinner and sock drier. ??? Break more easily. ??? Heal more [...] away. Where to find more information ??? [place] Diabetes Association: diabetes.org ??? Association of Diabetes [...] provider. Document Revised: 12/31/2022 Document Reviewed: 12/31/2022 PureHistory Patient Education ? 2023 Friends Around. Diabetes Mellitus and Skin Care Diabetes, also [...] heal more slowly th (more content not included)...[facility] 03-23-2025 History of Present illness Narrative* Tiffanie [...] was obtained from the patient/parent. Method: See [facility] for details on administration. 3 ml of K2.5 was injected intradermally. The patient/parents were instructed to massage the injection site(s) following the procedure. Instructed to call for any questions or problems that occur. triamcinolone acetonide (Kenalog) injection 2.5 mg - Scalp Related Medications fluocinonide (Lidex) 0.05 % external solution APPLY TO SCALP ONCE A DAY Next Visit: 4 weeks documented in this encounterFreeman Orthopaedics & Sports MedicineMjqnjaiccd69-44-1998 History of Present illness Narrative* Tiffanie Benson [...] extremity including shoulder Left Shoulder - Posterior [place] macule at biopsy site Destr of lesion Complexity: simple Destruction method: electrodesiccation and curettage Informed consent: discussed and consent obtained Informed consent comment: The risks of the procedure were discussed, including, but not limited to risks of scarring, darker or sole tacker pigmentary changes, recurrence, infection, and incomplete removal [...] of lidocaine used: 5cc Previous accession number: [id number] Emphasized to return to clinic for any signs of recurrence prior to next visit. Next Visit: 6 months for FBSE documented in this encounterFreeman Orthopaedics & Sports MedicineEfilnigasd79-12-7658 NotePatient Education Endocrinology Diabetes Mellitus and Exercise [...] or an expert trained in diabetes care (board certified family physician) can help you make an activity plan. [...] stroke). Where to find more information ??? [place] Diabetes Association: diabetes.org ??? Association of Diabetes Care & Education Specialists: diabeteseducator.org This information is not intended to replace advice given to you by your health care provider. Make sure you discuss any questions you have with your health care provider. Document Revised: 12/17/2022 Document Reviewed: 12/17/2022 PureHistory Patient Education ? 2023 Friends Around.[facility] 08-22-2024 History of Present illness Narrative* Tiffanie [...] limited to risks of scarring, darker or sole tacker pigmentary changes, recurrence, incomplete removal and infection. [...] tissue, and skin Left Shoulder - posterior [place] papule Lesion biopsy Type of biopsy: tangential [...] exam and follow up documented in this encounterFreeman Orthopaedics & Sports MedicineSlyghqnghq85-78-5981 NotePatient Education Infectious Disease Sinus Infection, Adult [...] ? Medicines that treat allergies (antihistamines). ? Icvb-rij-bpvqpgp pain relievers. ??? If caused by bacteria, your doctor may wait to see if you will get better without treatment. You may be given antibiotic medicine if you have: ? A very bad infection. ? A weak body defense system. ??? If caused by growths in the nose, surgery may be needed. Follow these instructions at home: Medicines ??? Take, use, or apply nysu-rub-kvspppg and prescription medicines only as told by [...] cannot use soap and water, use hand straight knife cutter machine. ??? Do not smoke. Avoid being around [...] you were prescribed an (more content not included)...[facility]11-17-2024 Evaluation note* Diagnosis Onset Date Resolution Status Admit Date URI (upper respiratory infection) noneactiveNovember 2023 9:12am [facility] Work Phone: [phone]) 466-742309-24-2024 NotePatient Education Endocrinology Diabetes Mellitus and Exercise [...] or an expert trained in diabetes care (board certified family physician) can help you make an activity plan. [...] stroke). Where to find more information ? [place] Diabetes Association: diabetes.org ? Association of Diabetes Care & Education Specialists: diabeteseducator.org This information is not intended to replace advice given to you by your health care provider. Make sure you discuss any questions you have with your health care provider. Document Revised: 12/17/2022 Document Reviewed: 12/17/2022 PureHistory Patient Education ? 2023 Friends Around.[facility] 08-20-2023 History of Present illness Narrative* Tiffanie [...] loss/redness worsens. Discussed risk of atrophy with jail use of topical steroid. Patient voiced understanding. [...] year, skin check/follow up documented in this [facility]02-08-2024 Instructions* Patient Instructions* Niyah Alamo LPN - 08/20/2023 10:35 AM EST AVOID FRAGRANCES Sometimes Fragrance may not be listed in the ingredients and instead one of these ingredients will be listed: Citronellol / Farnesol Citral a-Hexylcinnamicaldehyde Geraniol Cinnamyl alcohol [place] deluna Lyral Limonene Cinnamaldehyde Isoeugenol a-Amylcinnamaldehyde Linalool Hydroxycitronellal Eugenol Coumarine AVOID FORMALDEHYDE RELEASERS INCLUDING: Quaternium-15 DMDM hydantoin Imidazolidinyl urea Diazolidinyl urea Polyoxymethylene urea Sodium hydroxymethylglycinate Bromopol AVOID HAIR COLOR/DYES AND OTHER PRODUCTS WITH THE FOLLOWING INGREDIENTS: Ammonium persulfate Paraphenylenediamine (PPD) Methylchloroisothiazolinone (MCI/OH) USE ZINC-CONTAINING MINERAL SUNSCREENS, FACIAL MOISTURIZES, AND MAKEUP WITH SPF. IT IS BEST TO USE FRAGRANCE FREE PRODUCTS. AVOID THE FOLLOWING: Gallate mix Dodecyl gallate Octyl gallate documented in this [facility]01-05-2024 Evaluation note* Encounter Date Diagnosis Assessment [...] no improvement in 2 to 3 days [place] Other 12-01-2023 History general Narrative - Reported* Type Description Date Medical History HYPERTENSION Surgical HistoryCATARACTS QGAEHFZ58/2023Surgical HistoryDETACHED GVYVCP06/22 [place] Other Evaluation + Plan note Future Appointments Appointment Date:04/05/2024 08:00:00 AM Scheduled Provider:APOLINAR TREJO CNP [facility] Future Appointments Appointment Date:06/14/2024 02:30:00 PM Scheduled Provider: Location:[facility] Appointment Type: Medicare Wellness Subsequent [facility] Evaluation + Plan note Future Appointments Appointment Date:04/06/2025 07:20:00 AM Scheduled Provider:APOLINAR TREJO CNP Location:[facility] Appointment Type: Open Appointment Date:04/06/2025 08:00:00 AM Scheduled Provider: Location:[facility] Appointment Type: Medicare Wellness Initial [facility] Evaluation note* Diagnosis Lichen planopilaris- Primary Lichen planus Seborrheic keratosis Lentigines History of basal cell carcinoma Personal history of other malignant neoplasm of skin Actinic keratosis documented in this encounter [facility] HealthcareEvaluation note* Diagnosis Lichen planopilaris- Primary Lichen planus Seborrheic keratosis Lentigines History of basal cell carcinoma Personal history of other malignant neoplasm of skin Actinic keratosis Neoplasm of unspecified behavior of bone, soft tissue, and skin documented in this encounter [facility] HealthcareEvaluation note* Diagnosis Basal cell carcinoma (BCC) of skin of left upper extremity including shoulder- Primary documented in this encounter [facility] HealthcareEvaluation noteNo assessment information availablePrem[facility] Health [facility] Work Phone: Evodjceqar note* Diagnosis Actinic keratosis- Primary Lentigines History of basal cell carcinoma Personal history of other malignant neoplasm of skin Lichen planopilaris Lichen planus documented in this encounter [facility] HealthcareEvaluation note* Diagnosis Lichen planopilaris- Primary Lichen planus documented in this encounter [facility] HealthcareHospital course Narrative No data available for this section [facility] No data available for this section [facility] No data available for this section [facility] TroyReason for referral (narrative)No reason for referral information availablePremier Health [facility] Work Phone: Summary Purpose Family History No [...] section and content) DATE CREATED AUTHOR 05/02/2021 [facility] DATE CREATED AUTHOR AUTHOR'S ORGANIZ ATION 04/06/2024 [facility] DATE CREATED AUTHOR AUTHOR'S ORGANIZ ATION 04/08/2024 [facility] DATE CREATED AUTHOR AUTHOR'S ORGANIZ ATION 06/03/2024 [facility] DATE CREATED AUTHOR AUTHOR'S ORGANIZ ATION 04/07/2025 [facility] DATE CREATED AUTHOR AUTHOR'S ORGANIZ ATION 04/14/2025 [facility] DATE CREATED AUTHOR AUTHOR'S ORGANIZ ATION 04/15/2025 [facility] DATE CREATED AUTHOR AUTHOR'S ORGANIZ ATION 04/26/2025 [facility] EPIC REASON FOR VISIT (unrecogniz ed section and content) ReasonCommentsSkin CheckReasonCommentsProcedureReasonCommentsFollow-up Care Teams (unrecognized sec tion and content) Team MemberRelationshipSpecialtyStart DateEnd Date Gosia Munroe MD [address] [place] [id number] [facility]03/03/23 Team Status: Active Member Role Status [...] Active Start: May 29, 2024 Maynor Martinez [facility] ProviderActiveStart: May 29, 2024 Team Status: Inactive Member Role Status Dates Keri Kennedy APRN Attending Provider Active Start: May 29, 2024 End: May 29, 2024Maynor Martinez Care ProviderActiveStart: May 29, 2024 End: May 29, 2024Team MemberRelationshipSpecialtyStart DateEnd Date Gosia Munroe MD [address] [place] [facility] [place] [address] [facility]03/03/23Team MemberRelationshipSpecialtyStart DateEnd Date Gosia Munroe MD [address] [facility] [place] [address] [facility]03/03/23 Team Status: Inactive Member Role Status Dates Juanjo Guallpa MD Primary Care Provider Active Start: February 26, 2025 End: February 26, 2025Belen Sterling ProviderActiveStart: February 26, 2025 End: February 26, 2025Team MemberRelationshipSpecialtyStart DateEnd Date Gosia Munroe MD [address] [facility] [place] [address] PCP - GeneralFamily Medicine03/03/23Team MemberRelationshipSpecialtyStart DateEnd Date Gosia Munroe MD [address] [place] [address] PCP - [facility]03/03/23Te MemberRelationshipSpecialtyStart DateEnd Date Gosia Munroe MD [address] [place] [address] PCP - [facility]03/03/23 Goals (unrecognized section and content) Goals [...] BE BASED ON THE PRIMARY CLINICAL RECORDS. [facility] [employer] [facility]. provides no warranty or guarantee of the accuracy or completeness of information in this document.
--- OUTSIDE RECORDS SUMMARY | 2025-06-11 10:21 | XMS_ITS | Clinical Summary ---
Author Organization [facility] Address [address] [place] [address] Care Team Providers Care Director Employee Communications Name Role Phone Gosia Munroe MD Primary Care Provider [phone] Allergies No known active allergies Medications MedicationSigDispense [...] cataract of both eyes 03/03/2023 Encounters DateTypeDepartmentCare LtncKrhvpvywors12/14/2025 11:15 AM EDTOffice Visit [facility] [address] [place] [address] Tiffanie Sepulveda MD Lichen planopilaris (Primary Dx)04/25/2025amboo flowsheet [facility] [address] [place] [id number] Tiffanie Sepulveda MD 04/25/20253577Lettrq11/11/2025 8:45 AM EDTOffice Visit [facility] [address] [facility] [address] [place] [address] Tiffanie Sepulveda MD Actinic keratosis (Primary Dx); Lentigines; History of basal cell carcinoma; Lichen xadzramykbwh46/11/2025amboo flowsheet [facility] [address] [facility] [address] [place] [address] Tiffanie Sepulveda MD 03/23/2025Travelfrom Last 3 Months Family History Medical HistoryRelationNameCommentsCataractsBrotherRetinal detachmentBrother CataractsMotherRetinal detachmentMotherMelanomaNeg HxRelationNameStatusComments BrotherMother Social History Tobacco UseTypesPacks/DayYears UsedDateSmoking Tobacco: NeverSmokeless Tobacco: Never Tobacco Cessation:Counseling Given: Not Answered Alcohol UseStandard Drinks/WeekCommentsDefer0 (1 standard drink = 0.6 oz pure alcohol)CommentsUnknownSex and Gender InformationValueDate RecordedSex Assigned at BirthNot on fileLegal EwgXxpslz58/15/2023 6:56 PM EDTGender Identity Not on fileSexual OrientationNot on file Last Filed Vital Signs Vital SignReadingTime TakenCommentsBlood Jqggspfy922/8903/03/2023 2:56 PM EDTnno latex allergies, no PM/DF, No ujgafzMgiqi3023/22/2023 2:56 PM EDTTemperature-- Respiratory Rate--Oxygen Saturation--Inhaled Oxygen Concentration--Phblby11.7 kg (200 lb)07/15/2017 12:00 PM GBSLgehns494.6 cm (5' 6 )08/20/2021 12:00 PM ESTBody Mass Index32.28007/15/2017 12:00 PM EST Plan of Treatment DateTypeDepartmentCare Team (Latest Contact Info)Edhilucclrj46/10/2026 10:35 AM ESTOffice Visit [facility] [address] [facility] [address] [place] [address] Tiffanie Sepulveda MD [address] [place] [address] Health MaintenanceDue DateLast DoneCommentsCT Brgkzstdwjrs14/11/1957Colonoscopy 1955FIT1955FOBT1955 2848Nvphqnuswguue17/11/5828Pbuhikeuk83/11/1997 Pneumococcal Vaccine: 65+ Years (1 of 1 - PCV)2006COVID-19 Vaccine ( - 2024- season), 06/01/2023, 04/24/2021, Additional history existsInfluenza Vaccine (#1), 06/01/2023, 05/26/2022, Additional history existsColorectal Cancer Mvppvxhwt91/27/2028FIT-DNA04/08/2028 04/08/2025 Insurance Care Teams Team MemberRelationshipSpecialtyStart DateEnd Gosia Munroe MD [address] [place] [facility] [place] [address] PCP - GeneralFamily Medicine03/03/23
--- OUTSIDE RECORDS SUMMARY | 2025-06-11 10:21 | XMS_ITS | Clinical Summary ---
Author Organization [facility] tem Address [facility] [id number] [place] [address] Care Team Providers Care Acid Dipper Name Role Phone Gosia Munroe MD Primary Care Provider [phone] Allergies No known active allergies Medications No known medications Active Problems No known active problems Family History Medical HistoryRelationNameCommentsHeart diseaseFatherLymphomaFatherRelationName StatusCommentsFatherDeceasedMotherAlive Social History Tobacco UseTypesPacks/DayYears UsedDateSmoking Tobacco: NeverAlcohol UseStandard Drinks/WeekCommentsYes2 (1 standard drink = 0.6 oz pure alcohol)ChildcareAnswer Date IefhcgkqRwyuovatxMeherkx31/12/2019EmploymentAnswerDate RecordedEmployment Apeetbt4612/22/2018Purpose - LifeAnswerDate RecordedPurpose and direction in life Pfbifne03/11/2021CommentsUnknownSex and Gender InformationValueDate RecordedSex Assigned at BirthNot on fileLegal XrsTysdoc63/07/2017 9:25 AM EDT Gender IdentityNot on fileSexual OrientationNot on file Last Filed Vital Signs Vital SignReadingTime TakenCommentsBlood Vgseewbf334/8006 11:11 AM EDT Pulse--Temperature--Respiratory Rate--Oxygen Saturation--Inhaled Oxygen Concentration--Qmungp17.1 kg (192 lb)12/24/2016 11:11 AM TBTRenyfv411.6 cm (5' 6 )12/24/2016 11:11 AM EDTBody Mass Index30.9912/24/2016 11:11 AM EDT Plan of Treatment Health MaintenanceDue DateLast DoneCommentsDepression Fausyusmc38/11/1969Tobacco Reeshdgyr56/11/1969Adult BMI Jfyhsafsd66/11/1975DTaP,Tdap and Td Vaccines (1 - Tdap)1975Zoster (Shingles) Vaccine (1 of 2)2006Fall Risk Screening 2021Influenza Rabwxoi2903/13/2025RSV ( or age 60+ yrs) (1 - 1-dose 75+ series)2031 Medical Devices Not on file Insurance Care Teams Team MemberRelationshipSpecialtyStart DateEnd Date Gosia Munroe MD [facility]
== END 2025-06-11 10:56 | disposition home or self-care (01) ==
PROVIDERS: Emergency Provider Emergency Medicine; PCP Nurse Practitioner Family
DX: S82.52XA Displaced fracture of medial malleolus of left tibia, initial encounter for closed fracture (principal); W19.XXXA Unspecified fall, initial encounter; X50.1XXA Overexertion from prolonged static or awkward postures, initial encounter
CPT/HCPCS: 29515; 73610; 73630; 99283

== ENCOUNTER 2025-06-19 11:33 | Emergency (ER) | payer MEDICARE, SELFPAY ==
[2025-06-19 11:35] VITALS: BP 135/83; PULSE 83; TEMP 36.9; O2SAT 97; BMI 29.1
--- NOTE | 2025-06-19 12:16 | XR_ITS ---
[facility] [place] [id number] Patient Name: LUIS ALFREDO ROMERO MRN: [id number] date: 1955 Sex: F Assigned Patient Location: ER Current Patient [facility]: [facility] Accession/Order Number: [id number] Exam Date: 06/19/2025 12:20 Report Date: 06/19/2025 13:32 At the request of: GODFREY VILLEGAS Procedure: XR tibia fibula LT 2V XR tibia fibula LT 2V 06/19/2025 12:31 PM SIGNS AND SYMPTOMS: Known left distal tibia fracture with cellulitis of the left tibia and fibula PROTOCOL: Frontal and lateral radiographs of the left tibia and fibula COMPARISON: 06/11/2025 FINDINGS: There is an obliquely oriented fracture of the lateral malleolus without change in alignment. No significant interval healing. There is accompanying soft tissue swelling. There are bony fragments separate from the medial malleolus suggesting an avulsive of the medial malleolus. The ankle mortise is preserved. There is plantar and Achilles surface calcaneal spurring. Degenerative changes are noted in the weightbearing joint spaces of the left knee. XR/XR tibia fibula LT 2V IMPRESSION: There is an obliquely oriented fracture of the lateral malleolus without change in alignment. No significant interval healing. There is accompanying soft tissue swelling. No additional acute displaced fractures. Impression dictated by: Abelardo Estrada M.D. 06/19/2025 1:32 PM Dictation Location: [place] [address] Electronically authenticated by: [id number] Y Date: 06/19/2025 13:32
--- OUTSIDE RECORDS SUMMARY | 2025-06-19 12:17 | XMS_ITS | CCD ---
Author Organization [facility] CliniSyid Care Team Providers Care Seo Analyst Name Role Phone DR GOSIA MUNROE Primary Care Unavailable LUDWIG, DR GOSIA Lee Consulting Unavailable LUDWIG, DR GOSAI Lee Attending Unavailable LUDWIG, DR GOSIA Lee Admitting Unavailable YVES, DR BEVERLY Hernandez Consulting Unavailable Lilliana Aguiar Unavailable Gosia Munroe MD Primary Care Provider MAYA, APOLINAR A Primary Care Physician MAYA, APOLINAR A Primary Care Physician MAYA, [...] [No Known Medication Allergies]Propensity to adverse reactions (disorder)[facility] Repository Medications Current Medications MedicationDrug Class(es)DatesSig [...] sources)Platelet Aggregation Inhibitor, Nonsteroidal Anti-inflammatory Drug Start: 05-54-5960jcxe 1 tablet by mouth once dailyAspirin 81 mg tablet,delayed release (DR/EC) Active 81 MG PO Daily May 29, 2024 1:00am Complies with drug therapyASPIRIN 81 PO Aspir-81 ActiveASPIRIN 81 PO Aspir-81 0 Activetake 1 tablet by mouth every twenty-four hoursAspirin Adult Low Dose 81 MG 1 tablet Orally Once a day Activebisoprolol (Zebeta) 2.5 MG split tablet (11 sources)Start: 43-34-7585zcyhnagzlg (Zebeta) 2.5 MG split tablet 05/13/2019 ActiveStart: 23-04-1700fsmqltnnac (Zebeta) 2.5 MG split tabletbisoprolol fumarate 2.5 mg / hydroCHLOROthiazide 6.25 mg oral tablet (19 sources)Thiazide Diuretic, beta-Adrenergic BlockerStart: 15-65-3539piso 1 tablet by mouth once dailybisoprolol-hydrochlorothiazide 2.5 mg-6.25 mg Tab 1 tab(s), Oral, Daily, 90 tab(s), Refill(s) 4, [facility]/pharmacy #[id number], 162, cm, 12/03/24 16:39:00 EST, Height/Length Dosing, 82.1, kg, 04/05/24 7:59:00 EDT, Weight Dosing Start Date: 08/03/24 Status: Ordered Quantity: 90.0 Unit: tab(s) Repeat number: 5 Indication: Essential (primary) hypertensionStart: 05-29-2024 take 1 tablet by mouth once dailyBisoprolol-Hydrochlorothiazide 2.5-6.25 mg tablet Active 1 TAB PO Daily May 29, 2024 12:00amStart: 20-35-0504ygmd 1 tablet by mouth once dailybisoprolol-hydrochlorothiazide 2.5 mg-6.25 mg Tab 1 tab(s), Oral, Daily, 90 tab(s), Refill(s) 1, [facility]/pharmacy #[id number], 161.3, cm, 10/06/23 15:21:00 EDT, Height/Length Dosing, 89.2, kg, 10/06/23 15:21:00 EDT, Weight Dosing Start Date: 10/07/23 Status: OrderedStart: 78-52-1744acgrzuwdpz- hydroCHLOROthiazide (Ziac) 2.5-6.25 MG tablet 02/19/2023 Activecefuroxime 500 mg oral tablet (6 sources)Cephalosporin AntibacterialStart: 07-16-2022 End: 16-02-7040qogz 1 tablet by mouth in the morningcefuroxime (Ceftin) 500 MG tablet Take 500 mg by mouth in the morning and 500 mg before bedtime. 07/16/2022 10/07/2024 Discontinued (Therapy completed)cetirizine hydrochloride 10 mg chewable tablet (16 sources)Histamine-1 Receptor AntagonistStart: 62-00-6572jwgh 1 tablet by mouth twice dailyCetirizine 10 mg tablet,chewable Active 10 MG PO Twice daily May 29, 2024 1:00am FreeTextSi tablet Orally Once a day; Note: Source Status: Taking; Provider: Stefania Tijerina ( ) Complies with drug therapycetirizine (ZyrTEC ALLERGY) 10 MG tablet 1 (one) time each day at the same time. Activefluocinonide 0.5 mg/ml topical solution (18 sources)CorticosteroidStart: 03-94-2205kcgpp 1 [IU] topically three times dailyfluocinonide topical 0.05% solution 1 marcus, Topical, TID, 60 mL, Refill(s) 0 Start Date: 10/06/23 Status: Ordered Quantity: 60.0 Unit: mL Repeat number: 1 Start: 08-14-2022 End: 00-26-5954rbmthbgbpldf (Lidex) 0.05 % external solution Indications: Lichen planopilaris APPLY TO SCALP ONCE A DAY 60 mL 11 08/22/2024 Activefluorouracil 50 mg/ml topical cream (6 sources)Nucleoside Metabolic InhibitorStart: 08-21-2022 End: 93-86-4835jqwtytbykqob (Efudex) 5 % cream every 12 (twelve) hours. 08/21/2022 10/07/2024 Discontinued (Therapy completed)fluticasone propionate 0.05 mg/actuat metered dose nasal spray (2 sources)CorticosteroidStart: 56-87-2243ewep 2 spray(s) nasal route once daily Fluticasone Propionate 50 MCG/ACT 2 sprays Nasally Once a day for 14 day(s) Jul, ActiveStart: 71-01-6889metviaatsdb Nasal 0.05 mg/inh Oxoboxo River Refill(s) 0, Nasal, 0 Refill(s) Start Date: 07/16/23 Status: Ordered Repeat number: 1metFORMIN hydrochloride 500 mg oral tablet (11 sources)BiguanideStart: 14-52-3584qkgm 1 tablet by mouth twice daily metformin 500 mg Tab 500 mg = 1 tab(s), Oral, BID, # 180 tab(s), Refills(s) 1, Pharmacy: [facility]/pharmacy #[id number], 162, cm, 06/14/24 16:39:00 EST, Height/Length Dosing, 82.1, kg, 04/05/24 7:59:00 EDT, Weight Dosing Start Date: 06/20/24 Status: Ordered Quantity: 180.0 Unit: tab(s) Repeat number: 2 Indication: Type 2 diabetes mellitus without complicationspredniSONE 20 mg oral tablet (1 source)Start: 64-38-8403jteh 1 tablet by mouth every twelve hourspredniSONE 20 MG 1 tablet Orally bid for 5 day(s) Jul, Active Completed/Discontinued Medications MedicationDrug Class(es)DatesSig (Normalized)Sig (Original)amoxicillin 875 mg / clavulanate 125 mg oral tablet (10 sources)Penicillin-class AntibacterialStart: 05-29-2024 End: 88-70-6282sizc 1 tablet by mouth twice dailyAmoxicillin-Pot Clavulanate 875-125 mg tablet Discontinued 1 TAB PO Twice daily 01 05May 29, 2024 1:00am February 26, 2025 9:04amStart: 65-20-5313slwr 1 tablet by mouth every twelve hoursAmoxicillin-Pot Clavulanate 875-125 MG 1 tablet Orally every 12 hrs for 10 day(s) Jul, ActiveStart: 08-15-2022 End: 92-62-2294qbpu 1 tablet by mouth in the morningamoxicillin-clavulanate (Augmentin) 875-125 MG tablet Take 1 tablet by mouth in the morning and 1 tablet before bedtime. 08/15/2022 10/07/2024 Discontinued (Therapy completed) fluconazole 150 mg oral tablet (4 sources)Azole AntifungalStart: 55-48-4464hvhk 1 tablet by mouth once fluconazole 150 mg Tab 150 mg = 1 tab(s), Oral, Once, Take one tablet at the onset of symptoms; mayrepeat in 72 hours, # 2 tab(s), Refills(s) 0, Pharmacy: [facility]/pharmacy #[id number], 162, cm, 04/05/24 7:59:00 EDT, Height/Length Dosing, 82.1, kg, 04/05/24 7:59:00 EDT, Weight Dosing Start Date: 06/14/24 Status: Ordered Quantity: 2.0 Unit: tab(s) Repeat number: 1Start: 00-96-8999Efggwbbzhza 150 mg tablet Active 150 MG PO Q3D May 29, 2024 1:00am Take one tablet and if symptoms persist 3 days later, take second tablet Complies with drug therapy Glucometer (2 sources)Start: 49-26-8542Dnmqeweyen Glucometer, See Instructions, 1 EA, 0, Glucometer to test blood sugar TID PRN E11.9, [facility]/pharmacy #[id number], Supply, 161.3, cm, 11/19/23 7:58:00 EDT, Height/Length Dosing, 88.6, kg, 11/19/23 7:58:00 EDT, Weight Dosing Start Date: 11/19/23 Status: Ordered Quantity: 1.0 Unit: EA Repeat number: 1Indication: Type 2 diabetes mellitus without complicationsStart: 64-00-7392Hubatfspbk Glucometer, See Instructions, 1 EA, 0, Glucometer to test blood sugar TID PRN E11.9, [facility]/pharmacy #[id number], Supply, 161.3, cm, 11/19/23 7:58:00 EDT, Height/Length Dosing, 88.6, kg, 11/19/23 7:58:00 EDT, Weight Dosing Start Date: 11/19/23 Status: Orderedtriamcinolone acetonide 10 mg/ml injectable suspension (4 sources)CorticosteroidStart: 03-23-2025 End: 95-29-4745qovvktwofuryf acetonide (Kenalog) injection 2.5 mgStart: 03-23-2025 End: 52.5 mg, Intra-lesional, Once, On Angelic 03/23/25 at 0900, For 1 dose Problems Problem ClassificationProblemDateDocumented DateEpisodic/ChronicCataract (11 sources)Bilateral age-related nuclear cataracts; Translations: [Age-related nuclear cataract, bilateral]Onset: 366431-69-1061PsrtwojNkwefufr mellitus without complication (2 sources)Type 2 diabetes -25-6756SddwazbVoatfhfxv hypertension (3 sources)Hypertensive disorder; Translations: [Essential (primary) hypertension]01-66-6094HgbfuceEylgkawsr of unspecified nature or uncertain behavior (2 sources)Neoplastic disease; Translations: [Neoplasm of unspecified behavior of bone, soft tissue, and skin]24-21-1182MvnuvqvrBaxhr inflammatory condition of skin (7 sources)Lichen planopilaris; 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]08-20-2023 EpisodicOther lower respiratory disease (1 source)Wheezing; Translations: [Wheezing]Onset: 07-85-7927YjkhpyagHjrkc non- epithelial cancer of skin (7 sources)History of malignant basal cell neoplasm of skin; Translations: [Personal history of other malignant neoplasm of skin]97-69-8605BmjqryjzMjaqx nutritional; endocrine; and metabolic disorders (4 sources)Body mass index 30+ - rsbgejr18-16-8523CqvkrwkGodqy screening for suspected conditions (not mental disorders or infectious disease) (4 sources)Encounter for screening mammogram for malignant neoplasm of breast; Translations: [ENC SCR MAMMO MALIG NEOPLASM BREAST]Onset: 77-34-6472Ajrvejib Other skin disorders (4 sources)Seborrheic keratosis; Translations: [Other seborrheic keratosis] 75-40-5597XoteyuifRpbqy skin disorders (6 sources)Lentiginosis; Translations: [Other melanin hyperpigmentation] 77-52-5089LygrbvmnXrked skin disorders (6 sources)Actinic keratosis; Translations: [Actinic keratosis]08-20-2023 EpisodicOther upper respiratory disease (3 sources)Seasonal allergic rhinitis; Translations: [Other seasonal allergic rhinitis]44-27-1062GbqbrlhRmyou upper respiratory infections (3 sources)Acute sinusitis, unspecified; Translations: [Acute upper respiratory infection, unspecified]EpisodicResidual codes; unclassified (1 source)Family history of other malignant neoplasms of lymphoid, hematopoietic and related tissues; Translations: [FAM HX OTH MAL REX LYMPH HEMATPOETC]Onset: 72-38-3172AbnvczvpKgzfpnsc codes; unclassified (1 source)History of repair of retina for retinal detachment; Translations: [Other specified postprocedural states]56-71-0558Gqbfhujc Results Test NameValueInterpretationReference RangeFacility.Interpretation:on 04-08-2025 Interpretation:CommentInvalid Interpretation [facility] Comment on above:Result Comment: Not infected with HCV unless early or acute infection is suspected (which may be delayed in an immunocompromised individual), or other evidence exists to indicate HCV infection. Performed at: [facility] [id number] PhD Guanako AlvarezPerformed By: #### [id number] #### [facility] [address] [place] [address]NMV Antibody RFX to Quant PCRon 90-93-5825MGZ AbNon-Reactive Invalid Interpretation CodeNon ReactiveAtrium Health Wake Forest Baptist [facility] Point Medical Centerer [facility] Medical CenterComment on above:Result Comment: Performed at: [facility] [id number] PhD Guanako Alvarezformed By: #### [id number] #### [facility] [address] [place], [place] [address]Juucpcalnx Visit Summaryon 03-46-5239Ikplontdoe Visit Summary Ambulatory Visit Summary LYNSEY ROMERO [...] solution) fluticasone nasal (fluticasone Nasal 0.05 mg/inh Oxoboxo River) Procedures Performed Appendectomy, Bilateral cataracts, Bunion of left great toe, Detached right retina, H/O: hysterectomy, History of hernia repair. What to do next Scheduled Follow-Up Appointments 2025 8:40 AM EDT With: APOLINAR TREJO CNP Where: [address] [address]- Thursday2025 8:00 AM EDT With: Where: [address] [address]- You Need to Schedule the Following Appointments Follow Up with APOLINAR TREJO CNP, FAM When: Within 6 months Comments: Diabetes Where: [address] [place] [id number] Business (1) Medications What How Much When Why Instructions Unchanged bisoprolol-hydrochlorothiazide (bisoprolol-hydrochlorothiazide 2.5 mg- 6.25 mg Tab) 1 Tablets By Mouth Every day HTN (hypertension) Pickup at [facility]/pharmacy #[id number] Unchanged metformin (metformin 500 mg Tab) 1 Tablets By Mouth 2 times a day Type II diabetes mellitus covering for S Maya Pickup at [facility]/pharmacy #[id number] Unchanged aspirin (aspirin 81 mg Oral EC [...] fluticasone nasal (fluticasone Nasal 0.05 mg/ inh Oxoboxo River) Nasal, 0 Refill(s) Contact prescribing physician if [...] physician if questions or concerns Pharmacy Information [facility]/pharmacy #[id number]: [address], [place] [id number] [phone] Allergies No Known Medication Allergies Problems Ongoing [...] heart or kidney d (more content not included)...[facility] HospitalAmbulatory Visit SummaryAmbulatory Visit Summary LYNSEY ROMERO [...] solution) fluticasone nasal (fluticasone Nasal 0.05 mg/inh Oxoboxo River) metformin (metformin 500 mg Tab) Procedures Performed Appendectomy, Bilateral cataracts, Bunion of left great toe, Detached right retina, H/O: hysterectomy, History of hernia repair. Discharge Vitals Heart Rate (Peripheral) 68 Respiratory Rate 18 Blood Pressure 124/60 Height 162.0 cm Height 64 in Weight 80.1 kg Weight 176.59 lb BMI 30.52 What to do next Scheduled Follow-Up Appointments Thursday2025 8:00 AM EDT Where: [place] [id number]- You Need to Complete the Following Comprehensive [...] fluticasone nasal (fluticasone Nasal 0.05 mg/ inh Oxoboxo River) Nasal, 0 Refill(s) Unchanged metformin (metformin 500 [...] Current health, including: ? (more content not included)...NormalBellevue HospitalCMPon 04-06-2025 Albumin [Mass/Vol]4.4 g/dLNormal3.3-5.0B[facility] HospitalComment on above:Performed By: #### [id number] #### [facility] [address], [place] [address]Zipwojf/Globulin [Mass ratio]1.5 {ratio}Normal1.1-2.2FPremier Health Miami Valley Hospital NorthComment on above:Performed By: #### [id number] #### [facility] [address], [place] [address]Npe Phos39 Int._Unit/ZLokbgg05-23InrqwlBellevue Hospital Comment on above:Performed By: #### [id number] #### [facility] [address], [place] [address]WOR82 Int._Unit/LNormal6-46[facility] HospitalComment on above:Performed By: #### [id number] #### [facility] [address], [place] [address]Tgftl gap [Moles/Vol]8 mmol/LNormal6-16[facility] HospitalComment on above:Performed By: #### [id number] #### [facility] [address], [place] [address]ZWM02 Int._Unit/LNormal5-43[facility] HospitalComment on above:Performed By: #### [id number] #### [facility] [address], [place] [address]Chdw Total0.6 mg/dLNormal0.0-1.1FPremier Health Miami Valley Hospital North Comment on above:Performed By: #### [id number] #### [facility] [address], [place] [address]GPQ/Creat Ratio23 No AnhjhYvlx20-82LtkqvkBellevue Hospital Comment on above:Performed By: #### [id number] #### [facility] [address], [place] [address]Xhoxnyz [Mass/Vol]10.0 mg/dLNormal8.9-11.1FPremier Health Miami Valley Hospital NorthComment on above:Performed By: #### [id number] #### [facility] [address], [place] [address]Lutbsgtj [Moles/Vol]102 mmol/JPskqmc638-295OcdjyfBellevue HospitalComment on above:Performed By: #### [id number] #### [facility] [address], [place] [address]DC9 [Moles/Vol]31 mmol/DVkkgox55-17BhflddBellevue Hospital Comment on above:Performed By: #### [id number] #### [facility] [address], [place] [address]Ighvvrwmnm [Mass/Vol]1.0 mg/dLNormal0.5-1.3FPremier Health Miami Valley Hospital NorthComment on above:Performed By: #### [id number] #### [facility] [address], [place] [address]Ugxfyume (S) [Mass/Vol]3.0 g/dLNormal1.4-4.0B[facility]vue HospitalComment on above:Performed By: #### [id number] #### [facility] [address], [place] [address]Eenapqp [Mass/Vol]109 mg/cYMhevjn25-219BgmadsBellevue HospitalComment on above:Performed By: #### [id number] #### [facility] [address], [place] [address]Ttxgiwfrp [Moles/Vol]4.4 mmol/LNormal3.5-5.3FPremier Health Miami Valley Hospital NorthComment on above:Performed By: #### [id number] #### [facility] [address], [place] [address]Uyycwxn [Mass/Vol]7.4 g/dLNormal6.0-7.8B[facility]vue HospitalComment on above:Performed By: #### [id number] #### [facility] [address], [place] [address]Qqxjhu [Moles/Vol]137 mmol/CIivmft092-764DpeifsBellevue HospitalComment on above:Performed By: #### [id number] #### [facility] [address], [place] [address]Gnol nitrogen [Mass/Vol]23 mg/dLHigh5-21B[facility]vue HospitalComment on above:Performed By: #### [id number] #### [facility] [address], [place] [address]Yakvsf Medicine Office/Clinic Noteon 67-36-8077Ghvksd Medicine Office/Clinic NoteFamily Medicine Office/Clinic Note Chief [...] of clutter to prevent tripping and/or falling. [place] Advance Directives reviewed. Documents remain at home, [...] PCP visit. Labs to be completed with [facility]. No concerns with bowel/ bladder. Patient has [...] year of . Tavon Singhmore content not included)...[facility] HospitalComment on above:Result Comment: Electronically Signed By: [...] Neurological: oriented x 4, LOC appropriate for [facility] normal Assessment/Plan 1. Type II diabetes mellitus (E11.9: Type 2 diabetes mellitus without complications) - Continue periodic blood glucose monitoring. - Encourage dietary modifications to improve glycemic control. - Awaiting laboratory results - Encourage low carb diet - F/U in 6 months Ordered: metformin, 500 mg = 1 tab(s), Oral, BID, covering for April Trejo, # 180 tab(s), Refills(s) 1, Pharmacy: [facility]/pharmacy #[id number], 162, cm, 04/06/25 8:12:00 EDT, Height/Length Dosing, 80.1, kg, 04/06/25 8:12:00 EDT, Weight Dosing ADM OF SOC DTR G0136 Comprehensive Metabolic Panel HgbA1c Lab Specimen Collect 63610 Lipid Panel Urine Microalbumin/Creatinine Ratio 2. BMI [...] TREJO CNP, FAM Within 6 months [address] [place] [address] Business (1) Additional Instructions: Diabetes Patient Education Diabetes Mellitus and Nutrition, Adult Problem List/Past Medical History Ongoing BMI 30.0-30.9,adult Nonsmoker Obesity (BMI 30-39.9) Type II diabetes mellitus Historical No qualifying data Procedure/Surgical History Appen (more content not included)...NormalBellevue HospitalComment on above:Result Comment: Electronically Signed By: APOLINAR TREJO CNP\.br\Date and Time Signed: 04/06/25 09:21 VNSIilV2czj 36-51-0189SzP1q (Bld) [Mass fraction]6.0 %High<=5.9Bellevue HospitalComment on above:Performed By: #### [id number] #### [facility] [address], [place] [address]Pbdfk Panelon 92-62-0803Emqdmrlyvvq [Mass/Vol]205 mg/dLHigh 120-200Bellevue HospitalComment on above:Performed By: #### [id number] #### [facility] [address], [place] [address]Qbjerxsrajp in HDL [Mass/Vol]69 mg/dLInvalid Interpretation CodeBellevue HospitalComment on above:Result Comment: '>= 60 LOW RISK' '<= 40 HIGH RISK'Performed By: #### [id number] #### [facility] [address], [place] [address]Ildizfdlrma in LDL [Mass/Vol]128 mg/dLNormal<=129B[facility]vue HospitalComment on above:Performed By: #### [id number] #### [facility] [address], [place] [address]Wjwtcepwqwl in VLDL [Mass/Vol]20 mg/dLNormal7-40Bellevue HospitalComment on above:Performed By: #### [id number] #### [facility] [address], [place] [address]Bbzsirarqxov [Mass/Vol]102 mg/dLNormal<=149B[facility]vue HospitalComment on above:Performed By: #### [id number] #### [facility] [address], [place] [address]O MA/Cr Ratioon 08-53-9222Zlxhkiby/Cr RatioNOT CALCULATED Invalid Interpretation Code.0-30.0Bellevue HospitalComment on above: Result Comment: 30-300 mg/g Cr indicates an increased risk for diabetic nephropathy. >300 mg/g Cr is consistent with clinical nephropathy.Performed By: #### [id number] #### [facility] [address], [place] [address]J Ljkszibkvt81.8 mg/dLInvalid Interpretation CodeBellevue HospitalComment on above:Performed By: #### [id number] #### [facility] [address], [place] [address]V Microalb<0.0Uqfkwz4.0-1.9B[facility] HospitalComment on above:Performed By: #### [id number] #### [facility] [address], [place] [address]kUPVqt 20-57-4764nPSE38 mL/min/1.73 a1Fwtinh>=59B[facility]vue HospitalComment on above:Performed By: #### [id number] #### [facility] [address], [place] [address]Fofzg of lesionon 56-53-0209Vwitywpbph: simple Destruction method: electrodesiccation and curettage Informed consent: discussed and consent obtained Informed consent comment: The risks of the procedure were discussed, including, but not limited to risks of scarring, darker or medical anthropology director pigmentary changes, recurrence, infection, and incomplete removal [...] of lidocaine used: 5cc Previous accession number: [id number] Health University CitybA1con 57-52-7902KwB4u (Bld) [Mass fraction]5.8 %Normal<=5.9[facility] Comment on above:Performed By: #### [id number] #### [facility] [address], [place] [address]Zzdxypkgcr Visit Summaryon 00-06-1053Fpsmhiqvet Visit Summary Ambulatory Visit Summary LYNSEY ROMERO :1955 Visit Date:10/04/2024 Ambulatory Visit Instructions Your Diagnosis Type II diabetes mellitus BMI 30.0-30.9,adult Non-smoker Your Care Team Attending Physician - APOLINAR TREJO CNP Primary Care Physician - APOLINAR TREJO CNP This Is Your Medications List [facility] Prescription (Glucometer) [facility] Prescription (Lancets) [facility] Prescription (Test strips) bisoprolol-hydrochlorothiazide (bisoprolol-hydrochlorothiazide 2.5 mg-6.25 mg Tab) cetirizine (cetirizine 10 mg oral tablet, chewable) fluconazole (fluconazole 150 mg Tab) fluocinonide topical (fluocinonide topical 0.05% solution) fluticasone nasal (fluticasone Nasal 0.05 mg/inh Oxoboxo [place]) metformin (metformin 500 mg Tab) Procedures Performed [...] AM EDT With: APOLINAR TREJO CNP Where: [address] [id number]- 2024 8:00 AM EDT With: Where: [address] [address]- Medications What How Much When Why Instructions [...] fluticasone nasal (fluticasone Nasal 0.05 mg/ inh Oxoboxo [place]) Nasal, 0 Refill(s) Unchanged metformin (metformin 500 [...] you for choosing us for your care. [facility] HospitalCHEMISTRYOrdered By: Zhanna Villarreal on 57-92-6095DcK4e (Bld) [Mass fraction]5.8 %Normal<=5.9%[facility] ChemAutoSS Family Medicine Office/Clinic Noteon 79-49-8334Gxoxau Medicine Office/Clinic NoteFahahnemann hospital Medicine Office/Clinic Note Chief Complaint Fluctuating [...] 6 months Ordered: HgbA1c Lab Specimen Collect 00573 2. BMI 30.0-30.9,adult (Z68.30: Body mass index [...] marcus, Topical, TID fluticasone Nasal 0.05 mg/inh Oxoboxo [place] Glucometer, See Instructions Lanc (more content not included)...[facility] HospitalComment on above:Result Comment: Electronically Signed By: APOLINAR TREJO CNP\.epifanio\Date and Time Signed: 10/04/24 08:47 EDTNo Panel Informationon 30-99-0819Zxnc of biopsy: tangential Informed consent: discussed and [...] Photo taken Amount of lidocaine used: 1.0 [facility] Medicine Office/Clinic Noteon 83-14-9123Rxssmm Medicine Office/Clinic NoteBayridge Hospital Medicine Office/Clinic Note Chief Complaint 118 [...] day(s), # 28 cap(s), Refills(s) 0, Pharmacy: [facility]/pharmacy #[id number], 162, cm, 04/05/24 7:59:00EDT, Height/Length Dosing, [...] hours, # 2 tab(s), Refills(s) 0, Pharmacy: [facility]/pharmacy #[id number], 162, cm, 04/05/24 7:59:00 EDT, Height/Length Dosing, 82.1, kg, 04/05/24 7:59:00 EDT, Weight Dosing Follow-up No qualifying data available Patient Education Sinus Infection, Adult, Pqch-qs-Zjuv Problem List/Past Medical History Ongoing BMI 31.0-31.9,adult [...] marcus, Topical, TID fluticasone Nasal 0.05 mg/inh Oxoboxo [place] Glucometer, See Instructions Lancets, See Instructions metformin 500 mg Tab, 500 mg= 1 tab(s), Oral, BID, 1 refills Test strips, See Instructions, 1 refills Allergies No Known Medication Allergies Social History Alcohol Current. Wi (more content not included)...[facility] Comment on above:Result Comment: Electronically Signed By: APOLINAR TREJO CNP\.br\Date and Time Signed: 06/15/24 08:44 ESTAmbulatory Visit Summaryon 74-31-6660Qalqcqzybf Visit SummaryAmbulatory Visit Summary LYNSEY ROMERO :1955 Visit Date:06/14/2024 Ambulatory Visit Instructions Your Diagnosis Sinusitis Your Care Team Attending Physician - APOLINAR TREJO CNP Primary Care Physician - APOLINAR TREJO CNP This Is Your Medications List Misc Prescription (Glucometer) Mis Prescription (Lancets) [facility] Prescription (Test strips) bisoprolol-hydrochlorothiazide (bisoprolol-hydrochlorothiazide 2.5 mg-6.25 mg Tab) cetirizine (cetirizine 10 mg oral tablet, chewable) doxycycline (doxycycline hyclate 100 mg Cap) fluconazole (fluconazole 150 mg Tab) fluocinonide topical (fluocinonide topical 0.05% solution) fluticasone nasal (fluticasone Nasal 0.05 mg/inh [place]) metformin (metformin 500 mg Tab) Procedures Performed Appendectomy, Bilateral cataracts, Bunion of left great toe, Detached right retina, H/O: hysterectomy, History of hernia repair. Discharge Vitals Heart Rate (Peripheral) 78 Respiratory Rate 18 Blood Pressure 118/78 Height 162.0 cm Height 64 in What to do next Scheduled Follow-Up Appointments Thursday 7:20 AM EDT With: APOLINAR TREJO CNP Where: [place] [phone]- Medications What How Much When Why Instructions [...] twelve hours for ten days Pickup at [facility]/pharmacy #6118 Unchanged fluconazole (fluconazole 150 mg Tab) 1 Tablets By Mouth Once Take one tablet at the onsetof symptoms; may repeat in 72 hours Pickup at [facility]/pharmacy #6118 Unchanged fluocinonide topical (fluocinonide topical 0.05% solution) 1 Application Topical 3 times a day Unchanged fluticasone nasal (fluticasone Nasal 0.05 mg/ inh [place]) Nasal, 0 Refill(s) Unchanged metformin (metformin 500 mg Tab) 1 Tablets By Mouth 2 times a day Type II diabetes mellitus Unchanged [facility] Prescription (Glucometer) See instructions Type II diabetes mellitus Glucometer to test blood sugar TID PRN E11.9 Unchanged Misc Prescription (Lancets) See instructions Type II diabetes mellitus Test blood sugar TID PRN E11.9 Unchanged Misc Prescription (Test strips) See instructions Type II diabetes mellitus Test blood sugar TID E11.9 Pharmacy Information [id number] [address], [place] [phone] Medications and Immunizations Administered Given influenza, unspecified formulation, SARSCoV2 mRNA(zejfexnbo-tavv-bwvati) vac, Allergies No Known Medication Allergies Problems [...] you for choosing us for your care. [facility] HospitalX-[facility] reportOrdered By: Keren Goins on 25-67-1682Srrje [facility] [place] [address] [place], [place] [id number] XRay Report Signed Patient: Lynsey Romero MR#: [id number] : 1955 Acct:[id number] Age/Sex: 68 / F ADM Date: 4 [...] MD 05/29/24 1038 Signed By: 05/29/24 1039 [facility] Work Phone: XR chest 2V*on 58-59-1487EU chest 2V*[facility] [place] [address] [place] [address] XRay Report Signed Patient: Lynsey Romero MR#: [id number] : 1955 Acct:[id number] Age/Sex: 68 / F ADM Date: 05/29/24 [...] Goins MD 05/29/24 1038 Signed By: 05/29/24 1039[facility] Physician GroupCHEMISTRYOrdered By: SYSTEM SYSTEM on 75-88-4959Ootlnkp [Mass/Vol]4.4 g/dLNormal3.3 - 5.0 gm/dLRemisol Chem Albumin DL <= 20 mg/L (U) [Mass/Vol]mg/dLNormal0.0 - 1.9 mg/dLRemisol Chem Albumin/Globulin [Mass ratio]1.5 {ratio}Normal1.1 - 2.2Remisol ChemALP [Catalytic activity/Vol]46 [iU]/zTsfpwp23 - 98 Int._Unit/LRemisol ChemALT No additional P-5'-P [Catalytic activity/Vol]23 [iU]/dNormal6 - 46 Int._Unit/L Remisol ChemAnion gap [Moles/Vol]9 mmol/LNormal6 - 16 mEq/LRemisol ChemAST [Catalytic activity/Vol]26 [iU]/dNormal5 - 43 Int._Unit/LRemisol ChemBilirubin [Mass/Vol]0.8 mg/dLNormal0.0 - 1.1 mg/dLRemisol ChemCalcium [Mass/Vol]9.3 mg/dL Normal8.9 - 11.1 mg/dLRemisol ChemChloride [Moles/Vol]103 mmol/MWyxici187 - 111 mmol/LRemisol ChemCholesterol [Mass/Vol]190 mg/tHXehkef622 - 200 mg/dLRemisol ChemCholesterol in HDL [Mass/Vol]59 mg/dLInvalid Interpretation CodeRemisol Chem Comment on above:Result Comment: '>= 60 LOW RISK' '<= 40 HIGH RISK'Cholesterol in LDL [Mass/Vol]129 mg/dLNormal<=129mg/dLRemisol ChemCholesterol in VLDL [Mass/Vol]29 mg/dLNormal7 - 40 mg/dLRemisol ChemCO2 [Moles/Vol]29 mmol/UBbdejp67 - 31 mmol/LRemisol ChemCreatinine [Mass/Vol]0.7 mg/dLNormal0.5 - 1.3 mg/dLRemisol DbuelCPS71 mL/min/1.73 t6Effywc>=59mL/min/1.73 r1Wkpzhon ChemGlobulin (S) [Mass/Vol]3.0 g/dLNormal1.4 - 4.0 gm/dLRemisol Chem Glucose [Mass/Vol]150 mg/yUOniefe42 - 199 mg/dLRemisol ChemPotassium [Moles/Vol] 4.3 mmol/LNormal3.5 - 5.3 mmol/LRemisol ChemProtein [Mass/Vol]7.4 g/dLNormal6.0 - 7.8 gm/dLRemisol ChemProtein/Creatinine (U) [Ratio]4.90 mg/gm CrNormal0.00 - 200.00 mg/gm CrRemisol ChemSodium [Moles/Vol]137 mmol/PKwbtht237 - 145 mmol/L Remisol ChemTriglyceride [Mass/Vol]143 mg/dLNormal<=149mg/dLRemisol ChemU Newqprzmgp651.2 mg/dLInvalid Interpretation CodeRemisol ChemUr Total Protein5.8 mg/dLInvalid Interpretation CodeRemisol ChemUrea nitrogen [Mass/Vol]18 mg/dL Normal5 - 21 mg/dLRemisol ChemUrea nitrogen/Creatinine [Mass ratio]26 mg/mgHigh 10 - 20Remisol ChemCHEMISTRYOrdered By: Zhanna Villarreal on 37-15-0533SuX1k (Bld) [Mass fraction]6.2 %High<=5.9%[facility] [facility] ChemAutoSSCMPon 16-90-8789Vdjswmq [Mass/Vol] 4.4 g/dLNormal3.3-5.0Bellevue HospitalComment on above:Performed By: #### [id number] #### [facility] [address], [place] [address]Ycozutj/Globulin (S) [Mass conc ratio]1.6Cmacef3.1-2.2Fisher [facility]view Medical CenterComment on above:Performed By: #### [id number] #### [facility] [address], [place] [address]OYP [Catalytic activity/Vol]46 Int._Unit/LQzxfii01-17VllyxsBellevue HospitalComment on above:Performed By: #### [id number] #### [facility] [address], [place] [address]NDI No additional P-5'-P [Catalytic activity/Vol]23 Int._Unit/L Normal6-46Bellevue HospitalComment on above:Performed By: #### [id number] #### [facility] [address], [place] [address]Mqapc gap [Moles/Vol]9 mmol/LNormal6-16Bellevue HospitalComment on above:Performed By: #### [id number] #### [facility] [address], [place] [address]SKC [Catalytic activity/Vol]26 Int._Unit/LNormal5-43B[facility]vue HospitalComment on above:Performed By: #### [id number] #### [facility] [address], [place] [address]Xufpudntr [Mass/Vol]0.8 mg/dLNormal0.0-1.1FPremier Health Miami Valley Hospital NorthComment on above:Performed By: #### [id number] #### [facility] [address], [place] [address]Xzzkzqm [Mass/Vol]9.3 mg/dLNormal8.9-11.1FPremier Health Miami Valley Hospital NorthComment on above:Performed By: #### [id number] #### [facility] [address], [place] [address]Jcsgylmb [Moles/Vol]103 mmol/ZTrlety533-104MppqiuBellevue HospitalComment on above:Performed By: #### [id number] #### [facility] [address], [place] [address]ZG4 [Moles/Vol]29 mmol/VYzzrcm81-93LraxwaBellevue Hospital Comment on above:Performed By: #### [id number] #### [facility] [address], [place] [address]Ldnpzszftb [Mass/Vol]0.7 mg/dLNormal0.5-1.3FPremier Health Miami Valley Hospital NorthComment on above:Performed By: #### [id number] #### [facility] [address], [place] [address]Rylvpkjj (S) [Mass/Vol]3.0 g/dLNormal1.4-4.0Bellevue HospitalComment on above:Performed By: #### [id number] #### [facility] [address], [place] [address]Eckydli [Mass/Vol]150 mg/mBScuiel92-245QdsyrkBellevue HospitalComment on above:Performed By: #### [id number] #### [facility] [address], [place] [address]Psmnylodw [Moles/Vol]4.3 mmol/LNormal3.5-5.3FPremier Health Miami Valley Hospital NorthComment on above:Performed By: #### [id number] #### [facility] [address], [place] [address]Drlfwdc [Mass/Vol]7.4 g/dLNormal6.0-7.8Bellevue HospitalComment on above:Performed By: #### [id number] #### [facility] [address], [place] [address]Laiwbe [Moles/Vol]137 mmol/SMalluu450-097JhckacBellevue HospitalComment on above:Performed By: #### [id number] #### [facility] [address], [place] [address]Nafo nitrogen [Mass/Vol]18 mg/dLNormal5-21Bellevue HospitalComment on above:Performed By: #### [id number] #### [facility] [address], [place] [address]Eoqt nitrogen/Creatinine [Mass ratio]26 No JpxqcWzqo62-66NqrysbBellevue HospitalComment on above:Performed By: #### [id number] #### [facility] [address], [place] [address]Qdnmyv Medicine Office/Clinic Noteon 75-08-6516Mvzfpq Medicine Office/Clinic NoteFahahnemann hospital Medicine Office/Clinic Note Chief Complaint 6m [...] APOLINAR TREJO CNP, FAM Within [address] [place] [phone] Business (1) Additional Instructions: Diabetes Patient Education Diabetes Mellitus and Exercise Problem List/Past Medical History Ongoing BMI 31.0-31.9,adult Body mass index [BMI] 31.0-31.9, adult Type II diabetes mellitus Historical No qualifying data Proc (more content not included)...NormalBellevue HospitalComment on above:Result Comment: Electronically Signed By: APOLINAR TREJO CNP\Date and Time Signed: 04/05/24 08:41 EDTLipid Panelon 32-60-0010Lsduvnqcrdt [Mass/Vol]190 mg/yQUbuupz329-303GhwnhfBellevue HospitalComment on above: Performed By: #### [id number] #### [facility] [address] [facility] [place], [place] [address]Kjxjujwykxx in HDL [Mass/Vol]59 mg/dLInvalid Interpretation CodeBellevue HospitalComment on above:Result Comment: '>= 60 LOW RISK' '<= 40 HIGH RISK'Performed By: #### [id number] #### [facility] [address] [place], [place] [address]Dgwnnwxyyel in LDL [Mass/Vol]129 mg/dLNormal<=129Bellevue HospitalComment on above:Performed By: #### [id number] #### [facility] [address] [place], [place] [address]Ffglusvrmvx in VLDL [Mass/Vol]29 mg/dLNormal7-40Bellevue HospitalComment on above:Performed By: #### [id number] #### [facility] [address] [place], [place] [address]Qqvypmtrhlrn [Mass/Vol]143 mg/dLNormal<=149Bellevue HospitalComment on above:Performed By: #### [id number] #### [facility] [address] [place], [place] [address]A Microalbon 94-91-9996Gijoesx DL <= 20 mg/L (U) [Mass/Vol] mg/dLNormal0.0-1.9Bellevue HospitalComment on above:Performed By: #### [id number] #### [facility] [address] [place], [place] [address]L Protein/Creat Ratioon 44-59-9297Qyruqhz/Creatinine (U) [Ratio]4.90 mg/gm CrNormal.00-200.00Bellevue HospitalComment on above: Performed By: #### [id number] #### [facility] [address], [place] [address]R Eeuurkxepq201.2 mg/dLInvalid Interpretation [facility] HospitalComment on above:Performed By: #### [id number] #### [facility] [address], [place] [address]Gr Total Protein5.8 mg/dLInvalid Interpretation [facility] HospitalComment on above:Performed By: #### [id number] #### [facility] [address], [place] [address]wKNAxs 35-31-8196mARC85 mL/min/1.73 o8Xymlch>=59B[facility]vue HospitalComment on above:Performed By: #### [id number] #### [facility] [address], [place] [address]Znfugt Medicine Office/Clinic Noteon 20-38-4125Nwjowi Medicine Office/Clinic NoteChief Complaint Med Check HPI [...] BID, # 180 tab(s), Refills(s) 1, Pharmacy: [facility]/pharmacy #[id number], 162, cm, 12/17/23 7:22:00 EDT, Height/Length [...] tab(s), Oral, Daily, 30 tab(s), Refill(s) 0, [facility]/pharmacy #6177, 161.3, cm, 10/06/23 15:21:00 EDT, Height/Length [...] right retina, H/O: hysterect (more content not included)...[facility] HospitalComment on above:Result Comment: Electronically Signed By: APOLINAR TREJO CNP\marco\Date and Time Signed: 12/17/23 08:23 EDTPatient Educationon 79-47-8358Lhyimoz EducationEndocrinology Diabetes Mellitus and Nutrition, Adult When [...] Carrots. Green beans. Tomatoes. Peppers. Onions. Cucumbers. [place] sprouts. Grains Whole grains, such as whole-wheat or whole-grain bread, crackers, tortillas, cereal, and pasta. Unsweetened oatmeal. (more content not included)...Normal [facility] Medical CenterPatient Logson 70-09-0713Ujtnwbc Logs [id number]#1.00TIFFNormalFisher [facility] Medical CenterAmbulatory Visit Summaryon 70-75-5058Cszympcshi Visit Summary LYNSEY ROMERO :1955 Visit Date:11/19/2023 [...] AM EDT With: APOLINAR TREJO CNP [facility]Invalid Interpretation [address] [place] [address]- \.br\ Thursday 2:30 PM EST \.br\ With:\.br\ Where: [facility] Medicine Office/Clinic Noteon 05-06-5475Isffzx Medicine Office/Clinic NoteHPI Staff Patient presents to [...] she does not need to see a cloth pattern maker. Review of Systems PHQ Score Initial Depression [...] BID, # 60 tab(s), Refills(s) 0, Pharmacy: [facility]/pharmacy #[id number], 161.3, cm, 11/19/23 7:58:00 EDT, Height/Length Dosing, 88.6, kg, 11/19/23 7:58:00 EDT, Weight Dosing Misc Prescription, Glucometer, See Instructions, 1 EA, 0, Glucometer to test blood sugar TID PRN E11.9, [facility] Supply, 161.3, cm, 11/19/23 7:58:00 EDT, Height/Length Dosing, 88.6, kg, 11/19/23 7:58:00 EDT, Weight Dosing Misc Prescription, Lancets, See Instructions, 100 EA, 0, Test blood sugar TID PRN E11.9, [facility]/pharmacy #6177, Supply, 161.3, cm, 11/19/23 7:58:00 EDT, Height/Length Dosing, 88.6, kg, 11/19/23 7:58:00 EDT, Weight Dosing Misc Prescription, Test strips, See Instructions, 100 EA, 0, Test blood sugar TID PRN E11.9, [facility]/pharmacy #6177, Supply, 161.3, cm, 11/19/23 7:58:00 EDT, [...] 4274F Most recent diasto (more content not included)...[facility] HospitalComment on above:Result Comment: Electronically Signed By: APOLINAR TREJO CNP\marco\Date and Time Signed: 11/19/23 08:47 EDTPatient Educationon 78-71-2742Hxcxhjp EducationEndocrinology Diabetes Mellitus and Nutrition, Adult When [...] Carrots. Green beans. Tomatoes. Peppers. Onions. Cucumbers. [place] sprouts. Grains Whole grains, such as whole-wheat or whole-grain bread, crackers, tortillas, cereal, and pasta. Unsweetened oatmeal. (more content not included)...Normal [facility] HospitalCHEMISTRYOrdered By: Zhanna Villarreal on 11-16-2023 HbA1c (Bld) [Mass fraction]13.1 %High<=5.9%[facility] [place] BqefNvygXMQjaB6ana 11-16-2023 HbA1c (Bld) [Mass fraction]13.1 %High<=5.9[facility] HospitalComment on above:Performed By: #### [id number] ####[facility] [address] [place], [place] [address]Ghyvh Consultation Noteon 31-04-2405Kostg Consultation NoteReason for Visit lab work Assessment/Plan [...] Recorded influenza virus vaccine, inactivated 06/01/2019 RecordedNormalFisher [facility]view Medical CenterLab Reportson 96-04-6678Wjs Reports [id number]#1.00TIFFNormWakeMed North Hospitaler [facility] Medical CenterOutside Mammographyon 35-41-8873Wtqzuqw Mammography [id number]#1.00TIFFKnox Community HospitalOutside Mammographyon 41-21-7936Zbpaqkr Mammography [id number]#1.00TIFFKnox Community HospitalOutside Mammographyon 68-40-7075Joxnlmy Mammography [id number]#1.00TIFBrecksville VA / Crille HospitalAmbulatory Visit Summaryon 97-95-5232Jkznfkeqok Visit Summary LYNSEY ROMERO :1955 Visit Date:10/06/2023 [...] AM EDT With: APOLINAR TREJO CNP Where: [facility] Family [facility] Medicine Office/Clinic Noteon 24-94-8269Dlhwnu Medicine Office/Clinic NoteChief Complaint establish care and [...] her daughter (she is a nurse at [employer]). She is not sure if she [...] screen for fall r (more content not included)...[facility] HospitalComment on above:Result Comment: Electronically Signed By: APOLINAR TREJO CNP\.br\Date and Time Signed: 10/06/23 16:35 EDTPatient Educationon 71-04-9811Unbzcuk EducationCardiovascular Hypertension, Adult Hypertension is another name [...] Keep all follow-up visits. Medicines ? Take bxlb-ejl-ubryjod and prescription medicines only as told by [...] blood. ? For m (more content not included)...[facility] Community HospitalMG MAMM SCREEN 3D TOMMY CADon 54-83-1036WP MAMM SCREEN 3D TOMMY CADPatient: LYNSEY ROMERO Exam Date: 04/23/2021 : 1955 Gender:F Ordering : DR GOSIA MUNROE . Admission #: [id number] Family : Order #: [id number] CLICK HERE TO VIEW EXAM RADIOLOGY REPORT [...] lymphoma cancer at age 71. LOCATION: [facility] BREAST COMPOSITION: Scattered areas fibroglandular density. [...] by: Beverly Queen MD on 04/23/2021 at 10:55[facility] Vital Signs Date TimeVital SignValuePerforming YqcdudifpCoedazeo97-13-3483 09:10-0400Body ohzpqc662.1 Nicho Guallpa MD Work Phone: [phone] [place], [place] [address]308-17-2025 09:10-0400 Body mass index (BMI) [Ratio]29.7 kg/j9HrpbcnJuanjo Guallpa MD Work Phone: [phone] [place], [place] [address]308-17-2025 09:10-0400 Body rkbyvlkypwl52.6 [degF]Juanjo Guallpa MD Work Phone: [phone]08-17-2025 09:10-0400 Body ydmotz33.9 kgJuanjo Guallpa MD Work Phone: [phone] [place], [place] 230[address]308-17-2025 09:10-0400 Diastolic blood ibbgqbul64 mm[Hg]Juanjo Guallpa MD Work Phone: [phone] [place], [place] 230[address]308-17-2025 09:10-0400 Heart rate67 /Eva Guallpa MD Work Phone: [phone] [place], [place] 230[address]308-17-2025 09:10-0400 Respiratory rate18 /Eva Guallpa MD Work Phone: [phone] [place], [place] [address]-17-2025 09:10-0400 SaO2% (BldA) [Mass fraction]97 %Juanjo Guallpa MD Work Phone: [phone] [place], [place] [address]-17-2025 09:10-0400 Systolic blood nusypcpo931 mm[Hg]Juanjo Guallpa MD Work Phone: [phone]11-17-2024 09:14-0500 Body huggqm394.1 cmSabeba Guallpa MD Work Phone: [phone]11-17-2024 09:14-0500 Body mass index (BMI) [Ratio]29.2 kg/r9OotgxyJuanjo Guallpa MD Work Phone: [phone]11-17-2024 09:14-0500 Body juaqiqfxpig71.5 [degF]Juanjo Guallpa MD Work Phone: [phone]11-17-2024 09:14-0500 Body .83 kgJuanjo Guallpa MD Work Phone: [phone]11-17-2024 09:14-0500 Diastolic blood ifjfgjqk94 mm[Hg]Juanjo Guallpa MD Work Phone: [phone]11-17-2024 09:14-0500 Heart rate74 /Eva Guallpa MD Work Phone: [phone] [place], [place] [address]11-17-2024 09:14-0500 Respiratory rate18 /Eva Guallpa MD Work Phone: [phone]11-17-2024 09:14-0500 SaO2% (BldA) [Mass fraction]95 %Juanjo Guallpa MD Work Phone: [phone]11-17-2024 09:14-0500 Systolic blood jfhzvjcu757 mm[Hg]Juanjo Guallpa MD Work Phone: [phone] [place], [place] [address]01-05-2024 12:05-0500 Body ezffqj204.64 Laila Aguiar Other [employer] Other 01-05-2024 12:05-0500Body mass index (BMI) [Ratio] 31.73 kg/f2TrtfhzLilliana Aguiar Other [employer] Other 01-05-2024 12:05-0500Body lazkbialkzs11.7 [degF]Lilliana Aguiar Other [employer] Other 01-05-2024 12:05-0500Body ohqfpr70.18 kgLilliana Aguiar Other [employer] Other 01-05-2024 12:05-0500Diastolic blood snedqmug44 mm[Hg] Lilliana Renemond Other [employer] Other 01-05-2024 12:05-0500Respiratory rate16 /minLilliana Aguiar Other [employer] Other 01-05-2024 12:05-6388RuI5% (BldA) [Mass fraction]97 % Lilliana Aguiar Other [facility] [employer] Other 01-05-2024 12:05-0500Systolic blood gwjaqhgs242 mm[Hg] Lilliana Aguiar Other [employer] Other Encounters Encounter DateEncounter TypeCare ProviderFacilityStart: 10-25-6828gzoyimagek APOLINAR A LEHMANNFacility:FT FM BellevueStart: 61-00-7395iedomcnhhxJLFQRL A LEHMANNFacility:FT FM BellevueStart: 04-25-2025 End: 91-83-5518Sdngcp flowsheetTiffanie Benson MD Work Phone: NOMS Mejía DermatologyStart: 04-25-2025 End: 82-92-5680Sjodfo flowsheetEmfracisco Benson MD Work Phone: HELEN Mejía DermatologyStart: 04-25-2025 End: 02-33-7380gxvwssapkhQIMSN A PETITTINot AvailableStart: 04-25-2025 End: 59-96-7277Wxkhae outpatient visit 15 minutesEmily Stu Benson MD Work Phone: HELEN Mejía DermatologyComment on above:Lichen planopilaris (Primary Dx)Start: 04-06-2025 End: 26-22-7905elddypcqjuIGMBRP A LEHMANNFacility:FTMCStart: 04-06-2025 End: 28-13-1183pbtssjqhhwEJSFLI A LEHMANNFacility:FT FM BellevueStart: 03-23-2025 End: 86-90-7408Qzlwes patheetEmfracisco Benson MD Work Phone: HELEN Mejía DermatologyStart: 03-23-2025 End: 24-88-1720Wylwan flowsheetEmfracisco Benson MD Work Phone: HELEN Mejía DermatologyStart: 03-23-2025 End: 11-54-8290Yghkap outpatient visit 15 minutesEmily Stu Benson MD Work Phone: HELEN Mejía DermatologyComment on above:Actinic keratosis (Primary Dx); Lentigines; History of basal cell carcinoma; Lichen planopilarisStart: 03-23-2025 End: 87-89-8243cqbnxaulkwDNEHE A PETITTINot AvailableStart: 02-26-2025 End: 68-35-4920bzeibjshhsDivlru E Ross MD Work Phone: [facility] Work Phone: Start: 02-26-2025 End: 31-13-8301Qojqbgk encounter procedureSaira Jain APRN-[facility] Work Phone: Start: 10-07-2024 End: 59-11-8715Bmuicde encounter procedureEmily Stu Benson MD Work Phone: noms [facility] DERMComment on above:Basal cell carcinoma (BCC) of skin of left upper extremity including shoulder (Primary Dx)Start: 10-07-2024 End: 60-35-3631jiitwfrhuvPPKRT A PETITTINot AvailableStart: 10-04-2024 End: 74-64-9527Lwa Drop offSHELLY Stu TREJO [facility] Start: 10-04-2024 End: 18-01-1678vwoodzbkokWQQZUZ A MAYAFacility:FTMCStart: 08-22-2024 End: 25-19-6900Xawkpv flowsheetTiffanie Benson MD Work Phone: noms [facility] DERMStart: 08-22-2024 End: 19-73-4423Iggceh flowsheetEmfracisco Benson MD Work Phone: noms [facility] DERMStart: 08-22-2024 End: 55-48-0649zcejplzpddUCOZK A PETITTINot AvailableStart: 08-22-2024 End: 71-98-7324Abqwqk outpatient visit 25 minutesEmfracisco Benson MD Work Phone: noms [facility] DERMComment on above:Lichen planopilaris (Primary Dx); Seborrheic keratosis; Lentigines; History of basal cell carcinoma; Actinic keratosis; Neoplasm of unspecified behavior of bone, soft tissue, and skinStart: 06-14-2024 End: 96-42-8690wirlietausYPKSBW A LEHMANNFacility:FT BellevueStart: 05-29-2024 End: 36-39-6744Evruqvo encounter procedureSabeba Guallpa MD Work Phone: [facility] Work Phone: Start: 05-29-2024 End: 22-66-9484mqklzokkhuCniwup E Ross MD Work Phone: [facility] Work Phone: Start: 05-29-2024 End: 71-22-8607gflroxfnngCdjxhl E Ross MD Work Phone: [facility] Work Phone: Start: 05-29-2024 End: 67-27-3171Qceskyp encounter procedureSabeba Guallpa MD Work Phone: [facility] Work Phone: Start: 04-05-2024 End: 40-33-3297Viw Drop offSHELLY A MAYA [facility] Start: 04-05-2024 End: 45-20-6585sgqsfentrmUOAINF A LEHMANNFacility:FT FM BellevueStart: 12-17-2023 End: 34-23-3893mqwnnhrxdzTGQKGU A LEHMANNFacility:FT FM BellevueStart: 11-19-2023 End: 66-90-8513vstcermdloTSCPCZ A LEHMANNFacility:FT FM BellevueStart: 11-16-2023 End: 87-95-5670Wkn Drop offSHELLY A MAYA [facility] Start: 11-16-2023 End: 95-40-0246gbooenhfmpXNRMVJ A LEHMANNFacility:FTMCStart: 10-06-2023 End: 56-56-5299camgaeayabARQWIJ A LEHMANNFacility:FT FM BellevueStart: 86-11-5798esehtcwkdmLQQBCX LEHMANNFacility:FT FM BellevueStart: 08-20-2023 End: 53-97-9524Ulwixu outpatient visit 25 minutesEmily Stu Benson MD Work Phone: [facility] DERMComment on above:Lichen planopilaris (Primary Dx); Seborrheic keratosis; Lentigines; History of basal cell carcinoma; Actinic keratosisStart: 07-17-2023 End: 22-41-0414yxidkatxyeZngqdk Stefania Other [employer] Other Start: 10-99-0167Kbxthz outpatient new 20 minutes Lilliana StefaniaFPG [facility]gent Care ClydeStart: 04-23-2021 End: 30-18-1358krytwyowyyJO GOSIA MUNROEFacility:H1 Procedures DateProcedureProcedure DetailPerforming ClinicianStart: [id number] OF LESIONEmily Stu Benson MD Work Phone: Start: 55-96-7740GAFN / NAIL BIOPSYEmily Stu Benson MD Work Phone: Start: 04-39-4334SVJCZTTUHNU SKIN LESIONEmily Stu Benson MD Work Phone: Start: 21-05-5686Qalgp chest X-raySabeba Guallpa MD Work Phone: AppendectomyAPOLINAR WINTERHMANN Bilateral cataracts (disorder)APOLINAR TREJO Detachment of retina of right eye (disorder)APOLINAR TREJO H/O: hysterectomySHMARIAA WINTERHMANN H/O: surgeryHx of detached retina ogSalady Guallpa MD Work Phone: History of hernia repairAPOLINAR TREJO Swelling of first metatarsal joint of hallux of left foot (disorder)APOLINAR TREJO Plan of Treatment DateCare ActivityDetailAuthorStart: 69-08-4632Xmpuievtv for malignant neoplasm of colonNOMS HealthcareStart: 08-22-2025 End: 20-55-0481Pdwnqha encounter procedureNOMS SWS DERMStart: 04-25-2025 End: 60-43-8937Lzupnyd encounter tyyeumuqb16/14/2025 11:15 AM EDT Office Visit [facility] [address] [place], [id number] Tiffanie Benson MD [address] [place] [address] [facility]ermatologyStart: 03-23-2025 End: 78-39-2925Vaqoxlr encounter procedureNOLOMA [facility] DERMComment on above:Arrived Start: 96-84-9179Lyblvovgm vaccinationInfluenza Vaccine (#1)[facility] Start: 08-22-2024 End: 23-61-5453Zlzygis encounter aayqkcajt36/10/2025 10:45 AM EST Office Visit [facility] [address] [place] [address] Tiffanie Benson MD [address] [place] [address] [facility] DERMStart: 98-46-1788Mwlcdcdzk vaccination Influenza Vaccine (#1)[facility] HealthcareStart: 07-90-6629Jjasakcbvbsi Vaccine: 65+ Years (1 - PCV)Pneumococcal Vaccine: 65+ Years (1 - PCV)[facility] HealthcareStart: 03-37-9345Edmmqwocpogi Vaccine: 65+ Years (1 of 1 - PCV)Pneumococcal Vaccine: 65+ Years (1 of 1 - PCV)[facility] HealthcareStart: 55-22-7102Wltzvhnqnvmi Vaccine: 65+ Years (1 of 1 - PCV)Pneumococcal Vaccine: 65+ Years (1 of 1 - PCV)[facility] HealthcareStart: 40-21-1675Sbhvyowxo for malignant neoplasm of breastMammogram [facility] HealthcareStart: 26-93-5314Tvelxgvut for malignant neoplasm of colonNOMS HealthcareDermatopathology examDermatopathology exam Pathology and Cytology Timed Neoplasm of unspecified behavior of bone, soft tissue, and skin Release Upon Ordering for 1 Occurrences starting 08/22/2024[facility] Work Phone: comment on above:Release Upon Ordering for 1 Occurrences starting 08/22/2024 Immunizations Immunization DateImmunizationNotesCare RlkcigknVcedgkyu02-28-0811ahndtnrbs virus vaccine, unspecified formulationTiffanie Benson MD Work Phone: [facility] HospitalRejhjfbvli83-11-8510HYHH-ZmZ-4 mRNA (bwtzlxuefaz-pqqi-pdkkyio) vaccineSHELLY MAYA 873-8786Cxucbh-YlfkzUc Health 78-18-6774vrgmhjjqx virus vaccine, unspecified formulationSHELLY MAYA 098-0697Ydncnn-RflxuUc Health 11-98-5234jlxnwechc, unspecified formulationSHELLY MAYA [phone]-QrtltUc Health 29-68-0183cwtduwztq virus vaccine, unspecified formulationSHELLY MAYA 609-9138Udnbqy-ZqbfzUc Health 25-39-3495rhyecgtov virus vaccine, unspecified formulationSHELLY MAYA 537-2592Mnhbgi-JsjewUc Health 17-08-3191KRGZ-CoV-2 (COVID-19) mRNA BNT-162b2 vaxSHELLY MAYA 945-1097Onagmt-ZoozeUc Health Comment on above:Result Comment: 2023-10-06: [id number]-QoK-5 (COVID- 19) mRNA BNT-162b2 vaxSHELLY MAYA 083-9389Zqarza-CtjzzUc Health 76-43-2347SRYI-CoV-2 (COVID-19) mRNA BNT-162b2 vaxSHELLY MAYA 457-0146Oehbrs-KsqxqUc Health 24-05-5753wtrfqlmep virus vaccine, unspecified formulationSHELLY MAYA 123-8973Rgakqp-CcncbUc Health 54-44-2527bplaxtvph virus vaccine, unspecified Surendra MAYA 570-7924Rqqtba-HtmamUc Health Payers DatePayer CategoryPayerPolicy [id number]-pay2023MedicaidAETNA MEDICARE ADVANTAGE [id number] 2023MedicareAETNA MEDICARE ADVANTAGE AETNA MEDICARE REPLACEMENT [id number] 2022-Present [address] [place] [id number] [id number] 2..4.391855.[id number] [id number] 2..1.121371.3.57[id number] 2..1.736813.3.57[id number] 2..1.202605.3.57[id number] 2..1.448280.3.57[id number] 2..1.314436.3.57[id number] 2.16.840.1.969291.3.57[id number] 2.16.840.1.766527.3.57[id number] 2.16.840.1.112915.3.57[id number] 2.16.840.1.858680.3.57[id number] 2.16.840.1.890931.3.57[id number] 2.16.840.1.916501.3.57[id number] 2.16.840.1.664204.3.579.[id number] 2.16.840.1.160381.3.57[id number] 2.16.840.1.958613.3.57[id number] 2.16.840.1.200136.3.57[id number] 2.16.840.1.381733.3.57[id number] 2.16.840.1.270457.3.57[id number] 2.16.840.1.669441.3.57[id number] 2.16.840.1.977745.3.57[id number] 2..840.1.301261.3.57[id number] 2.0.1.514047.3.57[id number] 2..840.1.514013.3.579.2.1259Private Health Insurance [id number] 2..840.1.250931.3.579.2.531 Social History DateTypeDetailFacilityStart: 08-20-2023 End: 05-12-7764Ovx [facility] 03-03[facility]2023 End: 32-33-7585Youelvd smoking status NHISNever smoked tobaccoNOMS Healthcare Start: 19-67-7280Hlkrcpq use and exposureSmokeless tobacco non-userNOMS HealthcareStart: 08-20-2023 End: 54-08-9449Sqdawjj intakeDeferNOMS HealthcareStart: 08-20-2023 End: 70-96-8437Kmmaeos of Social functionNOMS HealthcareStart: 12-69-8562Gqm Assigned At [facility] HospitalNot on fileNOMS HealthcareStart: 13-57-7749Neuijfl smoking statusSal[facility]Start: 10-24-2009 End: 03-00-3108IpoOlwvkg ([facility] Hospitaltart: 23-53-1122Iok Assigned At [facility] Medical Equipment Procedure CodeEquipment CodeEquipment Original TextEquipment IdentifierDates Lancets, See Instructions, 100 EA, 0, Test blood sugar TID PRN E11.9, [id number], Supply, 161.3, cm, 11/19/23 7:58:00 EDT, Height/Length Dosing, 88.6, kg, 11/19/23 7:58:00 EDT, Weight DosingStart: 06-81-2245Bftb strips, See Instructions, 300 EA, 1, Test blood sugar TID E11.9, [facility], Supply, 162, cm, 12/17/23 7:22:00 EDT, Height/Length Dosing, 86.2, kg, 12/17/23 7:22:00 EDT, Weight DosingStart: 88-59-6004Ycfpaml, See Instructions, 100 EA, 0, Test blood sugar TID PRN E11.9, [facility], Supply, 161.3, cm, 11/19/23 7:58:00 EDT, Height/Length Dosing, 88.6, kg, 11/19/23 7:58:00 EDT, Weight DosingStart: 34-42-7431Qqir strips, See Instructions, 300 EA, 1, Test blood sugar TID E11.9, [facility], Supply, 162, cm, 12/17/23 7:22:00 EDT, Height/Length Dosing, 86.2, kg, 12/17/23 7:22:00 EDT, Weight DosingStart: 02-17-2024 Clinical Notes 06-12-2023 to 04-25-2025 Note Date & SqudRqryTkkkzidk48-71-6017 History of Present illness Narrative* Tiffanie Benson [...] Next Visit: as scheduled documented in this encounterSainte Genevieve County [facility] HospitalSmaqyjowzp69-30-2474 NotePatient Education Endocrinology Diabetes Mellitus and Nutrition, [...] Carrots. Green beans. Tomatoes. Peppers. Onions. Cucumbers. [place] sprouts. Grains Whole grains, such as whole-wheat or whole- (more content not included)...[facility]09-25-2025 NotePatient Education Endocrinology Diabetes Mellitus and Foot Care Diabetes, also called diabetes mellitus, may cause problems with your feet and legs because of poorblood flow (circulation). Poor circulation may make your skin: ??? Become thinner and chip drier. ??? Break more easily. ??? Heal [...] away. Where to find more information ??? [place] [employer]: diabetes.org ??? Association of Diabetes [...] provider. Document Revised: 12/31/2022 Document Reviewed: 12/31/2022 [employer] Patient Education ? 2023 [employer]. Diabetes Mellitus and Skin Care Diabetes, also [...] heal more slowly th (more content not included)...[facility] 03-23-2025 History of Present illness Narrative* [...] was obtained from the patient/parent. Method: See [facility] for details on administration. 3 [...] Next Visit: 4 weeks documented in this encounterSainte Genevieve County Memorial HospitalArugylmkun23-14-9683 History of Present illness Narrative* Tiffanie Benson [...] extremity including shoulder Left Shoulder - Posterior [place] macule at biopsy site Destr of lesion Complexity: simple Destruction method: electrodesiccation and curettage Informed consent: discussed and consent obtained Informed consent comment: The risks of the procedure were discussed, including, but not limited to risks of scarring, darker or medical anthropology director pigmentary changes, recurrence, infection, and incomplete removal [...] of lidocaine used: 5cc Previous accession number: [id number] Emphasized to return to clinic for any signs of recurrence prior to next visit. Next Visit: 6 months for FBSE documented in this encounterSainte Genevieve County Memorial HospitalDkpwgodlws75-19-2527 NotePatient Education Endocrinology Diabetes Mellitus and Exercise [...] an expert trained in diabetes care (certified social workers in health care) can help you make an activity plan. [...] stroke). Where to find more information ??? [place] [employer]: diabetes.org ??? Association of Diabetes Care & Education Specialists: diabeteseducator.org This information is not intended to replace advice given to you by your health care provider. Make sure you discuss any questions you have with your health care provider. Document Revised: 12/17/2022 Document Reviewed: 12/17/2022 [employer] Patient Education ? 2023 [employer].[facility] 08-22-2024 History of Present illness Narrative* [...] limited to risks of scarring, darker or medical anthropology director pigmentary changes, recurrence, incomplete removal and infection. [...] tissue, and skin Left Shoulder - posterior [place] papule Lesion biopsy Type of biopsy: tangential [...] exam and follow up documented in this encounterSainte Genevieve County Memorial HospitalGkmdholspe90-40-1177 NotePatient Education Infectious Disease Sinus Infection, Adult [...] ? Medicines that treat allergies (antihistamines). ? Iedr-jgk-yfdxtos pain relievers. ??? If caused by bacteria, your doctor may wait to see if you will get better without treatment. You may be given antibiotic medicine if you have: ? A very bad infection. ? A weak body defense system. ??? If caused by growths in the nose, surgery may be needed. Follow these instructions at home: Medicines ??? Take, use, or apply jhwz-xii-zqxwqql and prescription medicines only as told by [...] cannot use soap and water, use hand motivational speaker. ??? Do not smoke. Avoid being around [...] you were prescribed an (more content not included)...[facility]11-17-2024 Evaluation note* Diagnosis Onset Date Resolution Status Admit Date URI (upper respiratory infection) noneactiveNovember 2023 9:12am [facility] Work Phone: 1(340) 100-992809-24-2024 NotePatient Education Endocrinology Diabetes Mellitus and Exercise [...] an expert trained in diabetes care (certified social workers in health care) can help you make an activity plan. [...] stroke). Where to find more information ? [place] [employer]: diabetes.org ? Association of Diabetes Care & Education Specialists: diabeteseducator.org This information is not intended to replace advice given to you by your health care provider. Make sure you discuss any questions you have with your health care provider. Document Revised: 12/17/2022 Document Reviewed: 12/17/2022 [employer] Patient Education ? 2023 [employer].[facility] 08-20-2023 History of Present illness Narrative* [...] loss/redness worsens. Discussed risk of atrophy with usp use of topical steroid. Patient voiced understanding. [...] year, skin check/follow up documented in this [facility]02-08-2024 Instructions* Patient Instructions* Niyah Alamo LPN - 08/20/2023 10:35 AM EST AVOID FRAGRANCES Sometimes Fragrance may not be listed in the ingredients and instead one of these ingredients will be listed: Citronellol / Farnesol Citral a-Hexylcinnamicaldehyde Geraniol Cinnamyl alcohol Almond deluna Lyral Limonene Cinnamaldehyde Isoeugenol a-Amylcinnamaldehyde Linalool Hydroxycitronellal Eugenol Coumarine AVOID FORMALDEHYDE RELEASERS INCLUDING: Quaternium-15 DMDM hydantoin Imidazolidinyl urea Diazolidinyl urea Polyoxymethylene urea Sodium hydroxymethylglycinate Bromopol AVOID HAIR COLOR/DYES AND OTHER PRODUCTS WITH THE FOLLOWING INGREDIENTS: Ammonium persulfate Paraphenylenediamine (PPD) Methylchloroisothiazolinone (MCI/PR) USE ZINC-CONTAINING MINERAL SUNSCREENS, FACIAL MOISTURIZES, AND MAKEUP WITH SPF. IT IS BEST TO USE FRAGRANCE FREE PRODUCTS. AVOID THE FOLLOWING: Gallate mix Dodecyl gallate Octyl gallate documented in this [facility]01-05-2024 Evaluation note* Encounter Date Diagnosis Assessment [...] no improvement in 2 to 3 days [employer] Other 12-01-2023 History general Narrative - Reported* Type Description Date Medical History HYPERTENSION Surgical HistoryCATARACTS IBEYYCS25/2023Surgical HistoryDETACHED WXQTWQ08/22 [employer] Other Evaluation + Plan note Future Appointments Appointment Date:04/05/2024 08:00:00 AM Scheduled Provider:APOLINAR TREJO CNP Location:[facility] Future Appointments Appointment Date:06/14/2024 02:30:00 PM Scheduled Provider: Location:[facility] Appointment Type: Medicare Wellness Subsequent [facility] Evaluation + Plan note Future Appointments Appointment Date:04/06/2025 07:20:00 AM Scheduled Provider:APOLINAR TREJO CNP Location:[facility] Appointment Type: Open Appointment Date:04/06/2025 08:00:00 AM Scheduled Provider: Location:[facility] Appointment Type: Medicare Wellness Initial [facility] Evaluation note* Diagnosis Lichen planopilaris- Primary Lichen planus Seborrheic keratosis Lentigines History of basal cell carcinoma Personal history of other malignant neoplasm of skin Actinic keratosis documented in this encounter [facility] HealthcareEvaluation note* Diagnosis Lichen planopilaris- Primary Lichen planus Seborrheic keratosis Lentigines History of basal cell carcinoma Personal history of other malignant neoplasm of skin Actinic keratosis Neoplasm of unspecified behavior of bone, soft tissue, and skin documented in this encounter [facility] HealthcareEvaluation note* Diagnosis Basal cell carcinoma (BCC) of skin of left upper extremity including shoulder- Primary documented in this encounter [facility] HealthcareEvaluation noteNo assessment information availableSelect [facility] Work Phone: Evbswjtnhn note* Diagnosis Actinic keratosis- Primary Lentigines History of basal cell carcinoma Personal history of other malignant neoplasm of skin Lichen planopilaris Lichen planus documented in this encounter [facility] HealthcareEvaluation note* Diagnosis Lichen planopilaris- Primary Lichen planus documented in this encounter [facility] HealthcareHospital course Narrative No data available for this section [facility] instructions No data available for this section [facility]Progress note No data available for this section [facility] HospitalReason for referral (narrative)No reason for referral information availableSelect [facility] Work Phone: Summary Purpose Family History No [...] section and content) DATE CREATED AUTHOR 05/02/2021 [facility] DATE CREATED AUTHOR AUTHOR'S ORGANIZ ATION 04/06/2024 [facility] DATE CREATED AUTHOR AUTHOR'S ORGANIZ ATION 04/08/2024 [facility] DATE CREATED AUTHOR AUTHOR'S ORGANIZ ATION 06/03/2024 [facility] DATE CREATED AUTHOR AUTHOR'S ORGANIZ ATION 04/07/2025 [facility] DATE CREATED AUTHOR AUTHOR'S ORGANIZ ATION 04/14/2025 [facility] DATE CREATED AUTHOR AUTHOR'S ORGANIZ ATION 04/15/2025 [facility] DATE CREATED AUTHOR AUTHOR'S ORGANIZ ATION 04/26/2025 [facility] EPIC REASON FOR VISIT (unrecogniz ed section and content) ReasonCommentsSkin CheckReasonCommentsProcedureReasonCommentsFollow-up Care Teams (unrecognized sec tion and content) Team MemberRelationshipSpecialtyStart DateEnd Date Gosia Munroe MD [address] [place] [id number] [facility]03/03/23 Team Status: Active Member Role Status Dates Juanjo Guallpa MD Primary Care Provider Active Team Status: Inactive Member Role Status Dates Juanjo Guallpa MD Primary Care Provider Active Start: May 29, 2024 End: May 29, 2024Belen Carvalho ProviderActive Start: May 29, 2024 End: May 29, 2024 Team Status: Active Member Role Status Dates Keir Kennedy APRN Attending Provider Active Start: May 29, 2024 Maynor Martinez [facility] ProviderActiveStart: May 29, 2024 Team Status: Inactive Member Role Status Dates Keri Kennedy APRN Attending Provider Active Start: May 29, 2024 End: May 29, 2024Maynor Martinez Care ProviderActiveStart: May 29, 2024 End: May 29, 2024Team MemberRelationshipSpecialtyStart DateEnd Date Gosia Munroe MD [address] [place] [facility] [place] [address] [facility]03/03/23Team MemberRelationshipSpecialtyStart DateEnd Date Gosia Munroe MD [address] [facility] [place] [address] [facility]03/03/23 Team Status: Inactive Member Role Status Dates Juanjo Guallpa MD Primary Care Provider Active Start: February 26, 2025 End: February 26, 2025Belen Sterling ProviderActiveStart: February 26, 2025 End: February 26, 2025Team MemberRelationshipSpecialtyStart DateEnd Date Gosia Munroe MD [address] [facility] [place] [address] PCP - GeneralFamily Medicine03/03/23Team MemberRelationshipSpecialtyStart DateEnd Date Gosia Munroe MD [address] [place] [address] PCP - [facility]03/03/23Te MemberRelationshipSpecialtyStart DateEnd Date Gosia Munroe MD [address] [place] [address] PCP - [facility]03/03/23 [...] BE BASED ON THE PRIMARY CLINICAL RECORDS. [facility] [employer] [facility]. provides no warranty or guarantee of the accuracy or completeness of information in this document.
--- NOTE | 2025-06-19 12:22 | ED_ITS ---
HPI HPI - General Adult General Chief complaint: Extremity Injury, Lower Stated complaint: L ANKLE PAIN Time Seen by Provider: 06/19/25 11:52 Source: patient Mode of arrival: walk-in Limitations: no limitations History of Present Illness HPI narrative: Patient is a 69-year-old female that presents with complaints of a progressive new left lateral calf pain after she sustained a distal fibula fracture a week ago. She has been in a short leg splint since this time and is following with Dr. Gutierrez. She denies any new trauma. She denies recent surgery, previous DVT/PE, but is diabetic. She is not on any anticoagulation or antiplatelet medications. Related Data Home Medications ?Medication ?Instructions ?Recorded ?Confirmed bisoprolol 2.5 tab 06/11/25 mg-hydrochlorothiazide 6.25 mg tablet fluconazole 150 mg tablet mg 06/11/25 metformin 500 mg tablet mg 06/11/25 Previous Rx's ?Medication ?Instructions ?Recorded acetaminophen 300 mg-codeine 30 mg 1 tab PO Q6H PRN pa in 5 days #20 06/11/25 tablet tabs ibuprofen 800 mg tablet 800 mg PO Q8H PRN pain #20 t abs 06/11/25 amoxicillin 875 mg-potassium 1 tab PO BID 5 days #10 t abs 06/19/25 clavulanate 125 mg tablet apixaban 5 mg tablet (Eliquis) 5 mg PO BID 20 days #40 tabs 06/19/25 apixaban 5 mg tablet (Eliquis) 10 mg (2 x 5 mg) PO BID 7 days #28 06/19/25 tabs Allergies Allergy/AdvReac Type Severity Reaction Status Date / Time No Known Drug Allergies Allergy Verified 06/19/25 11:35 Opioid HPI Opioid Management Most Recent Opioid Data: Last Pain Scale 5 06/11/25, 09:41 Review of Systems ROS Status of ROS 10 or more systems reviewed and unremark able except as noted in history and below PFSH PFSH Social History Little interest or pleasure in doing things: not at all Feeling down, depressed, or hopeless: not at all Exam Narrative Exam Narrative: General: No distress, age-appropriate Skin: Warm, dry, no pallor. No rash. Head: Normocephalic, atraumatic. Neck: Supple, non-tender. Eye: Pupils are equal, round and EOMI. No scleral icterus. Ears, Nose, Mouth, and Throat: No nasal mucosal hypertrophy. Oral mucosa is moist, no posterior oropharynx erythema, uvula is mid-line Cardiovascular: Regular Rate and Rhythm without murmur, gallop or rub. Respiratory: No accessory muscle use or respiratory distress. Musculoskeletal: Full ROM of all extremities, except left ankle secondary to fracture and pain. Ecchymosis and swelling left lower extremity. There is an area of erythema on the lateral calf that is very tender. 2+ pitting edema. 2+ DP pulse palpated. Sensation intact distally with light touch. Neurological: A&O x4. No cranial nerve dysfunction observed. No truncal ataxia. Moves all extremities. Sensation intact. Psychiatric: Cooperative and interactive. Normal mood and affect. Constitutional Vital Signs, click to edit/add: Last Vital Signs Temp 98.5 F 06/19/25 11:35 Pulse 83 06/19/25 11:35 Resp 18 06/19/25 11:35 BP 135/83 06/19/25 11:35 Pulse Ox 97 06/19/25 11:35 O2 Del Method Room Air 06/19/25 11:40 Documenting provider has reviewed patient's vital signs: yes Course Vital Signs Vital signs: Vital Signs Temperature 98.5 F 06/19/25 11:35 Pulse Rate 83 06/19/25 11:35 Respiratory Rate 18 06/19/25 11:35 Blood Pressure 135/83 06/19/25 11:35 Pulse Oximetry 97 06/19/25 11:35 Temperature 98.5 F 06/19/25 11:35 Pulse Rate 83 06/19/25 11:35 Respiratory Rate 18 06/19/25 11:35 Blood Pressure 135/83 06/19/25 11:35 Pulse Oximetry 97 06/19/25 11:35 Oxygen Delivery Method Room Air 06/19/25 11:40 Medical Decision Making MDM Narrative Medical decision making narrative: The patient is a 69-year-old female with a recent distal fibula fracture on 06/11/2025 presenting with progressive left lateral calf pain after being immobilized for a week and a short leg splint. She has been treated by Dr. Gutierrez for this. She also notes that she has been having progressive sinus pressure and starting to blow up purulent mucus. She has a history of sinus infections. Doppler ultrasound revealed an acute deep venous thrombosis in the posterior tibial vein system from proximal to mid-calf. I did also do a tib-fib x-ray to rule out any undiagnosed fracture further up on the fibula. This was negative for new fracture or dislocation. No change in fracture alignment of the distal fibula fracture. Given her age, recent immobilization, and symptomatic distal DVT, she is at risk for clot propagation and pulmonary embolism. She has no contraindications to anticoagulation. CBC and CMP reveal no anemia, thrombocytopenia, or kidney issues. After discussion of risks and benefits, she was started on apixaban 10 mg PO BID for 7 days followed by 5 mg PO BID, with counseling on bleeding precautions and avoidance of NSAIDs. I did also prescribe her Augmentin x 5 days for her sinus infection. I did call and update Dr. Gutierrez as his office had referred her here in the case that she did have a DVT. He is okay with her going into a tall boot at this time to work on some gentle ankle ROM. She does have a knee walker to use and I did staff genetic counselor her on nonweightbearing until she follows up with him. She was also advised to monitor for signs of PE, maintain mobility as tolerated per orthopedic guidance, and follow up with her PCP for ongoing management. Supportive care and fracture follow-up will continue under Dr. Gutierrez. Differential Diagnosis Differential Diagnosis: DVT, cellulitis, hematoma Lab Data Lab results reviewed: Yes I reviewed the patient's lab results Labs: Lab Results 06/19/25 Range/Units 14:13 WBC 7.6 (4.0-11.0) 10^3/uL RBC 4.78 (4.20-5.40) 10^6/uL Hgb 14.1 (12.0-16.0) g/dL Hct 41.8 (36.0-48.0) % MCV 87.4 (81.0-99.0) fL MCH 29.5 (26.7-34.0) pg MCHC 33.7 (29.9-35.2) g/dL RDW 11.3 (11.0-15.0) % Plt Count 297 (150-450) 10^3/uL MPV 8.9 L (9.5-13.5) fL Neut % (Auto) 61.0 (43.0-75.0) % Lymph % (Auto) 23.1 (20.5-60.0) % [place] % (Auto) 12.7 H (1.7-12.0) % Eos % (Auto) 2.6 (0.9-7.0) % Baso % (Auto) 0.5 (0.2-2.0) % Neut # (Auto) 4.6 (1.4-6.5) 10^3/uL Lymph # (Auto) 1.8 (1.2-3.8) 10^3/uL [place] # (Auto) 1.0 H (0.3-0.8) 10^3/uL Eos # (Auto) 0.2 (0.0-0.7) 10^3/uL Baso # (Auto) 0.0 (0.0-0.1) 10^3/uL Abs Immat Gran (auto) 0.01 (0.00-0.03) 10^3/uL Imm/Tot Granulo (auto) 0.1 (0.0-0.5) % Sodium 140 (136-145) mmol/L Potassium 4.4 (3.5-5.1) mmol/L Chloride 104 (98-107) mmol/L Carbon Dioxide 30.6 (21.0-32.0) mmol/L Anion Gap 9.8 BUN 18.0 (7.0-18.0) mg/dL Creatinine 0.78 (0.55-1.02) mg/dL Est GFR ( Amer) >60 (>=60 mL/min/1.73m^2) Est GFR (Non-Af Amer) >60 (>=60 mL/min/1.73m^2) BUN/Creatinine Ratio 23.1 Glucose 104 (74-106) mg/dL Calcium 9.7 (8.5-10.1) mg/dL Total Bilirubin 0.3 (0.2-1.0) mg/dL AST 20 (15-37) U/L ALT 32 (14-59) U/L Alkaline Phosphatase 62 (46-116) U/L Total Protein 7.4 (6.4-8.2) g/dL Albumin 3.8 (3.4-5.0) g/dL Globulin 3.6 g/dL Albumin/Globulin Ratio 1.1 Imaging Data Ultrasound left lower extremity vein: Attestation: I have reviewed the pertinent imaging results. Radiologist's impression: ITS Impressions Tibia/Fibula X-Ray 06/19/25 12:16 IMPRESSION: There is an obliquely oriented fracture of the lateral malleolus without change in alignment. No significant interval healing. There is accompanying soft tissue swelling. No additional acute displaced fractures. Impression dictated by: Abelardo Estrada M.D. 06/19/2025 1:32 PM Dictation Location: [place] [id number] Electronically authenticated by: [id number] Y Date: 06/19/2025 13:32 US LLE Doppler Impression: Deep venous thrombosis in the posterior tibial vein system from proximal to mid calf. Discharge Plan Discharge Chief Complaint: Extremity Injury, Lower Clinical Impression: Deep vein thrombosis (DVT) of posterior tibial vein, Sinusitis, Fracture of distal end of fibula Patient Disposition: Home, Self-Care Time of Disposition Decision: 15:18 Condition: Good Mode of Transportation: Private Vehicle Prescriptions / Home Meds: New Eliquis 5 mg tablet 5 mg PO BID 20 Days Qty: 40 0RF Eliquis 5 mg tablet 10 mg PO BID 7 Days Qty: 28 0RF Rx Instructions: Eliquis 10 mg twice daily x 7 days followed by Eliquis 5 mg twice daily amoxicillin-pot clavulanate 875-125 mg tablet 1 tab PO BID 5 Days Qty: 10 0RF No Action metformin 500 mg tablet fluconazole 150 mg tablet bisoprolol-hydrochlorothiazide 2.5-6.25 mg tablet ibuprofen 800 mg tablet 800 mg PO Q8H PRN (Reason: pain) Qty: 20 0RF acetaminophen-codeine 300-30 mg tablet 1 tab PO Q6H PRN (Reason: pain) 5 Days Qty: 20 0RF Print Language: Samoan Instructions: Sinusitis (ED), Deep Vein Thrombosis (ED) Referrals: Sean Gutierrez DPM [Physician, Podiatry] - 1 week Rody Chapman NP [Primary Care Provider] - 1 week Discharge Date/Time: 06/19/25 16:55
[2025-06-19 14:18] LABS: Hematocrit 41.8 % (36.0-48.0); Hemoglobin 14.1 g/dL (12.0-16.0); Immature Granulocytes Abs Auto 0.01 10^3/uL (0.00-0.03); Immature Granulocytes Pct Auto 0.1 % (0.0-0.5); Lymphocytes Absolute Auto 1.8 10^3/uL (1.2-3.8); Mean Corpuscular HGB Conc 33.7 g/dL (29.9-35.2); Mean Corpuscular Hemoglobin 29.5 pg (26.7-34.0); Mean Corpuscular Volume 87.4 fL (81.0-99.0); Platelet Count 297 10^3/uL (150-450); Red Blood Count 4.78 10^6/uL (4.20-5.40); White Blood Count 7.6 10^3/uL (4.0-11.0)
[2025-06-19 14:36] LABS: Alanine Aminotransferase 32 U/L (14-59); Albumin Globulin Ratio 1.1; Albumin Level 3.8 g/dL (3.4-5.0); Alkaline Phosphatase 62 U/L (46-116); Anion Gap 9.8; Aspartate Amino Transferase 20 U/L (15-37); Blood Urea Nitrogen 18.0 mg/dL (7.0-18.0); Calcium 9.7 mg/dL (8.5-10.1); Carbon Dioxide 30.6 mmol/L (21.0-32.0); Chloride 104 mmol/L (98-107); Estimated GFR (African America >60 (>=60 mL/min/1.73m^2); Estimated GFR (Non-African Ame >60 (>=60 mL/min/1.73m^2); Globulin 3.6 g/dL; Glucose 104 mg/dL (74-106); Potassium 4.4 mmol/L (3.5-5.1); Sodium 140 mmol/L (136-145); Total Protein 7.4 g/dL (6.4-8.2)
== END 2025-06-19 16:55 | disposition home or self-care (01) ==
PROVIDERS: Physician Assistant; Emergency Provider Emergency Medicine; PCP Nurse Practitioner Family
DX: I82.4Z2 Acute embolism and thrombosis of unspecified deep veins of left distal lower extremity (principal); E11.9 Type 2 diabetes mellitus without complications; Z79.84 Long term (current) use of oral hypoglycemic drugs; S82.832D Other fracture of upper and lower end of left fibula, subsequent encounter for closed fracture with routine healing; X58.XXXD Exposure to other specified factors, subsequent encounter; J32.9 Chronic sinusitis, unspecified
CPT/HCPCS: 36415; 73590; 80053; 85025; 93971; 99284; 99285

== ENCOUNTER 2025-06-26 08:55 | Outpatient (OUT) | payer MEDICARE, SELFPAY ==
--- NOTE | 2025-06-26 08:59 | XR_ITS ---
[facility] [place] [id number] Patient Name: LUIS ALFREDO ROMERO MRN: [id number] date: 1955 Sex: F Assigned Patient Location: [facility] Current Patient Location: [facility] Accession/Order Number: [id number] Exam Date: 06/26/2025 09:15 Report Date: 06/26/2025 10:47 At the request of: RASHID MALONE DPSusy Procedure: XR ankle LT min 3V LEFT ANKLE - 3 views CLINICAL DATA: Follow-up distal fibular fracture COMPARISON: 06/11/2025 AP, lateral and oblique views were obtained. End plate fracture is again seen at the distal fibular metadiaphysis, unchanged in alignment. Similar bony densities are again seen near the tip of the medial malleolus. There is no new fracture or dislocation. Calcaneal spurs are present. There are no significant soft tissue abnormalities. XR/XR ankle LT min 3V IMPRESSION: STABLE LATERAL MALLEOLAR FRACTURE Impression dictated by: Keren Goins M.D. 06/26/2025 10:47 AM Dictation Location: [place] [address] Electronically authenticated by: [id number] Y Date: 06/26/2025 10:47
== END 2025-06-26 08:56 | disposition home or self-care (01) ==
LOC: RAD 08:55
PROVIDERS: PCP Nurse Practitioner Family; Visit Provider Podiatrist Foot & Ankle Surgery
DX: S82.52XD Displaced fracture of medial malleolus of left tibia, subsequent encounter for closed fracture with routine healing (principal)
CPT/HCPCS: 73610